=== PATIENT | female | born 1950 | race Caucasian/White ===

== ENCOUNTER 2019-06-09 12:58 | Emergency (ER) | payer MEDICAID, MEDICARE ==
[2019-06-09] MEDS ORDERED: Acetaminophen 500 MG Tab PO ONE (13:19)
--- NOTE | 2019-06-09 13:26 | EDM.PDOC ---
ED HPI GENERAL MEDICAL PROBLEM - General Chief Complaint: General Stated Complaint: FALL VIA NORTH Time Seen by Provider: 06/09/19 13:10 Source of Information: Reports: Patient, Old Records History Limitations: Reports: No Limitations - History of Present Illness INITIAL COMMENTS - FREE TEXT/NARRATIVE: 68 yo female presents via EMS after a fall in her apartment. Has COPD and uses a walker at home. Today she was just standing up with her walker and fell backwards injuring her R shoulder and hitting the R occiput. She experienced no LOC. Has some local tenderness. No LAMBERT or nausea and no neck pain. States her BP runs around 100 systolic normally. Onset: Today Onset Date: 06/09/19 Duration: Minutes:, Constant Location: Reports: Head, Upper Extremity, Right Quality: Reports: Ache Severity: Moderate (shoulder) Improves with: Reports: Rest Worsens with: Reports: Movement (of R shoulder) Context: Reports: Trauma Associated Symptoms: Reports: No Other Symptoms Treatments LAND CHECKER: Reports: Other (see below) (none) Head Pain Score (Numeric/FACES): 8 - Related Data Allergies Allergy/AdvReac Type Severity Reaction Status Date / Time levofloxacin [From Levaquin] Allergy Cannot Verified 06/09/19 13:26 Remember triamterene-hctz Allergy Cannot Uncoded 06/09/19 13:28 Remember ED ROS GENERAL - Review of Systems Review Of Systems: See Below Constitutional: Reports: No Symptoms HEENT: Reports: Other (R occiput scalp tenderness) Respiratory: Reports: No Symptoms Cardiovascular: Reports: No Symptoms GI/Abdominal: Reports: No Symptoms Musculoskeletal: Reports: Shoulder Pain (right) Skin: Reports: No Symptoms Neurological: Reports: No Symptoms, Difficulty Walking (chronic). Denies: Confusion, Dizziness, Headache, Numbness ED EXAM, GENERAL - Physical Exam Exam: See Below Exam Limited By: No Limitations General Appearance: Alert, WD/WN, No Apparent Distress Eye Exam: Bilateral Eye: Normal Inspection Ears: Normal External Exam, Normal Canal, Hearing Grossly Normal, Normal TMs Ear Exam: Bilateral Ear: Auricle Normal, Canal Normal, TM normal Nose: Normal Inspection, No Blood Throat/Mouth: Normal Inspection, Normal Lips, Normal Oropharynx, Normal Voice, No Airway Compromise Head: Atraumatic, Normocephalic Neck: Normal Inspection Respiratory/Chest: No Respiratory Distress, Lungs Clear, No Accessory Muscle Use , Decreased Breath Sounds (bilat consistent with her chronic lung dz) Cardiovascular: Regular Rate, Rhythm, No Edema GI/Abdominal: Normal Bowel Sounds, Soft, Non-Tender, No Distention Extremities: Other (Is able to fully abduct at the R shoulder). No: Limited Range of Motion Neurological: Alert, Oriented, CN II-XII Intact, Normal Cognition, No Motor/ Sensory Deficits Psychiatric: Normal Affect, Normal Mood Skin Exam: Warm, Dry, Intact, Normal Color, No Rash Course - Vital Signs Last Recorded V/S: Last Vital Signs Temp 36.6 C 06/09/19 13:03 Pulse 81 06/09/19 13:16 Resp 16 06/09/19 13:16 BP 141/65 H 06/09/19 13:16 Pulse Ox 81 L 06/09/19 13:16 Orthostatic Blood Pressure [ 89/62 Standing] Orthostatic Blood Pressure [ 75/46 Sitting] Orthostatic Blood Pressure [ 89/55 Supine] - Orders/Labs/Meds Orders: Active Orders 24 hr Category Date Time Status Clavicle Rt [CR] Stat Exams 06/09/19 13:19 Ordered Shoulder Comp Rt [CR] Stat Exams 06/09/19 13:19 Ordered Meds: Medications Discontinued Medications Generic Name Dose Route Start Last Admin Trade Name Freq PRN Reason Stop Dose Admin Acetaminophen 1,000 mg 06/09/19 13:19 06/09/19 13:31 Tylenol Extra Strength PO 06/09/19 13:20 1,000 mg ONETIME ONE Administration - Radiology Interpretation Free Text/Narrative:: R shoulder and clavicle X-rays-neg Departure - Departure Time of Disposition: 14:25 Disposition: Home, Self-Care 01 Condition: Good Clinical Impression: Contusion of right shoulder Qualifiers: Encounter type: initial encounter Qualified Code(s): S40.011A - Contusion of right shoulder, initial encounter Scalp contusion Qualifiers: Encounter type: initial encounter Qualified Code(s): S00.03XA - Contusion of scalp, initial encounter - Discharge Information *PRESCRIPTION DRUG MONITORING PROGRAM REVIEWED*: No *COPY OF PRESCRIPTION DRUG MONITORING REPORT IN PATIENT DEMIAN: No Referrals: PCP,None [Primary Care Provider] - Forms: ED Department Discharge Additional Instructions: Acetaminophen as needed for pain relief. Recheck with your provider as needed. - My Orders Last 24 Hours: My Active Orders 06/09/19 13:19 Clavicle Rt [CR] Stat Shoulder Comp Rt [CR] Stat - Assessment/Plan Last 24 Hours: My Active Orders 06/09/19 13:19 Clavicle Rt [CR] Stat Shoulder Comp Rt [CR] Stat
--- NOTE | 2019-06-09 14:48 | CRLCR ---
HISTORY: Shoulder pain after injury. FINDINGS: Three views of the right shoulder are provided. There is a superior soft tissue defect which may be secondary to a strap in this region. No definite findings for fracture or dislocation. No arthritic change is noted. IMPRESSION: Negative study for fracture. If there is concern for fracture in the region of the distal clavicle, consider removal of clothing in this region and additional AP view. Dictated by Devan Prater MD @ Jun 09 2019 2:48PM Signed by Dr. Devan Prater @ Jun 09 2019 2:48PM
--- NOTE | 2019-06-09 14:57 | CRLCR ---
HISTORY: Pain after falling injury. FINDINGS: Two views of the right clavicle are provided. Superior soft tissue defect is noted distally presumably due to a strap. This results in areas of variable density superior to the clavicle but a definite fracture line within the clavicle is not identified. No findings for dislocation. If there is high index of suspicion for fracture in the region of the distal clavicle, consider repeat imaging with removal of the patient`s clothing in this region. Dictated by Devan Prater MD @ Jun 09 2019 2:55PM Signed by Dr. Devan Prater @ Jun 09 2019 2:55PM
== END 2019-06-09 14:30 | disposition home or self-care (01) ==
LOC: JP.ED 12:58
DX: S40.011A Contusion of right shoulder, initial encounter (principal); S00.03XA Contusion of scalp, initial encounter; Z88.8 Allergy status to other drugs, medicaments and biological substances; W19.XXXA Unspecified fall, initial encounter; W22.8XXA Striking against or struck by other objects, initial encounter
CPT/HCPCS: 73000; 73030; 99282; 99283; A9270

== ENCOUNTER 2020-01-16 11:20 | Inpatient (IN) | payer MEDICARE, MEDICAID ==
--- NOTE | 2020-01-16 14:54 | EDM.PDOC ---
ED HPI GENERAL MEDICAL PROBLEM - General Chief Complaint: General Stated Complaint: MEDICAL VIA NORTH Time Seen by Provider: 01/16/20 13:53 Source of Information: Reports: Patient History Limitations: Reports: No Limitations - History of Present Illness INITIAL COMMENTS - FREE TEXT/NARRATIVE: This is a 69 yo female who presents after a fall at home this morning. She was trying to get out of bed when she was unable to get her footing on the floor. She slid to the ground. No head strike. She estimates she was on the ground for a few minutes until meals on wheels discovered her on the ground. She reports global weakness that prevented her from standing up. No other recent falls. No fevers or chills. No pain. No urinary symptoms. Left Upper Arm Pain Score (Numeric/FACES): 1 - Related Data Allergies Allergy/AdvReac Type Severity Reaction Status Date / Time hydrochlorothiazide Allergy Cannot Verified 01/16/20 16:42 Remember levofloxacin [From Levaquin] Allergy Cannot Verified 01/16/20 11:28 Remember triamterene Allergy Cannot Verified 01/16/20 16:42 Remember Home Meds: Home Meds ALPRAZolam [Alprazolam] 1 tab PO BID PRN 06/09/19 [History] ARIPiprazole [Abilify] 10 mg PO DAILY 06/09/19 [History] Acetaminophen 1 tab PO Q6H PRN 06/09/19 [History] Albuterol Sulfate [Proair Hfa] 2 puff IH Q4H 06/09/19 [History] Budesonide/Formoterol [Symbicort 80-4.5 MCG] 2 puff INH BID 06/09/19 [History] Cholecalciferol (Vitamin D3) [Decara] 50,000 unit PO ASDIRECTED 06/09/19 [History] Fluticasone/Salmeterol [Advair 100-50] 2 puff INH BID 06/09/19 [History] Ibuprofen [Motrin] 800 mg PO QID PRN 06/09/19 [History] Ipratropium/Albuterol Sulfate [Iprat-Albut 0.5-3(2.5) MG/3 ML] 3 ml IH ASDIRECTED 06/09/19 [History] Letrozole [Femara] 2.5 mg PO DAILY 06/09/19 [History] Losartan/Hydrochlorothiazide [Hyzaar 100-25 Tablet] 1 tab PO DAILY 06/09/19 [History] Nortriptyline HCl [Pamelor] 50 mg PO DAILY 06/09/19 [History] Oxybutynin 5 mg PO TID 06/09/19 [History] Pantoprazole Sodium [Protonix] 40 mg PO DAILY 06/09/19 [History] Pravastatin Sodium [Pravastatin (Pravachol)] 20 mg PO BEDTIME 06/09/19 [History] Tiotropium [place] [Spiriva Respimat] 2 puff IH DAILY 06/09/19 [History] Venlafaxine HCl [Venlafaxine ER] 150 mg PO DAILY 06/09/19 [History] amLODIPine Besylate [Norvasc] 10 mg PO DAILY 06/09/19 [History] traZODone 200 mg PO BEDTIME 06/09/19 [History] Aspirin [Halfprin] 81 mg PO DAILY 01/16/20 [History] Past Medical History HEENT History: Reports: Other (See Below) Other HEENT History: 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 Cardiovascular History: Reports: Hypertension, Syncope, Other (See Below) Other Cardiovascular History: orthostatic hypotension sinus rickie Respiratory History: Reports: Bronchitis, Recurrent, COPD, Other (See Below) Other Respiratory History: hypoxemia Gastrointestinal History: Reports: Cirrhosis, Other (See Below) Other Gastrointestinal History: pancreas cyst hepititis C resolved 2016 [employer] History: Reports: Musculoskeletal History: Reports: Arthritis, Other (See Below) Other Musculoskeletal History: l shoulder dislocation fx medial malleolus osteopenia Frequent falls Psychiatric History: Reports: Addiction, Anxiety, Depression, Suicide Attempt, Other (See Below) Other Psychiatric History: alcoholic dependence in remission Endocrine/Metabolic History: Reports: Vitamin D Deficiency, Other (See Below) Other Endocrine/Metabolic History: thrombocytenia Oncologic (Cancer) History: Reports: Breast - Infectious Disease History Infectious Disease History: Reports: Chicken Pox, Measles, Mumps - Past Surgical History HEENT Surgical History: Reports: Other (See Below) Other HEENT Surgeries/Procedures: retinal detachment surgery GI Surgical History: Reports: Colonoscopy Female Surgical History: Reports: Other (See Below) Other Female Surgeries/Procedures: breast CA lympectomy l breast Social & Family History - Tobacco Use Smoking Status *Q: Former Smoker Used Tobacco, but Quit: Yes Month/Year Tobacco Last Used: years - Caffeine Use Caffeine Use: Reports: Coffee Caffeine Use Comment: none for 2 weeks - Recreational Drug Use Recreational Drug Use: No ED ROS GENERAL - Review of Systems Review Of Systems: See Below Constitutional: Reports: Weakness HEENT: Reports: No Symptoms Respiratory: Reports: No Symptoms Cardiovascular: Reports: No Symptoms Endocrine: Reports: No Symptoms GI/Abdominal: Reports: No Symptoms : Reports: No Symptoms Musculoskeletal: Reports: No Symptoms Skin: Reports: No Symptoms Neurological: Reports: No Symptoms Psychiatric: Reports: No Symptoms Hematologic/Lymphatic: Reports: No Symptoms Immunologic: Reports: No Symptoms ED EXAM, GENERAL - Physical Exam Exam: See Below Exam Limited By: No Limitations General Appearance: Alert, No Apparent Distress Ears: Normal External Exam Nose: Normal Inspection Throat/Mouth: Normal Inspection Head: Atraumatic, Normocephalic Neck: Full Range of Motion Respiratory/Chest: Lungs Clear Cardiovascular: Regular Rate, Rhythm GI/Abdominal: Soft, Non-Tender Back Exam: Normal Inspection Extremities: Normal Inspection Neurological: Alert, Oriented, Other (moving all extremities, following commands, provides history.) Psychiatric: Normal Affect, Normal Mood Skin Exam: Warm, Dry Course - Vital Signs Last Recorded V/S: Last Vital Signs Temp 37.7 C 01/16/20 11:32 Pulse 110 H 01/16/20 17:52 Resp 20 01/16/20 17:52 BP 160/89 H 01/16/20 17:52 Pulse Ox 90 L 01/16/20 17:52 - Orders/Labs/Meds Orders: Active Orders 24 hr Category Date Time Status CXR [Chest 2V] [CR] Stat Exams 01/16/20 16:11 Taken UA W/MICROSCOPIC [URIN] Stat Lab 01/16/20 16:51 Ordered Labs: Laboratory Tests 01/16/20 01/16/20 Range/Units 13:59 13:59 WBC 10.9 (4.5-11.0) K/uL RBC 5.14 (3.30-5.50) M/uL Hgb 15.1 H (12.0-15.0) g/dL Hct 47.8 (36.0-48.0) % MCV 93 (80-98) fL MCH 29 (27-31) pg MCHC 32 (32-36) % Plt Count 145 L (150-400) K/uL Sodium 140 (140-148) mmol/L Potassium 3.9 (3.6-5.2) mmol/L Chloride 100 (100-108) mmol/L Carbon Dioxide 33 H (21-32) mmol/L Anion Gap 10.9 (5.0-14.0) mmol/L BUN 29 H (7-18) mg/dL Creatinine 1.3 H (0.6-1.0) mg/dL Est Cr Clr Drug Dosing 41.78 mL/min Estimated GFR (MDRD) 41 L (>60) Glucose 111 H (74-106) mg/dL Calcium 9.1 (8.5-10.1) mg/dL Creatine Kinase 1141 H (26-192) U/L - Re-Assessments/Exams Free Text/Narrative Re-Assessment/Exam: 69 yo presents after fall at home with generalized weakness. Fall sounds to be mechanical in nature. She was noted to be hypoxic in the 80s - she is supposed to have home O2 which she has not been wearing. Elected to perform screening labs, CK is mildly elevated with mild elevation of Cr but unknown baseline. We attempted an ambulatory trial and the patient is unable to transfer on her own - not safe to be at home. Precipitant unclear - UA pending. Electing to perform CT head. She will need to be admitted. 01/16/20 15:04 6 Departure - Departure Time of Disposition: 15:00 Disposition: Admitted As Inpatient 67 Clinical Impression: Fall Qualifiers: Encounter type: initial encounter Qualified Code(s): W19.XXXA - Unspecified fall, initial encounter Rhabdomyolysis Qualifiers: Rhabdomyolysis type: traumatic Encounter type: initial encounter Qualified Code(s): T79.6XXA - Traumatic ischemia of muscle, initial encounter - Discharge Information Sepsis Event Note (ED) - Evaluation Sepsis Screening Result: No Definite Risk - Focused Exam Vital Signs: Vital Signs Temp Pulse Resp BP Pulse Ox 01/16/20 11:32 37.7 C 98 18 125/62 86 L 01/16/20 11:27 37.7 C 98 18 125/62 86 L - My Orders Last 24 Hours: My Active Orders 01/16/20 16:11 CXR [Chest 2V] [CR] Stat - Assessment/Plan Last 24 Hours: My Active Orders 01/16/20 16:11 CXR [Chest 2V] [CR] Stat
--- NOTE | 2020-01-16 16:11 | CRLCT ---
INDICATION: gait instability CT HEAD WITHOUT CONTRAST TECHNIQUE: Multiple axial CT images were performed through the head without intravenous contrast administration. COMPARISON: No previous studies are currently available for comparison. FINDINGS: No acute intracranial hemorrhage is identified. No extra-axial collections are evident and there is no mass effect or midline shift. There is mild diffuse age-related brain atrophy. Ventricular size and configuration are within normal limits for the patient`s age. Hawk-white differentiation is within normal limits. There is patchy hypodensity in the periventricular white matter, a nonspecific finding which most likely reflects chronic small vessel ischemic change. Intracranial atherosclerotic vascular calcifications are noted. There are postoperative changes of the right globe. Osseous structures are within normal limits and no fractures are seen. Included portions of the paranasal sinuses and mastoid air cells are normally aerated. IMPRESSION: 1. No acute intracranial abnormality identified. 2. Mild age-related brain atrophy, white matter hypodensity consistent with chronic small vessel ischemic change, and intracranial atherosclerotic vascular calcifications. ROCAEL STEEL MD [facility] Dictated by: Silver Steel MD @ 01/16/2020 16:09:42 (Electronically Signed)
--- NOTE | 2020-01-16 17:06 | PCM.HP.2 ---
H&P History of Present Illness - General Date of Service: 01/16/20 Admit Problem/Dx: Admission Diagnosis/Problem Admission Diagnosis/Problem Rhabdomyolysis Source of Information: Patient, Provider History Limitations: Reports: No Limitations - History of Present Illness Initial Comments - Free Text/Narative: CC: I was feeling pretty bad HPI: Miriam presented to the emergency room by ambulance today after a [employer] son found her laying on the floor. She reports that she became so weak that she slid to the ground sometime last night, perhaps 7 or 8 hours prior to being found. She has been getting more and more weak over the past several days. She reports that she had been doing well while receiving home physical therapy but after this ended just over a week ago she quit exercising and has gone downhill fairly quickly. She is complaining of mild to moderate left lateral thigh and knee pain from laying on the ground overnight. This does not radiate. It is worse with any sort of movement or pressure. She has not taken anything to make it feel better. Pain has been steady. She does report some chills but has not had any fevers or sweats. Her appetite has been good. No complaints of abdominal pain or nausea. Bowels have been moving normally. She does feel short of breath but reports this is chronic and essentially unchanged. No cough. No change in bladder habits that she is aware of. Work-up in the emergency room was fairly unremarkable with the exception of a CK level of 1100 and hypoxia that did respond well to supplemental oxygen. She has a history of oxygen dependent COPD but has not been using her oxygen for several months. She is extremely weak. She will be admitted for management of rhabdomyolysis and physical therapy for her weakness. Left Upper Arm Pain Score (Numeric/FACES): 1 - Related Data Allergies/Adverse Reactions: Allergies Allergy/AdvReac Type Severity Reaction Status Date / Time hydrochlorothiazide Allergy Cannot Verified 01/16/20 16:42 Remember levofloxacin [From Levaquin] Allergy Cannot Verified 01/16/20 11:28 Remember triamterene Allergy Cannot Verified 01/16/20 16:42 Remember Home Medications: Home Meds ALPRAZolam [Alprazolam] 1 tab PO BID PRN 06/09/19 [History] ARIPiprazole [Abilify] 10 mg PO DAILY 06/09/19 [History] Acetaminophen 1 tab PO Q6H PRN 06/09/19 [History] Albuterol Sulfate [Proair Hfa] 2 puff IH Q4H 06/09/19 [History] Budesonide/Formoterol [Symbicort 80-4.5 MCG] 2 puff INH BID 06/09/19 [History] Cholecalciferol (Vitamin D3) [Decara] 50,000 unit PO ASDIRECTED 06/09/19 [History] Fluticasone/Salmeterol [Advair 100-50] 2 puff INH BID 06/09/19 [History] Ibuprofen [Motrin] 800 mg PO QID PRN 06/09/19 [History] Ipratropium/Albuterol Sulfate [Iprat-Albut 0.5-3(2.5) MG/3 ML] 3 ml IH ASDIRECTED 06/09/19 [History] Letrozole [Femara] 2.5 mg PO DAILY 06/09/19 [History] Losartan/Hydrochlorothiazide [Hyzaar 100-25 Tablet] 1 tab PO DAILY 06/09/19 [History] Nortriptyline HCl [Pamelor] 50 mg PO DAILY 06/09/19 [History] Oxybutynin 5 mg PO TID 06/09/19 [History] Pantoprazole Sodium [Protonix] 40 mg PO DAILY 06/09/19 [History] Pravastatin Sodium [Pravastatin (Pravachol)] 20 mg PO BEDTIME 06/09/19 [History] Tiotropium [place] [Spiriva Respimat] 2 puff IH DAILY 06/09/19 [History] Venlafaxine HCl [Venlafaxine ER] 150 mg PO DAILY 06/09/19 [History] amLODIPine Besylate [Norvasc] 10 mg PO DAILY 06/09/19 [History] traZODone 200 mg PO BEDTIME 06/09/19 [History] Aspirin [Halfprin] 81 mg PO DAILY 01/16/20 [History] Past Medical History HEENT History: Reports: Other (See Below) Other HEENT History: 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 Cardiovascular History: Reports: Hypertension, Syncope, Other (See Below) Other Cardiovascular History: orthostatic hypotension sinus rickie Respiratory History: Reports: Bronchitis, Recurrent, COPD, Other (See Below) Other Respiratory History: hypoxemia Gastrointestinal History: Reports: Cirrhosis, Other (See Below) Other Gastrointestinal History: pancreas cyst hepititis C resolved 2016 [employer] History: Reports: Musculoskeletal History: Reports: Arthritis, Other (See Below) Other Musculoskeletal History: l shoulder dislocation fx medial malleolus osteopenia Frequent falls Psychiatric History: Reports: Addiction, Anxiety, Depression, Suicide Attempt, Other (See Below) Other Psychiatric History: alcoholic dependence in remission Endocrine/Metabolic History: Reports: Vitamin D Deficiency, Other (See Below) Other Endocrine/Metabolic History: thrombocytenia Oncologic (Cancer) History: Reports: Breast - Infectious Disease History Infectious Disease History: Reports: Chicken Pox, Measles, Mumps - Past Surgical History HEENT Surgical History: Reports: Other (See Below) Other HEENT Surgeries/Procedures: retinal detachment surgery GI Surgical History: Reports: Colonoscopy Female Surgical History: Reports: Other (See Below) Other Female Surgeries/Procedures: breast CA lympectomy l breast Social & Family History - Family History Cardiac: Denies: CAD - Tobacco Use Smoking Status *Q: Former Smoker Used Tobacco, but Quit: Yes Month/Year Tobacco Last Used: years - Caffeine Use Caffeine Use: Reports: Coffee Caffeine Use Comment: none for 2 weeks - Alcohol Use Alcohol Use History: Yes Alcohol Use in Last Twelve Months: No Alcohol Use Comment: quit in 2018 per report - Recreational Drug Use Recreational Drug Use: No H&P Review of Systems - Review of Systems: Review Of Systems: See Below Free Text/Narrative: A complete 12 point review of systems was obtained. Pertinent positives and negatives are noted in the history of present illness. All other systems were reviewed and were negative except as noted. Exam - Exam Exam: See Below - Vital Signs Vital Signs: Last Vital Signs Temp 37.7 C 01/16/20 11:32 Pulse 98 01/16/20 11:32 Resp 18 01/16/20 11:32 BP 125/62 01/16/20 11:32 Pulse Ox 86 L 01/16/20 11:32 Weight: 107.048 kg - Exam Quality Assessment: Supplemental Oxygen General: Alert, Oriented, Cooperative, Lethargic. No: Mild Distress HEENT: Conjunctiva Clear. No: Mucosa Moist & [place] (dry), Scleral Icterus Neck: Supple, Trachea Midline. No: Lymphadenopathy Lungs: Clear to Auscultation, Normal Respiratory Effort Cardiovascular: Regular Rhythm, Tachycardia. No: Systolic Murmur GI/Abdominal Exam: Normal Bowel Sounds, Soft, Non-Tender, No Distention Extremities: No Pedal Edema. No: Increased Warmth Peripheral Pulses: 2+: Dorsalis Pedis (L), Dorsalis Pedis (R) Skin: Warm, Dry, Ecchymosis (right forearm ) Neuro Extensive - Mental Status: Alert, Nl Response to Commands Neuro Extensive - Motor, Sensory, Reflexes: Tremor (hands and arms ), Other (tongue fasciculations ). No: Dysarthria Psychiatric: Alert, Normal Affect. No: Agitated - Patient Data Lab Results Last 24 hrs: Laboratory Results - last 24 hr 01/16/20 01/16/20 Range/Units 13:59 13:59 WBC 10.9 (4.5-11.0) K/uL RBC 5.14 (3.30-5.50) M/uL Hgb 15.1 H (12.0-15.0) g/dL Hct 47.8 (36.0-48.0) % MCV 93 (80-98) fL MCH 29 (27-31) pg MCHC 32 (32-36) % Plt Count 145 L (150-400) K/uL Sodium 140 (140-148) mmol/L Potassium 3.9 (3.6-5.2) mmol/L Chloride 100 (100-108) mmol/L Carbon Dioxide 33 H (21-32) mmol/L Anion Gap 10.9 (5.0-14.0) mmol/L BUN 29 H (7-18) mg/dL Creatinine 1.3 H (0.6-1.0) mg/dL Est Cr Clr Drug Dosing 41.78 mL/min Estimated GFR (MDRD) 41 L (>60) Glucose 111 H (74-106) mg/dL Calcium 9.1 (8.5-10.1) mg/dL Creatine Kinase 1141 H (26-192) U/L Result Diagrams: 01/16/20 13:59 01/16/20 13:59 Imaging Impressions Last 24 hrs: CXR-images personally reviewed-lungs are clear with no mass, infiltrate or effusion. Head CT-images personally reviewed-no evidence for mass, bleed or acute pathology Sepsis Event Note - Evaluation Sepsis Screening Result: No Definite Risk - Focused Exam Vital Signs: Vital Signs Temp Pulse Resp BP Pulse Ox 01/16/20 11:32 37.7 C 98 18 125/62 86 L 01/16/20 11:27 37.7 C 98 18 125/62 86 L Date Exam was Performed: 01/16/20 Time Exam was Performed: 18:18 *Q Meaningful Use (ADM) - VTE Risk Assess *Q Each Risk Factor Represents 1 Point: Abnormal Pulmonary Function (COPD) Total Score 1 Point Risk Factors: 1 Each Risk Factor Represents 2 Points: Age 60 - 74 Years, Malignancy (present or previous) Total Score 2 Point Risk Factors: 4 Each Risk Factor Represents 3 Points: None Total Score 3 Point Risk Factors: 0 Each Risk Factor Represents 5 Points: None Total Score 5 Point Risk Factors: 0 Venous Thromboembolism Risk Factor Score *Q: 5 - Problem List (1) Traumatic rhabdomyolysis SNOMED Code(s): 821173807 ICD Code: T79.6XXA - TRAUMATIC ISCHEMIA OF MUSCLE, INITIAL ENCOUNTER Status: Acute Current Visit: Yes Qualifiers: Encounter type: initial encounter Qualified Code(s): T79.6XXA - Traumatic ischemia of muscle, initial encounter (2) Generalized weakness SNOMED Code(s): 58924109 ICD Code: R53.1 - WEAKNESS Status: Acute Current Visit: Yes (3) COPD (chronic obstructive pulmonary disease) SNOMED Code(s): 47043127 ICD Code: J44.9 - CHRONIC OBSTRUCTIVE PULMONARY DISEASE, UNSPECIFIED Status: Chronic Current Visit: Yes Qualifiers: COPD type: unspecified COPD Qualified Code(s): J44.9 - Chronic obstructive pulmonary disease, unspecified (4) Chronic respiratory failure with hypoxia Status: Chronic Current Visit: Yes Problem List Initiated/Reviewed/Updated: Yes Orders Last 24hrs: Active Orders 24 hr Category Date Time Status Patient Status Manage Transfer [TRANSFER] Routine ADT 01/16/20 16:52 Ordered CXR [Chest 2V] [CR] Stat Exams 01/16/20 16:11 Taken UA W/MICROSCOPIC [URIN] Stat Lab 01/16/20 16:51 Ordered Resuscitation Status Routine Resus Stat 01/16/20 16:55 Ordered Assessment/Plan Comment:: ASSESSMENT AND PLAN - Traumatic rhabdomyolysis-weakness led to the patient laying on the floor for multiple hours. Mild to moderate pain in the left leg and mild elevation of CK level. She is dehydrated and has borderline acute kidney injury. She is too weak to be safe for outpatient management. -Aggressive IV fluids -Pain control -Repeat CK level in the morning Generalized weakness-probably multifactorial with deconditioning and potentially an underlying infection though none has been identified as of yet. Urinalysis is still pending. -Follow-up UA -Management as above -Physical therapy -Hold nortriptyline and trazodone COPD-chronically oxygen dependent but has not had her oxygen in some time. This certainly could be contributing to her difficulties above. Shortness of breath does improve with supplemental oxygen. -Supplement oxygen as needed, anticipate discharge home with home oxygen Maintenance issues - - DVT prophylaxis -mechanical - GI prophylaxis -PPI - Nutrition -regular - Carreno catheter -not indicated CODE STATUS -full code Admission justification -this patient will be admitted for inpatient services and is medically appropriate meeting medical necessity for inpatient admission as outlined in my documentation. I reasonably expect the patient will require inpatient services that span a period time over 2 midnights. I reasonably expect this patient to be discharged or transferred within 96 hours [facility]. Disposition -I would anticipate discharge home after the hospital stay, possibly with home health Primary care physician -Dr. Dipti Torres M.D. - Mortality Measure Prognosis:: Good
[2020-01-16] MEDS ORDERED: oxyCODONE 5 MG Tab PO PRN (19:18)
[2020-01-16] MEDS ORDERED: Ondansetron 4 MG/2 ML SDV IV PRN (19:18)
[2020-01-16] MEDS ORDERED: Albuterol 0.083% 2.5 MG/3 ML Neb Soln NEB PRN (19:18)
[2020-01-16] MEDS ORDERED: Ondansetron 4 MG Tab.DIS PO PRN (19:18)
[2020-01-16] MEDS ORDERED: Magnesium Hydroxide 400 MG/5 ML Susp 30 ML Cup PO PRN (19:18)
[2020-01-16] MEDS ORDERED: Sodium Chloride 0.9% 1,000 ML IV ONE (19:18)
[2020-01-16] MEDS ORDERED: LORazepam 2 MG/ML SDV IVPUSH PRN (19:18)
[2020-01-16] MEDS: Acetaminophen 325 MG Tab PO PRN (20:05)
[2020-01-16] MEDS ORDERED: Fluticasone-Salmeterol 55-14 MCG Powder Inhalent INH SCH (21:00)
[2020-01-16] MEDS ORDERED: Venlafaxine 75 MG Cap.ER PO SCH (21:00)
[2020-01-16] MEDS ORDERED: Fluticasone-Salmeterol 113-14 MCG Powder Inhalant INH SCH (21:00)
[2020-01-16] MEDS: Sodium Chloride 0.9% 1,000 ML IV SCH (22:06)
[2020-01-16] MEDS: Pravastatin 20 MG Tab PO SCH (22:16)
[2020-01-16] MEDS: Oxybutynin 5 MG Tab PO SCH (22:16)
[2020-01-16] MEDS ORDERED: Nystatin Topical Powder 15 GM Bottle TOP PRN (22:37)
[2020-01-17] MEDS: Melatonin 3 MG Tab PO SCH ×2 (02:08→23:50)
[2020-01-17] MEDS: Albuterol/Ipratropium 3.0-0.5 MG/3 ML Neb Soln NEB SCH ×6 (02:08→20:55)
[2020-01-17] MEDS: Sodium Chloride 0.9% 1,000 ML IV SCH ×2 (05:42→14:52)
[2020-01-17] MEDS: Acetaminophen 325 MG Tab PO PRN ×3 (06:39→23:57)
[2020-01-17] MEDS: Ibuprofen 600 MG Tab PO PRN ×2 (07:25→20:04)
[2020-01-17] MEDS ORDERED: Sodium Chloride 0.9% 1,000 ML IV ONE ×2 (07:29→21:46)
[2020-01-17] MEDS: Piperacillin/Tazobactam/Dext 3.375 GM in Premix Bag 1 BAG IV SCH ×3 (07:42→19:18)
[2020-01-17] MEDS: ARIPiprazole 10 MG Tab PO SCH (08:37)
[2020-01-17] MEDS: Aspirin 81 MG Tab.EC PO SCH (08:37)
[2020-01-17] MEDS: Venlafaxine 75 MG Cap.ER PO SCH (08:55)
[2020-01-17] MEDS: Oxybutynin 5 MG Tab PO SCH ×3 (08:55→22:17)
[2020-01-17] MEDS: Pantoprazole 40 MG Tab.CR PO SCH (08:55)
[2020-01-17] MEDS ORDERED: amLODIPine 10 MG Tab PO SCH (09:00)
[2020-01-17] MEDS ORDERED: Hydrochlorothiazide 25 MG Tab PO SCH (09:00)
[2020-01-17] MEDS ORDERED: Losartan 50 MG Tab PO SCH (09:00)
--- NOTE | 2020-01-17 09:06 | CR ---
CHEST: 2 view CLINICAL HISTORY:Hypoxia COMPARISON:None FINDINGS: There is moderate motion on the lateral film. There is less than optimal inspiration which exaggerates the heart size and lung markings. There appears to be mild cardiomegaly. Pulmonary vascularity is mildly cephalized. This is exaggerated by patient body habitus. No infiltrates are seen. There are no effusions. There are atherosclerotic changes in the aorta.. Impression: Limited study due to body habitus and inspiration Mild cardiomegaly with mild vascular cephalization. This may be exaggerated.
--- NOTE | 2020-01-17 09:39 | CR ---
CHEST: Portable 01/17/2020 at 8:45 AM CLINICAL HISTORY:Hypoxia, fever COMPARISON:01/16/2020 FINDINGS: Heart is enlarged. Pulmonary vascularity is normal. There is some chronic elevation of the right hemidiaphragm. There is patchy density in the left lower lobe. There are atherosclerotic changes in the aorta. Impression: Limited study Cardiomegaly Patchy left lower lobe density is suspect for pneumonic infiltrate considering the patient's history of fever.
[2020-01-17] MEDS ORDERED: Sodium Chloride 0.9% 1,000 ML IV SCH (15:30)
--- NOTE | 2020-01-17 16:38 | PCM.PN ---
- General Info Date of Service: 01/17/20 Subjective Update: The patient did have a fever last night and then again this morning. The fever this morning was associated with Reiger's and tachycardia. She was fairly lethargic. She has received a fluid bolus and her heart rate is coming down. Temperature is coming down after acetaminophen and ibuprofen. Chest x-ray was clear. Urinalysis suggestive of infection. Patient is pretty lethargic and does not participate much with questions this morning. CK level has improved. - Review of Systems General: Reports: Fever, Weakness Neurological: Reports: Confusion - Patient Data Vitals - Most Recent: Last Vital Signs Temp 36.4 C 01/17/20 15:00 Pulse 91 01/17/20 15:00 Resp 18 01/17/20 15:00 BP 82/50 L 01/17/20 15:00 Pulse Ox 92 L 01/17/20 15:00 Weight - Most Recent: 107.048 kg I&O - Last 24 Hours: Intake & Output 01/17/20 01/17/20 01/17/20 06:59 14:59 22:59 Intake Total 1410 5232 240 Balance 1410 5232 240 Lab Results Last 24 Hours: Laboratory Results - last 24 hr 01/16/20 01/16/20 01/17/20 Range/Units 19:21 19:21 04:11 WBC 14.8 H (4.5-11.0) K/uL RBC 5.04 (3.30-5.50) M/uL Hgb 14.9 (12.0-15.0) g/dL Hct 46.9 (36.0-48.0) % MCV 93 (80-98) fL MCH 30 (27-31) pg MCHC 32 (32-36) % Plt Count 126 L (150-400) K/uL PT (9.5-12.0) sec INR (0.80-1.20) Sodium (140-148) mmol/L Potassium (3.6-5.2) mmol/L Chloride (100-108) mmol/L Carbon Dioxide (21-32) mmol/L Anion Gap (5.0-14.0) mmol/L BUN (7-18) mg/dL Creatinine (0.6-1.0) mg/dL Est Cr Clr Drug Dosing mL/min Estimated GFR (MDRD) (>60) Glucose (74-106) mg/dL Lactic Acid (0.4-2.0) mmol/L Calcium (8.5-10.1) mg/dL Magnesium (1.8-2.4) mg/dL Ammonia 13 (11-32) mmol/L Creatine Kinase (26-192) U/L C-Reactive Protein 1.87 H (0.0-0.3) mg/dL Urine Color (YELLOW) Urine Appearance (CLEAR) Urine pH (5.0-8.0) Ur Specific [place] (1.008-1.030) Urine Protein (NEGATIVE) mg/dL Urine Glucose (UA) (NEGATIVE) mg/dL Urine Ketones (NEGATIVE) mg/dL Urine Occult Blood (NEGATIVE) Urine Nitrite (NEGATIVE) Urine Bilirubin (NEGATIVE) Urine Urobilinogen (0.2-1.0) EU/dL Ur Leukocyte Esterase (NEGATIVE) Urine RBC (0-5) Urine WBC (0-5) Ur Epithelial Cells Amorphous Sediment Urine Bacteria Urine Mucus 01/17/20 01/17/20 01/17/20 Range/Units 04:11 04:11 08:20 WBC (4.5-11.0) K/uL RBC (3.30-5.50) M/uL Hgb (12.0-15.0) g/dL Hct (36.0-48.0) % MCV (80-98) fL MCH (27-31) pg MCHC (32-36) % Plt Count (150-400) K/uL PT 12.4 H (9.5-12.0) sec INR 1.16 (0.80-1.20) Sodium 141 (140-148) mmol/L Potassium 3.8 (3.6-5.2) mmol/L Chloride 105 (100-108) mmol/L Carbon Dioxide 30 (21-32) mmol/L Anion Gap 6.0 (5.0-14.0) mmol/L BUN 24 H (7-18) mg/dL Creatinine 1.2 H (0.6-1.0) mg/dL Est Cr Clr Drug Dosing 43.63 mL/min Estimated GFR (MDRD) 45 L (>60) Glucose 101 (74-106) mg/dL Lactic Acid 2.1 H (0.4-2.0) mmol/L Calcium 8.5 (8.5-10.1) mg/dL Magnesium 1.4 L (1.8-2.4) mg/dL Ammonia (11-32) mmol/L Creatine Kinase 760 H (26-192) U/L C-Reactive Protein (0.0-0.3) mg/dL Urine Color (YELLOW) Urine Appearance (CLEAR) Urine pH (5.0-8.0) Ur Specific [place] (1.008-1.030) Urine Protein (NEGATIVE) mg/dL Urine Glucose (UA) (NEGATIVE) mg/dL Urine Ketones (NEGATIVE) mg/dL Urine Occult Blood (NEGATIVE) Urine Nitrite (NEGATIVE) Urine Bilirubin (NEGATIVE) Urine Urobilinogen (0.2-1.0) EU/dL Ur Leukocyte Esterase (NEGATIVE) Urine RBC (0-5) Urine WBC (0-5) Ur Epithelial Cells Amorphous Sediment Urine Bacteria Urine Mucus 01/17/20 Range/Units 09:15 WBC (4.5-11.0) K/uL RBC (3.30-5.50) M/uL Hgb (12.0-15.0) g/dL Hct (36.0-48.0) % MCV (80-98) fL MCH (27-31) pg MCHC (32-36) % Plt Count (150-400) K/uL PT (9.5-12.0) sec INR (0.80-1.20) Sodium (140-148) mmol/L Potassium (3.6-5.2) mmol/L Chloride (100-108) mmol/L Carbon Dioxide (21-32) mmol/L Anion Gap (5.0-14.0) mmol/L BUN (7-18) mg/dL Creatinine (0.6-1.0) mg/dL Est Cr Clr Drug Dosing mL/min Estimated GFR (MDRD) (>60) Glucose (74-106) mg/dL Lactic Acid (0.4-2.0) mmol/L Calcium (8.5-10.1) mg/dL Magnesium (1.8-2.4) mg/dL Ammonia (11-32) mmol/L Creatine Kinase (26-192) U/L C-Reactive Protein (0.0-0.3) mg/dL Urine Color Yellow (YELLOW) Urine Appearance Cloudy A (CLEAR) Urine pH 5.5 (5.0-8.0) Ur Specific [place] 1.020 (1.008-1.030) Urine Protein 100 H (NEGATIVE) mg/dL Urine Glucose (UA) 100 H (NEGATIVE) mg/dL Urine Ketones Negative (NEGATIVE) mg/dL Urine Occult Blood Moderate H (NEGATIVE) Urine Nitrite Positive H (NEGATIVE) Urine Bilirubin Small H (NEGATIVE) Urine Urobilinogen 4.0 H (0.2-1.0) EU/dL Ur Leukocyte Esterase Small H (NEGATIVE) Urine RBC 30-40 H (0-5) Urine WBC >100 H (0-5) Ur Epithelial Cells Few Amorphous Sediment Not seen Urine Bacteria Many Urine Mucus Not seen Med Orders - Current: Current Medications Acetaminophen (Tylenol) 650 mg PO Q4H PRN PRN Reason: Pain (Mild 1-3)/fever Last Admin: 01/17/20 06:39 Dose: 650 mg Documented by: Albuterol (Proventil Neb Soln) 2.5 mg NEB Q4H PRN PRN Reason: Shortness Of Breath/wheezing Albuterol/Ipratropium (Duoneb 3.0-0.5 Mg/3 Ml) 3 ml NEB QIDRT [facility] Last Admin: 01/17/20 14:54 Dose: 3 ml Documented by: Alprazolam (Xanax) 0.5 mg PO BID PRN PRN Reason: Anxiety Aripiprazole (Abilify) 10 mg PO DAILY [facility] Last Admin: 01/17/20 08:37 Dose: 10 mg Documented by: Aspirin (Halfprin) 81 mg PO DAILY [facility] Last Admin: 01/17/20 08:37 Dose: 81 mg Documented by: Sodium Chloride (Normal Saline) 1,000 mls @ 125 mls/hr IV ASDIRECTED [facility] Last Admin: 01/17/20 14:52 Dose: 125 mls/hr Documented by: Piperacillin/Tazobactam/ (Dextrose 3.375 gm/ Premix) 50 mls @ 100 mls/hr IV Q6H [facility] Last Admin: 01/17/20 14:17 Dose: 100 mls/hr Documented by: Sodium Chloride (Normal Saline) 1,000 mls @ 500 mls/hr IV ASDIRECTED [facility] Stop: 01/17/20 17:31 Ibuprofen (Motrin) 600 mg PO Q6H PRN PRN Reason: Pain/Fever Last Admin: 01/17/20 07:25 Dose: 600 mg Documented by: Lorazepam (Ativan) 0.5 mg IVPUSH Q4H PRN PRN Reason: Nausea/Vomiting Magnesium Hydroxide (Milk Of Magnesia) 30 ml PO Q12H PRN PRN Reason: Constipation Melatonin (Melatonin) 9 mg PO BEDTIME [facility] Last Admin: 01/17/20 02:08 Dose: Not Given Documented by: Nystatin (Nystop) 0 gm TOP QID PRN PRN Reason: Rash Ondansetron HCl (Zofran) 4 mg IV Q6H PRN PRN Reason: Nausea/Vomiting Ondansetron HCl (Zofran Odt) 4 mg PO Q6H PRN PRN Reason: Nausea able to take PO Oxybutynin Chloride (Oxybutynin) 5 mg PO TID [facility] Last Admin: 01/17/20 14:19 Dose: 5 mg Documented by: Oxycodone HCl (Oxycodone) 5 mg PO Q4H PRN PRN Reason: Pain Pantoprazole Sodium (Protonix) 40 mg PO ACBREAKFAST [facility] Last Admin: 01/17/20 08:55 Dose: 40 mg Documented by: Pravastatin Sodium (Pravachol) 20 mg PO BEDTIME [facility] Last Admin: 01/16/20 22:16 Dose: Not Given Documented by: Fluticasone/Salmeterol (Fluticasone-Salmeterol 55-14 Mcg Powder Inh) 0 puff INH BIDRT [facility] Senna/Docusate Sodium (Senna Plus) 1 tab PO BID PRN PRN Reason: Constipation Venlafaxine HCl (Effexor Xr) 150 mg PO DAILY [facility] Last Admin: 01/17/20 08:55 Dose: 150 mg Documented by: Discontinued Medications Amlodipine Besylate (Norvasc) 10 mg PO DAILY [facility] Last Admin: 01/17/20 08:55 Dose: 10 mg Documented by: Hydrochlorothiazide (Hydrochlorothiazide) 25 mg PO DAILY [facility] Sodium Chloride (Normal Saline) 1,000 mls @ 500 mls/hr IV .BOLUS ONE Stop: 01/16/20 21:17 Last Admin: 01/16/20 20:02 Dose: 500 mls/hr Documented by: Sodium Chloride (Normal Saline) 1,000 mls @ 999 mls/hr IV .BOLUS ONE Stop: 01/17/20 08:29 Last Admin: 01/17/20 07:33 Dose: 999 mls/hr Documented by: Losartan Potassium (Cozaar) 100 mg PO DAILY [facility] Fluticasone/Salmeterol (Fluticasone-Salmeterol 55-14 Mcg Powder Inh) 2 puff INH BID [facility] Last Admin: 01/16/20 22:15 Dose: Not Given Documented by: Fluticasone/Salmeterol (Fluticasone-Salmeterol 113-14 Mcg Powder Inh) 1 puff INH BID [facility] Last Admin: 01/16/20 22:15 Dose: Not Given Documented by: Venlafaxine HCl (Effexor Xr) 150 mg PO BID HELIO - Exam Quality Assessment: Supplemental Oxygen General: Alert, Cooperative, No Acute Distress, Lethargic Lungs: Clear to Auscultation, Normal Respiratory Effort Cardiovascular: Regular Rhythm, Tachycardia GI/Abdominal Exam: Normal Bowel Sounds, Soft, No Distention Extremities: No Pedal Edema. No: Increased Warmth Skin: Warm, Dry Psy/Mental Status: Alert. No: Agitated Sepsis Event Note - Evaluation Sepsis Screening Result: Sepsis Risk - Focused Exam Vital Signs: Vital Signs Temp Temp Pulse Resp BP BP Pulse Ox 01/17/20 15:00 36.4 C 91 18 82/50 L 92 L 01/17/20 14:54 90 01/17/20 11:15 94/58 L 01/17/20 11:01 99 01/17/20 11:00 36.8 C 101 H 18 85/60 L 94 L 01/17/20 08:55 124/70 01/17/20 08:25 99.6 C H 01/17/20 08:19 37.6 C 123 H 92 L 01/17/20 07:57 38.5 C H 92 20 124/70 92 L 01/17/20 07:48 38.7 C H 90 20 89 L 01/17/20 07:34 39.7 C H 147 H 109/66 83 L 01/17/20 07:25 103.7 C H 01/17/20 07:16 120 H 01/17/20 07:09 104.1 C H 01/17/20 06:38 37.9 C Date Exam was Performed: 01/17/20 Time Exam was Performed: 16:35 - Problem List & Annotations (1) Acute cystitis without hematuria SNOMED Code(s): 58704483 Code(s): N30.00 - ACUTE CYSTITIS WITHOUT HEMATURIA Status: Acute Current Visit: Yes (2) Traumatic rhabdomyolysis SNOMED Code(s): 784199351 Code(s): T79.6XXA - TRAUMATIC ISCHEMIA OF MUSCLE, INITIAL ENCOUNTER Status: Acute Current Visit: Yes Qualifiers: Encounter type: initial encounter Qualified Code(s): T79.6XXA - Traumatic ischemia of muscle, initial encounter (3) Generalized weakness SNOMED Code(s): 85952131 Code(s): R53.1 - WEAKNESS Status: Acute Current Visit: Yes (4) COPD (chronic obstructive pulmonary disease) SNOMED Code(s): 42319271 Code(s): J44.9 - CHRONIC OBSTRUCTIVE PULMONARY DISEASE, UNSPECIFIED Status: Chronic Current Visit: Yes Qualifiers: COPD type: unspecified COPD Qualified Code(s): J44.9 - Chronic obstructive pulmonary disease, unspecified (5) Chronic respiratory failure with hypoxia Status: Chronic Current Visit: Yes - Problem List Review Problem List Initiated/Reviewed/Updated: Yes - My Orders Last 24 Hours: My Active Orders 01/16/20 16:55 Resuscitation Status Routine 01/16/20 Dinner Regular Diet [DIET] 01/16/20 19:18 ALPRAZolam [Xanax] 0.5 mg PO BID PRN Acetaminophen [Tylenol] 650 mg PO Q4H PRN Albuterol [Proventil Neb Soln] 2.5 mg NEB Q4H PRN Docusate Sodium/Sennosides [Senna Plus] 1 tab PO BID PRN Ibuprofen [Motrin] 600 mg PO Q6H PRN LORazepam [Ativan] 0.5 mg IVPUSH Q4H PRN Magnesium Hydroxide [Milk of Magnesia] 30 ml PO Q12H PRN Ondansetron [Zofran ODT] 4 mg PO Q6H PRN Ondansetron [Zofran] 4 mg IV Q6H PRN Sodium Chloride 0.9% [Normal Saline] 1,000 ml IV ASDIRECTED oxyCODONE 5 mg PO Q4H PRN 01/16/20 19:18 Patient Status [ADT] Routine Antiembolic Devices [RC] .Routine Cardiac Monitoring [RC] CONTINUOUS Intake and Output [RC] QSHIFT Notify Provider Vital Signs [RC] ASDIRECTED Oxygen Therapy [RC] PRN RT Aerosol Therapy [RC] ASDIRECTED Up With Assistance [RC] ASDIRECTED VTE/DVT Education [RC] Per Unit Routine Vital Signs [RC] Q4H PT Evaluation and Treatment [CONS] Routine Sequential Compression Device [OM.PC] Routine 01/16/20 21:00 Melatonin 9 mg PO BEDTIME Oxybutynin 5 mg PO TID Pravastatin [Pravachol] 20 mg PO BEDTIME 01/16/20 22:00 Albuterol/Ipratropium [DuoNeb 3.0-0.5 MG/3 ML] 3 ml NEB QIDRT 01/17/20 07:28 Blood Culture x2 Reflex Set [OM.PC] Urgent 01/17/20 07:40 CULTURE BLOOD [BC] Stat 01/17/20 07:45 CULTURE BLOOD [BC] Stat 01/17/20 08:00 Piperacillin/Tazobactam/Dext [Zosyn in Dextrose Iso-Osmotic 3.375 GM] 3.375 gm Premix Bag 1 bag IV Q6H 01/17/20 08:30 Insert Carreno Catheter [Insert Urinary Catheter] [OM.PC] Q24H 01/17/20 09:00 ARIPiprazole [Abilify] 10 mg PO DAILY Aspirin [Halfprin] 81 mg PO DAILY Pantoprazole [ProTONIX] 40 mg PO ACBREAKFAST Venlafaxine [Effexor XR] 150 mg PO DAILY 01/17/20 10:13 CULTURE URINE [RM] Routine 01/17/20 15:30 Sodium Chloride 0.9% [Normal Saline] 1,000 ml IV ASDIRECTED 01/17/20 21:00 Fluticasone/Salmeterol [Fluticasone-Salmeterol 55-14 MCG Powder Inh] 0 puff INH BIDRT 01/18/20 05:00 BASIC METABOLIC PANEL,BMP [CHEM] Timed CBC W/O DIFF,HEMOGRAM [HEME] Timed (1) CREATINE KINASE,CK [CHEM] Timed - Plan Plan:: ASSESSMENT AND PLAN - Acute cystitis without hematuria-this was likely the cause for her progressive weakness. We had been unable to obtain a urine sample overnight because of incontinence. After the fever this morning a mini cath was performed and the urinalysis was suggestive of infection. She has received broad-spectrum antibiotic coverage as well as some IV fluids. White count is higher today than yesterday. Blood cultures were also obtained this morning at the time of her fever. -Continue Pip/Tazo -Follow-up urine culture -Continue IV fluids -Follow-up blood cultures Traumatic rhabdomyolysis-weakness led to the patient laying on the floor for multiple hours. CK level has improved but has not normalized. -Aggressive IV fluids -Pain control -Repeat CK level in the morning Generalized weakness-probably multifactorial with deconditioning and underlying infection. -Management as above -Physical therapy -Hold nortriptyline and trazodone until she is more alert COPD-chronically oxygen dependent but has not had her oxygen in some time. This certainly could be contributing to her difficulties above. Shortness of breath does improve with supplemental oxygen. -Supplement oxygen as needed, anticipate discharge home with home oxygen Maintenance issues - - DVT prophylaxis -mechanical - GI prophylaxis -PPI - Nutrition -regular Disposition -I would anticipate discharge home after the hospital stay, possibly with home health Primary care physician -Dr. Dipti Torres M.D.
--- NOTE | 2020-01-17 20:36 | PCM.SN.2 ---
- Free Text/Narrative Note: time: 2029 call from 2 [facility]. requesting recheck S: Mrs. Martin denies any chest pain or shortness of breath, confusion - thinks she is at her apartment and the ambulance is coming. 0: vital signs 103.2-139-38 O2 sat 90% on high flow nasal canula lungs; wheezing noted, diminished breath sounds noted heart: tachy abdomen: non tender ext: SCD, no edema note skin; pale and clammy Lab: reports blood cultures x 2 are positive from earlier lab draw. A: febrile rule out sepsis P: labs: ABG, CBC, BMP, LACTIC ACID, TROPONIN ImaginG: CHEST XRAY PORTABLE consult with Internal Medicine
--- NOTE | 2020-01-17 21:08 | CRLCR ---
Indication: Shortness of breath Technique: Chest 1 view Comparison: Same date at 8:45 a.m. Findings/Impression: Stable cardiomegaly. Normal pulmonary vasculature. No new focal infiltrate, effusion, or pneumothorax. Dictated by Jennifer Fernandez MD @ Jan 17 2020 9:06PM Signed by Dr. Jennifer Fernandez @ Jan 17 2020 9:06PM
[2020-01-17] MEDS ORDERED: methylPREDNISolone Sodium Succinate 125 MG/2 ML SDV IVPUSH ONE (21:51)
[2020-01-17] MEDS: Fluticasone-Salmeterol 55-14 MCG Powder Inhalent INH SCH (22:13)
[2020-01-17] MEDS: Pravastatin 20 MG Tab PO SCH (22:16)
[2020-01-17] MEDS ORDERED: Vancomycin 2 GM in Sodium Chloride 0.9% 500 ML IV ONE (23:00)
[2020-01-17] MEDS ORDERED: Vancomycin 1 GM SDV ONE (23:25)
[2020-01-18] MEDS: Piperacillin/Tazobactam/Dext 3.375 GM in Premix Bag 1 BAG IV SCH ×4 (01:38→19:42)
[2020-01-18] MEDS: methylPREDNISolone Sodium Succinate 125 MG/2 ML SDV IVPUSH SCH ×3 (05:12→21:18)
[2020-01-18] MEDS: Ibuprofen 600 MG Tab PO PRN (05:16)
[2020-01-18] MEDS: Albuterol/Ipratropium 3.0-0.5 MG/3 ML Neb Soln NEB SCH ×4 (07:11→21:14)
[2020-01-18] MEDS: Pantoprazole 40 MG Tab.CR PO SCH (08:38)
[2020-01-18] MEDS: ARIPiprazole 10 MG Tab PO SCH (08:39)
[2020-01-18] MEDS: Oxybutynin 5 MG Tab PO SCH ×3 (08:39→21:15)
[2020-01-18] MEDS: Venlafaxine 75 MG Cap.ER PO SCH (08:39)
[2020-01-18] MEDS: Aspirin 81 MG Tab.EC PO SCH (08:39)
[2020-01-18] MEDS: Fluticasone-Salmeterol 55-14 MCG Powder Inhalent INH SCH ×2 (08:40→21:14)
[2020-01-18] MEDS: Acetaminophen 325 MG Tab PO PRN (08:49)
[2020-01-18] MEDS: Sodium Chloride 0.9% 1,000 ML IV SCH (11:50)
--- NOTE | 2020-01-18 13:17 | PCM.PN ---
- General Info Date of Service: 01/18/20 Subjective Update: Difficulties with fever, apparent hypoxia, lethargy and confusion overnight. Seems to be responding to fluid boluses. She is awake and alert and sitting up eating lunch today. She did require the assist of 2 to get from the bed to the chair just a few feet away. She does not feel short of breath and has not been coughing. No chest pain. No abdominal pain. She feels quite a bit better today. Urine and blood cultures are all growing gram-negative rods. Functional Status: Reports: Pain Controlled, Tolerating Diet - Review of Systems General: Reports: Fever, Weakness Pulmonary: Denies: Shortness of Breath Gastrointestinal: Denies: Abdominal Pain - Patient Data Vitals - Most Recent: Last Vital Signs Temp 36.1 C 01/18/20 11:00 Pulse 92 01/18/20 11:00 Resp 20 01/18/20 06:55 BP 109/47 L 01/18/20 11:00 Pulse Ox 94 L 01/18/20 11:00 Weight - Most Recent: 107.048 kg I&O - Last 24 Hours: Intake & Output 01/17/20 01/18/20 01/18/20 22:59 06:59 14:59 Intake Total 1840 3240 310 Balance 1840 3240 310 Lab Results Last 24 Hours: Laboratory Results - last 24 hr 01/17/20 01/17/20 01/17/20 Range/Units 20:29 20:29 20:29 WBC 9.4 (4.5-11.0) K/uL RBC 4.76 (3.30-5.50) M/uL Hgb 14.1 (12.0-15.0) g/dL Hct 44.7 (36.0-48.0) % POC Hct (36-48) % MCV 94 (80-98) fL MCH 30 (27-31) pg MCHC 32 (32-36) % Plt Count 112 L (150-400) K/uL Neut % (Auto) 92 H (36-66) % Lymph % (Auto) 3 L (24-44) % [place] % (Auto) 4 (2-6) % Eos % (Auto) 0 L (2-4) % Baso % (Auto) 0 (0-1) % Sample Site POC ABG pH (7.35-7.45) POC ABG pCO2 (35-45) mmHG POC ABG pO2 (80-105) mmHg POC ABG HCO3 (22.0-26.0) mmol/L POC ABG Total CO2 (23-27) mmol/L POC ABG O2 Sat (95-98) % POC ABG Base Excess (-2-3) mmol/L Kendell Test O2 Delivery Device POC O2 Flow Rate POC Sodium (140-148) mmol/L Sodium 143 (140-148) mmol/L POC Potassium (3.5-4.9) mmol/L Potassium 3.2 L (3.6-5.2) mmol/L Chloride 108 (100-108) mmol/L Carbon Dioxide 25 (21-32) mmol/L Anion Gap 13.2 (5.0-14.0) mmol/L BUN 28 H (7-18) mg/dL Creatinine 1.5 H (0.6-1.0) mg/dL Est Cr Clr Drug Dosing 36.35 mL/min Estimated GFR (MDRD) 35 L (>60) Glucose 123 H (74-106) mg/dL Lactic Acid 3.8 H (0.4-2.0) mmol/L Calcium 8.0 L (8.5-10.1) mg/dL POC WB Ioniz Calcium (1.12-1.32) mmol/L Creatine Kinase (26-192) U/L Troponin I 0.039 (0.000-0.056) ng/mL SARS Virus RNA (PCR) (NEGATIVE) 01/17/20 01/17/20 01/18/20 Range/Units 20:47 22:01 01:10 WBC (4.5-11.0) K/uL RBC (3.30-5.50) M/uL Hgb (12.0-15.0) g/dL Hct (36.0-48.0) % POC Hct 41 (36-48) % MCV (80-98) fL MCH (27-31) pg MCHC (32-36) % Plt Count (150-400) K/uL Neut % (Auto) (36-66) % Lymph % (Auto) (24-44) % [place] % (Auto) (2-6) % Eos % (Auto) (2-4) % Baso % (Auto) (0-1) % Sample Site Left radial POC ABG pH 7.34 L (7.35-7.45) POC ABG pCO2 36.3 (35-45) mmHG POC ABG pO2 60 L (80-105) mmHg POC ABG HCO3 19.7 L (22.0-26.0) mmol/L POC ABG Total CO2 21 L (23-27) mmol/L POC ABG O2 Sat 89 L (95-98) % POC ABG Base Excess -6 L (-2-3) mmol/L Kendell Test Passed O2 Delivery Device Nasal canula POC O2 Flow Rate 10 POC Sodium 142 (140-148) mmol/L Sodium (140-148) mmol/L POC Potassium 3.2 L (3.5-4.9) mmol/L Potassium (3.6-5.2) mmol/L Chloride (100-108) mmol/L Carbon Dioxide (21-32) mmol/L Anion Gap (5.0-14.0) mmol/L BUN (7-18) mg/dL Creatinine (0.6-1.0) mg/dL Est Cr Clr Drug Dosing mL/min Estimated GFR (MDRD) (>60) Glucose (74-106) mg/dL Lactic Acid 1.2 (0.4-2.0) mmol/L Calcium (8.5-10.1) mg/dL POC WB Ioniz Calcium 1.18 (1.12-1.32) mmol/L Creatine Kinase (26-192) U/L Troponin I (0.000-0.056) ng/mL SARS Virus RNA (PCR) Negative (NEGATIVE) 01/18/20 01/18/20 Range/Units 04:00 04:00 WBC 12.2 H (4.5-11.0) K/uL RBC 4.41 (3.30-5.50) M/uL Hgb 12.8 (12.0-15.0) g/dL Hct 41.8 (36.0-48.0) % POC Hct (36-48) % MCV 95 (80-98) fL MCH 29 (27-31) pg MCHC 31 L (32-36) % Plt Count 101 L (150-400) K/uL Neut % (Auto) (36-66) % Lymph % (Auto) (24-44) % [place] % (Auto) (2-6) % Eos % (Auto) (2-4) % Baso % (Auto) (0-1) % Sample Site POC ABG pH (7.35-7.45) POC ABG pCO2 (35-45) mmHG POC ABG pO2 (80-105) mmHg POC ABG HCO3 (22.0-26.0) mmol/L POC ABG Total CO2 (23-27) mmol/L POC ABG O2 Sat (95-98) % POC ABG Base Excess (-2-3) mmol/L Kendell Test O2 Delivery Device POC O2 Flow Rate POC Sodium (140-148) mmol/L Sodium 144 (140-148) mmol/L POC Potassium (3.5-4.9) mmol/L Potassium 3.5 L (3.6-5.2) mmol/L Chloride 111 H (100-108) mmol/L Carbon Dioxide 23 (21-32) mmol/L Anion Gap 13.5 (5.0-14.0) mmol/L BUN 28 H (7-18) mg/dL Creatinine 1.5 H (0.6-1.0) mg/dL Est Cr Clr Drug Dosing 36.35 mL/min Estimated GFR (MDRD) 35 L (>60) Glucose 155 H (74-106) mg/dL Lactic Acid (0.4-2.0) mmol/L Calcium 7.8 L (8.5-10.1) mg/dL POC WB Ioniz Calcium (1.12-1.32) mmol/L Creatine Kinase 378 H (26-192) U/L Troponin I (0.000-0.056) ng/mL SARS Virus RNA (PCR) (NEGATIVE) Jonnie Results Last 24 Hours: Microbiology 01/17/20 07:45 Aerobic Blood Culture - Preliminary Blood - Arm, Left Anaerobic Blood Culture - Preliminary 01/17/20 07:40 Aerobic Blood Culture - Preliminary Blood - Arm, Left Anaerobic Blood Culture - Preliminary 01/17/20 10:13 Urine Culture - Preliminary Urine, Catheterized Med Orders - Current: Current Medications Acetaminophen (Tylenol) 650 mg PO Q4H PRN PRN Reason: Pain (Mild 1-3)/fever Last Admin: 01/18/20 08:49 Dose: 650 mg Documented by: Albuterol (Proventil Neb Soln) 2.5 mg NEB Q4H PRN PRN Reason: Shortness Of Breath/wheezing Albuterol/Ipratropium (Duoneb 3.0-0.5 Mg/3 Ml) 3 ml NEB QIDRT [facility] Last Admin: 01/18/20 10:41 Dose: 3 ml Documented by: Alprazolam (Xanax) 0.5 mg PO BID PRN PRN Reason: Anxiety Aripiprazole (Abilify) 10 mg PO DAILY [facility] Last Admin: 01/18/20 08:39 Dose: 10 mg Documented by: Aspirin (Halfprin) 81 mg PO DAILY [facility] Last Admin: 01/18/20 08:39 Dose: 81 mg Documented by: Sodium Chloride (Normal Saline) 1,000 mls @ 125 mls/hr IV ASDIRECTED [facility] Last Admin: 01/18/20 11:50 Dose: 125 mls/hr Documented by: Piperacillin/Tazobactam/ (Dextrose 3.375 gm/ Premix) 50 mls @ 100 mls/hr IV Q6H [facility] Last Admin: 01/18/20 08:46 Dose: 100 mls/hr Documented by: Vancomycin HCl 1.5 gm/ Sodium (Chloride) 250 mls @ 250 mls/hr IV Q12H [facility] Stop: 01/18/20 14:00 Last Admin: 01/18/20 11:46 Dose: 250 mls/hr Documented by: Vancomycin HCl 1.5 gm/ Sodium (Chloride) 250 mls @ 167 mls/hr IV Q24H [facility] Ibuprofen (Motrin) 600 mg PO Q6H PRN PRN Reason: Pain/Fever Last Admin: 01/18/20 05:16 Dose: 600 mg Documented by: Lorazepam (Ativan) 0.5 mg IVPUSH Q4H PRN PRN Reason: Nausea/Vomiting Magnesium Hydroxide (Milk Of Magnesia) 30 ml PO Q12H PRN PRN Reason: Constipation Melatonin (Melatonin) 9 mg PO BEDTIME [facility] Last Admin: 01/17/20 23:50 Dose: Not Given Documented by: Methylprednisolone Sodium Succinate (Solu-Medrol) 62.5 mg IVPUSH Q8H [facility] Last Admin: 01/18/20 05:12 Dose: 62.5 mg Documented by: Nystatin (Nystop) 0 gm TOP QID PRN PRN Reason: Rash Ondansetron HCl (Zofran) 4 mg IV Q6H PRN PRN Reason: Nausea/Vomiting Ondansetron HCl (Zofran Odt) 4 mg PO Q6H PRN PRN Reason: Nausea able to take PO Oxybutynin Chloride (Oxybutynin) 5 mg PO TID [facility] Last Admin: 01/18/20 08:39 Dose: 5 mg Documented by: Oxycodone HCl (Oxycodone) 5 mg PO Q4H PRN PRN Reason: Pain Pantoprazole Sodium (Protonix) 40 mg PO ACBREAKFAST [facility] Last Admin: 01/18/20 08:38 Dose: 40 mg Documented by: Pravastatin Sodium (Pravachol) 20 mg PO BEDTIME [facility] Last Admin: 01/17/20 22:16 Dose: 20 mg Documented by: Fluticasone/Salmeterol (Fluticasone-Salmeterol 55-14 Mcg Powder Inh) 0 puff INH BIDRT [facility] Last Admin: 01/18/20 08:40 Dose: 60 puff Documented by: Senna/Docusate Sodium (Senna Plus) 1 tab PO BID PRN PRN Reason: Constipation Venlafaxine HCl (Effexor Xr) 150 mg PO DAILY [facility] Last Admin: 01/18/20 08:39 Dose: 150 mg Documented by: Discontinued Medications Amlodipine Besylate (Norvasc) 10 mg PO DAILY [facility] Last Admin: 01/17/20 08:55 Dose: 10 mg Documented by: Hydrochlorothiazide (Hydrochlorothiazide) 25 mg PO DAILY [facility] Sodium Chloride (Normal Saline) 1,000 mls @ 500 mls/hr IV .BOLUS ONE Stop: 01/16/20 21:17 Last Admin: 01/16/20 20:02 Dose: 500 mls/hr Documented by: Sodium Chloride (Normal Saline) 1,000 mls @ 999 mls/hr IV .BOLUS ONE Stop: 01/17/20 08:29 Last Admin: 01/17/20 07:33 Dose: 999 mls/hr Documented by: Sodium Chloride (Normal Saline) 1,000 mls @ 500 mls/hr IV ASDIRECTED [facility] Stop: 01/17/20 17:31 Last Admin: 01/17/20 15:30 Dose: 500 mls/hr Documented by: Sodium Chloride (Normal Saline) 1,000 mls @ 999 mls/hr IV .BOLUS ONE Stop: 01/17/20 22:46 Last Admin: 01/17/20 22:12 Dose: 999 mls/hr Documented by: Vancomycin HCl 2 gm/ Sodium (Chloride) 500 mls @ 250 mls/hr IV ONETIME ONE Stop: 01/18/20 00:59 Last Admin: 01/17/20 23:40 Dose: 250 mls/hr Documented by: Losartan Potassium (Cozaar) 100 mg PO DAILY [facility] Methylprednisolone Sodium Succinate (Solu-Medrol) 125 mg IVPUSH ONETIME ONE Stop: 01/17/20 21:52 Last Admin: 01/17/20 22:12 Dose: 125 mg Documented by: Fluticasone/Salmeterol (Fluticasone-Salmeterol 55-14 Mcg Powder Inh) 2 puff INH BID [facility] Last Admin: 01/16/20 22:15 Dose: Not Given Documented by: Fluticasone/Salmeterol (Fluticasone-Salmeterol 113-14 Mcg Powder Inh) 1 puff INH BID [facility] Last Admin: 01/16/20 22:15 Dose: Not Given Documented by: Vancomycin HCl (Vancomycin) Confirm Administered Dose 2 gm .ROUTE .STK-MED ONE Stop: 01/17/20 23:26 Last Admin: 01/18/20 01:24 Dose: Not Given Documented by: Venlafaxine HCl (Effexor Xr) 150 mg PO BID HELIO - Exam Quality Assessment: Supplemental Oxygen General: Alert, Oriented, Cooperative, No Acute Distress Neck: No JVD Lungs: Clear to Auscultation, Normal Respiratory Effort Cardiovascular: Regular Rate, Regular Rhythm GI/Abdominal Exam: Soft, No Distention Extremities: No Pedal Edema. No: Increased Warmth Skin: Warm, Dry Psy/Mental Status: Alert, Normal Affect Sepsis Event Note - Evaluation Sepsis Screening Result: Sepsis Risk - Focused Exam Vital Signs: Vital Signs Temp Temp Pulse Resp BP Pulse Ox 01/18/20 11:00 36.1 C 92 109/47 L 94 L 01/18/20 08:36 35.2 C L 96 110/70 60 L 01/18/20 07:11 80 01/18/20 07:00 93 L 01/18/20 06:55 35.9 C L 89 20 115/65 98 01/18/20 06:16 35.2 C L 01/18/20 03:00 35.8 C L 89 22 H 90/55 L 92 L 01/18/20 01:25 91 L Date Exam was Performed: 01/18/20 Time Exam was Performed: 16:33 - Problem List & Annotations (1) Acute cystitis without hematuria SNOMED Code(s): 58514650 Code(s): N30.00 - ACUTE CYSTITIS WITHOUT HEMATURIA Status: Acute Current Visit: Yes (2) Traumatic rhabdomyolysis SNOMED Code(s): 557867310 Code(s): T79.6XXA - TRAUMATIC ISCHEMIA OF MUSCLE, INITIAL ENCOUNTER Status: Acute Current Visit: Yes Qualifiers: Encounter type: initial encounter Qualified Code(s): T79.6XXA - Traumatic ischemia of muscle, initial encounter (3) Generalized weakness SNOMED Code(s): 88439185 Code(s): R53.1 - WEAKNESS Status: Acute Current Visit: Yes (4) COPD (chronic obstructive pulmonary disease) SNOMED Code(s): 64170615 Code(s): J44.9 - CHRONIC OBSTRUCTIVE PULMONARY DISEASE, UNSPECIFIED Status: Chronic Current Visit: Yes Qualifiers: COPD type: unspecified COPD Qualified Code(s): J44.9 - Chronic obstructive pulmonary disease, unspecified (5) Chronic respiratory failure with hypoxia Status: Chronic Current Visit: Yes - Problem List Review Problem List Initiated/Reviewed/Updated: Yes - My Orders Last 24 Hours: My Active Orders 01/17/20 21:00 Fluticasone/Salmeterol [Fluticasone-Salmeterol 55-14 MCG Powder Inh] 0 puff INH BIDRT 01/18/20 13:15 Discontinue Telemetry Monitoring [Cardiac Monitoring Discontinue] [RC] Click to Edit 01/18/20 13:30 Sodium Chloride 0.9% [Normal Saline] 1,000 ml IV ASDIRECTED 01/19/20 05:00 BASIC METABOLIC PANEL,BMP [CHEM] Timed CBC W/O DIFF,HEMOGRAM [HEME] Timed (1) - Plan Plan:: ASSESSMENT AND PLAN - Acute cystitis without hematuria-complicated by gram-negative sepsis. Finally seems to be turning the corner and looks much better today. Urine culture and all 4 blood cultures are growing a gram-negative giana with identification still pending. Sepsis has resolved. -Continue Pip/Tazo -Follow-up urine culture -IV fluids at to keep open -Follow-up blood cultures Traumatic rhabdomyolysis-weakness led to the patient laying on the floor for multiple hours. CK level has improved and has nearly normalized. -Encourage oral intake -Pain control Generalized weakness-probably multifactorial with deconditioning and underlying infection. -Management as above -Physical therapy -Hold nortriptyline and trazodone until she is more alert COPD-chronically oxygen dependent but has not had her oxygen in some time. This certainly could be contributing to her difficulties above. No significant shortness of breath. We have been having some difficulty picking up oxygen saturations but she does not appear short of breath and does not feel short of breath. -Supplement oxygen as needed, anticipate discharge home with home oxygen Maintenance issues - - DVT prophylaxis -mechanical - GI prophylaxis -PPI - Nutrition -regular Disposition -I would anticipate discharge home after the hospital stay, possibly with home health versus potentially subacute rehab Primary care physician -Dr. Dipti Torres M.D.
[2020-01-18] MEDS ORDERED: Sodium Chloride 0.9% 1,000 ML IV SCH (13:30)
[2020-01-18] MEDS: Melatonin 3 MG Tab PO SCH (21:15)
[2020-01-18] MEDS: Pravastatin 20 MG Tab PO SCH (21:18)
[2020-01-19] MEDS: ALPRAZolam 0.5 MG Tab PO PRN ×2 (00:10→23:57)
[2020-01-19] MEDS: Piperacillin/Tazobactam/Dext 3.375 GM in Premix Bag 1 BAG IV SCH ×2 (02:01→07:38)
[2020-01-19] MEDS: methylPREDNISolone Sodium Succinate 125 MG/2 ML SDV IVPUSH SCH (05:31)
[2020-01-19] MEDS ORDERED: Potassium Chloride 20 MEQ in Premix Bag 2 BAG IV ONE (05:48)
[2020-01-19] MEDS ORDERED: Potassium Chloride 20 MEQ in Premix Bag 1 BAG IV ONE ×2 (05:52→08:00)
[2020-01-19] MEDS: Pantoprazole 40 MG Tab.CR PO SCH (07:38)
[2020-01-19] MEDS: Fluticasone-Salmeterol 55-14 MCG Powder Inhalent INH SCH ×2 (07:38→20:29)
[2020-01-19] MEDS: Albuterol/Ipratropium 3.0-0.5 MG/3 ML Neb Soln NEB SCH ×4 (07:51→20:29)
[2020-01-19] MEDS ORDERED: Potassium Chloride 20 MEQ, Lidocaine 1% 2 ML in Sodium Chloride 0.9% 100 ML IV ONE (08:15)
[2020-01-19] MEDS: ARIPiprazole 10 MG Tab PO SCH (10:19)
[2020-01-19] MEDS: Oxybutynin 5 MG Tab PO SCH ×3 (10:19→20:30)
[2020-01-19] MEDS: Venlafaxine 75 MG Cap.ER PO SCH (10:20)
[2020-01-19] MEDS: Aspirin 81 MG Tab.EC PO SCH (10:20)
--- NOTE | 2020-01-19 11:37 | PCM.PN ---
- General Info Date of Service: 01/19/20 Subjective Update: No acute events overnight. She is off supplemental oxygen this morning. She does not have any shortness of breath or abdominal pain. She was able to walk to the bathroom and back today. Urine and blood cultures all returned with E. coli which was pansensitive. She is feeling better with increased appetite and energy. Hoping to go home in a day or 2. She does remain quite weak and still requires a fair amount of assistance but is improving fairly quickly. Functional Status: Reports: Pain Controlled, Tolerating Diet - Review of Systems General: Reports: Weakness. Denies: Fever Pulmonary: Denies: Shortness of Breath Gastrointestinal: Denies: Abdominal Pain - Patient Data Vitals - Most Recent: Last Vital Signs Temp 35.8 C L 01/19/20 08:30 Pulse 98 01/19/20 07:52 Resp 16 01/19/20 08:30 BP 143/72 H 01/19/20 08:30 Pulse Ox 89 L 01/19/20 07:52 Weight - Most Recent: 107.048 kg I&O - Last 24 Hours: Intake & Output 01/18/20 01/19/20 01/19/20 22:59 06:59 14:59 Intake Total 530 1818 710 Output Total 1000 Balance 530 818 710 Lab Results Last 24 Hours: Laboratory Results - last 24 hr 01/19/20 01/19/20 Range/Units 04:05 04:05 WBC 7.4 (4.5-11.0) K/uL RBC 4.64 (3.30-5.50) M/uL Hgb 13.6 (12.0-15.0) g/dL Hct 43.0 (36.0-48.0) % MCV 93 (80-98) fL MCH 29 (27-31) pg MCHC 32 (32-36) % Plt Count 115 L (150-400) K/uL Sodium 140 (140-148) mmol/L Potassium 2.8 L* (3.6-5.2) mmol/L Chloride 109 H (100-108) mmol/L Carbon Dioxide 25 (21-32) mmol/L Anion Gap 8.8 (5.0-14.0) mmol/L BUN 28 H (7-18) mg/dL Creatinine 1.0 (0.6-1.0) mg/dL Est Cr Clr Drug Dosing 54.53 mL/min Estimated GFR (MDRD) 55 L (>60) Glucose 157 H (74-106) mg/dL Calcium 8.5 (8.5-10.1) mg/dL Jonnie Results Last 24 Hours: Microbiology 01/17/20 07:45 Aerobic Blood Culture - Final Blood - Arm, Left Escherichia Coli Anaerobic Blood Culture - Final Escherichia Coli 01/17/20 07:40 Aerobic Blood Culture - Final Blood - Arm, Left Escherichia Coli Anaerobic Blood Culture - Final Escherichia Coli 01/17/20 10:13 Urine Culture - Final Urine, Catheterized Escherichia Coli Med Orders - Current: Current Medications Acetaminophen (Tylenol) 650 mg PO Q4H PRN PRN Reason: Pain (Mild 1-3)/fever Last Admin: 01/18/20 08:49 Dose: 650 mg Documented by: Albuterol (Proventil Neb Soln) 2.5 mg NEB Q4H PRN PRN Reason: Shortness Of Breath/wheezing Albuterol/Ipratropium (Duoneb 3.0-0.5 Mg/3 Ml) 3 ml NEB QIDRT [facility] Last Admin: 01/19/20 11:35 Dose: 3 ml Documented by: Alprazolam (Xanax) 0.5 mg PO BID PRN PRN Reason: Anxiety Last Admin: 01/19/20 00:10 Dose: 0.5 mg Documented by: Aripiprazole (Abilify) 10 mg PO DAILY [facility] Last Admin: 01/19/20 10:19 Dose: 10 mg Documented by: Aspirin (Halfprin) 81 mg PO DAILY [facility] Last Admin: 01/19/20 10:20 Dose: 81 mg Documented by: Ceftriaxone Sodium 1 gm/ (Sodium Chloride) 50 mls @ 100 mls/hr IV Q24H [facility] Stop: 01/19/20 18:00 Ceftriaxone Sodium 1 gm/ (Sodium Chloride) 50 mls @ 100 mls/hr IV Q24H [facility] Ibuprofen (Motrin) 600 mg PO Q6H PRN PRN Reason: Pain/Fever Last Admin: 01/18/20 05:16 Dose: 600 mg Documented by: Lorazepam (Ativan) 0.5 mg IVPUSH Q4H PRN PRN Reason: Nausea/Vomiting Magnesium Hydroxide (Milk Of Magnesia) 30 ml PO Q12H PRN PRN Reason: Constipation Melatonin (Melatonin) 9 mg PO BEDTIME [facility] Last Admin: 01/18/20 21:15 Dose: 9 mg Documented by: Nystatin (Nystop) 0 gm TOP QID PRN PRN Reason: Rash Ondansetron HCl (Zofran) 4 mg IV Q6H PRN PRN Reason: Nausea/Vomiting Ondansetron HCl (Zofran Odt) 4 mg PO Q6H PRN PRN Reason: Nausea able to take PO Oxybutynin Chloride (Oxybutynin) 5 mg PO TID [facility] Last Admin: 01/19/20 10:19 Dose: 5 mg Documented by: Oxycodone HCl (Oxycodone) 5 mg PO Q4H PRN PRN Reason: Pain Pantoprazole Sodium (Protonix) 40 mg PO ACBREAKFAST [facility] Last Admin: 01/19/20 07:38 Dose: 40 mg Documented by: Potassium Chloride (Klor-Con M20) 40 meq PO BID [facility] Pravastatin Sodium (Pravachol) 20 mg PO BEDTIME [facility] Last Admin: 01/18/20 21:18 Dose: 20 mg Documented by: Fluticasone/Salmeterol (Fluticasone-Salmeterol 55-14 Mcg Powder Inh) 0 puff INH BIDRT [facility] Last Admin: 01/19/20 07:38 Dose: 60 puff Documented by: Senna/Docusate Sodium (Senna Plus) 1 tab PO BID PRN PRN Reason: Constipation Venlafaxine HCl (Effexor Xr) 150 mg PO DAILY [facility] Last Admin: 01/19/20 10:20 Dose: 150 mg Documented by: Discontinued Medications Amlodipine Besylate (Norvasc) 10 mg PO DAILY [facility] Last Admin: 01/17/20 08:55 Dose: 10 mg Documented by: Hydrochlorothiazide (Hydrochlorothiazide) 25 mg PO DAILY [facility] Sodium Chloride (Normal Saline) 1,000 mls @ 125 mls/hr IV ASDIRECTED [facility] Last Admin: 01/18/20 11:50 Dose: 125 mls/hr Documented by: Sodium Chloride (Normal Saline) 1,000 mls @ 500 mls/hr IV .BOLUS ONE Stop: 01/16/20 21:17 Last Admin: 01/16/20 20:02 Dose: 500 mls/hr Documented by: Piperacillin/Tazobactam/ (Dextrose 3.375 gm/ Premix) 50 mls @ 100 mls/hr IV Q6H [facility] Last Admin: 01/19/20 07:38 Dose: 100 mls/hr Documented by: Sodium Chloride (Normal Saline) 1,000 mls @ 999 mls/hr IV .BOLUS ONE Stop: 01/17/20 08:29 Last Admin: 01/17/20 07:33 Dose: 999 mls/hr Documented by: Sodium Chloride (Normal Saline) 1,000 mls @ 500 mls/hr IV ASDIRECTED [facility] Stop: 01/17/20 17:31 Last Admin: 01/17/20 15:30 Dose: 500 mls/hr Documented by: Vancomycin HCl 1.5 gm/ Sodium (Chloride) 250 mls @ 250 mls/hr IV Q12H [facility] Stop: 01/18/20 14:00 Last Admin: 01/18/20 11:46 Dose: 250 mls/hr Documented by: Sodium Chloride (Normal Saline) 1,000 mls @ 999 mls/hr IV .BOLUS ONE Stop: 01/17/20 22:46 Last Admin: 01/17/20 22:12 Dose: 999 mls/hr Documented by: Vancomycin HCl 2 gm/ Sodium (Chloride) 500 mls @ 250 mls/hr IV ONETIME ONE Stop: 01/18/20 00:59 Last Admin: 01/17/20 23:40 Dose: 250 mls/hr Documented by: Vancomycin HCl 1.5 gm/ Sodium (Chloride) 250 mls @ 167 mls/hr IV Q24H [facility] Sodium Chloride (Normal Saline) 1,000 mls @ 25 mls/hr IV ASDIRECTED [facility] Potassium Chloride 20 meq/ (Premix) 0 mls @ 50 mls/hr IV ONETIME ONE Stop: 01/19/20 05:49 Last Admin: 01/19/20 07:22 Dose: Not Given Documented by: Potassium Chloride 20 meq/ (Premix) 100 mls @ 50 mls/hr IV ONETIME ONE Stop: 01/19/20 07:47 Last Admin: 01/19/20 06:07 Dose: 50 mls/hr Documented by: Potassium Chloride 20 meq/ (Premix) 100 mls @ 50 mls/hr IV ONETIME ONE Stop: 01/19/20 09:59 Potassium Chloride 20 meq/Lidocaine HCl 2 ml/ Sodium Chloride 112 mls @ 56 mls/hr IV ONETIME ONE Stop: 01/19/20 10:14 Last Admin: 01/19/20 10:16 Dose: 56 mls/hr Documented by: Lidocaine HCl (Xylocaine-Mpf 1%) 2 ml INJECT ONETIME ONE Stop: 01/19/20 05:50 Last Admin: 01/19/20 06:07 Dose: 2 ml Documented by: Losartan Potassium (Cozaar) 100 mg PO DAILY [facility] Methylprednisolone Sodium Succinate (Solu-Medrol) 62.5 mg IVPUSH Q8H [facility] Last Admin: 01/19/20 05:31 Dose: 62.5 mg Documented by: Methylprednisolone Sodium Succinate (Solu-Medrol) 125 mg IVPUSH ONETIME ONE Stop: 01/17/20 21:52 Last Admin: 01/17/20 22:12 Dose: 125 mg Documented by: Fluticasone/Salmeterol (Fluticasone-Salmeterol 55-14 Mcg Powder Inh) 2 puff INH BID [facility] Last Admin: 01/16/20 22:15 Dose: Not Given Documented by: Fluticasone/Salmeterol (Fluticasone-Salmeterol 113-14 Mcg Powder Inh) 1 puff INH BID [facility] Last Admin: 01/16/20 22:15 Dose: Not Given Documented by: Vancomycin HCl (Vancomycin) Confirm Administered Dose 2 gm .ROUTE .STK-MED ONE Stop: 01/17/20 23:26 Last Admin: 01/18/20 01:24 Dose: Not Given Documented by: Venlafaxine HCl (Effexor Xr) 150 mg PO BID [facility] - Exam Quality Assessment: No: Supplemental Oxygen General: Alert, Oriented, Cooperative, No Acute Distress Lungs: Normal Respiratory Effort Cardiovascular: Regular Rate, Regular Rhythm GI/Abdominal Exam: Soft, No Distention Extremities: No Pedal Edema Psy/Mental Status: Alert, Normal Affect Sepsis Event Note - Evaluation Sepsis Screening Result: No Definite Risk - Focused Exam Vital Signs: Vital Signs Temp Temp Pulse Resp BP Pulse Ox Pulse Ox 01/19/20 08:30 35.8 C L 16 143/72 H 01/19/20 07:52 98 89 L 01/19/20 06:11 92 L 01/19/20 02:33 35.8 C L 75 17 147/74 H 98 Date Exam was Performed: 01/19/20 Time Exam was Performed: 13:08 - Problem List & Annotations (1) Acute cystitis without hematuria SNOMED Code(s): 21954908 Code(s): N30.00 - ACUTE CYSTITIS WITHOUT HEMATURIA Status: Acute Current Visit: Yes (2) Traumatic rhabdomyolysis SNOMED Code(s): 980737876 Code(s): T79.6XXA - TRAUMATIC ISCHEMIA OF MUSCLE, INITIAL ENCOUNTER Status: Acute Current Visit: Yes Qualifiers: Encounter type: initial encounter Qualified Code(s): T79.6XXA - Traumatic ischemia of muscle, initial encounter (3) Generalized weakness SNOMED Code(s): 78342966 Code(s): R53.1 - WEAKNESS Status: Acute Current Visit: Yes (4) COPD (chronic obstructive pulmonary disease) SNOMED Code(s): 92497333 Code(s): J44.9 - CHRONIC OBSTRUCTIVE PULMONARY DISEASE, UNSPECIFIED Status: Chronic Current Visit: Yes Qualifiers: COPD type: unspecified COPD Qualified Code(s): J44.9 - Chronic obstructive pulmonary disease, unspecified (5) Chronic respiratory failure with hypoxia Status: Chronic Current Visit: Yes (6) Sepsis due to Escherichia coli SNOMED Code(s): 923606722 Code(s): A41.51 - SEPSIS DUE TO ESCHERICHIA COLI [E. COLI] Status: Acute Current Visit: Yes Qualifiers: Sepsis acute organ dysfunction status: with acute organ dysfunction Severe sepsis acute organ dysfunction type: acute respiratory failure Acute respiratory failure type: with hypoxia Severe sepsis shock status: without septic shock Qualified Code(s): A41.51 - Sepsis due to Escherichia coli [E. coli]; R65.20 - Severe sepsis without septic shock; J96.01 - Acute respiratory failure with hypoxia - Problem List Review Problem List Initiated/Reviewed/Updated: Yes - My Orders Last 24 Hours: My Active Orders 01/18/20 13:15 Discontinue Telemetry Monitoring [Cardiac Monitoring Discontinue] [RC] Click to Edit 01/19/20 11:36 Ambulate [RC] QID Convert IV to Saline Lock [OM.PC] Routine 01/19/20 11:45 Potassium Chloride [Klor-Con M20] 40 meq PO BID 01/19/20 14:00 cefTRIAXone [Rocephin] 1 gm Sodium Chloride 0.9% [Normal Saline] 50 ml IV Q24H 01/20/20 05:00 BASIC METABOLIC PANEL,BMP [CHEM] Timed 01/20/20 14:00 cefTRIAXone [Rocephin] 1 gm Sodium Chloride 0.9% [Normal Saline] 50 ml IV Q24H - Plan Plan:: ASSESSMENT AND PLAN - Acute cystitis without hematuria-complicated by gram-negative sepsis from E. coli. Urine culture and all 4 blood cultures did grow out pansensitive E. coli. She has made a dramatic improvement in the past 24 hours. Strength improving. Appetite improving. I am going to continue IV antibiotics a little longer because of the significant bacteremia. -Change antibiotics to ceftriaxone -Saline lock IV Traumatic rhabdomyolysis-resolved. -Encourage oral intake -Pain control Generalized weakness-probably multifactorial with deconditioning and underlying infection. Steadily improving throughout the hospital stay. -Management as above -Physical therapy -Hold nortriptyline and trazodone until she is more alert COPD-chronically oxygen dependent but has not had her oxygen in some time. She is currently off supplemental oxygen. -Supplement oxygen as needed, anticipate discharge home with home oxygen Maintenance issues - - DVT prophylaxis -mechanical - GI prophylaxis -PPI - Nutrition -regular Disposition -I would anticipate discharge home with home care after the hospital stay Primary care physician -Dr. Dipti Torres M.D.
[2020-01-19] MEDS: Potassium Chloride 20 MEQ Tab.ER PO SCH ×2 (12:45→20:29)
[2020-01-19] MEDS ORDERED: cefTRIAXone 1 GM in Sodium Chloride 0.9% 50 ML IV SCH (14:00)
[2020-01-19] MEDS: Ibuprofen 600 MG Tab PO PRN (14:23)
[2020-01-19] MEDS: Pravastatin 20 MG Tab PO SCH (20:30)
[2020-01-19] MEDS: Melatonin 3 MG Tab PO SCH (20:30)
[2020-01-20] MEDS: Fluticasone-Salmeterol 55-14 MCG Powder Inhalent INH SCH ×2 (07:38→20:15)
[2020-01-20] MEDS: Albuterol/Ipratropium 3.0-0.5 MG/3 ML Neb Soln NEB SCH ×4 (07:41→20:15)
[2020-01-20] MEDS: Potassium Chloride 20 MEQ Tab.ER PO SCH ×2 (08:24→20:15)
[2020-01-20] MEDS: Aspirin 81 MG Tab.EC PO SCH (08:24)
[2020-01-20] MEDS: ARIPiprazole 10 MG Tab PO SCH (08:24)
[2020-01-20] MEDS: Pantoprazole 40 MG Tab.CR PO SCH (08:24)
[2020-01-20] MEDS: Venlafaxine 75 MG Cap.ER PO SCH (08:24)
[2020-01-20] MEDS: Oxybutynin 5 MG Tab PO SCH ×3 (08:24→20:16)
--- NOTE | 2020-01-20 10:35 | PCM.PN ---
- General Info Date of Service: 01/20/20 Subjective Update: No acute events overnight. Patient is feeling well today. No abdominal pain or shortness of breath. She has not needed supplemental oxygen. No fevers. No new positive culture results. She has been walking around her room without difficulty. She is helping for some longer walks as the day goes on. Functional Status: Reports: Pain Controlled, Tolerating Diet - Review of Systems General: Reports: Weakness. Denies: Fever - Patient Data Vitals - Most Recent: Last Vital Signs Temp 36.6 C 01/20/20 07:56 Pulse 88 01/20/20 07:56 Resp 10 L 01/20/20 07:56 BP 147/81 H 01/20/20 07:56 Pulse Ox 91 L 01/20/20 07:56 Weight - Most Recent: 107.048 kg I&O - Last 24 Hours: Intake & Output 01/19/20 01/20/20 01/20/20 22:59 06:59 14:59 Intake Total 207 Output Total 550 Balance -343 Lab Results Last 24 Hours: Laboratory Results - last 24 hr 01/20/20 Range/Units 04:10 Sodium 144 (140-148) mmol/L Potassium 4.1 (3.6-5.2) mmol/L Chloride 112 H (100-108) mmol/L Carbon Dioxide 26 (21-32) mmol/L Anion Gap 10.1 (5.0-14.0) mmol/L BUN 25 H (7-18) mg/dL Creatinine 1.0 (0.6-1.0) mg/dL Est Cr Clr Drug Dosing 54.53 mL/min Estimated GFR (MDRD) 55 L (>60) Glucose 119 H (74-106) mg/dL Calcium 8.8 (8.5-10.1) mg/dL Jonnie Results Last 24 Hours: Microbiology 01/17/20 07:45 Aerobic Blood Culture - Final Blood - Arm, Left Escherichia Coli Anaerobic Blood Culture - Final Escherichia Coli 01/17/20 07:40 Aerobic Blood Culture - Final Blood - Arm, Left Escherichia Coli Anaerobic Blood Culture - Final Escherichia Coli 01/17/20 10:13 Urine Culture - Final Urine, Catheterized Escherichia Coli Med Orders - Current: Current Medications Acetaminophen (Tylenol) 650 mg PO Q4H PRN PRN Reason: Pain (Mild 1-3)/fever Last Admin: 01/18/20 08:49 Dose: 650 mg Documented by: Albuterol (Proventil Neb Soln) 2.5 mg NEB Q4H PRN PRN Reason: Shortness Of Breath/wheezing Albuterol/Ipratropium (Duoneb 3.0-0.5 Mg/3 Ml) 3 ml NEB QIDRT [facility] Last Admin: 01/20/20 07:41 Dose: Not Given Documented by: Alprazolam (Xanax) 0.5 mg PO BID PRN PRN Reason: Anxiety Last Admin: 01/19/20 23:57 Dose: 0.5 mg Documented by: Amlodipine Besylate (Norvasc) 10 mg PO DAILY [facility] Aripiprazole (Abilify) 10 mg PO DAILY [facility] Last Admin: 01/20/20 08:24 Dose: 10 mg Documented by: Aspirin (Halfprin) 81 mg PO DAILY [facility] Last Admin: 01/20/20 08:24 Dose: 81 mg Documented by: Ceftriaxone Sodium 1 gm/ (Sodium Chloride) 50 mls @ 100 mls/hr IV Q24H [facility] Stop: 01/20/20 17:00 Ibuprofen (Motrin) 600 mg PO Q6H PRN PRN Reason: Pain/Fever Last Admin: 01/19/20 14:23 Dose: 600 mg Documented by: Lorazepam (Ativan) 0.5 mg IVPUSH Q4H PRN PRN Reason: Nausea/Vomiting Magnesium Hydroxide (Milk Of Magnesia) 30 ml PO Q12H PRN PRN Reason: Constipation Melatonin (Melatonin) 9 mg PO BEDTIME [facility] Last Admin: 01/19/20 20:30 Dose: 9 mg Documented by: Nystatin (Nystop) 0 gm TOP QID PRN PRN Reason: Rash Ondansetron HCl (Zofran) 4 mg IV Q6H PRN PRN Reason: Nausea/Vomiting Ondansetron HCl (Zofran Odt) 4 mg PO Q6H PRN PRN Reason: Nausea able to take PO Oxybutynin Chloride (Oxybutynin) 5 mg PO TID [facility] Last Admin: 01/20/20 08:24 Dose: 5 mg Documented by: Oxycodone HCl (Oxycodone) 5 mg PO Q4H PRN PRN Reason: Pain Pantoprazole Sodium (Protonix) 40 mg PO ACBREAKFAST [facility] Last Admin: 01/20/20 08:24 Dose: 40 mg Documented by: Potassium Chloride (Klor-Con M20) 40 meq PO BID [facility] Last Admin: 01/20/20 08:24 Dose: 40 meq Documented by: Pravastatin Sodium (Pravachol) 20 mg PO BEDTIME [facility] Last Admin: 01/19/20 20:30 Dose: 20 mg Documented by: Fluticasone/Salmeterol (Fluticasone-Salmeterol 55-14 Mcg Powder Inh) 0 puff INH BIDRT [facility] Last Admin: 01/20/20 07:38 Dose: 2 puff Documented by: Senna/Docusate Sodium (Senna Plus) 1 tab PO BID PRN PRN Reason: Constipation Venlafaxine HCl (Effexor Xr) 150 mg PO DAILY [facility] Last Admin: 01/20/20 08:24 Dose: 150 mg Documented by: Discontinued Medications Amlodipine Besylate (Norvasc) 10 mg PO DAILY [facility] Last Admin: 01/17/20 08:55 Dose: 10 mg Documented by: Hydrochlorothiazide (Hydrochlorothiazide) 25 mg PO DAILY [facility] Sodium Chloride (Normal Saline) 1,000 mls @ 125 mls/hr IV ASDIRECTED [facility] Last Admin: 01/18/20 11:50 Dose: 125 mls/hr Documented by: Sodium Chloride (Normal Saline) 1,000 mls @ 500 mls/hr IV .BOLUS ONE Stop: 01/16/20 21:17 Last Admin: 01/16/20 20:02 Dose: 500 mls/hr Documented by: Piperacillin/Tazobactam/ (Dextrose 3.375 gm/ Premix) 50 mls @ 100 mls/hr IV Q6H [facility] Last Admin: 01/19/20 07:38 Dose: 100 mls/hr Documented by: Sodium Chloride (Normal Saline) 1,000 mls @ 999 mls/hr IV .BOLUS ONE Stop: 01/17/20 08:29 Last Admin: 01/17/20 07:33 Dose: 999 mls/hr Documented by: Sodium Chloride (Normal Saline) 1,000 mls @ 500 mls/hr IV ASDIRECTED [facility] Stop: 01/17/20 17:31 Last Admin: 01/17/20 15:30 Dose: 500 mls/hr Documented by: Vancomycin HCl 1.5 gm/ Sodium (Chloride) 250 mls @ 250 mls/hr IV Q12H [facility] Stop: 01/18/20 14:00 Last Admin: 01/18/20 11:46 Dose: 250 mls/hr Documented by: Sodium Chloride (Normal Saline) 1,000 mls @ 999 mls/hr IV .BOLUS ONE Stop: 01/17/20 22:46 Last Admin: 01/17/20 22:12 Dose: 999 mls/hr Documented by: Vancomycin HCl 2 gm/ Sodium (Chloride) 500 mls @ 250 mls/hr IV ONETIME ONE Stop: 01/18/20 00:59 Last Admin: 01/17/20 23:40 Dose: 250 mls/hr Documented by: Vancomycin HCl 1.5 gm/ Sodium (Chloride) 250 mls @ 167 mls/hr IV Q24H [facility] Sodium Chloride (Normal Saline) 1,000 mls @ 25 mls/hr IV ASDIRECTED [facility] Potassium Chloride 20 meq/ (Premix) 0 mls @ 50 mls/hr IV ONETIME ONE Stop: 01/19/20 05:49 Last Admin: 01/19/20 07:22 Dose: Not Given Documented by: Potassium Chloride 20 meq/ (Premix) 100 mls @ 50 mls/hr IV ONETIME ONE Stop: 01/19/20 07:47 Last Admin: 01/19/20 06:07 Dose: 50 mls/hr Documented by: Potassium Chloride 20 meq/ (Premix) 100 mls @ 50 mls/hr IV ONETIME ONE Stop: 01/19/20 09:59 Potassium Chloride 20 meq/Lidocaine HCl 2 ml/ Sodium Chloride 112 mls @ 56 mls/hr IV ONETIME ONE Stop: 01/19/20 10:14 Last Admin: 01/19/20 10:16 Dose: 56 mls/hr Documented by: Ceftriaxone Sodium 1 gm/ (Sodium Chloride) 50 mls @ 100 mls/hr IV Q24H [facility] Stop: 01/19/20 18:00 Last Admin: 01/19/20 13:53 Dose: 100 mls/hr Documented by: Lidocaine HCl (Xylocaine-Mpf 1%) 2 ml INJECT ONETIME ONE Stop: 01/19/20 05:50 Last Admin: 01/19/20 06:07 Dose: 2 ml Documented by: Losartan Potassium (Cozaar) 100 mg PO DAILY [facility] Methylprednisolone Sodium Succinate (Solu-Medrol) 62.5 mg IVPUSH Q8H [facility] Last Admin: 01/19/20 05:31 Dose: 62.5 mg Documented by: Methylprednisolone Sodium Succinate (Solu-Medrol) 125 mg IVPUSH ONETIME ONE Stop: 01/17/20 21:52 Last Admin: 01/17/20 22:12 Dose: 125 mg Documented by: Fluticasone/Salmeterol (Fluticasone-Salmeterol 55-14 Mcg Powder Inh) 2 puff INH BID [facility] Last Admin: 01/16/20 22:15 Dose: Not Given Documented by: Fluticasone/Salmeterol (Fluticasone-Salmeterol 113-14 Mcg Powder Inh) 1 puff INH BID [facility] Last Admin: 01/16/20 22:15 Dose: Not Given Documented by: Vancomycin HCl (Vancomycin) Confirm Administered Dose 2 gm .ROUTE .STK-MED ONE Stop: 01/17/20 23:26 Last Admin: 01/18/20 01:24 Dose: Not Given Documented by: Venlafaxine HCl (Effexor Xr) 150 mg PO BID [facility] - Exam Quality Assessment: No: Supplemental Oxygen General: Alert, Oriented, Cooperative, No Acute Distress Lungs: Normal Respiratory Effort GI/Abdominal Exam: Soft, No Distention Extremities: No Pedal Edema Skin: Warm, Dry Psy/Mental Status: Alert, Normal Affect Sepsis Event Note - Evaluation Sepsis Screening Result: No Definite Risk - Focused Exam Vital Signs: Vital Signs Temp Pulse Pulse Resp BP Pulse Ox 01/20/20 07:56 36.6 C 88 10 L 147/81 H 91 L 01/20/20 04:00 80 18 91 L Date Exam was Performed: 01/20/20 Time Exam was Performed: 14:13 - Problem List & Annotations (1) Acute cystitis without hematuria SNOMED Code(s): 93376432 Code(s): N30.00 - ACUTE CYSTITIS WITHOUT HEMATURIA Status: Acute Current Visit: Yes (2) Traumatic rhabdomyolysis SNOMED Code(s): 008087480 Code(s): T79.6XXA - TRAUMATIC ISCHEMIA OF MUSCLE, INITIAL ENCOUNTER Status: Acute Current Visit: Yes Qualifiers: Encounter type: initial encounter Qualified Code(s): T79.6XXA - Traumatic ischemia of muscle, initial encounter (3) Generalized weakness SNOMED Code(s): 13858859 Code(s): R53.1 - WEAKNESS Status: Acute Current Visit: Yes (4) COPD (chronic obstructive pulmonary disease) SNOMED Code(s): 93670247 Code(s): J44.9 - CHRONIC OBSTRUCTIVE PULMONARY DISEASE, UNSPECIFIED Status: Chronic Current Visit: Yes Qualifiers: COPD type: unspecified COPD Qualified Code(s): J44.9 - Chronic obstructive pulmonary disease, unspecified (5) Chronic respiratory failure with hypoxia Status: Chronic Current Visit: Yes (6) Sepsis due to Escherichia coli SNOMED Code(s): 053462914 Code(s): A41.51 - SEPSIS DUE TO ESCHERICHIA COLI [E. COLI] Status: Acute Current Visit: Yes Qualifiers: Sepsis acute organ dysfunction status: with acute organ dysfunction Severe sepsis acute organ dysfunction type: acute respiratory failure Acute respiratory failure type: with hypoxia Severe sepsis shock status: without septic shock Qualified Code(s): A41.51 - Sepsis due to Escherichia coli [E. coli]; R65.20 - Severe sepsis without septic shock; J96.01 - Acute respiratory failure with hypoxia - Problem List Review Problem List Initiated/Reviewed/Updated: Yes - My Orders Last 24 Hours: My Active Orders 01/19/20 11:36 Ambulate [RC] QID Convert IV to Saline Lock [OM.PC] Routine 01/19/20 12:00 Potassium Chloride [Klor-Con M20] 40 meq PO BID 01/20/20 09:00 amLODIPine [Norvasc] 10 mg PO DAILY 01/20/20 14:00 cefTRIAXone [Rocephin] 1 gm Sodium Chloride 0.9% [Normal Saline] 50 ml IV Q24H 01/21/20 09:00 cephALEXin [Keflex] 500 mg PO BID - Plan Plan:: ASSESSMENT AND PLAN - Acute cystitis without hematuria-complicated by gram-negative sepsis from E. coli. Urine culture and all 4 blood cultures did grow out pansensitive E. coli. Ongoing improvement. No fevers. Very stable from an infection standpoint. Weakness is improving. -Continue ceftriaxone for 1 more dose today then start cephalexin in the morning -Saline lock IV Traumatic rhabdomyolysis-resolved. -Encourage oral intake -Pain control Generalized weakness-probably multifactorial with deconditioning and underlying infection. Steadily improving throughout the hospital stay. -Management as above -Physical therapy -Hold nortriptyline and trazodone until she is more alert COPD-chronically oxygen dependent but has not had her oxygen in some time. She is currently off supplemental oxygen. -Supplement oxygen as needed, anticipate discharge home with home oxygen Maintenance issues - - DVT prophylaxis -mechanical - GI prophylaxis -PPI - Nutrition -regular Disposition -I would anticipate discharge home with home care after the hospital stay, possibly tomorrow if stable overnight Primary care physician -Dr. Dipti Torres M.D.
[2020-01-20] MEDS: amLODIPine 10 MG Tab PO SCH (10:45)
[2020-01-20] MEDS ORDERED: cefTRIAXone 1 GM in Sodium Chloride 0.9% 50 ML IV SCH (14:00)
[2020-01-20] MEDS: ALPRAZolam 0.5 MG Tab PO PRN (20:15)
[2020-01-20] MEDS: Pravastatin 20 MG Tab PO SCH (20:16)
[2020-01-20] MEDS: Melatonin 3 MG Tab PO SCH (20:16)
[2020-01-21] MEDS: Albuterol/Ipratropium 3.0-0.5 MG/3 ML Neb Soln NEB SCH ×3 (02:08→10:51)
[2020-01-21] MEDS: Fluticasone-Salmeterol 55-14 MCG Powder Inhalent INH SCH (07:23)
[2020-01-21] MEDS ORDERED: Cephalexin 250 MG Cap PO SCH (09:00)
[2020-01-21] MEDS: Venlafaxine 75 MG Cap.ER PO SCH (09:19)
[2020-01-21] MEDS: Pantoprazole 40 MG Tab.CR PO SCH (09:19)
[2020-01-21] MEDS: Oxybutynin 5 MG Tab PO SCH (09:19)
[2020-01-21] MEDS: amLODIPine 10 MG Tab PO SCH (09:19)
[2020-01-21] MEDS: ARIPiprazole 10 MG Tab PO SCH (09:20)
[2020-01-21] MEDS: Potassium Chloride 20 MEQ Tab.ER PO SCH (09:20)
[2020-01-21] MEDS: Aspirin 81 MG Tab.EC PO SCH (09:20)
--- NOTE | 2020-01-21 11:39 | PCM.DCSUM1 ---
Discharge Summary - Hospital Course Brief History: 69-year-old female with history of COPD and previous oxygen dependence who presented with weakness after she was found on the floor. She was admitted for management of weakness and hypoxia with rhabdomyolysis. Diagnosis: Stroke: No - Discharge Data Discharge Date: 01/21/20 Discharge Disposition: Home, W Home Health Agency 06 Condition: Good - Referral to Home Health Date of Face to Face Encounter: 01/21/20 Reason for Homebound Status: Travel taxing due to acute on chronic weakness and dyspnea with exertion Primary Care Physician: PCP None Skilled Need: Nursing, physical therapy and home health aide - Discharge Diagnosis/Problem(s) (1) Acute cystitis without hematuria SNOMED Code(s): 07687424 ICD Code: N30.00 - ACUTE CYSTITIS WITHOUT HEMATURIA Status: Acute Current Visit: Yes (2) Sepsis due to Escherichia coli SNOMED Code(s): 117745835 ICD Code: A41.51 - SEPSIS DUE TO ESCHERICHIA COLI [E. COLI] Status: Acute Current Visit: Yes Qualifiers: Sepsis acute organ dysfunction status: with acute organ dysfunction Severe sepsis acute organ dysfunction type: acute respiratory failure Acute respirato ry failure type: with hypoxia Severe sepsis shock status: without septic shock Qualified Code(s): A41.51 - Sepsis due to Escherichia coli [E. coli]; R65.20 - Severe sepsis without septic shock; J96.01 - Acute respiratory failure with hypoxia (3) Traumatic rhabdomyolysis SNOMED Code(s): 305180831 ICD Code: T79.6XXA - TRAUMATIC ISCHEMIA OF MUSCLE, INITIAL ENCOUNTER Status: Acute Current Visit: Yes Qualifiers: Encounter type: initial encounter Qualified Code(s): T79.6XXA - Traumatic ischemia of muscle, initial encounter (4) Generalized weakness SNOMED Code(s): 89002971 ICD Code: R53.1 - WEAKNESS Status: Acute Current Visit: Yes (5) COPD (chronic obstructive pulmonary disease) SNOMED Code(s): 36042862 ICD Code: J44.9 - CHRONIC OBSTRUCTIVE PULMONARY DISEASE, UNSPECIFIED Status: Chronic Current Visit: Yes Qualifiers: COPD type: unspecified COPD Qualified Code(s): J44.9 - Chronic obstructive pulmonary disease, unspecified (6) Chronic respiratory failure with hypoxia Status: Resolved Current Visit: Yes (7) Hypokalemia SNOMED Code(s): 93131465 ICD Code: E87.6 - HYPOKALEMIA Status: Acute Current Visit: Yes - Patient Summary/Data Consults: Consultations 01/16/20 19:18 PT Evaluation and Treatment [CONS] Routine Please Evaluate and Treat. PT Reason for Consult: Strengthening This query below is only for informational purposes and is not editable. Hospital Course: Miriam presented to the emergency room with weakness and lethargy after being found on the floor of her apartment by [employer]. Work-up in the emergency room was not very impressive. She had a normal white count and normal kidney function. Her oxygen was a little bit low. Her CK level was mildly elevated. She was admitted to the hospital for management of traumatic rhabdomyolysis. She received IV fluids. After admission she developed fever and increasing lethargy as well as tachycardia. She received aggressive IV fluids and additional cultures were obtained. A repeat chest x-ray did not show any acute findings. We did have to perform a mini cath to get a urine sample but this was strongly suggestive of infection. She was started on broad- spectrum antibiotics targeted at the urinary tract. Initially we did see some improvement with decrease in her heart rate and some improvement in her lethargy. Later in the evening the second day of admission she had increasing respiratory rate as well as tachycardia and lethargy along with a recurrent fever. Vancomycin was added to her antibiotics at that time. She again received fairly aggressive IV fluids. A repeat chest x-ray remained stable with no obvious pneumonia. White blood cell count was slightly higher at this time. By the next morning her condition had started to stabilize. She was still having fevers but they were smaller. Her blood cultures returned positive with gram-positive cocci. Her urine culture was growing a gram-negative giana. We continued the Zosyn and vancomycin. By the next morning she was looking and feeling quite a bit better. Additional lab work-up had been done on the positive blood cultures and these were in fact gram-negative rods rather than gram-positive rods. All 4 of her urine blood cultures as well as her urine culture grew out pansensitive E. coli. We did transition her to ceftriaxone at this point. I did elect to continue the IV antibiotics because of her bactere francesco. By this time her rhabdomyolysis had resolved. She was making fairly impressive improvements. She was weaned off of her supplemental oxygen. Her heart rate had not normalized. Her mental status has improved dramatically. Her strength was slowly improving. Over the next couple of days we saw further improvement in her strength and mental status. She has been up and walking around the halls without significant limitations. She is still weak but dramatically better. She has not had fever in a couple of days. She is tolerating the current antibiotics and even the transition to oral antibiotics. She had a mild rise in her creatinine during the acute phase of her illness but did not meet criteria for acute kidney injury and kidney function is now back to baseline. She has not had any hypoxia in 48 hours. She did have hypokalemia along the way but this responded to supplementation. On the day of discharge she is doing quite well. She feels safe going home at this time and I believe she is safe. She was interested in some additional home care services to help ease her transition to home. She will need 3 more doses of antibiotic as outlined in the medication section. She will have close follow-up. - Patient Instructions Diet: Regular Diet as Tolerated Activity: As Tolerated Showering/Bathing: May Shower Notify Provider of: Fever, Increased Pain Other/Special Instructions: 1. You were in the hospital for management of sepsis caused by a urinary tract infection with the culprit bacteria being E. coli. Your condition has improved with antibiotic and other therapies provided in the emergency room and hospital. I do recommend ongoing antibiotic therapy. Please take cephalexin (Keflex) 500 mg twice daily with food for 3 more doses. Your first dose outside of the hospital will be due tonight. It is important to drink plenty of water each day to keep your urinary system flushed. Your goal should be to drink 64 ounces of water each day. 2. Continue your usual home medications as previously prescribed. 3. I have placed a referral to home health care. They will provide nursing, physical therapy and home health aide services to help ease your transition to home. 4. Seek medical attention if you have fever greater than 101, significant shortness of breath or if you develop profound weakness. - Discharge Plan *PRESCRIPTION DRUG MONITORING PROGRAM REVIEWED*: Not Applicable *COPY OF PRESCRIPTION DRUG MONITORING REPORT IN PATIENT DEMIAN: Not Applicable Prescriptions/Med Rec: cephALEXin [Cephalexin] 500 mg PO BID #3 capsule Home Medications: Home Meds ALPRAZolam [Alprazolam] 1 tab PO BID PRN 06/09/19 [History] ARIPiprazole [Abilify] 10 mg PO DAILY 06/09/19 [History] Acetaminophen 1 tab PO Q6H PRN 06/09/19 [History] Albuterol Sulfate [Proair Hfa] 2 puff IH Q4H 06/09/19 [History] Budesonide/Formoterol [Symbicort 80-4.5 MCG] 2 puff INH BID 06/09/19 [History] Cholecalciferol (Vitamin D3) [Decara] 50,000 unit PO ASDIRECTED 06/09/19 [History] Fluticasone/Salmeterol [Advair 100-50] 2 puff INH BID 06/09/19 [History] Ibuprofen [Motrin] 800 mg PO QID PRN 06/09/19 [History] Ipratropium/Albuterol Sulfate [Iprat-Albut 0.5-3(2.5) MG/3 ML] 3 ml IH ASDIRECTED 06/09/19 [History] Letrozole [Femara] 2.5 mg PO DAILY 06/09/19 [History] Losartan/Hydrochlorothiazide [Hyzaar 100-25 Tablet] 1 tab PO DAILY 06/09/19 [History] Nortriptyline HCl [Pamelor] 50 mg PO DAILY 06/09/19 [History] Oxybutynin 5 mg PO TID 06/09/19 [History] Pantoprazole Sodium [Protonix] 40 mg PO DAILY 06/09/19 [History] Pravastatin Sodium [Pravastatin (Pravachol)] 20 mg PO BEDTIME 06/09/19 [History] Tiotropium [place] [Spiriva Respimat] 2 puff IH DAILY 06/09/19 [History] Venlafaxine HCl [Venlafaxine ER] 150 mg PO DAILY 06/09/19 [History] amLODIPine Besylate [Norvasc] 10 mg PO DAILY 06/09/19 [History] traZODone 200 mg PO BEDTIME 06/09/19 [History] Aspirin [Halfprin] 81 mg PO DAILY 01/16/20 [History] cephALEXin [Cephalexin] 500 mg PO BID #3 capsule 01/21/20 [Rx] Oxygen Therapy Mode: Room Air Patient Handouts: Urinary Tract Infection, Adult, Cephalexin tablets or capsu les Referrals: Dipti Diaz DO [Physician] - 01/25/20 11:40 am (1 week -follow-up hospital stay for urinary tract infection with sepsis) - Discharge Summary/Plan Comment DC Time >30 min.: Yes (35-coordinating home care) - Patient Data Vitals - Most Recent: Last Vital Signs Temp 37.2 C 01/21/20 11:14 Pulse 88 01/21/20 11:14 Resp 16 01/21/20 11:14 BP 130/73 01/21/20 11:14 Pulse Ox 92 L 01/21/20 11:14 Weight - Most Recent: 107.048 kg I&O - Last 24 hours: Intake & Output 01/20/20 01/21/20 01/21/20 22:59 06:59 14:59 Intake Total 100 50 Balance 100 50 Med Orders - Current: Current Medications Acetaminophen (Tylenol) 650 mg PO Q4H PRN PRN Reason: Pain (Mild 1-3)/fever Last Admin: 01/18/20 08:49 Dose: 650 mg Documented by: Albuterol (Proventil Neb Soln) 2.5 mg NEB Q4H PRN PRN Reason: Shortness Of Breath/wheezing Albuterol/Ipratropium (Duoneb 3.0-0.5 Mg/3 Ml) 3 ml NEB QIDRT [facility] Last Admin: 01/21/20 10:51 Dose: Not Given Documented by: Alprazolam (Xanax) 0.5 mg PO BID PRN PRN Reason: Anxiety Last Admin: 01/20/20 20:15 Dose: 0.5 mg Documented by: Amlodipine Besylate (Norvasc) 10 mg PO DAILY [facility] Last Admin: 01/21/20 09:19 Dose: 10 mg Documented by: Aripiprazole (Abilify) 10 mg PO DAILY [facility] Last Admin: 01/21/20 09:20 Dose: 10 mg Documented by: Aspirin (Halfprin) 81 mg PO DAILY [facility] Last Admin: 01/21/20 09:20 Dose: 81 mg Documented by: Cephalexin (Keflex) 500 mg PO BID [facility] Last Admin: 01/21/20 09:20 Dose: 500 mg Documented by: Ibuprofen (Motrin) 600 mg PO Q6H PRN PRN Reason: Pain/Fever Last Admin: 01/19/20 14:23 Dose: 600 mg Documented by: Lorazepam (Ativan) 0.5 mg IVPUSH Q4H PRN PRN Reason: Nausea/Vomiting Magnesium Hydroxide (Milk Of Magnesia) 30 ml PO Q12H PRN PRN Reason: Constipation Melatonin (Melatonin) 9 mg PO BEDTIME [facility] Last Admin: 01/20/20 20:16 Dose: 9 mg Documented by: Nystatin (Nystop) 0 gm TOP QID PRN PRN Reason: Rash Ondansetron HCl (Zofran) 4 mg IV Q6H PRN PRN Reason: Nausea/Vomiting Ondansetron HCl (Zofran Odt) 4 mg PO Q6H PRN PRN Reason: Nausea able to take PO Oxybutynin Chloride (Oxybutynin) 5 mg PO TID [facility] Last Admin: 01/21/20 09:19 Dose: 5 mg Documented by: Oxycodone HCl (Oxycodone) 5 mg PO Q4H PRN PRN Reason: Pain Pantoprazole Sodium (Protonix) 40 mg PO ACBREAKFAST [facility] Last Admin: 01/21/20 09:19 Dose: 40 mg Documented by: Potassium Chloride (Klor-Con M20) 40 meq PO BID [facility] Last Admin: 01/21/20 09:20 Dose: 40 meq Documented by: Pravastatin Sodium (Pravachol) 20 mg PO BEDTIME [facility] Last Admin: 01/20/20 20:16 Dose: 20 mg Documented by: Fluticasone/Salmeterol (Fluticasone-Salmeterol 55-14 Mcg Powder Inh) 0 puff INH BIDRT [facility] Last Admin: 01/21/20 07:23 Dose: 2 puff Documented by: Senna/Docusate Sodium (Senna Plus) 1 tab PO BID PRN PRN Reason: Constipation Venlafaxine HCl (Effexor Xr) 150 mg PO DAILY [facility] Last Admin: 01/21/20 09:19 Dose: 150 mg Documented by: Discontinued Medications Amlodipine Besylate (Norvasc) 10 mg PO DAILY [facility] Last Admin: 01/17/20 08:55 Dose: 10 mg Documented by: Hydrochlorothiazide (Hydrochlorothiazide) 25 mg PO DAILY [facility] Sodium Chloride (Normal Saline) 1,000 mls @ 125 mls/hr IV ASDIRECTED [facility] Last Admin: 01/18/20 11:50 Dose: 125 mls/hr Documented by: Sodium Chloride (Normal Saline) 1,000 mls @ 500 mls/hr IV .BOLUS ONE Stop: 01/16/20 21:17 Last Admin: 01/16/20 20:02 Dose: 500 mls/hr Documented by: Piperacillin/Tazobactam/ (Dextrose 3.375 gm/ Premix) 50 mls @ 100 mls/hr IV Q6H [facility] Last Admin: 01/19/20 07:38 Dose: 100 mls/hr Documented by: Sodium Chloride (Normal Saline) 1,000 mls @ 999 mls/hr IV .BOLUS ONE Stop: 01/17/20 08:29 Last Admin: 01/17/20 07:33 Dose: 999 mls/hr Documented by: Sodium Chloride (Normal Saline) 1,000 mls @ 500 mls/hr IV ASDIRECTED [facility] Stop: 01/17/20 17:31 Last Admin: 01/17/20 15:30 Dose: 500 mls/hr Documented by: Vancomycin HCl 1.5 gm/ Sodium (Chloride) 250 mls @ 250 mls/hr IV Q12H [facility] Stop: 01/18/20 14:00 Last Admin: 01/18/20 11:46 Dose: 250 mls/hr Documented by: Sodium Chloride (Normal Saline) 1,000 mls @ 999 mls/hr IV .BOLUS ONE Stop: 01/17/20 22:46 Last Admin: 01/17/20 22:12 Dose: 999 mls/hr Documented by: Vancomycin HCl 2 gm/ Sodium (Chloride) 500 mls @ 250 mls/hr IV ONETIME ONE Stop: 01/18/20 00:59 Last Admin: 01/17/20 23:40 Dose: 250 mls/hr Documented by: Vancomycin HCl 1.5 gm/ Sodium (Chloride) 250 mls @ 167 mls/hr IV Q24H [facility] Sodium Chloride (Normal Saline) 1,000 mls @ 25 mls/hr IV ASDIRECTED [facility] Potassium Chloride 20 meq/ (Premix) 0 mls @ 50 mls/hr IV ONETIME ONE Stop: 01/19/20 05:49 Last Admin: 01/19/20 07:22 Dose: Not Given Documented by: Potassium Chloride 20 meq/ (Premix) 100 mls @ 50 mls/hr IV ONETIME ONE Stop: 01/19/20 07:47 Last Admin: 01/19/20 06:07 Dose: 50 mls/hr Documented by: Potassium Chloride 20 meq/ (Premix) 100 mls @ 50 mls/hr IV ONETIME ONE Stop: 01/19/20 09:59 Potassium Chloride 20 meq/Lidocaine HCl 2 ml/ Sodium Chloride 112 mls @ 56 mls/hr IV ONETIME ONE Stop: 01/19/20 10:14 Last Admin: 01/19/20 10:16 Dose: 56 mls/hr Documented by: Ceftriaxone Sodium 1 gm/ (Sodium Chloride) 50 mls @ 100 mls/hr IV Q24H [facility] Stop: 01/19/20 18:00 Last Admin: 01/19/20 13:53 Dose: 100 mls/hr Documented by: Ceftriaxone Sodium 1 gm/ (Sodium Chloride) 50 mls @ 100 mls/hr IV Q24H [facility] Stop: 01/20/20 17:00 Last Admin: 01/20/20 13:34 Dose: 100 mls/hr Documented by: Lidocaine HCl (Xylocaine-Mpf 1%) 2 ml INJECT ONETIME ONE Stop: 01/19/20 05:50 Last Admin: 01/19/20 06:07 Dose: 2 ml Documented by: Losartan Potassium (Cozaar) 100 mg PO DAILY [facility] Methylprednisolone Sodium Succinate (Solu-Medrol) 62.5 mg IVPUSH Q8H [facility] Last Admin: 01/19/20 05:31 Dose: 62.5 mg Documented by: Methylprednisolone Sodium Succinate (Solu-Medrol) 125 mg IVPUSH ONETIME ONE Stop: 01/17/20 21:52 Last Admin: 01/17/20 22:12 Dose: 125 mg Documented by: Fluticasone/Salmeterol (Fluticasone-Salmeterol 55-14 Mcg Powder Inh) 2 puff INH BID [facility] Last Admin: 01/16/20 22:15 Dose: Not Given Documented by: Fluticasone/Salmeterol (Fluticasone-Salmeterol 113-14 Mcg Powder Inh) 1 puff INH BID [facility] Last Admin: 01/16/20 22:15 Dose: Not Given Documented by: Vancomycin HCl (Vancomycin) Confirm Administered Dose 2 gm .ROUTE .STK-MED ONE Stop: 01/17/20 23:26 Last Admin: 01/18/20 01:24 Dose: Not Given Documented by: Venlafaxine HCl (Effexor Xr) 150 mg PO BID [facility] - Exam Quality Assessment: Denies: Supplemental Oxygen General: Reports: Alert, Oriented, Cooperative, No Acute Distress Lungs: Reports: Normal Respiratory Effort Cardiovascular: Reports: Regular Rate, Regular Rhythm
== END 2020-01-21 13:58 | disposition home health service (06) | DRG 871 ==
LOC: JP.ED 11:20 → JP.MS 16:52
PROVIDERS: ADMIT Internal Medicine; ATTEND Internal Medicine
DX: A41.51 Sepsis due to Escherichia coli [E. coli] (principal); J96.21 Acute and chronic respiratory failure with hypoxia; N30.00 Acute cystitis without hematuria; T79.6XXA Traumatic ischemia of muscle, initial encounter; R65.20 Severe sepsis without septic shock; Z86.19 Personal history of other infectious and parasitic diseases; J44.9 Chronic obstructive pulmonary disease, unspecified; R29.6 Repeated falls; E87.6 Hypokalemia; I10 Essential (primary) hypertension; F10.21 Alcohol dependence, in remission; I95.1 Orthostatic hypotension; H52.4 Presbyopia; H52.13 Myopia, bilateral; K74.60 Unspecified cirrhosis of liver; M19.90 Unspecified osteoarthritis, unspecified site; F41.9 Anxiety disorder, unspecified; Z20.828 Contact with and (suspected) exposure to other viral communicable diseases; F32.9 Major depressive disorder, single episode, unspecified; W06.XXXA Fall from bed, initial encounter; E55.9 Vitamin D deficiency, unspecified; D69.6 Thrombocytopenia, unspecified; Z85.3 Personal history of malignant neoplasm of breast; Z79.82 Long term (current) use of aspirin; Z79.51 Long term (current) use of inhaled steroids; Z79.899 Other long term (current) drug therapy; Z88.1 Allergy status to other antibiotic agents; Z88.8 Allergy status to other drugs, medicaments and biological substances; Z87.891 Personal history of nicotine dependence
CPT/HCPCS: 36415; 70450; 71045; 71045-26; 71046; 71046-26; 80048; 81001; 82140; 82550; 82803; 83605; 83735; 84484; 85025; 85027; 85610; 86140; 87040; 87077; 87086; 87088; 87186; 94640; 97110-GP; 97162-GP; 97530-GP; 99285-25; A9270-GY; J0696; J2001; J2543; J2930; J3370; J3480; J7030; J7040; J7050; J7620-GY; U0002

== ENCOUNTER 2020-01-25 09:56 | Emergency (ER) | payer MEDICARE, MEDICAID ==
--- NOTE | 2020-01-25 10:38 | EDM.PDOC ---
ED HPI GENERAL MEDICAL PROBLEM - General Chief Complaint: General Stated Complaint: MEDICAL VIA NORTH Time Seen by Provider: 01/25/20 10:07 Source of Information: Reports: Patient, RN Notes Reviewed History Limitations: Reports: No Limitations - History of Present Illness INITIAL COMMENTS - FREE TEXT/NARRATIVE: 69-year-old female presents the emergency department today complaint of weakness, she arrives by EMS services, she was just discharged from the hospital on January 20 for combination weakness urinary tract infection early sepsis. She was found to be hypoxic upon admission had home care oxygen set up had plans for help at home unfortunately none of this has worked out she does not have oxygen at home did not receive the home care health that she had planned on did receive nursing help to help with her medications but no one to help her at home. She has been unable to move around much at home and continually feeling more weak and was found to be hypoxic upon admission to the emergency department - Related Data Allergies Allergy/AdvReac Type Severity Reaction Status Date / Time hydrochlorothiazide Allergy Cannot Verified 01/25/20 10:08 Remember levofloxacin [From Levaquin] Allergy Cannot Verified 01/25/20 10:08 Remember triamterene Allergy Cannot Verified 01/25/20 10:08 Remember Home Meds: Home Meds ALPRAZolam [Alprazolam] 1 tab PO BID PRN 06/09/19 [History] ARIPiprazole [Abilify] 10 mg PO DAILY 06/09/19 [History] Acetaminophen 1 tab PO Q6H PRN 06/09/19 [History] Albuterol Sulfate [Proair Hfa] 2 puff IH Q4H 06/09/19 [History] Budesonide/Formoterol [Symbicort 80-4.5 MCG] 2 puff INH BID 06/09/19 [History] Cholecalciferol (Vitamin D3) [Decara] 50,000 unit PO ASDIRECTED 06/09/19 [History] Fluticasone/Salmeterol [Advair 100-50] 2 puff INH BID 06/09/19 [History] Ibuprofen [Motrin] 800 mg PO QID PRN 06/09/19 [History] Ipratropium/Albuterol Sulfate [Iprat-Albut 0.5-3(2.5) MG/3 ML] 3 ml IH ASDIRECTED 06/09/19 [History] Letrozole [Femara] 2.5 mg PO DAILY 06/09/19 [History] Losartan/Hydrochlorothiazide [Hyzaar 100-25 Tablet] 1 tab PO DAILY 06/09/19 [Hi story] Nortriptyline HCl [Pamelor] 50 mg PO DAILY 06/09/19 [History] Oxybutynin 5 mg PO TID 06/09/19 [History] Pantoprazole Sodium [Protonix] 40 mg PO DAILY 06/09/19 [History] Pravastatin Sodium [Pravastatin (Pravachol)] 20 mg PO BEDTIME 06/09/19 [History] Tiotropium [place] [Spiriva Respimat] 2 puff IH DAILY 06/09/19 [History] Venlafaxine HCl [Venlafaxine ER] 150 mg PO DAILY 06/09/19 [History] amLODIPine Besylate [Norvasc] 10 mg PO DAILY 06/09/19 [History] traZODone 200 mg PO BEDTIME 06/09/19 [History] Aspirin [Halfprin] 81 mg PO DAILY 01/16/20 [History] Past Medical History HEENT History: Reports: Impaired Vision, Other (See Below) Other HEENT History: 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 Cardiovascular History: Reports: Hypertension, Syncope, Other (See Below) Other Cardiovascular History: orthostatic hypotension sinus rickie Respiratory History: Reports: Bronchitis, Recurrent, COPD, Other (See Below) Other Respiratory History: hypoxemia Gastrointestinal History: Reports: Cirrhosis, Other (See Below) Other Gastrointestinal History: pancreas cyst hepititis C resolved 2016 REMELTER History: Reports: Musculoskeletal History: Reports: Arthritis, Other (See Below) Other Musculoskeletal History: l shoulder dislocation fx medial malleolus osteopenia Frequent falls Psychiatric History: Reports: Addiction, Anxiety, Depression, Suicide Attempt, Other (See Below) Other Psychiatric History: alcoholic dependence in remission Endocrine/Metabolic History: Reports: Vitamin D Deficiency, Other (See Below) Other Endocrine/Metabolic History: thrombocytenia Oncologic (Cancer) History: Reports: Breast - Infectious Disease History Infectious Disease History: Reports: Chicken Pox, Hepatitis C, Measles, Mumps - Past Surgical History Head Surgeries/Procedures: Reports: None HEENT Surgical History: Reports: Other (See Below) Other HEENT Surgeries/Procedures: retinal detachment surgery Cardiovascular Surgical History: Reports: None Respiratory Surgical History: Reports: None GI Surgical History: Reports: Colonoscopy Female Surgical History: Reports: Other (See Below) Other Female Surgeries/Procedures: breast CA lympectomy l breast Endocrine Surgical History: Reports: None Musculoskeletal Surgical History: Reports: None Oncologic Surgical History: Reports: Lumpectomy Dermatological Surgical History: Reports: None Social & Family History - Family History Family Medical History: Noncontributory - Tobacco Use Smoking Status *Q: Former Smoker Used Tobacco, but Quit: Yes Month/Year Tobacco Last Used: 2004 Second Hand Smoke Exposure: No - Caffeine Use Caffeine Use: Reports: Coffee Caffeine Use Comment: none for 2 weeks - Recreational Drug Use Recreational Drug Use: No ED ROS GENERAL - Review of Systems Review Of Systems: See Below Constitutional: Reports: Weakness, Fatigue HEENT: Reports: No Symptoms Respiratory: Reports: Shortness of Breath ED EXAM, GENERAL - Physical Exam Exam: See Below Exam Limited By: No Limitations General Appearance: Alert, WD/WN, No Apparent Distress Respiratory/Chest: No Respiratory Distress, Lungs Clear, Normal Breath Sounds, No Accessory Muscle Use, Chest Non-Tender Cardiovascular: Regular Rate, Rhythm, No Murmur GI/Abdominal: Soft, Non-Tender Extremities: Pedal Edema (Trace) Course - Vital Signs Last Recorded V/S: Last Vital Signs Temp 96.9 F 01/25/20 09:59 Pulse 78 01/25/20 09:59 Resp 18 01/25/20 09:59 BP 114/70 01/25/20 09:59 Pulse Ox 88 L 01/25/20 09:59 - Orders/Labs/Meds Orders: Active Orders 24 hr Category Date Time Status Chest 1V Frontal [CR] Urgent Exams 01/25/20 10:28 Taken Labs: Laboratory Tests 01/25/20 01/25/20 01/25/20 Range/Units 10:38 10:38 10:38 WBC 5.2 (4.5-11.0) K/uL RBC 4.55 (3.30-5.50) M/uL Hgb 13.5 (12.0-15.0) g/dL Hct 42.4 (36.0-48.0) % MCV 93 (80-98) fL MCH 30 (27-31) pg MCHC 32 (32-36) % Plt Count 174 (150-400) K/uL Neut % (Auto) 62 (36-66) % Lymph % (Auto) 16 L (24-44) % [place] % (Auto) 18 H (2-6) % Eos % (Auto) 3 (2-4) % Baso % (Auto) 1 (0-1) % Sodium 143 (140-148) mmol/L Potassium 3.0 L (3.6-5.2) mmol/L Chloride 104 (100-108) mmol/L Carbon Dioxide 34 H (21-32) mmol/L Anion Gap 8.0 (5.0-14.0) mmol/L BUN 10 D (7-18) mg/dL Creatinine 1.2 H (0.6-1.0) mg/dL Est Cr Clr Drug Dosing 45.26 mL/min Estimated GFR (MDRD) 45 L (>60) Glucose 95 (74-106) mg/dL Calcium 9.0 (8.5-10.1) mg/dL Total Bilirubin 0.4 (0.2-1.0) mg/dL AST 22 (15-37) U/L ALT 35 (12-78) U/L Alkaline Phosphatase 50 (46-116) U/L Creatine Kinase 41 (26-192) U/L Troponin I < 0.017 (0.000-0.056) ng/mL Total Protein 6.3 L (6.4-8.2) g/dL Albumin 2.4 L (3.4-5.0) g/dL Globulin 3.9 H (2.3-3.5) g/dL Albumin/Globulin Ratio 0.6 L (1.2-2.2) Urine Color (YELLOW) Urine Appearance (CLEAR) Urine pH (5.0-8.0) Ur Specific [place] (1.008-1.030) Urine Protein (NEGATIVE) mg/dL Urine Glucose (UA) (NEGATIVE) mg/dL Urine Ketones (NEGATIVE) mg/dL Urine Occult Blood (NEGATIVE) Urine Nitrite (NEGATIVE) Urine Bilirubin (NEGATIVE) Urine Urobilinogen (0.2-1.0) EU/dL Ur Leukocyte Esterase (NEGATIVE) Urine RBC (0-5) Urine WBC (0-5) Ur Epithelial Cells Amorphous Sediment Urine Bacteria Urine Mucus Urine Other 01/25/20 Range/Units 11:19 WBC (4.5-11.0) K/uL RBC (3.30-5.50) M/uL Hgb (12.0-15.0) g/dL Hct (36.0-48.0) % MCV (80-98) fL MCH (27-31) pg MCHC (32-36) % Plt Count (150-400) K/uL Neut % (Auto) (36-66) % Lymph % (Auto) (24-44) % [place] % (Auto) (2-6) % Eos % (Auto) (2-4) % Baso % (Auto) (0-1) % Sodium (140-148) mmol/L Potassium (3.6-5.2) mmol/L Chloride (100-108) mmol/L Carbon Dioxide (21-32) mmol/L Anion Gap (5.0-14.0) mmol/L BUN (7-18) mg/dL Creatinine (0.6-1.0) mg/dL Est Cr Clr Drug Dosing mL/min Estimated GFR (MDRD) (>60) Glucose (74-106) mg/dL Calcium (8.5-10.1) mg/dL Total Bilirubin (0.2-1.0) mg/dL AST (15-37) U/L ALT (12-78) U/L Alkaline Phosphatase (46-116) U/L Creatine Kinase (26-192) U/L Troponin I (0.000-0.056) ng/mL Total Protein (6.4-8.2) g/dL Albumin (3.4-5.0) g/dL Globulin (2.3-3.5) g/dL Albumin/Globulin Ratio (1.2-2.2) Urine Color Yellow (YELLOW) Urine Appearance Clear (CLEAR) Urine pH 7.0 (5.0-8.0) Ur Specific [place] 1.020 (1.008-1.030) Urine Protein Negative (NEGATIVE) mg/dL Urine Glucose (UA) Negative (NEGATIVE) mg/dL Urine Ketones Negative (NEGATIVE) mg/dL Urine Occult Blood Trace-intact H (NEGATIVE) Urine Nitrite Negative (NEGATIVE) Urine Bilirubin Negative (NEGATIVE) Urine Urobilinogen 0.2 (0.2-1.0) EU/dL Ur Leukocyte Esterase Small H (NEGATIVE) Urine RBC 0-5 (0-5) Urine WBC 5-10 H (0-5) Ur Epithelial Cells Few Amorphous Sediment Moderate Urine Bacteria Few Urine Mucus Rare Urine Other See note Departure - Departure Time of Disposition: 13:56 Disposition: Home, Self-Care 01 Condition: Fair Clinical Impression: Generalized weakness - Discharge Information Referrals: PCP,None [Primary Care Provider] - Forms: ED Department Discharge Sepsis Event Note (ED) - Evaluation Sepsis Screening Result: No Definite Risk - Focused Exam Vital Signs: Vital Signs Temp Pulse Resp BP Pulse Ox 01/25/20 09:59 96.9 F 78 18 114/70 88 L 01/25/20 09:57 96.9 F 78 18 114/70 88 L - My Orders Last 24 Hours: My Active Orders 01/25/20 10:28 Chest 1V Frontal [CR] Urgent - Assessment/Plan Last 24 Hours: My Active Orders 01/25/20 10:28 Chest 1V Frontal [CR] Urgent Plan: Assessment Acuity = acute Site and laterality = weakness with physical deconditioning Etiology = secondary to recent hospitalization with sepsis from E. coli Manifestations = none Location of injury = Home Lab values = CBC unremarkable potassium low at 3.0 consistent hypokalemia, creatinine elevated 1.2 consistent with chronic renal failure stage G3 a, urinalysis unremarkable, chest x-ray I did review films myself I cannot appreciate any acute process, the official read from radiology is pending. Plan: Discussed the case with discharge planning we are able to secure her increase in services at her current assisted living facility they are sure for [facility] will be [facility] same medications and plan as pertained to her discharge summary from her hospital stay This note was dictated using [employer] voice recognition software please call with any questions on syntax or grammar.
--- NOTE | 2020-01-28 09:15 | CR ---
CHEST: Portable 01/25/2020 at 10:50 AM CLINICAL HISTORY:SOB COMPARISON:01/17/2020 FINDINGS: Heart is mildly enlarged. There is less than optimal inspiration exaggerating basilar lung markings. There is mild atrophy density in both lung bases. This is similar to prior study. Impression:. No acute cardiac pulmonary process or significant change from prior study Mild cardiomegaly
== END 2020-01-25 14:18 | disposition home or self-care (01) ==
LOC: JP.ED 09:56
DX: R53.1 Weakness (principal); I10 Essential (primary) hypertension; J44.9 Chronic obstructive pulmonary disease, unspecified; F41.9 Anxiety disorder, unspecified; F32.9 Major depressive disorder, single episode, unspecified; Z88.8 Allergy status to other drugs, medicaments and biological substances; Z88.1 Allergy status to other antibiotic agents; Z79.899 Other long term (current) drug therapy; Z87.891 Personal history of nicotine dependence
CPT/HCPCS: 36415; 71045; 71045-26; 80053; 81001; 82550; 84484; 85025; 99285-25

== ENCOUNTER 2020-02-21 11:54 | Observation (INO) | payer MEDICARE, MEDICAID ==
--- NOTE | 2020-02-21 12:51 | EDM.PDOC ---
ED HPI GENERAL MEDICAL PROBLEM - General Chief Complaint: General Stated Complaint: MEDICAL VIA NORTH Time Seen by Provider: 02/21/20 12:15 Source of Information: Reports: EMS, Old Records, RN History Limitations: Reports: Altered Mental Status (drowsy ) - History of Present Illness INITIAL COMMENTS - FREE TEXT/NARRATIVE: Miriam is a 69yo female that presents to ED via EMS for c/o leg weakness and inability to get out of the chair. She was hospitalized in our facility from 01/15 to 01/20 for UTI and weakness and was seen in the ED on 01/24 for weakness and her home oxygen not yet available. She is on 2L at all times. She was discharged from [facility] either on the or 19 of February. She is drowsy and is not able to give a concise history. Oxygen saturations upon ED arrival were 88-90% and staff reported dusky fingertips. Oxygen was placed on and her oxygen saturations improved to >95%. She states that she slept in her bed last evening and awoke this morning about 7am. She was able to ambulate with a walker to her chair at 7am but has not been able to get out of it since. A friend called EMS. Onset: Today Onset Date: 02/21/20 Onset Time: 07:00 Duration: Hour(s): (5) Location: Reports: Lower Extremity, Left (weakness), Lower Extremity, Right (weakness), Generalized - Related Data Allergies Allergy/AdvReac Type Severity Reaction Status Date / Time hydrochlorothiazide Allergy Cannot Verified 02/21/20 11:58 Remember levofloxacin [From Levaquin] Allergy Cannot Verified 02/21/20 11:58 Remember triamterene Allergy Cannot Verified 02/21/20 11:58 Remember Home Meds: Home Meds ALPRAZolam [Alprazolam] 1 tab PO BID PRN 06/09/19 [History] ARIPiprazole [Abilify] 10 mg PO DAILY 06/09/19 [History] Acetaminophen 1 tab PO Q6H PRN 06/09/19 [History] Albuterol Sulfate [Proair Hfa] 2 puff IH Q4H 06/09/19 [History] Budesonide/Formoterol [Symbicort 80-4.5 MCG] 2 puff INH BID 06/09/19 [History] Cholecalciferol (Vitamin D3) [Decara] 50,000 unit PO ASDIRECTED 06/09/19 [History] Fluticasone/Salmeterol [Advair 100-50] 2 puff INH BID 06/09/19 [History] Ibuprofen [Motrin] 800 mg PO QID PRN 06/09/19 [History] Ipratropium/Albuterol Sulfate [Iprat-Albut 0.5-3(2.5) MG/3 ML] 3 ml IH ASDIRECTED 06/09/19 [History] Letrozole [Femara] 2.5 mg PO DAILY 06/09/19 [History] Losartan/Hydrochlorothiazide [Hyzaar 100-25 Tablet] 1 tab PO DAILY 06/09/19 [History] Nortriptyline HCl [Pamelor] 50 mg PO DAILY 06/09/19 [History] Oxybutynin 5 mg PO TID 06/09/19 [History] Pantoprazole Sodium [Protonix] 40 mg PO DAILY 06/09/19 [History] Pravastatin Sodium [Pravastatin (Pravachol)] 20 mg PO BEDTIME 06/09/19 [History] Tiotropium [place] [Spiriva Respimat] 2 puff IH DAILY 06/09/19 [History] Venlafaxine HCl [Venlafaxine ER] 150 mg PO DAILY 06/09/19 [History] amLODIPine Besylate [Norvasc] 10 mg PO DAILY 06/09/19 [History] traZODone 200 mg PO BEDTIME 06/09/19 [History] Aspirin [Halfprin] 81 mg PO DAILY 01/16/20 [History] ALPRAZolam [Alprazolam] 0.5 mg PO BID PRN #20 tablet 01/25/20 [Rx] Past Medical History HEENT History: Reports: Impaired Vision, Other (See Below) Other HEENT History: 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 Cardiovascular History: Reports: Hypertension, Syncope, Other (See Below) Other Cardiovascular History: orthostatic hypotension sinus rickie Respiratory History: Reports: Bronchitis, Recurrent, COPD, Other (See Below) Other Respiratory History: hypoxemia Gastrointestinal History: Reports: Cirrhosis, Other (See Below) Other Gastrointestinal History: pancreas cyst hepititis C resolved 2015 Genitourinary History: Reports: None [employer] History: Reports: Musculoskeletal History: Reports: Arthritis, Other (See Below) Other Musculoskeletal History: l shoulder dislocation fx medial malleolus osteopenia Frequent falls Psychiatric History: Reports: Addiction, Anxiety, Depression, Suicide Attempt, Other (See Below) Other Psychiatric History: alcoholic dependence in remission Endocrine/Metabolic History: Reports: Obesity/BMI 30+, Vitamin D Deficiency, Other (See Below) Other Endocrine/Metabolic History: thrombocytenia Oncologic (Cancer) History: Reports: Breast - Infectious Disease History Infectious Disease History: Reports: Chicken Pox, Hepatitis C, Measles, Mumps - Past Surgical History Head Surgeries/Procedures: Reports: None HEENT Surgical History: Reports: Other (See Below) Other HEENT Surgeries/Procedures: retinal detachment surgery Cardiovascular Surgical History: Reports: None Respiratory Surgical History: Reports: None GI Surgical History: Reports: Colonoscopy Female Surgical History: Reports: Other (See Below) Other Female Surgeries/Procedures: breast CA lympectomy l breast Endocrine Surgical History: Reports: None Musculoskeletal Surgical History: Reports: None Oncologic Surgical History: Reports: Lumpectomy Dermatological Surgical History: Reports: None Social & Family History - Family History Family Medical History: Noncontributory - Tobacco Use Smoking Status *Q: Former Smoker Used Tobacco, but Quit: Yes Month/Year Tobacco Last Used: 2017 Second Hand Smoke Exposure: No - Caffeine Use Caffeine Use: Reports: Coffee Caffeine Use Comment: none for 2 weeks - Recreational Drug Use Recreational Drug Use: No ED ROS GENERAL - Review of Systems Review Of Systems: See Below Constitutional: Reports: Weakness, Decreased Appetite HEENT: Reports: No Symptoms Respiratory: Reports: No Symptoms Cardiovascular: Reports: No Symptoms. Denies: Chest Pain Endocrine: Reports: No Symptoms GI/Abdominal: Reports: Abdominal Pain (generalized abd), Decreased Appetite : Reports: No Symptoms Musculoskeletal: Reports: No Symptoms Skin: Reports: No Symptoms Neurological: Reports: Confusion (mild), Weakness Psychiatric: Reports: No Symptoms Hematologic/Lymphatic: Reports: No Symptoms Immunologic: Reports: No Symptoms ED EXAM, GENERAL - Physical Exam Exam: See Below Exam Limited By: Altered Mental Status (drowsy-) General Appearance: No Apparent Distress, Lethargic, Obese Eye Exam: Bilateral Eye: EOMI, PERRL Ears: Normal External Exam, Normal Canal, Normal TMs Ear Exam: Bilateral Ear: Auricle Normal, Canal Normal, TM normal Nose: Normal Inspection, Normal Mucosa, No Blood Throat/Mouth: Normal Inspection, Normal Lips, Normal Oropharynx, Normal Voice Head: Atraumatic, Normocephalic Neck: Normal Inspection, Non-Tender. No: Lymphadenopathy (R), Lymphadenopathy (L) Respiratory/Chest: No Respiratory Distress, Lungs Clear, Normal Breath Sounds. No: Crackles, Rhonchi, Wheezing Cardiovascular: Normal Peripheral Pulses, Regular Rate, Rhythm Peripheral Pulses: 2+: Brachial (L), Brachial (R) GI/Abdominal: Normal Bowel Sounds, Soft, Tender (all quadrants). No: Guarding, Rigid Back Exam: No: CVA Tenderness (R), CVA Tenderness (L) Extremities: Normal Inspection, Normal Capillary Refill, Pedal Edema (2+ bilat) Neurological: Alert, Slow to Respond Psychiatric: Normal Mood Skin Exam: Warm, Dry, Intact Lymphatic: No Adenopathy Course - Vital Signs Last Recorded V/S: Last Vital Signs Temp 99.5 F 02/21/20 12:01 Pulse 94 02/21/20 13:21 Resp 14 02/21/20 13:21 BP 138/81 02/21/20 13:21 Pulse Ox 90 L 02/21/20 13:21 - Orders/Labs/Meds Orders: Active Orders 24 hr Category Date Time Status Patient Status Manage Transfer [TRANSFER] Routine ADT 02/21/20 14:37 Active CULTURE URINE [RM] Stat Lab 02/21/20 13:08 Received Sodium Chloride 0.9% [Normal Saline] 1,000 ml Med 02/21/20 13:04 Active IV .BOLUS Resuscitation Status Routine Resus Stat 02/21/20 14:40 Ordered Medication Orders Sodium Chloride (Normal Saline) 1,000 mls @ 500 mls/hr IV .BOLUS ONE Stop: 02/21/20 15:03 Last Admin: 02/21/20 13:56 Dose: 500 mls/hr Documented by: MERY Labs: Laboratory Tests 02/21/20 02/21/20 02/21/20 Range/Units 12:36 12:36 12:38 WBC 9.2 (4.5-11.0) K/uL RBC 4.57 (3.30-5.50) M/uL Hgb 13.3 (12.0-15.0) g/dL Hct 42.5 (36.0-48.0) % MCV 93 (80-98) fL MCH 29 (27-31) pg MCHC 31 L (32-36) % Plt Count 128 L (150-400) K/uL Neut % (Auto) 82 H (36-66) % Lymph % (Auto) 9 L (24-44) % [place] % (Auto) 9 H (2-6) % Eos % (Auto) 0 L (2-4) % Baso % (Auto) 0 (0-1) % Sodium 138 L (140-148) mmol/L Potassium 4.6 (3.6-5.2) mmol/L Chloride 103 (100-108) mmol/L Carbon Dioxide 29 (21-32) mmol/L Anion Gap 10.6 (5.0-14.0) mmol/L BUN 22 H D (7-18) mg/dL Creatinine 1.2 H (0.6-1.0) mg/dL Est Cr Clr Drug Dosing 46.89 mL/min Estimated GFR (MDRD) 45 L (>60) Glucose 154 H (74-106) mg/dL Lactic Acid (0.4-2.0) mmol/L Calcium 9.4 (8.5-10.1) mg/dL Total Bilirubin 0.5 (0.2-1.0) mg/dL AST 19 (15-37) U/L ALT 18 (12-78) U/L Alkaline Phosphatase 55 (46-116) U/L Total Protein 6.8 (6.4-8.2) g/dL Albumin 3.0 L (3.4-5.0) g/dL Globulin 3.8 H (2.3-3.5) g/dL Albumin/Globulin Ratio 0.8 L (1.2-2.2) Urine Color Yellow (YELLOW) Urine Appearance Slightly cloudy A (CLEAR) Urine pH 6.5 (5.0-8.0) Ur Specific [place] 1.020 (1.008-1.030) Urine Protein Negative (NEGATIVE) mg/dL Urine Glucose (UA) Negative (NEGATIVE) mg/dL Urine Ketones Negative (NEGATIVE) mg/dL Urine Occult Blood Negative (NEGATIVE) Urine Nitrite Positive H (NEGATIVE) Urine Bilirubin Negative (NEGATIVE) Urine Urobilinogen 0.2 (0.2-1.0) EU/dL Ur Leukocyte Esterase Small H (NEGATIVE) Urine RBC 0-5 (0-5) Urine WBC 10-20 H (0-5) Ur Epithelial Cells Not seen Amorphous Sediment Not seen Urine Bacteria Many Urine Mucus Not seen 02/21/20 Range/Units 13:03 WBC (4.5-11.0) K/uL RBC (3.30-5.50) M/uL Hgb (12.0-15.0) g/dL Hct (36.0-48.0) % MCV (80-98) fL MCH (27-31) pg MCHC (32-36) % Plt Count (150-400) K/uL Neut % (Auto) (36-66) % Lymph % (Auto) (24-44) % [place] % (Auto) (2-6) % Eos % (Auto) (2-4) % Baso % (Auto) (0-1) % Sodium (140-148) mmol/L Potassium (3.6-5.2) mmol/L Chloride (100-108) mmol/L Carbon Dioxide (21-32) mmol/L Anion Gap (5.0-14.0) mmol/L BUN (7-18) mg/dL Creatinine (0.6-1.0) mg/dL Est Cr Clr Drug Dosing mL/min Estimated GFR (MDRD) (>60) Glucose (74-106) mg/dL Lactic Acid 1.3 (0.4-2.0) mmol/L Calcium (8.5-10.1) mg/dL Total Bilirubin (0.2-1.0) mg/dL AST (15-37) U/L ALT (12-78) U/L Alkaline Phosphatase (46-116) U/L Total Protein (6.4-8.2) g/dL Albumin (3.4-5.0) g/dL Globulin (2.3-3.5) g/dL Albumin/Globulin Ratio (1.2-2.2) Urine Color (YELLOW) Urine Appearance (CLEAR) Urine pH (5.0-8.0) Ur Specific [place] (1.008-1.030) Urine Protein (NEGATIVE) mg/dL Urine Glucose (UA) (NEGATIVE) mg/dL Urine Ketones (NEGATIVE) mg/dL Urine Occult Blood (NEGATIVE) Urine Nitrite (NEGATIVE) Urine Bilirubin (NEGATIVE) Urine Urobilinogen (0.2-1.0) EU/dL Ur Leukocyte Esterase (NEGATIVE) Urine RBC (0-5) Urine WBC (0-5) Ur Epithelial Cells Amorphous Sediment Urine Bacteria Urine Mucus Meds: Medications Generic Name Dose Route Start Last Admin Trade Name Flynn PRN Reason Stop Dose Admin Sodium Chloride 1,000 mls @ 500 mls/hr 02/21/20 13:04 02/21/20 13:56 Normal Saline IV 02/21/20 15:03 500 mls/hr .BOLUS ONE Administration Discontinued Medications Generic Name Dose Route Start Last Admin Trade Name Flynn PRN Reason Stop Dose Admin Ceftriaxone Sodium 1 gm/ 50 mls @ 100 mls/hr 02/21/20 13:45 02/21/20 13:57 Sodium Chloride IV 02/21/20 14:14 100 mls/hr ONETIME ONE Administration - Re-Assessments/Exams Free Text/Narrative Re-Assessment/Exam: 02/21/20 14:27 patient continues to be very weak. need assist of 2 staff to sit up on edge of bed and ambulate to the bathroom. Departure - Departure Time of Disposition: 14:34 Disposition: Refer to Observation Clinical Impression: UTI, Urinary tract infectious disease, Weakness generalized - Discharge Information *PRESCRIPTION DRUG MONITORING PROGRAM REVIEWED*: Not Applicable *COPY OF PRESCRIPTION DRUG MONITORING REPORT IN PATIENT DEMIAN: Not Applicable Referrals: PCP,None [Primary Care Provider] - Forms: ED Department Discharge Sepsis Event Note (ED) - Evaluation Sepsis Screening Result: No Definite Risk - Focused Exam Vital Signs: Vital Signs Temp Pulse Resp BP Pulse Ox 02/21/20 13:21 94 14 138/81 90 L 02/21/20 12:50 93 12 129/80 90 L 02/21/20 12:21 100 18 128/74 89 L 02/21/20 12:01 99.5 F 104 H 20 127/79 90 L 02/21/20 11:59 99.5 F 104 H 20 127/79 90 L - My Orders Last 24 Hours: My Active Orders 02/21/20 13:04 Sodium Chloride 0.9% [Normal Saline] 1,000 ml IV .BOLUS 02/21/20 13:08 CULTURE URINE [RM] Stat - Assessment/Plan Last 24 Hours: My Active Orders 02/21/20 13:04 Sodium Chloride 0.9% [Normal Saline] 1,000 ml IV .BOLUS 02/21/20 13:08 CULTURE URINE [RM] Stat Plan: call to Dr Roberts for admission for UTI and weakness
[2020-02-21] MEDS ORDERED: Sodium Chloride 0.9% 1,000 ML IV ONE (13:04)
[2020-02-21] MEDS ORDERED: cefTRIAXone 1 GM in Sodium Chloride 0.9% 50 ML IV ONE ×2 (13:04→13:45)
--- NOTE | 2020-02-21 14:44 | PCM.HP.2 ---
H&P History of Present Illness - General Date of Service: 02/21/20 Admit Problem/Dx: Admission Diagnosis/Problem Admission Diagnosis/Problem UTI, Urinary tract infectious disease Source of Information: Patient, Old Records, Provider, RN Notes Reviewed History Limitations: Reports: No Limitations - History of Present Illness Initial Comments - Free Text/Narative: Ms. Martin is a 69-year-old woman who was admitted through the emergency department observation status for further management of severe weakness secondary to urinary tract infection. She was hospitalized at this facility just over a month ago with profound weakness, hypoxia, and urinary tract infection with sepsis. Blood cultures and urine culture grew out pansensitive E. coli. She improved during hospitalization and was discharged home but was seen back in the emergency department a few days later because of marked weakness. Evaluation in the emergency department was unremarkable and she was discharged to the half-way for restorative physical therapy and Occupational Therapy. While at the half-way she did regain strength and was doing well enough to be discharged 2 days ago. She felt well through the day yesterday but today noted symptoms of profound weakness. She was unable to get out of the chair and was brought into the emergency department for further evaluation. White blood cell count is within normal range, urinalysis shows evidence of recurrent infection. Urine culture has been obtained and she has been given IV ceftriaxone in the emergency department. Oxygen saturation noted to be borderline, she does use oxygen at home. - Related Data Allergies/Adverse Reactions: Allergies Allergy/AdvReac Type Severity Reaction Status Date / Time hydrochlorothiazide Allergy Cannot Verified 02/21/20 11:58 Remember levofloxacin [From Levaquin] Allergy Cannot Verified 02/21/20 11:58 Remember triamterene Allergy Cannot Verified 02/21/20 11:58 Remember Home Medications: Home Meds ALPRAZolam [Alprazolam] 1 tab PO BID PRN 06/09/19 [History] ARIPiprazole [Abilify] 10 mg PO DAILY 06/09/19 [History] Acetaminophen 1 tab PO Q6H PRN 06/09/19 [History] Albuterol Sulfate [Proair Hfa] 2 puff IH Q4H 06/09/19 [History] Budesonide/Formoterol [Symbicort 80-4.5 MCG] 2 puff INH BID 06/09/19 [History] Cholecalciferol (Vitamin D3) [Decara] 50,000 unit PO ASDIRECTED 06/09/19 [History] Fluticasone/Salmeterol [Advair 100-50] 2 puff INH BID 06/09/19 [History] Ibuprofen [Motrin] 800 mg PO QID PRN 06/09/19 [History] Ipratropium/Albuterol Sulfate [Iprat-Albut 0.5-3(2.5) MG/3 ML] 3 ml IH ASD IRECTED 06/09/19 [History] Letrozole [Femara] 2.5 mg PO DAILY 06/09/19 [History] Losartan/Hydrochlorothiazide [Hyzaar 100-25 Tablet] 1 tab PO DAILY 06/09/19 [History] Nortriptyline HCl [Pamelor] 50 mg PO DAILY 06/09/19 [History] Oxybutynin 5 mg PO TID 06/09/19 [History] Pantoprazole Sodium [Protonix] 40 mg PO DAILY 06/09/19 [History] Pravastatin Sodium [Pravastatin (Pravachol)] 20 mg PO BEDTIME 06/09/19 [History] Tiotropium [place] [Spiriva Respimat] 2 puff IH DAILY 06/09/19 [History] Venlafaxine HCl [Venlafaxine ER] 150 mg PO DAILY 06/09/19 [History] amLODIPine Besylate [Norvasc] 10 mg PO DAILY 06/09/19 [History] traZODone 200 mg PO BEDTIME 06/09/19 [History] Aspirin [Halfprin] 81 mg PO DAILY 01/16/20 [History] ALPRAZolam [Alprazolam] 0.5 mg PO BID PRN #20 tablet 01/25/20 [Rx] Past Medical History HEENT History: Reports: Impaired Vision, Other (See Below) Other HEENT History: 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 Cardiovascular History: Reports: Hypertension, Syncope, Other (See Below) Other Cardiovascular History: orthostatic hypotension sinus rickie Respiratory History: Reports: Bronchitis, Recurrent, COPD, Other (See Below) Other Respiratory History: hypoxemia Gastrointestinal History: Reports: Cirrhosis, Other (See Below) Other Gastrointestinal History: pancreas cyst hepititis C resolved 2016 Genitourinary History: Reports: None 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: Musculoskeletal History: Reports: Arthritis, Other (See Below) Other Musculoskeletal History: l shoulder dislocation fx medial malleolus osteopenia Frequent falls Psychiatric History: Reports: Addiction, Anxiety, Depression, Suicide Attempt, Other (See Below) Other Psychiatric History: alcoholic dependence in remission Endocrine/Metabolic History: Reports: Obesity/BMI 30+, Vitamin D Deficiency, Other (See Below) Other Endocrine/Metabolic History: thrombocytenia Oncologic (Cancer) History: Reports: Breast - Infectious Disease History Infectious Disease History: Reports: Chicken Pox, Hepatitis C, Measles, Mumps - Past Surgical History Head Surgeries/Procedures: Reports: None HEENT Surgical History: Reports: Other (See Below) Other HEENT Surgeries/Procedures: retinal detachment surgery Cardiovascular Surgical History: Reports: None Respiratory Surgical History: Reports: None GI Surgical History: Reports: Colonoscopy Female Surgical History: Reports: Other (See Below) Other Female Surgeries/Procedures: breast CA lympectomy l breast Endocrine Surgical History: Reports: None Musculoskeletal Surgical History: Reports: None Oncologic Surgical History: Reports: Lumpectomy Dermatological Surgical History: Reports: None Social & Family History - Family History Family Medical History: Noncontributory - Tobacco Use Smoking Status *Q: Former Smoker Used Tobacco, but Quit: Yes Month/Year Tobacco Last Used: 2017 Second Hand Smoke Exposure: No - Caffeine Use Caffeine Use: Reports: Coffee Caffeine Use Comment: none for 2 weeks - Recreational Drug Use Recreational Drug Use: No H&P Review of Systems - Review of Systems: Review Of Systems: See Below General: Reports: Malaise, Weakness, Fatigue. Denies: Fever, Chills HEENT: Reports: No Symptoms Pulmonary: Reports: Shortness of Breath. Denies: Wheezing, Pleuritic Chest Pain, Cough, Sputum, Hemoptysis Cardiovascular: Reports: Dyspnea on Exertion. Denies: Chest Pain, Palpitations, Orthopnea, PND, Edema, Lightheadedness Gastrointestinal: Reports: No Symptoms Genitourinary: Reports: No Symptoms Musculoskeletal: Reports: No Symptoms Skin: Reports: No Symptoms Psychiatric: Reports: No Symptoms Neurological: Reports: No Symptoms Hematologic/Lymphatic: Reports: No Symptoms Immunologic: Reports: No Symptoms Exam - Exam Exam: See Below - Vital Signs Vital Signs: Last Vital Signs Temp 99.5 F 02/21/20 12:01 Pulse 94 02/21/20 13:21 Resp 14 02/21/20 13:21 BP 138/81 02/21/20 13:21 Pulse Ox 90 L 02/21/20 13:21 Weight: 232 lb - Exam Quality Assessment: Supplemental Oxygen, DVT Prophylaxis General: Alert, Oriented, Cooperative, Mild Distress HEENT: Conjunctiva Clear, Hearing Intact, Normal Nasal Septum, Posterior Pharynx Clear, Pupils Equal. No: Mucosa Moist & [place] Neck: Supple, Trachea Midline, +2 Carotid Pulse wo Bruit Lungs: Decreased Breath Sounds. No: Rales, Rhonchi, Rub, Wheezing Cardiovascular: Regular Rate, Regular Rhythm, Normal S1, Normal S2. No: S ystolic Murmur, Diastolic Murmur GI/Abdominal Exam: Soft, Non-Tender, No Organomegaly, No Distention Extremities: Non-Tender, No Pedal Edema Skin: Warm, Dry, Intact Neurological: Cranial Nerves Intact, Strength Equal Bilateral, Normal Speech, Normal Tone, Sensation Intact. No: Focal Deficit Neuro Extensive - Mental Status: Alert, Oriented x3, Normal Mood/Affect, Normal Cognition, Memory Intact - Patient Data Lab Results Last 24 hrs: Laboratory Results - last 24 hr 02/21/20 02/21/20 02/21/20 Range/Units 12:36 12:36 12:38 WBC 9.2 (4.5-11.0) K/uL RBC 4.57 (3.30-5.50) M/uL Hgb 13.3 (12.0-15.0) g/dL Hct 42.5 (36.0-48.0) % MCV 93 (80-98) fL MCH 29 (27-31) pg MCHC 31 L (32-36) % Plt Count 128 L (150-400) K/uL Neut % (Auto) 82 H (36-66) % Lymph % (Auto) 9 L (24-44) % [place] % (Auto) 9 H (2-6) % Eos % (Auto) 0 L (2-4) % Baso % (Auto) 0 (0-1) % Sodium 138 L (140-148) mmol/L Potassium 4.6 (3.6-5.2) mmol/L Chloride 103 (100-108) mmol/L Carbon Dioxide 29 (21-32) mmol/L Anion Gap 10.6 (5.0-14.0) mmol/L BUN 22 H D (7-18) mg/dL Creatinine 1.2 H (0.6-1.0) mg/dL Est Cr Clr Drug Dosing 46.89 mL/min Estimated GFR (MDRD) 45 L (>60) Glucose 154 H (74-106) mg/dL Lactic Acid (0.4-2.0) mmol/L Calcium 9.4 (8.5-10.1) mg/dL Total Bilirubin 0.5 (0.2-1.0) mg/dL AST 19 (15-37) U/L ALT 18 (12-78) U/L Alkaline Phosphatase 55 (46-116) U/L Total Protein 6.8 (6.4-8.2) g/dL Albumin 3.0 L (3.4-5.0) g/dL Globulin 3.8 H (2.3-3.5) g/dL Albumin/Globulin Ratio 0.8 L (1.2-2.2) Urine Color Yellow (YELLOW) Urine Appearance Slightly cloudy A (CLEAR) Urine pH 6.5 (5.0-8.0) Ur Specific [place] 1.020 (1.008-1.030) Urine Protein Negative (NEGATIVE) mg/dL Urine Glucose (UA) Negative (NEGATIVE) mg/dL Urine Ketones Negative (NEGATIVE) mg/dL Urine Occult Blood Negative (NEGATIVE) Urine Nitrite Positive H (NEGATIVE) Urine Bilirubin Negative (NEGATIVE) Urine Urobilinogen 0.2 (0.2-1.0) EU/dL Ur Leukocyte Esterase Small H (NEGATIVE) Urine RBC 0-5 (0-5) Urine WBC 10-20 H (0-5) Ur Epithelial Cells Not seen Amorphous Sediment Not seen Urine Bacteria Many Urine Mucus Not seen 02/21/20 Range/Units 13:03 WBC (4.5-11.0) K/uL RBC (3.30-5.50) M/uL Hgb (12.0-15.0) g/dL Hct (36.0-48.0) % MCV (80-98) fL MCH (27-31) pg MCHC (32-36) % Plt Count (150-400) K/uL Neut % (Auto) (36-66) % Lymph % (Auto) (24-44) % [place] % (Auto) (2-6) % Eos % (Auto) (2-4) % Baso % (Auto) (0-1) % Sodium (140-148) mmol/L Potassium (3.6-5.2) mmol/L Chloride (100-108) mmol/L Carbon Dioxide (21-32) mmol/L Anion Gap (5.0-14.0) mmol/L BUN (7-18) mg/dL Creatinine (0.6-1.0) mg/dL Est Cr Clr Drug Dosing mL/min Estimated GFR (MDRD) (>60) Glucose (74-106) mg/dL Lactic Acid 1.3 (0.4-2.0) mmol/L Calcium (8.5-10.1) mg/dL Total Bilirubin (0.2-1.0) mg/dL AST (15-37) U/L ALT (12-78) U/L Alkaline Phosphatase (46-116) U/L Total Protein (6.4-8.2) g/dL Albumin (3.4-5.0) g/dL Globulin (2.3-3.5) g/dL Albumin/Globulin Ratio (1.2-2.2) Urine Color (YELLOW) Urine Appearance (CLEAR) Urine pH (5.0-8.0) Ur Specific [place] (1.008-1.030) Urine Protein (NEGATIVE) mg/dL Urine Glucose (UA) (NEGATIVE) mg/dL Urine Ketones (NEGATIVE) mg/dL Urine Occult Blood (NEGATIVE) Urine Nitrite (NEGATIVE) Urine Bilirubin (NEGATIVE) Urine Urobilinogen (0.2-1.0) EU/dL Ur Leukocyte Esterase (NEGATIVE) Urine RBC (0-5) Urine WBC (0-5) Ur Epithelial Cells Amorphous Sediment Urine Bacteria Urine Mucus Result Diagrams: 02/21/20 12:36 02/21/20 12:36 Sepsis Event Note - Evaluation Sepsis Screening Result: No Definite Risk - Focused Exam Vital Signs: Vital Signs Temp Pulse Resp BP Pulse Ox 02/21/20 13:21 94 14 138/81 90 L 02/21/20 12:50 93 12 129/80 90 L 02/21/20 12:21 100 18 128/74 89 L 02/21/20 12:01 99.5 F 104 H 20 127/79 90 L 02/21/20 11:59 99.5 F 104 H 20 127/79 90 L Date Exam was Performed: 02/21/20 Time Exam was Performed: 15:12 *Q Meaningful Use (ADM) - VTE Risk Assess *Q Each Risk Factor Represents 1 Point: Obesity ( BMI > 25 kg/m2), Abnormal Pulmonary Function (COPD) Total Score 1 Point Risk Factors: 2 Each Risk Factor Represents 2 Points: Age 60 - 74 Years Total Score 2 Point Risk Factors: 2 Each Risk Factor Represents 3 Points: None Total Score 3 Point Risk Factors: 0 Each Risk Factor Represents 5 Points: None Total Score 5 Point Risk Factors: 0 Venous Thromboembolism Risk Factor Score *Q: 4 Problem List Initiated/Reviewed/Updated: Yes Orders Last 24hrs: Active Orders 24 hr Category Date Time Status Patient Status Manage Transfer [TRANSFER] Routine ADT 02/21/20 14:37 Ordered CULTURE URINE [RM] Stat Lab 02/21/20 13:08 Received Sodium Chloride 0.9% [Normal Saline] 1,000 ml Med 02/21/20 13:04 Active IV .BOLUS Resuscitation Status Routine Resus Stat 02/21/20 14:40 Ordered Medication Orders Sodium Chloride (Normal Saline) 1,000 mls @ 500 mls/hr IV .BOLUS ONE Stop: 02/21/20 15:03 Last Admin: 02/21/20 13:56 Dose: 500 mls/hr Documented by: MERY Assessment/Plan Comment:: ASSESSMENT AND PLAN URINARY TRACT INFECTION-no evidence of underlying sepsis. -Urine culture pending -Ceftriaxone 1 g IV every 24 hours pending culture results SEVERE WEAKNESS-of relatively sudden onset, likely secondary to UTI -Physical therapy consult OXYGEN DEPENDENT COPD-no evidence of acute COPD exacerbation or underlying pulmonary infection -Supplemental oxygen as needed -Continue outpatient medications MAINTENANCE ISSUES -DVT prophylaxis; Lovenox 40 mg subcu daily -GI prophylaxis; continue outpatient PPI -Carreno catheter; not indicated -Nutrition; 2 g sodium diet -Nicotine dependence; not required CODE STATUS-FULL CODE ADMISSION STATUS-this patient will be admitted to observation status, expect no more than a one night hospital stay for evaluation and management of problems as outlined above. DISPOSITION-anticipate discharge to home versus half-way after the hospital stay. PRIMARY CARE PROVIDER- - Mortality Measure Prognosis:: Good
[2020-02-21] MEDS ORDERED: Ondansetron 4 MG/2 ML SDV IV PRN (15:16)
[2020-02-21] MEDS ORDERED: Sodium Chloride 0.9% 10 ML Syringe FLUSH PRN (15:16)
[2020-02-21] MEDS ORDERED: Albuterol/Ipratropium 3.0-0.5 MG/3 ML Neb Soln INH PRN (15:16)
[2020-02-21] MEDS ORDERED: Albuterol 8 GM Inhaler INH PRN (15:16)
[2020-02-21] MEDS ORDERED: Polyethylene Glycol 3350 Powder 17 GM Packet PO PRN (15:16)
[2020-02-21] MEDS ORDERED: Acetaminophen 325 MG Tab PO PRN (15:16)
[2020-02-21] MEDS ORDERED: ALPRAZolam 0.5 MG Tab PO PRN (15:16)
[2020-02-21] MEDS ORDERED: Enoxaparin 40 MG/0.4 ML Syringe SUBCUT SCH (16:30)
[2020-02-21] MEDS: Sodium Chloride 0.9% 1,000 ML IV SCH (17:19)
[2020-02-21] MEDS ORDERED: Non-Formulary Medication 1 Each (Trazodone [Trazodone] 200 MG) PO SCH (21:00)
[2020-02-21] MEDS ORDERED: PRAVASTATIN SODIUM 20 MG PO SCH (21:00)
[2020-02-21] MEDS ORDERED: Pravastatin 20 MG Tab PO SCH (21:00)
[2020-02-21] MEDS ORDERED: traZODone 50 MG Tab PO SCH (21:00)
[2020-02-21] MEDS ORDERED: Nortriptyline 25 MG Cap PO SCH (21:00)
[2020-02-21] MEDS ORDERED: Non-Formulary Medication 1 Each (Budesonide/Formoterol [Symbicort 80-4.5 Mcg] 2 PUFF) INH SCH (21:00)
[2020-02-21] MEDS: Fluticasone-Salmeterol 113-14 MCG Powder Inhalant INH SCH (21:05)
[2020-02-21] MEDS: Oxybutynin 5 MG Tab PO SCH (21:07)
[2020-02-22] MEDS: Sodium Chloride 0.9% 1,000 ML IV SCH ×2 (01:21→09:12)
[2020-02-22] MEDS ORDERED: Glycopyrrolate 15.6 MCG Cap.W.Dev Kit of 6 IH SCH (07:00)
[2020-02-22] MEDS: Fluticasone-Salmeterol 113-14 MCG Powder Inhalant INH SCH (07:25)
[2020-02-22] MEDS ORDERED: Pantoprazole 40 MG Tab.CR PO SCH (07:30)
[2020-02-22] MEDS: Oxybutynin 5 MG Tab PO SCH (08:14)
[2020-02-22] MEDS ORDERED: ARIPiprazole 10 MG Tab PO SCH (09:00)
[2020-02-22] MEDS ORDERED: amLODIPine 10 MG Tab PO SCH (09:00)
[2020-02-22] MEDS ORDERED: Non-Formulary Medication 1 Each (Tiotropium Bromide [Spiriva Respimat] 2 PUFF) IH SCH (09:00)
[2020-02-22] MEDS ORDERED: Hydrochlorothiazide 25 MG Tab PO SCH (09:00)
[2020-02-22] MEDS ORDERED: Losartan 50 MG Tab PO SCH (09:00)
[2020-02-22] MEDS ORDERED: HYDROCHLOROTHIAZIDE PO SCH (09:00)
[2020-02-22] MEDS ORDERED: LOSARTAN PO SCH (09:00)
[2020-02-22] MEDS ORDERED: NORTRIPTYLINE HCL 50 MG PO SCH (09:00)
[2020-02-22] MEDS ORDERED: Aspirin 81 MG Tab.EC PO SCH (09:00)
[2020-02-22] MEDS ORDERED: Venlafaxine 75 MG Cap.ER PO SCH (09:00)
[2020-02-22] MEDS ORDERED: [UNRECOGNIZED DRUG - OTHER] PO SCH (09:00)
--- NOTE | 2020-02-22 10:07 | PCM.PN ---
- General Info Date of Service: 02/22/20 Subjective Update: Ms. Martin has been stable since admission yesterday. No significant temperature elevations or hemodynamic instability. She feels stronger today and is more alert and interactive. She is required supplemental oxygen, currently at 3 L/min via nasal cannula to maintain adequate saturations. Functional Status: Reports: Tolerating Diet, Urinating - Review of Systems General: Reports: Weakness, Fatigue. Denies: Fever, Chills Pulmonary: Reports: Shortness of Breath. Denies: Pleuritic Chest Pain, Cough, Sputum, Hemoptysis, Wheezing Cardiovascular: Reports: Dyspnea on Exertion. Denies: Chest Pain, Palpitations, Orthopnea, PND, Edema, Lightheadedness Gastrointestinal: Reports: No Symptoms - Patient Data Vitals - Most Recent: Last Vital Signs Temp 98.4 F 02/22/20 07:00 Pulse 87 02/22/20 07:00 Resp 18 02/22/20 07:00 BP 128/66 02/22/20 08:14 Pulse Ox 91 L 02/22/20 07:34 Weight - Most Recent: 240 lb I&O - Last 24 Hours: Intake & Output 02/21/20 02/22/20 02/22/20 22:59 06:59 14:59 Intake Total 1447 200 480 Balance 1447 200 480 Lab Results Last 24 Hours: Laboratory Results - last 24 hr 02/21/20 02/21/20 02/21/20 Range/Units 12:36 12:36 12:38 WBC 9.2 (4.5-11.0) K/uL RBC 4.57 (3.30-5.50) M/uL Hgb 13.3 (12.0-15.0) g/dL Hct 42.5 (36.0-48.0) % MCV 93 (80-98) fL MCH 29 (27-31) pg MCHC 31 L (32-36) % Plt Count 128 L (150-400) K/uL Neut % (Auto) 82 H (36-66) % Lymph % (Auto) 9 L (24-44) % [place] % (Auto) 9 H (2-6) % Eos % (Auto) 0 L (2-4) % Baso % (Auto) 0 (0-1) % Sodium 138 L (140-148) mmol/L Potassium 4.6 (3.6-5.2) mmol/L Chloride 103 (100-108) mmol/L Carbon Dioxide 29 (21-32) mmol/L Anion Gap 10.6 (5.0-14.0) mmol/L BUN 22 H D (7-18) mg/dL Creatinine 1.2 H (0.6-1.0) mg/dL Est Cr Clr Drug Dosing 46.89 mL/min Estimated GFR (MDRD) 45 L (>60) Glucose 154 H (74-106) mg/dL Lactic Acid (0.4-2.0) mmol/L Calcium 9.4 (8.5-10.1) mg/dL Total Bilirubin 0.5 (0.2-1.0) mg/dL AST 19 (15-37) U/L ALT 18 (12-78) U/L Alkaline Phosphatase 55 (46-116) U/L Total Protein 6.8 (6.4-8.2) g/dL Albumin 3.0 L (3.4-5.0) g/dL Globulin 3.8 H (2.3-3.5) g/dL Albumin/Globulin Ratio 0.8 L (1.2-2.2) Urine Color Yellow (YELLOW) Urine Appearance Slightly cloudy A (CLEAR) Urine pH 6.5 (5.0-8.0) Ur Specific [place] 1.020 (1.008-1.030) Urine Protein Negative (NEGATIVE) mg/dL Urine Glucose (UA) Negative (NEGATIVE) mg/dL Urine Ketones Negative (NEGATIVE) mg/dL Urine Occult Blood Negative (NEGATIVE) Urine Nitrite Positive H (NEGATIVE) Urine Bilirubin Negative (NEGATIVE) Urine Urobilinogen 0.2 (0.2-1.0) EU/dL Ur Leukocyte Esterase Small H (NEGATIVE) Urine RBC 0-5 (0-5) Urine WBC 10-20 H (0-5) Ur Epithelial Cells Not seen Amorphous Sediment Not seen Urine Bacteria Many Urine Mucus Not seen 02/21/20 02/22/20 02/22/20 Range/Units 13:03 04:10 04:10 WBC 5.0 (4.5-11.0) K/uL RBC 4.29 (3.30-5.50) M/uL Hgb 12.3 (12.0-15.0) g/dL Hct 40.3 (36.0-48.0) % MCV 94 (80-98) fL MCH 29 (27-31) pg MCHC 31 L (32-36) % Plt Count 110 L (150-400) K/uL Neut % (Auto) 59 (36-66) % Lymph % (Auto) 26 (24-44) % [place] % (Auto) 11 H (2-6) % Eos % (Auto) 3 (2-4) % Baso % (Auto) 0 (0-1) % Sodium 142 (140-148) mmol/L Potassium 4.0 (3.6-5.2) mmol/L Chloride 109 H (100-108) mmol/L Carbon Dioxide 28 (21-32) mmol/L Anion Gap 9.0 (5.0-14.0) mmol/L BUN 14 (7-18) mg/dL Creatinine 0.8 (0.6-1.0) mg/dL Est Cr Clr Drug Dosing 70.34 mL/min Estimated GFR (MDRD) > 60 (>60) Glucose 87 (74-106) mg/dL Lactic Acid 1.3 (0.4-2.0) mmol/L Calcium 8.7 (8.5-10.1) mg/dL Total Bilirubin (0.2-1.0) mg/dL AST (15-37) U/L ALT (12-78) U/L Alkaline Phosphatase (46-116) U/L Total Protein (6.4-8.2) g/dL Albumin (3.4-5.0) g/dL Globulin (2.3-3.5) g/dL Albumin/Globulin Ratio (1.2-2.2) Urine Color (YELLOW) Urine Appearance (CLEAR) Urine pH (5.0-8.0) Ur Specific [place] (1.008-1.030) Urine Protein (NEGATIVE) mg/dL Urine Glucose (UA) (NEGATIVE) mg/dL Urine Ketones (NEGATIVE) mg/dL Urine Occult Blood (NEGATIVE) Urine Nitrite (NEGATIVE) Urine Bilirubin (NEGATIVE) Urine Urobilinogen (0.2-1.0) EU/dL Ur Leukocyte Esterase (NEGATIVE) Urine RBC (0-5) Urine WBC (0-5) Ur Epithelial Cells Amorphous Sediment Urine Bacteria Urine Mucus Jonnie Results Last 24 Hours: Microbiology 02/21/20 13:08 Urine Culture - Preliminary Urine, Catheterized Med Orders - Current: Current Medications Acetaminophen (Tylenol) 650 mg PO Q4H PRN PRN Reason: Pain (Mild 1-3)/fever Albuterol (Ventolin Hfa) 0 gm INH Q4H PRN PRN Reason: Shortness of Breath Albuterol/Ipratropium (Duoneb 3.0-0.5 Mg/3 Ml) 3 ml INH QIDRT PRN PRN Reason: Shortness of Breath Alprazolam (Xanax) 0.5 mg PO BID PRN PRN Reason: Anxiety Amlodipine Besylate (Norvasc) 10 mg PO DAILY ON LICENSE OF [facility] Last Admin: 02/22/20 08:13 Dose: 10 mg Documented by: Aripiprazole (Abilify) 10 mg PO DAILY ON LICENSE OF [facility] Last Admin: 02/22/20 08:14 Dose: 10 mg Documented by: Aspirin (Halfprin) 81 mg PO DAILY ON LICENSE OF [facility] Last Admin: 02/22/20 08:14 Dose: 81 mg Documented by: Enoxaparin Sodium (Lovenox) 40 mg SUBCUT Q24H ON LICENSE OF [facility] Last Admin: 02/21/20 16:49 Dose: 40 mg Documented by: Glycopyrrolate (Seebri Neohaler) 15.6 mcg IH BIDRT ON LICENSE OF [facility] Last Admin: 02/22/20 07:25 Dose: 1 puff Documented by: Hydrochlorothiazide (Hydrochlorothiazide) 25 mg PO DAILY ON LICENSE OF [facility] Last Admin: 02/22/20 08:13 Dose: 25 mg Documented by: Ceftriaxone Sodium 1 gm/ (Sodium Chloride) 50 mls @ 100 mls/hr IV Q24H ON LICENSE OF [facility] Letrozole (Femara) 2.5 mg PO DAILY ON LICENSE OF [facility] Last Admin: 02/22/20 08:16 Dose: Not Given Documented by: Losartan Potassium (Cozaar) 100 mg PO DAILY ON LICENSE OF [facility] Last Admin: 02/22/20 08:14 Dose: 100 mg Documented by: Nortriptyline HCl (Nortriptyline) 50 mg PO BEDTIME ON LICENSE OF [facility] Last Admin: 02/21/20 21:08 Dose: 50 mg Documented by: Ondansetron HCl (Zofran) 4 mg IV Q4H PRN PRN Reason: Nausea/Vomiting Oxybutynin Chloride (Oxybutynin) 5 mg PO TID ON LICENSE OF [facility] Last Admin: 02/22/20 08:14 Dose: 5 mg Documented by: Pantoprazole Sodium (Protonix) 40 mg PO ACBREAKFAST ON LICENSE OF [facility] Last Admin: 02/22/20 07:40 Dose: 40 mg Documented by: Polyethylene Glycol (Miralax) 17 gm PO DAILY PRN PRN Reason: Constipation Pravastatin Sodium (Pravachol) 20 mg PO BEDTIME ON LICENSE OF [facility] Last Admin: 02/21/20 21:07 Dose: 20 mg Documented by: Fluticasone/Salmeterol (Fluticasone-Salmeterol 113-14 Mcg Powder Inh) 1 puff INH BIDRT ON LICENSE OF [facility] Last Admin: 02/22/20 07:25 Dose: 1 puff Documented by: Sodium Chloride (Saline Flush) 10 ml FLUSH ASDIRECTED PRN PRN Reason: Keep Vein Open Trazodone HCl (Trazodone) 200 mg PO BEDTIME ON LICENSE OF [facility] Last Admin: 02/21/20 21:08 Dose: 200 mg Documented by: Venlafaxine HCl (Effexor Xr) 150 mg PO DAILY ON LICENSE OF [facility] Last Admin: 02/22/20 08:13 Dose: 150 mg Documented by: Discontinued Medications Sodium Chloride (Normal Saline) 1,000 mls @ 500 mls/hr IV .BOLUS ONE Stop: 02/21/20 15:03 Last Admin: 02/21/20 13:56 Dose: 500 mls/hr Documented by: Ceftriaxone Sodium 1 gm/ (Sodium Chloride) 50 mls @ 100 mls/hr IV ONETIME ONE Stop: 02/21/20 14:14 Last Admin: 02/21/20 13:57 Dose: 100 mls/hr Documented by: Sodium Chloride (Normal Saline) 1,000 mls @ 125 mls/hr IV ASDIRECTED ON LICENSE OF [facility] Last Admin: 02/22/20 09:12 Dose: 125 mls/hr Documented by: - Exam Quality Assessment: Supplemental Oxygen, DVT Prophylaxis General: Alert, Oriented, Cooperative, Mild Distress Lungs: Clear to Auscultation, Normal Respiratory Effort, Decreased Breath Sounds Cardiovascular: Regular Rate, Regular Rhythm, No Murmurs GI/Abdominal Exam: Soft, Non-Tender, No Organomegaly, No Distention Extremities: Non-Tender, No Pedal Edema Sepsis Event Note - Evaluation Sepsis Screening Result: No Definite Risk - Focused Exam Vital Signs: Vital Signs Temp Pulse Resp BP BP Pulse Ox 02/22/20 08:14 128/66 02/22/20 08:13 128/66 02/22/20 07:34 91 L 02/22/20 07:00 98.4 F 87 18 128/66 89 L 02/22/20 03:00 97.7 F 83 16 135/68 93 L 02/22/20 01:11 94 L 02/21/20 23:00 97.3 F 69 16 114/59 L 94 L Date Exam was Performed: 02/22/20 Time Exam was Performed: 10:05 - Problem List Review Problem List Initiated/Reviewed/Updated: Yes - My Orders Last 24 Hours: My Active Orders 02/21/20 Lunch 2 Gram Sodium Diet [DIET] 02/21/20 14:40 Resuscitation Status Routine 02/21/20 15:16 ALPRAZolam [Xanax] 0.5 mg PO BID PRN Acetaminophen [Tylenol] 650 mg PO Q4H PRN Albuterol [Ventolin HFA] 0 gm INH Q4H PRN Albuterol/Ipratropium [DuoNeb 3.0-0.5 MG/3 ML] 3 ml INH QIDRT PRN Ondansetron [Zofran] 4 mg IV Q4H PRN Sodium Chloride 0.9% [Saline Flush] 10 ml FLUSH ASDIRECTED PRN polyethylene glycoL 3350 [MiraLAX] 17 gm PO DAILY PRN 02/21/20 15:16 Patient Status [ADT] Routine Ambulate [RC] QID Height and Weight [RC] DAILY Intake and Output [RC] QSHIFT Notify Provider Vital Signs [RC] ASDIRECTED Oxygen Therapy [RC] PRN Peripheral IV Care [RC] Q12H Pulse Oximetry [RC] CONTINUOUS RT Aerosol Therapy [RC] ASDIRECTED RT Post Treatment Assessment [RC] Click to Edit Up With Assistance [RC] ASDIRECTED Up to Chair [RC] QID VTE/DVT Education [RC] Per Unit Routine Vital Signs [RC] Q4H PT Evaluation and Treatment [CONS] Routine Peripheral IV Insertion Adult [OM.PC] Routine 02/21/20 16:30 Enoxaparin [Lovenox] 40 mg SUBCUT Q24H 02/21/20 21:00 Fluticasone/Salmeterol [Fluticasone-Salmeterol 113-14 MCG Powder Inh] 1 puff INH BIDRT Nortriptyline 50 mg PO BEDTIME Oxybutynin 5 mg PO TID Pravastatin [Pravachol] 20 mg PO BEDTIME traZODone 200 mg PO BEDTIME 02/22/20 07:00 Glycopyrrolate [Seebri Neohaler] 15.6 mcg IH BIDRT 02/22/20 07:30 Pantoprazole [ProTONIX] 40 mg PO ACBREAKFAST 02/22/20 09:00 ARIPiprazole [Abilify] 10 mg PO DAILY Aspirin [Halfprin] 81 mg PO DAILY Letrozole [Femara] 2.5 mg PO DAILY Losartan [Cozaar] 100 mg PO DAILY Venlafaxine [Effexor XR] 150 mg PO DAILY amLODIPine [Norvasc] 10 mg PO DAILY hydroCHLOROthiazide 25 mg PO DAILY 02/22/20 10:04 Convert IV to Saline Lock [OM.PC] Routine 02/22/20 14:00 cefTRIAXone [Rocephin] 1 gm Sodium Chloride 0.9% [Normal Saline] 50 ml IV Q24H - Plan Plan:: ASSESSMENT AND PLAN URINARY TRACT INFECTION-no evidence of underlying sepsis. -Urine culture pending -Ceftriaxone 1 g IV every 24 hours pending culture results SEVERE WEAKNESS-of relatively sudden onset, likely secondary to UTI -Physical therapy consult OXYGEN DEPENDENT COPD-no evidence of acute COPD exacerbation or underlying pulmonary infection -Supplemental oxygen as needed -Continue outpatient medications MAINTENANCE ISSUES -DVT prophylaxis; Lovenox 40 mg subcu daily -GI prophylaxis; continue outpatient PPI -Carreno catheter; not indicated -Nutrition; 2 g sodium diet -Nicotine dependence; not required CODE STATUS-FULL CODE ADMISSION STATUS-this patient will be admitted to observation status, expect no more than a one night hospital stay for evaluation and management of problems as outlined above. DISPOSITION-anticipate discharge to home versus senior care after the hospital stay. PRIMARY CARE PROVIDER-
[2020-02-22] MEDS ORDERED: cefTRIAXone 1 GM in Sodium Chloride 0.9% 50 ML IV SCH ×2 (12:00→14:00)
--- NOTE | 2020-02-22 12:05 | PCM.DCSUM1 ---
Discharge Summary - Hospital Course Brief History: Ms. Martin is a 69-year-old woman who was admitted through the emergency department to observation status for management of marked weakness secondary to urinary tract infection. - Discharge Data Discharge Date: 02/22/20 Discharge Disposition: DC/Tfer to SNF 03 Condition: Fair - Referral to Home Health Primary Care Physician: PCP None - Discharge Diagnosis/Problem(s) (1) UTI, Urinary tract infectious disease SNOMED Code(s): 64374527 ICD Code: N39.0 - URINARY TRACT INFECTION, SITE NOT SPECIFIED Status: Acute Current Visit: Yes (2) Generalized weakness SNOMED Code(s): 27535669 ICD Code: R53.1 - WEAKNESS Status: Acute Current Visit: Yes (3) COPD (chronic obstructive pulmonary disease) SNOMED Code(s): 30659218 ICD Code: J44.9 - CHRONIC OBSTRUCTIVE PULMONARY DISEASE, UNSPECIFIED Status: Chronic Current Visit: No Qualifiers: COPD type: unspecified COPD Qualified Code(s): J44.9 - Chronic obstructive pulmonary disease, unspecified (4) Chronic respiratory failure with hypoxia Status: Chronic Current Visit: No - Patient Summary/Data Consults: Consultations 02/21/20 15:16 PT Evaluation and Treatment [CONS] Routine Please Evaluate and Treat. PT Reason for Consult: Weakness This query below is only for informational purposes and is not editable. Hospital Course: Ms. Martin is a 69-year-old woman who was admitted through the emergency departm ent observation status for further management of severe weakness secondary to urinary tract infection. She was hospitalized at this facility just over a month ago with profound weakness, hypoxia, and urinary tract infection with sepsis. Blood cultures and urine culture grew out pansensitive E. coli. She improved during hospitalization and was discharged home but was seen back in the emergency department a few days later because of marked weakness. Evaluation in the emergency department was unremarkable and she was discharged to the detention for restorative physical therapy and Occupational Therapy. While at the detention she did regain strength and was doing well enough to be discharged 2 days ago. She felt well through the day yesterday but today noted symptoms of profound weakness. She was unable to get out of the chair and was brought into the emergency department for further evaluation. White blood cell count is within normal range, urinalysis shows evidence of recurrent infection. Urine culture has been obtained and she has been given IV ceftriaxone in the emergency department. Oxygen saturation noted to be borderline, she does use oxygen at home. She was given IV fluids through the night and continued on ceftriaxone. On the morning of discharge she was seen and evaluated by physical therapy and was able to walk short distance with assistance of one. She will be transitioned to oral antibiotic therapy with cephalexin for an additional 4 days. Urine culture is pending at the time of discharge. At the detention she will receive daily physical therapy and occupational therapy to regain strength. She will be on a 2 g sodium diet and activity will be as tolerated. Follow-up with primary care will be at the detention as needed. She will be discharged to the detention on supplemental oxygen 3 L/min via nasal cannula. - Patient Instructions Diet: Low Sodium Activity: As Tolerated Other/Special Instructions: Daily physical therapy and occupational therapy while at the detention - Discharge Plan *PRESCRIPTION DRUG MONITORING PROGRAM REVIEWED*: Not Applicable *COPY OF PRESCRIPTION DRUG MONITORING REPORT IN PATIENT DEMIAN: Not Applicable Prescriptions/Med Rec: cephALEXin [Cephalexin] 500 mg PO Q8H #12 capsule Home Medications: Home Meds ARIPiprazole [Abilify] 10 mg PO DAILY 06/09/19 [History] Acetaminophen 1 tab PO Q6H PRN 06/09/19 [History] Albuterol Sulfate [Proair Hfa] 2 puff IH Q4H 06/09/19 [History] Budesonide/Formoterol [Symbicort 80-4.5 MCG] 2 puff INH BID 06/09/19 [History] Cholecalciferol (Vitamin D3) [Decara] 50,000 unit PO ASDIRECTED 06/09/19 [History] Fluticasone/Salmeterol [Advair 100-50] 2 puff INH BID 06/09/19 [History] Ibuprofen [Motrin] 800 mg PO QID PRN 06/09/19 [History] Letrozole [Femara] 2.5 mg PO DAILY 06/09/19 [History] Losartan/Hydrochlorothiazide [Hyzaar 100-25 Tablet] 1 tab PO DAILY 06/09/19 [History] Nortriptyline HCl [Pamelor] 50 mg PO DAILY 06/09/19 [History] Oxybutynin 5 mg PO TID 06/09/19 [History] Pantoprazole Sodium [Protonix] 40 mg PO DAILY 06/09/19 [History] Pravastatin Sodium [Pravastatin (Pravachol)] 20 mg PO BEDTIME 06/09/19 [History] Tiotropium [place] [Spiriva Respimat] 2 puff IH DAILY 06/09/19 [History] Venlafaxine HCl [Venlafaxine ER] 150 mg PO DAILY 06/09/19 [History] amLODIPine Besylate [Norvasc] 10 mg PO DAILY 06/09/19 [History] traZODone 200 mg PO BEDTIME 06/09/19 [History] Aspirin [Halfprin] 81 mg PO DAILY 01/16/20 [History] ALPRAZolam [Alprazolam] 0.5 mg PO BID PRN #20 tablet 01/25/20 [Rx] Ipratropium/Albuterol Sulfate [Iprat-Albut 0.5-3(2.5) MG/3 ML] 3 ml IH QID PRN #0 02/22/20 [Rx] cephALEXin [Cephalexin] 500 mg PO Q8H #12 capsule 02/22/20 [Rx] Oxygen Therapy Mode: Nasal Cannula Oxygen Flow Rate (L/min): 3 Maintain SpO2% greater than: 88 - Discharge Summary/Plan Comment DC Time >30 min.: No - Patient Data Vitals - Most Recent: Last Vital Signs Temp 96.6 F L 02/22/20 10:46 Pulse 66 02/22/20 10:46 Resp 16 02/22/20 10:23 BP 124/63 02/22/20 10:46 Pulse Ox 94 L 02/22/20 10:46 Weight - Most Recent: 240 lb I&O - Last 24 hours: Intake & Output 02/21/20 02/22/20 02/22/20 22:59 06:59 14:59 Intake Total 1447 200 530 Balance 1447 200 530 Lab Results - Last 24 hrs: Laboratory Results - last 24 hr 02/21/20 02/21/20 02/21/20 Range/Units 12:36 12:36 12:38 WBC 9.2 (4.5-11.0) K/uL RBC 4.57 (3.30-5.50) M/uL Hgb 13.3 (12.0-15.0) g/dL Hct 42.5 (36.0-48.0) % MCV 93 (80-98) fL MCH 29 (27-31) pg MCHC 31 L (32-36) % Plt Count 128 L (150-400) K/uL Neut % (Auto) 82 H (36-66) % Lymph % (Auto) 9 L (24-44) % [place] % (Auto) 9 H (2-6) % Eos % (Auto) 0 L (2-4) % Baso % (Auto) 0 (0-1) % Sodium 138 L (140-148) mmol/L Potassium 4.6 (3.6-5.2) mmol/L Chloride 103 (100-108) mmol/L Carbon Dioxide 29 (21-32) mmol/L Anion Gap 10.6 (5.0-14.0) mmol/L BUN 22 H D (7-18) mg/dL Creatinine 1.2 H (0.6-1.0) mg/dL Est Cr Clr Drug Dosing 46.89 mL/min Estimated GFR (MDRD) 45 L (>60) Glucose 154 H (74-106) mg/dL Lactic Acid (0.4-2.0) mmol/L Calcium 9.4 (8.5-10.1) mg/dL Total Bilirubin 0.5 (0.2-1.0) mg/dL AST 19 (15-37) U/L ALT 18 (12-78) U/L Alkaline Phosphatase 55 (46-116) U/L Total Protein 6.8 (6.4-8.2) g/dL Albumin 3.0 L (3.4-5.0) g/dL Globulin 3.8 H (2.3-3.5) g/dL Albumin/Globulin Ratio 0.8 L (1.2-2.2) Urine Color Yellow (YELLOW) Urine Appearance Slightly cloudy A (CLEAR) Urine pH 6.5 (5.0-8.0) Ur Specific [place] 1.020 (1.008-1.030) Urine Protein Negative (NEGATIVE) mg/dL Urine Glucose (UA) Negative (NEGATIVE) mg/dL Urine Ketones Negative (NEGATIVE) mg/dL Urine Occult Blood Negative (NEGATIVE) Urine Nitrite Positive H (NEGATIVE) Urine Bilirubin Negative (NEGATIVE) Urine Urobilinogen 0.2 (0.2-1.0) EU/dL Ur Leukocyte Esterase Small H (NEGATIVE) Urine RBC 0-5 (0-5) Urine WBC 10-20 H (0-5) Ur Epithelial Cells Not seen Amorphous Sediment Not seen Urine Bacteria Many Urine Mucus Not seen 02/21/20 02/22/20 02/22/20 Range/Units 13:03 04:10 04:10 WBC 5.0 (4.5-11.0) K/uL RBC 4.29 (3.30-5.50) M/uL Hgb 12.3 (12.0-15.0) g/dL Hct 40.3 (36.0-48.0) % MCV 94 (80-98) fL MCH 29 (27-31) pg MCHC 31 L (32-36) % Plt Count 110 L (150-400) K/uL Neut % (Auto) 59 (36-66) % Lymph % (Auto) 26 (24-44) % [place] % (Auto) 11 H (2-6) % Eos % (Auto) 3 (2-4) % Baso % (Auto) 0 (0-1) % Sodium 142 (140-148) mmol/L Potassium 4.0 (3.6-5.2) mmol/L Chloride 109 H (100-108) mmol/L Carbon Dioxide 28 (21-32) mmol/L Anion Gap 9.0 (5.0-14.0) mmol/L BUN 14 (7-18) mg/dL Creatinine 0.8 (0.6-1.0) mg/dL Est Cr Clr Drug Dosing 70.34 mL/min Estimated GFR (MDRD) > 60 (>60) Glucose 87 (74-106) mg/dL Lactic Acid 1.3 (0.4-2.0) mmol/L Calcium 8.7 (8.5-10.1) mg/dL Total Bilirubin (0.2-1.0) mg/dL AST (15-37) U/L ALT (12-78) U/L Alkaline Phosphatase (46-116) U/L Total Protein (6.4-8.2) g/dL Albumin (3.4-5.0) g/dL Globulin (2.3-3.5) g/dL Albumin/Globulin Ratio (1.2-2.2) Urine Color (YELLOW) Urine Appearance (CLEAR) Urine pH (5.0-8.0) Ur Specific [place] (1.008-1.030) Urine Protein (NEGATIVE) mg/dL Urine Glucose (UA) (NEGATIVE) mg/dL Urine Ketones (NEGATIVE) mg/dL Urine Occult Blood (NEGATIVE) Urine Nitrite (NEGATIVE) Urine Bilirubin (NEGATIVE) Urine Urobilinogen (0.2-1.0) EU/dL Ur Leukocyte Esterase (NEGATIVE) Urine RBC (0-5) Urine WBC (0-5) Ur Epithelial Cells Amorphous Sediment Urine Bacteria Urine Mucus SONNY Results - Last 24 hrs: Microbiology 02/21/20 13:08 Urine Culture - Preliminary Urine, Catheterized Med Orders - Current: Current Medications Acetaminophen (Tylenol) 650 mg PO Q4H PRN PRN Reason: Pain (Mild 1-3)/fever Albuterol (Ventolin Hfa) 0 gm INH Q4H PRN PRN Reason: Shortness of Breath Albuterol/Ipratropium (Duoneb 3.0-0.5 Mg/3 Ml) 3 ml INH QIDRT PRN PRN Reason: Shortness of Breath Alprazolam (Xanax) 0.5 mg PO BID PRN PRN Reason: Anxiety Amlodipine Besylate (Norvasc) 10 mg PO DAILY [facility] Last Admin: 02/22/20 08:13 Dose: 10 mg Documented by: Aripiprazole (Abilify) 10 mg PO DAILY [facility] Last Admin: 02/22/20 08:14 Dose: 10 mg Documented by: Aspirin (Halfprin) 81 mg PO DAILY [facility] Last Admin: 02/22/20 08:14 Dose: 81 mg Documented by: Enoxaparin Sodium (Lovenox) 40 mg SUBCUT Q24H [facility] Last Admin: 02/21/20 16:49 Dose: 40 mg Documented by: Glycopyrrolate (Seebri Neohaler) 15.6 mcg IH BIDRT [facility] Last Admin: 02/22/20 07:25 Dose: 1 puff Documented by: Hydrochlorothiazide (Hydrochlorothiazide) 25 mg PO DAILY [facility] Last Admin: 02/22/20 08:13 Dose: 25 mg Documented by: Ceftriaxone Sodium 1 gm/ (Sodium Chloride) 50 mls @ 100 mls/hr IV Q24H [facility] Last Admin: 02/22/20 11:38 Dose: 100 mls/hr Documented by: Letrozole (Femara) 2.5 mg PO DAILY [facility] Last Admin: 02/22/20 08:16 Dose: Not Given Documented by: Losartan Potassium (Cozaar) 100 mg PO DAILY [facility] Last Admin: 02/22/20 08:14 Dose: 100 mg Documented by: Nortriptyline HCl (Nortriptyline) 50 mg PO BEDTIME [facility] Last Admin: 02/21/20 21:08 Dose: 50 mg Documented by: Ondansetron HCl (Zofran) 4 mg IV Q4H PRN PRN Reason: Nausea/Vomiting Oxybutynin Chloride (Oxybutynin) 5 mg PO TID [facility] Last Admin: 02/22/20 08:14 Dose: 5 mg Documented by: Pantoprazole Sodium (Protonix) 40 mg PO ACBREAKFAST [facility] Last Admin: 02/22/20 07:40 Dose: 40 mg Documented by: Polyethylene Glycol (Miralax) 17 gm PO DAILY PRN PRN Reason: Constipation Pravastatin Sodium (Pravachol) 20 mg PO BEDTIME [facility] Last Admin: 02/21/20 21:07 Dose: 20 mg Documented by: Fluticasone/Salmeterol (Fluticasone-Salmeterol 113-14 Mcg Powder Inh) 1 puff INH BIDRT [facility] Last Admin: 02/22/20 07:25 Dose: 1 puff Documented by: Sodium Chloride (Saline Flush) 10 ml FLUSH ASDIRECTED PRN PRN Reason: Keep Vein Open Trazodone HCl (Trazodone) 200 mg PO BEDTIME [facility] Last Admin: 02/21/20 21:08 Dose: 200 mg Documented by: Venlafaxine HCl (Effexor Xr) 150 mg PO DAILY [facility] Last Admin: 02/22/20 08:13 Dose: 150 mg Documented by: Discontinued Medications Sodium Chloride (Normal Saline) 1,000 mls @ 500 mls/hr IV .BOLUS ONE Stop: 02/21/20 15:03 Last Admin: 02/21/20 13:56 Dose: 500 mls/hr Documented by: Ceftriaxone Sodium 1 gm/ (Sodium Chloride) 50 mls @ 100 mls/hr IV ONETIME ONE Stop: 02/21/20 14:14 Last Admin: 02/21/20 13:57 Dose: 100 mls/hr Documented by: Ceftriaxone Sodium 1 gm/ (Sodium Chloride) 50 mls @ 100 mls/hr IV Q24H [facility] Sodium Chloride (Normal Saline) 1,000 mls @ 125 mls/hr IV ASDIRECTED [facility] Last Admin: 02/22/20 09:12 Dose: 125 mls/hr Documented by: - Exam General: Reports: Alert, Oriented, Cooperative, Mild Distress Lungs: Reports: Clear to Auscultation, Normal Respiratory Effort, Decreased Breath Sounds Cardiovascular: Reports: Regular Rate, Regular Rhythm, No Murmurs GI/Abdominal Exam: Soft, Non-Tender, No Organomegaly, No Distention Extremities: Non-Tender, No Pedal Edema
== END 2020-02-22 14:01 ==
LOC: JP.ED 11:54 → JP.ICU 14:37 → JP.MS 02-22 06:35
PROVIDERS: ADMIT Hospitalist; ATTEND Hospitalist
DX: N39.0 Urinary tract infection, site not specified (principal); R53.1 Weakness; I10 Essential (primary) hypertension; J44.9 Chronic obstructive pulmonary disease, unspecified; J96.11 Chronic respiratory failure with hypoxia; F41.9 Anxiety disorder, unspecified; F32.9 Major depressive disorder, single episode, unspecified; E66.9 Obesity, unspecified; Z87.891 Personal history of nicotine dependence; Z87.09 Personal history of other diseases of the respiratory system; Z88.1 Allergy status to other antibiotic agents; Z88.8 Allergy status to other drugs, medicaments and biological substances; Z79.899 Other long term (current) drug therapy; Z99.81 Dependence on supplemental oxygen; Z79.82 Long term (current) use of aspirin; Z68.34 Body mass index [BMI] 34.0-34.9, adult
CPT/HCPCS: 36415; 80048; 80053; 81001; 83605; 85025; 87086; 87088; 87186; 94640; 94762; 96361; 96365; 96372; 96376; 97116; 97162; 99217; 99218; 99284; 99285; A9270; G0378; J0696; J1650; J7030; J7050

== ENCOUNTER 2020-12-18 21:11 | Emergency (ER) | payer MEDICARE, MEDICAID ==
[2020-12-18] MEDS ORDERED: Lactated Ringers 500 ML IV ONE (21:17)
[2020-12-18] MEDS ORDERED: Albuterol/Ipratropium 3.0-0.5 MG/3 ML Neb Soln NEB ONE (21:19)
[2020-12-18] MEDS ORDERED: Ketorolac 30 MG/ML SDV IM ONE (21:19)
--- NOTE | 2020-12-18 21:23 | EDM.PDOC ---
ED HPI GENERAL MEDICAL PROBLEM - General Chief Complaint: Respiratory Problem Stated Complaint: MEDICAL [facility] Time Seen by Provider: 12/18/20 21:17 Source of Information: Reports: Patient, RN Notes Reviewed History Limitations: Reports: No Limitations - History of Present Illness INITIAL COMMENTS - FREE TEXT/NARRATIVE: 69-year-old female presents emergency department today following a fall at home around 17:00 on 12/17/2020, unfortunately she fell last night and then was not found till later this evening. EMS services were called she was found to be quite hypoxic on the floor O2 sat around 79%. She is confused at this time does complain of bilateral ankle pain and left knee pain does use oxygen at home however had no oxygen on last bilateral legs Pain Score (Numeric/FACES): 8 - Related Data Allergies Allergy/AdvReac Type Severity Reaction Status Date / Time hydrochlorothiazide Allergy Cannot Verified 12/18/20 22:25 Remember levofloxacin [From Levaquin] Allergy Cannot Verified 12/18/20 22:25 Remember triamterene Allergy Cannot Verified 12/18/20 22:25 Remember Home Meds: Home Meds ARIPiprazole [Abilify] 10 mg PO DAILY 06/09/19 [History] Acetaminophen 1 tab PO Q6H PRN 06/09/19 [History] Cholecalciferol (Vitamin D3) [Decara] 50,000 unit PO ASDIRECTED 06/09/19 [History] Ibuprofen [Motrin] 800 mg PO QID PRN 06/09/19 [History] Letrozole [Femara] 2.5 mg PO DAILY 06/09/19 [History] Losartan/Hydrochlorothiazide [Hyzaar 100-25 Tablet] 1 tab PO DAILY 06/09/19 [History] Nortriptyline HCl [Pamelor] 50 mg PO DAILY 06/09/19 [History] Oxybutynin 5 mg PO TID 06/09/19 [History] Pantoprazole Sodium [Protonix] 40 mg PO DAILY 06/09/19 [History] Pravastatin Sodium [Pravastatin (Pravachol)] 20 mg PO BEDTIME 06/09/19 [History] Tiotropium [place] [Spiriva Respimat] 2 puff IH DAILY 06/09/19 [History] Venlafaxine HCl [Venlafaxine ER] 75 mg PO DAILY 06/09/19 [History] amLODIPine Besylate [Norvasc] 10 mg PO DAILY 06/09/19 [History] traZODone 150 mg PO BEDTIME 06/09/19 [History] Aspirin [Halfprin] 81 mg PO DAILY 01/16/20 [History] ALPRAZolam [Alprazolam] 0.5 mg PO BID PRN #20 tablet 01/25/20 [Rx] Ipratropium/Albuterol Sulfate [Iprat-Albut 0.5-3(2.5) MG/3 ML] 3 ml IH QID PRN #0 02/22/20 [Rx] Budesonide/Formoterol [Symbicort 80-4.5 MCG] 2 puff INH BID 12/18/20 [History] Fluticasone/Salmeterol [Advair 100-50] 2 puff INH BID 12/18/20 [History] Sennosides/Docusate Sodium [Senna-S 8.6-50 mg Tablet] 1 tab PO ASDIRECTED PRN 12/18/20 [History] Tiotropium [place] [Spiriva Respimat] 2 puff INH DAILY 12/18/20 [History] Past Medical History HEENT History: Reports: Impaired Vision, Other (See Below) Other HEENT History: 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 Cardiovascular History: Reports: Hypertension, Syncope, Other (See Below) Other Cardiovascular History: orthostatic hypotension sinus rickie Respiratory History: Reports: Bronchitis, Recurrent, COPD, Other (See Below) Other Respiratory History: hypoxemia Gastrointestinal History: Reports: Cirrhosis, Other (See Below) Other Gastrointestinal History: pancreas cyst hepititis C resolved 2016 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: Musculoskeletal History: Reports: Arthritis, Other (See Below) Other Musculoskeletal History: l shoulder dislocation fx medial malleolus osteopenia Frequent falls Neurological History: Reports: CVA Psychiatric History: Reports: Addiction, Anxiety, Depression, Suicide Attempt, Other (See Below) Other Psychiatric History: alcoholic dependence in remission Endocrine/Metabolic History: Reports: Obesity/BMI 30+, Vitamin D Deficiency, Other (See Below) Other Endocrine/Metabolic History: thrombocytenia Oncologic (Cancer) History: Reports: Breast - Infectious Disease History Infectious Disease History: Reports: Chicken Pox, Hepatitis C, Measles, Mumps - Past Surgical History Head Surgeries/Procedures: Reports: None HEENT Surgical History: Reports: Other (See Below) Other HEENT Surgeries/Procedures: retinal detachment surgery Cardiovascular Surgical History: Reports: None Respiratory Surgical History: Reports: None GI Surgical History: Reports: Colonoscopy Female Surgical History: Reports: Other (See Below) Other Female Surgeries/Procedures: breast CA lympectomy l breast Endocrine Surgical History: Reports: None Musculoskeletal Surgical History: Reports: None Oncologic Surgical History: Reports: Lumpectomy Dermatological Surgical History: Reports: None Social & Family History - Family History Family Medical History: No Pertinent Family History - Caffeine Use Caffeine Use: Reports: Coffee Caffeine Use Comment: none for 2 weeks ED ROS GENERAL - Review of Systems Review Of Systems: See Below Constitutional: Reports: Weakness, Fatigue. Denies: Fever, Chills HEENT: Reports: No Symptoms Respiratory: Reports: Shortness of Breath, Cough Cardiovascular: Reports: Dyspnea on Exertion GI/Abdominal: Reports: No Symptoms Musculoskeletal: Reports: Leg Pain, Joint Pain Skin: Reports: No Symptoms ED EXAM, GENERAL - Physical Exam Exam: See Below Free Text/Narrative:: Both ankles tender to palpation, pedal pulses +2 left knee is tender to palpation Exam Limited By: No Limitations General Appearance: Alert, Mild Distress Respiratory/Chest: No Respiratory Distress, Lungs Clear, Normal Breath Sounds, No Accessory Muscle Use, Chest Non-Tender Cardiovascular: Regular Rate, Rhythm, No Murmur GI/Abdominal: Soft, Non-Tender #1 Interpretation EKG Date: 12/18/20 Time: 22:56 Rhythm: NSR Ham[place]: Normal P-Wave: Present QRS: Normal ST-T: Normal QT: Normal Comparison: No Change Course - Vital Signs Last Recorded V/S: Last Vital Signs Temp 98.3 F 12/18/20 21:30 Pulse 95 12/18/20 22:51 Resp 15 12/18/20 22:51 BP 129/68 12/18/20 22:51 Pulse Ox 91 L 12/18/20 22:51 - Orders/Labs/Meds Orders: Active Orders 24 hr Category Date Time Status EKG Documentation Completion [RC] ASDIRECTED Care 12/18/20 22:14 Active RT Aerosol Therapy [RC] ASDIRECTED Care 12/18/20 21:19 Active Ankle Min 3V Bi [CR] Stat Exams 12/18/20 21:20 Taken Chest 1V Frontal [CR] Urgent Exams 12/18/20 22:53 Taken Knee 3V Lt [CR] Stat Exams 12/18/20 21:20 Taken UA W/MICROSCOPIC [URIN] Urgent Lab 12/18/20 21:17 Ordered Heparin Sodium/D5W [Heparin 25,000 Units in D5W 500 ML] Med 12/18/20 23:45 Active 25,000 units in 500 ml IV TITRATE EKG 12 Lead [EK] Stat Ther 12/18/20 22:14 Ordered Medication Orders Heparin Sodium/Dextrose (Heparin 25,000 Units In D5w 500 Ml) 25,000 units in 500 mls @ 27.216 mls/hr IV TITRATE HELIO; Protocol Labs: Laboratory Tests 12/18/20 12/18/20 12/18/20 Range/Units 21:22 21:28 21:28 WBC 7.9 (4.5-11.0) K/uL RBC 4.99 (3.30-5.50) M/uL Hgb 12.1 (12.0-15.0) g/dL Hct 40.6 (36.0-48.0) % MCV 81 (80-98) fL MCH 24 L (27-31) pg MCHC 30 L (32-36) % Plt Count 152 (150-400) K/uL Neut % (Auto) 67.1 H (36-66) % Lymph % (Auto) 13.8 L (24-44) % Catron % (Auto) 18.0 H (2-6) % Eos % (Auto) 0.5 L (2-4) % Baso % (Auto) 0.6 (0-1) % Puncture Site Lt brachial ABG pH 7.400 (7.350-7.450) ABG pCO2 46.7 H (35.0-42.0) mmHg ABG pO2 73.9 L (75.0-100.0) mmHg ABG HCO3 28.3 H (22.0-26.0) mmol/L ABG Total CO2 25.5 H (21.0-25.0) mmol/L ABG O2 Saturation 94.1 L (95.0-98.0) % ABG O2 Content 15.4 (15.0-23.0) %vol ABG Base Excess 3.4 mm/L ABG Hemoglobin 12.4 (12.0-16.0) g/dL ABG Oxyhemoglobin 88.5 % ABG Carboxyhemoglobin 5.1 H (0.0-1.6) % ABG Methemoglobin 0.8 % Kendell Test Not performed O2 Delivery Device Nasal cannula Oxygen Flow Rate 3.0 L Sodium (140-148) mmol/L Potassium (3.6-5.2) mmol/L Chloride (100-108) mmol/L Carbon Dioxide (21-32) mmol/L Anion Gap (5.0-14.0) mmol/L BUN (7-18) mg/dL Creatinine (0.6-1.0) mg/dL Est Cr Clr Drug Dosing mL/min Estimated GFR (MDRD) (>60) Glucose (74-106) mg/dL Lactic Acid (0.4-2.0) mmol/L Calcium (8.5-10.1) mg/dL Total Bilirubin (0.2-1.0) mg/dL AST (15-37) U/L ALT (12-78) U/L Alkaline Phosphatase (46-116) U/L Creatine Kinase 341 H (26-192) U/L Troponin I (0.000-0.056) ng/mL C-Reactive Protein (0.0-0.3) mg/dL Total Protein (6.4-8.2) g/dL Albumin (3.4-5.0) g/dL Globulin (2.3-3.5) g/dL Albumin/Globulin Ratio (1.2-2.2) Procalcitonin ng/mL Ethyl Alcohol mg/dL SARS CoV-2 RNA Rapid JANUARY 12/18/20 12/18/20 12/18/20 Range/Units 21:28 21:28 21:28 WBC (4.5-11.0) K/uL RBC (3.30-5.50) M/uL Hgb (12.0-15.0) g/dL Hct (36.0-48.0) % MCV (80-98) fL MCH (27-31) pg MCHC (32-36) % Plt Count (150-400) K/uL Neut % (Auto) (36-66) % Lymph % (Auto) (24-44) % Catron % (Auto) (2-6) % Eos % (Auto) (2-4) % Baso % (Auto) (0-1) % Puncture Site ABG pH (7.350-7.450) ABG pCO2 (35.0-42.0) mmHg ABG pO2 (75.0-100.0) mmHg ABG HCO3 (22.0-26.0) mmol/L ABG Total CO2 (21.0-25.0) mmol/L ABG O2 Saturation (95.0-98.0) % ABG O2 Content (15.0-23.0) %vol ABG Base Excess mm/L ABG Hemoglobin (12.0-16.0) g/dL ABG Oxyhemoglobin % ABG Carboxyhemoglobin (0.0-1.6) % ABG Methemoglobin % Kendell Test O2 Delivery Device Oxygen Flow Rate L Sodium 141 (140-148) mmol/L Potassium 4.4 (3.6-5.2) mmol/L Chloride 102 (100-108) mmol/L Carbon Dioxide 32 (21-32) mmol/L Anion Gap 7.0 (5.0-14.0) mmol/L BUN 29 H D (7-18) mg/dL Creatinine 1.1 H (0.6-1.0) mg/dL Est Cr Clr Drug Dosing 49.38 mL/min Estimated GFR (MDRD) 49 L (>60) Glucose 84 (74-106) mg/dL Lactic Acid 1.1 (0.4-2.0) mmol/L Calcium 8.9 (8.5-10.1) mg/dL Total Bilirubin 0.8 D (0.2-1.0) mg/dL AST 37 D (15-37) U/L ALT 26 (12-78) U/L Alkaline Phosphatase 78 (46-116) U/L Creatine Kinase (26-192) U/L Troponin I 2.058 H* (0.000-0.056) ng/mL C-Reactive Protein 0.62 H (0.0-0.3) mg/dL Total Protein 6.7 (6.4-8.2) g/dL Albumin 3.0 L (3.4-5.0) g/dL Globulin 3.7 H (2.3-3.5) g/dL Albumin/Globulin Ratio 0.8 L (1.2-2.2) Procalcitonin ng/mL Ethyl Alcohol < 3 mg/dL SARS CoV-2 RNA Rapid JANUARY 12/18/20 12/18/20 Range/Units 21:28 23:20 WBC (4.5-11.0) K/uL RBC (3.30-5.50) M/uL Hgb (12.0-15.0) g/dL Hct (36.0-48.0) % MCV (80-98) fL MCH (27-31) pg MCHC (32-36) % Plt Count (150-400) K/uL Neut % (Auto) (36-66) % Lymph % (Auto) (24-44) % Catron % (Auto) (2-6) % Eos % (Auto) (2-4) % Baso % (Auto) (0-1) % Puncture Site ABG pH (7.350-7.450) ABG pCO2 (35.0-42.0) mmHg ABG pO2 (75.0-100.0) mmHg ABG HCO3 (22.0-26.0) mmol/L ABG Total CO2 (21.0-25.0) mmol/L ABG O2 Saturation (95.0-98.0) % ABG O2 Content (15.0-23.0) %vol ABG Base Excess mm/L ABG Hemoglobin (12.0-16.0) g/dL ABG Oxyhemoglobin % ABG Carboxyhemoglobin (0.0-1.6) % ABG Methemoglobin % Kendell Test O2 Delivery Device Oxygen Flow Rate L Sodium (140-148) mmol/L Potassium (3.6-5.2) mmol/L Chloride (100-108) mmol/L Carbon Dioxide (21-32) mmol/L Anion Gap (5.0-14.0) mmol/L BUN (7-18) mg/dL Creatinine (0.6-1.0) mg/dL Est Cr Clr Drug Dosing mL/min Estimated GFR (MDRD) (>60) Glucose (74-106) mg/dL Lactic Acid (0.4-2.0) mmol/L Calcium (8.5-10.1) mg/dL Total Bilirubin (0.2-1.0) mg/dL AST (15-37) U/L ALT (12-78) U/L Alkaline Phosphatase (46-116) U/L Creatine Kinase (26-192) U/L Troponin I (0.000-0.056) ng/mL C-Reactive Protein (0.0-0.3) mg/dL Total Protein (6.4-8.2) g/dL Albumin (3.4-5.0) g/dL Globulin (2.3-3.5) g/dL Albumin/Globulin Ratio (1.2-2.2) Procalcitonin < 0.05 ng/mL Ethyl Alcohol mg/dL SARS CoV-2 RNA Rapid JANUARY Negative Meds: Medications Generic Name Dose Route Start Last Admin Trade Name Freq PRN Reason Stop Dose Admin Heparin Sodium/Dextrose 25,000 units in 500 mls @ 27.216 mls/hr 12/18/20 23:45 Heparin 25,000 Units In D5w 500 Ml IV TITRATE HELIO Protocol 12 UNITS/KG/HR Discontinued Medications Generic Name Dose Route Start Last Admin Trade Name Freq PRN Reason Stop Dose Admin Albuterol/Ipratropium 3 ml 12/18/20 21:19 12/18/20 21:35 Albuterol/Ipratropium 3.0-0.5 Mg/3 Ml Neb Soln NEB 12/18/20 21:20 3 ml ONETIME ONE Administration Aspirin 324 mg 12/18/20 23:54 Aspirin 81 Mg Tab.Chew PO 12/18/20 23:55 ONETIME ONE Fentanyl 50 mcg 12/18/20 22:57 12/18/20 23:33 Fentanyl 100 Mcg/2 Ml Sdv IVPUSH 12/18/20 22:58 50 mcg ONETIME ONE Administration Heparin Sodium (Porcine) 4,000 units 12/18/20 23:54 Heparin Sodium 5,000 Units/Ml Vial IVPUSH 12/18/20 23:55 .BOLUS ONE Lactated Ringer's 500 mls @ 999 mls/hr 12/18/20 21:17 12/18/20 21:38 Ringers, Lactated IV 12/18/20 21:47 999 mls/hr .BOLUS ONE Administration Ketorolac Tromethamine 15 mg 12/18/20 21:19 12/18/20 21:44 Ketorolac 30 Mg/Ml Sdv IM 12/18/20 21:20 Not Given ONETIME ONE Ketorolac Tromethamine 15 mg 12/18/20 21:39 12/18/20 21:44 Ketorolac 30 Mg/Ml Sdv IVPUSH 12/18/20 21:40 15 mg ONETIME ONE Administration Lorazepam 1 mg 12/18/20 22:57 12/18/20 23:37 Lorazepam 2 Mg/Ml Sdv IVPUSH 12/18/20 22:58 1 mg ONETIME ONE Administration Departure - Departure Time of Disposition: 00:02 Disposition: DC/Tfer to Acute Hospital 02 Condition: Poor Clinical Impression: Non-ST elevation myocardial infarction (NSTEMI) - Discharge Information Referrals: PCP,None [Primary Care Provider] - Forms: ED Department Discharge Sepsis Event Note (ED) - Focused Exam Vital Signs: Vital Signs Temp Pulse Resp BP Pulse Ox 12/18/20 22:51 95 15 129/68 91 L 12/18/20 21:47 94 20 138/64 93 L 12/18/20 21:30 98.3 F 98 17 129/58 L 95 12/18/20 21:19 98.3 F 98 17 129/58 L 95 - My Orders Last 24 Hours: My Active Orders 12/18/20 21:17 UA W/MICROSCOPIC [URIN] Urgent 12/18/20 21:19 RT Aerosol Therapy [RC] ASDIRECTED 12/18/20 21:20 Ankle Min 3V Bi [CR] Stat Knee 3V Lt [CR] Stat 12/18/20 22:14 EKG Documentation Completion [RC] ASDIRECTED EKG 12 Lead [EK] Stat 12/18/20 22:53 Chest 1V Frontal [CR] Urgent 12/18/20 23:45 Heparin Sodium/D5W [Heparin 25,000 Units in D5W 500 ML] 25,000 units in 500 ml IV TITRATE - Assessment/Plan Last 24 Hours: My Active Orders 12/18/20 21:17 UA W/MICROSCOPIC [URIN] Urgent 12/18/20 21:19 RT Aerosol Therapy [RC] ASDIRECTED 12/18/20 21:20 Ankle Min 3V Bi [CR] Stat Knee 3V Lt [CR] Stat 12/18/20 22:14 EKG Documentation Completion [RC] ASDIRECTED EKG 12 Lead [EK] Stat 12/18/20 22:53 Chest 1V Frontal [CR] Urgent 12/18/20 23:45 Heparin Sodium/D5W [Heparin 25,000 Units in D5W 500 ML] 25,000 units in 500 ml IV TITRATE Plan: Assessment Acuity = acute Site and laterality = non-ST elevation myocardial infarction Etiology = possibly from prolonged hypoxic event Manifestations = none Location of injury = Home Lab values = CBC unremarkable ABG reveals a pH 7.4 PCO2 46.7 bicarb 28.3 creatinine elevated 1.1 consistent with acute renal failure stage G3 a lactic acid normal 1.1 CK slightly elevated 341 troponin markedly elevated 2.058 procalcitonin was negative alcohol was negative Covid was negative CT scan of the head shows no acute process multiple old chronic infarcts x-rays ankles knee and chest x-ray I did review films myself I cannot appreciate any acute process, the official read from radiology is pending Plan Call discussed case with Dr. Clinton emergency room physician [facility] at 2350 can accept the patient in transport elected to proceed with the diagnosis of non-ST elevation myocardial infarction without chest pain or significant shortness of breath beyond baseline therefore given aspirin 324 mg and heparin bolus 4000 started on heparin drip in she will be transported via EMS ground This note was dictated using [employer] voice recognition software please call with any questions on syntax or grammar.
[2020-12-18] MEDS ORDERED: Ketorolac 30 MG/ML SDV IVPUSH ONE (21:39)
[2020-12-18] MEDS ORDERED: LORazepam 2 MG/ML SDV IVPUSH ONE (22:57)
[2020-12-18] MEDS ORDERED: fentaNYL 100 MCG/2 ML SDV IVPUSH ONE (22:57)
--- NOTE | 2020-12-18 23:39 | CRLCT ---
INDICATION: Head injury TECHNIQUE: CT head without contrast. COMPARISON: 01/16/2020 FINDINGS: There is age-related cortical atrophy. The ventricles are within normal limits for the patient`s age. There is no mass effect or midline shift. White matter hypodensities are suggestive of chronic small vessel ischemic change. There is a small chronic right frontal centrum semiovale infarct, chronic ganglionic, caudate and thalamic lacunar infarcts, and small chronic cerebellar infarcts. There is no loss of butler-white differentiation. A small cortical density in the left frontal lobe on image 20 of series 2 could be artifactual. Otherwise, there is no evidence of gross acute intracranial hemorrhage. No acute calvarial fracture is seen. Mild paranasal sinus mucosal thickening is seen. The mastoid air cells are clear. Postsurgical changes are seen in the right globe. IMPRESSION: No evidence of a gross acute intracranial hemorrhage, mass effect or loss of butler-white differentiation. A tiny left frontal lobe cortical density could be artifactual. Age-related atrophy and chronic ischemic changes with small old infarcts. Mild paranasal sinus disease. Dictated by Miguel Kevin MD @ 12/18/2020 11:37:49 PM Please note that all CT scans at this facility use dose modulation, iterative reconstruction, and/or weight-based dosing when appropriate to reduce radiation dose to as low as reasonably achievable. Dictated by: Miguel Kevin MD @ 12/18/2020 23:38:05 (Electronically Signed)
[2020-12-18] MEDS ORDERED: Heparin Sodium/D5W 25,000 UNITS/500 ML BAG IV SCH (23:45)
[2020-12-18] MEDS ORDERED: Aspirin 81 MG Tab.Chew PO ONE (23:54)
[2020-12-18] MEDS ORDERED: Heparin Sodium 5,000 Units/ML Vial IVPUSH ONE (23:54)
--- NOTE | 2020-12-19 09:37 | CR ---
Ankle Min 3V Bi, CLINICAL HISTORY: Pain, fall FINDINGS: Right: There is comminuted minimally displaced fracture of the distal tibia involving the posterior tibial plafond and medial malleolus. Definite fracture line through the distal fibula is not identified but fracture suspected. There is a moderate size calcaneal spur Left: There has been previous distal fibular fracture with open fixation. There is some mild asymmetry in the ankle mortise with medial widening. This may be chronic. There is some osteoarthritic change IMPRESSION: Minimally displaced comminuted of the distal right tibia. 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 There is some meniscal calcification. There is mild patellar spurring and narrowing of the lateral patellofemoral joint space. No fracture seen Impression: Osteoarthritic change
--- NOTE | 2020-12-19 09:41 | CR ---
CHEST: Portable 12/18/2020 at 7:20 PM CLINICAL HISTORY:Syncope COMPARISON:CT October 2020 FINDINGS: The heart size, pulmonary vascularity and hilar structures are normal. No infiltrate effusion or pneumothorax is seen. IMPRESSION: No acute cardiopulmonary process.
== END 2020-12-19 01:15 ==
LOC: JP.ED 21:11
DX: I21.4 Non-ST elevation (NSTEMI) myocardial infarction (principal); M25.571 Pain in right ankle and joints of right foot; M25.572 Pain in left ankle and joints of left foot; M25.562 Pain in left knee; I10 Essential (primary) hypertension; J44.9 Chronic obstructive pulmonary disease, unspecified; M19.90 Unspecified osteoarthritis, unspecified site; E66.9 Obesity, unspecified; Z68.38 Body mass index [BMI] 38.0-38.9, adult; Z88.8 Allergy status to other drugs, medicaments and biological substances; Z79.82 Long term (current) use of aspirin; Z79.899 Other long term (current) drug therapy; Z20.822 Contact with and (suspected) exposure to COVID-19
CPT/HCPCS: 36415; 36600; 70450; 71045; 73562; 73610; 80053; 80307; 81001; 82550; 82803; 83605; 84145; 84484; 85025; 86140; 93005; 94640; 96374; 96375; 96376; 99285; A9270; J1644; J1885; J2060; J3010; J7120; U0002; J7620-GY

== ENCOUNTER 2021-05-27 18:02 | Inpatient (IN) | payer MEDICARE, MEDICAID ==
[2021-05-27] MEDS ORDERED: methylPREDNISolone Sodium Succinate 125 MG/2 ML SDV IVPUSH ONE (18:21)
--- NOTE | 2021-05-27 18:22 | EDM.PDOC ---
ED HPI GENERAL MEDICAL PROBLEM - General Chief Complaint: Respiratory Problem Stated Complaint: [facility] Time Seen by Provider: 05/27/21 18:22 Source of Information: Reports: Patient History Limitations: Reports: No Limitations - History of Present Illness INITIAL COMMENTS - FREE TEXT/NARRATIVE: pt arrived with increasing sob. She feels this started yesterday. She has known copd. She has not noted increased swelling in her ankles. She has not had a fever. She has had some body aches. Onset: Gradual Duration: Hour(s): Location: Reports: Chest, Other ( increased sob. ) Associated Symptoms: Reports: Cough, Shortness of Breath, Weakness Middle Back Pain Score (Numeric/FACES): 4 - Related Data Allergies Allergy/AdvReac Type Severity Reaction Status Date / Time hydrochlorothiazide Allergy Cannot Verified 05/27/21 18:06 Remember levofloxacin [From Levaquin] Allergy Cannot Verified 05/27/21 18:06 Remember triamterene Allergy Cannot Verified 05/27/21 18:06 Remember Home Meds: Home Meds ARIPiprazole [Abilify] 10 mg PO DAILY 06/09/19 [History] Acetaminophen 1 tab PO Q6H PRN 06/09/19 [History] Cholecalciferol (Vitamin D3) [Decara] 50,000 unit PO ASDIRECTED 06/09/19 [History] Ibuprofen [Motrin] 800 mg PO QID PRN 06/09/19 [History] Letrozole [Femara] 2.5 mg PO DAILY 06/09/19 [History] Losartan/Hydrochlorothiazide [Hyzaar 100-25 Tablet] 1 tab PO DAILY 06/09/19 [History] Nortriptyline HCl [Pamelor] 50 mg PO DAILY 06/09/19 [History] Oxybutynin 5 mg PO TID 06/09/19 [History] Pantoprazole Sodium [Protonix] 40 mg PO DAILY 06/09/19 [History] Pravastatin Sodium [Pravastatin (Pravachol)] 20 mg PO BEDTIME 06/09/19 [History] Tiotropium [place] [Spiriva Respimat] 2 puff IH DAILY 06/09/19 [History] Venlafaxine HCl [Venlafaxine ER] 75 mg PO DAILY 06/09/19 [History] amLODIPine Besylate [Norvasc] 10 mg PO DAILY 06/09/19 [History] traZODone 150 mg PO BEDTIME 06/09/19 [History] Aspirin [Halfprin] 81 mg PO DAILY 01/16/20 [History] ALPRAZolam [Alprazolam] 0.5 mg PO BID PRN #20 tablet 01/25/20 [Rx] Budesonide/Formoterol [Symbicort 80-4.5 MCG] 2 puff INH BID 12/18/20 [History] Fluticasone/Salmeterol [Advair 100-50] 2 puff INH BID 12/18/20 [History] Sennosides/Docusate Sodium [Senna-S 8.6-50 mg Tablet] 1 tab PO ASDIRECTED PRN 12/18/20 [History] Past Medical History HEENT History: Reports: Impaired Vision, Other (See Below) Other HEENT History: 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 Cardiovascular History: Reports: Hypertension, Syncope, Other (See Below) Other Cardiovascular History: orthostatic hypotension sinus rickie Respiratory History: Reports: Bronchitis, Recurrent, COPD, Other (See Below) Other Respiratory History: hypoxemia Gastrointestinal History: Reports: Cirrhosis, Other (See Below) Other Gastrointestinal History: pancreas cyst hepititis C resolved 2015 [employer] History: Reports: Musculoskeletal History: Reports: Arthritis, Other (See Below) Other Musculoskeletal History: l shoulder dislocation fx medial malleolus osteopenia Frequent falls Neurological History: Reports: CVA Psychiatric History: Reports: Addiction, Anxiety, Depression, Suicide Attempt, Other (See Below) Other Psychiatric History: alcoholic dependence in remission Endocrine/Metabolic History: Reports: Obesity/BMI 30+, Vitamin D Deficiency, Other (See Below) Other Endocrine/Metabolic History: thrombocytenia Immunologic History: Reports: Other (See Below) Other Immunologic History: Hep C in remission Oncologic (Cancer) History: Reports: Breast - Infectious Disease History Infectious Disease History: Reports: Chicken Pox, Hepatitis C, Measles, Mumps - Past Surgical History Head Surgeries/Procedures: Reports: None HEENT Surgical History: Reports: Other (See Below) Other HEENT Surgeries/Procedures: retinal detachment surgery Cardiovascular Surgical History: Reports: None Respiratory Surgical History: Reports: None GI Surgical History: Reports: Colonoscopy Female Surgical History: Reports: Other (See Below) Other Female Surgeries/Procedures: breast CA lympectomy l breast Endocrine Surgical History: Reports: None Musculoskeletal Surgical History: Reports: None Oncologic Surgical History: Reports: Lumpectomy Dermatological Surgical History: Reports: None Social & Family History - Family History Family Medical History: No Pertinent Family History - Tobacco Use Tobacco Use Status *Q: Light Tobacco User Years of Tobacco use: 50 Packs/Tins Daily: 0.2 - Caffeine Use Caffeine Use: Reports: Coffee Caffeine Use Comment: none for 2 weeks - Recreational Drug Use Recreational Drug Use: No ED ROS GENERAL - Review of Systems Review Of Systems: See Below Constitutional: Reports: Malaise, Weakness HEENT: Reports: No Symptoms Respiratory: Reports: Shortness of Breath, Wheezing, Cough Cardiovascular: Reports: No Symptoms, Other ( she did have one episode of chest pain for less then 1 minute. ) Endocrine: Reports: No Symptoms GI/Abdominal: Reports: No Symptoms : Reports: No Symptoms Musculoskeletal: Reports: No Symptoms Skin: Reports: No Symptoms Neurological: Reports: No Symptoms Psychiatric: Reports: Anxiety ED EXAM, GENERAL - Physical Exam Exam: See Below Free Text/Narrative:: pt has been more sob and quite wheezy. She was not able to rest all nite. last nite. Exam Limited By: No Limitations General Appearance: Alert, Anxious, Moderate Distress Ears: Normal TMs Nose: Normal Inspection Throat/Mouth: Normal Inspection Head: Atraumatic Neck: Normal Inspection Respiratory/Chest: Decreased Breath Sounds, Rhonchi, Wheezing Cardiovascular: Regular Rate, Rhythm, Other ( ekg does show some possible ischmic changes. ) GI/Abdominal: Soft, Non-Tender (Female) Exam: Deferred Rectal (Female) Exam: Deferred Back Exam: Normal Inspection Extremities: Other (pt does have a marked increase in edema) Neurological: Alert, Oriented, Normal Cognition Psychiatric: Anxious #1 Interpretation Rhythm: NSR EKG Interpretation Comments: st depression anteriorly , no ectopy. Course - Vital Signs Last Recorded V/S: Last Vital Signs Temp 36.7 C 05/27/21 18:16 Pulse 93 05/27/21 20:33 Resp 30 H 05/27/21 20:02 BP 109/57 L 05/27/21 20:33 Pulse Ox 92 L 05/27/21 20:33 - Orders/Labs/Meds Orders: Active Orders 24 hr Category Date Time Status RT Aerosol Therapy [RC] ASDIRECTED Care 05/27/21 19:04 Active UA W/MICROSCOPIC [URIN] Urgent Lab 05/27/21 18:19 Ordered Sodium Chloride 0.9% [Saline Flush] Med 05/27/21 18:21 Active 10 ml FLUSH ASDIRECTED PRN Isolation [COMM] Stat Oth 05/27/21 18:47 Ordered Saline Lock Insert [OM.PC] Routine Oth 05/27/21 18:21 Ordered EKG 12 Lead [EK] Routine Ther 05/27/21 19:08 Ordered Medication Orders Acetaminophen (Acetaminophen 325 Mg Tab) 650 mg PO Q4H PRN PRN Reason: Pain (Mild 1-3)/fever Albuterol (Albuterol 0.083% 2.5 Mg/3 Ml Neb Soln) 2.5 mg NEB Q4H PRN PRN Reason: Shortness Of Breath/wheezing Albuterol/Ipratropium (Albuterol/Ipratropium 3.0-0.5 Mg/3 Ml Neb Soln) 3 ml NEB QID [facility] Alprazolam (Alprazolam 0.5 Mg Tab) 0.5 mg PO BID PRN PRN Reason: Anxiety Aripiprazole (Aripiprazole 10 Mg Tab) 10 mg PO DAILY [facility] Aspirin (Aspirin 81 Mg Tab.Ec) 81 mg PO DAILY [facility] Benzonatate (Benzonatate 100 Mg Cap) 200 mg PO TID PRN PRN Reason: Cough Bisacodyl (Bisacodyl 5 Mg Tab) 5 mg PO DAILY PRN PRN Reason: Constipation Docusate Sodium (Docusate Sodium 100 Mg Cap) 100 mg PO BID PRN PRN Reason: Constipation Enoxaparin Sodium (Enoxaparin 40 Mg/0.4 Ml Syringe) 40 mg SUBCUT DAILY [facility] Guaifenesin/Codeine Phosphate (Codeine/Guaifenesin 10-100 Mg/5 Ml Syrup 5 Ml Cup) 10 ml PO Q6H PRN PRN Reason: Cough Ceftriaxone Sodium 1 gm/ (Sodium Chloride) 50 mls @ 200 mls/hr IV Q24H [facility] Stop: 06/03/21 21:41 Azithromycin 500 mg/ Sodium (Chloride) 250 mls @ 250 mls/hr IV Q24H [facility] Stop: 05/30/21 21:41 Ibuprofen (Ibuprofen 800 Mg Tab) 800 mg PO QID PRN PRN Reason: Pain (moderate 4-6) Lactulose (Lactulose Soln 10 Gm/15 Ml 15 Ml Ud Cup) 20 gm PO TID [facility] Letrozole (Letrozole 2.5 Mg Tab) 2.5 mg PO DAILY [facility] Lorazepam (Lorazepam 2 Mg/Ml Sdv) 1 mg IV Q6H PRN PRN Reason: Anxiety Magnesium Oxide (Magnesium Oxide 400 Mg Tab) 400 mg PO DAILY [facility] Melatonin (Melatonin 3 Mg Tab) 6 mg PO BEDTIME PRN PRN Reason: Insomnia Methylprednisolone Sodium Succinate (Methylprednisolone Sodium Succinate 40 Mg/1 Ml Sdv) 62.5 mg IV Q6H [facility] Morphine Sulfate (Morphine 2 Mg/Ml Syringe) 2 mg IVPUSH Q2H PRN PRN Reason: Pain (severe 7-10) Non-Formulary Medication (Amlodipine Besylate [Norvasc]) 10 mg PO DAILY [facility] Non-Formulary Medication (Budesonide/Formoterol [Symbicort 80-4.5 Mcg]) 2 puff INH BID [facility] Non-Formulary Medication (Fluticasone/Salmeterol [Advair 100-50]) 2 puff INH BID [facility] Non-Formulary Medication (Losartan/Hydrochlorothiazide [Hyzaar 100-25 Tablet]) 1 tab PO DAILY [facility] Non-Formulary Medication (Nortriptyline Hcl [Pamelor]) 50 mg PO DAILY [facility] Non-Formulary Medication (Pravastatin Sodium [Pravastatin (Pravachol)]) 20 mg PO BEDTIME [facility] Non-Formulary Medication (Trazodone [Trazodone]) 150 mg PO BEDTIME [facility] Non-Formulary Medication (Venlafaxine Hcl [Venlafaxine Er]) 75 mg PO DAILY [facility] Ondansetron HCl (Ondansetron 4 Mg Tab.Dis) 4 mg PO Q6H PRN PRN Reason: Nausea able to take PO Ondansetron HCl (Ondansetron 4 Mg/2 Ml Sdv) 4 mg IV Q4H PRN PRN Reason: Nausea/Vomiting Oxycodone HCl (Oxycodone 5 Mg Tab) 5 mg PO Q4H PRN PRN Reason: Pain (moderate 4-6) Pantoprazole Sodium (Pantoprazole 40 Mg Tab.Cr) 40 mg PO BEDTIME [facility] Potassium Chloride (Potassium Chloride 20 Meq Tab.Er) 20 meq PO BID [facility] Sodium Chloride (Sodium Chloride 0.9% 10 Ml Syringe) 10 ml FLUSH ASDIRECTED PRN PRN Reason: Keep Vein Open Last Admin: 05/27/21 18:34 Dose: 10 ml Documented by: LEONILA Tiotropium [place] (Tiotropium [place] 4 Gm Inhalation [place] (2.5mcg/1 Dose; 10 Doses)) gm INH DAILY [facility] Labs: Laboratory Tests 05/27/21 05/27/21 05/27/21 Range/Units 18:34 18:34 18:34 WBC 5.2 (4.5-11.0) K/uL RBC 5.14 (3.30-5.50) M/uL Hgb 12.4 (12.0-15.0) g/dL Hct 42.0 (36.0-48.0) % MCV 82 (80-98) fL MCH 24 L (27-31) pg MCHC 30 L (32-36) % Plt Count 188 (150-400) K/uL Neut % (Auto) 49.0 (36-66) % Lymph % (Auto) 22.8 L (24-44) % [place] % (Auto) 26.8 H (2-6) % Eos % (Auto) 0.8 L (2-4) % Baso % (Auto) 0.6 (0-1) % Sodium 139 L (140-148) mmol/L Potassium 4.5 (3.6-5.2) mmol/L Chloride 102 (100-108) mmol/L Carbon Dioxide 28 (21-32) mmol/L Anion Gap 13.5 (5.0-14.0) mmol/L BUN 31 H D (7-18) mg/dL Creatinine 1.2 H (0.6-1.0) mg/dL Est Cr Clr Drug Dosing 44.63 mL/min Estimated GFR (MDRD) 45 L (>60) Glucose 94 (74-106) mg/dL Calcium 8.7 (8.5-10.1) mg/dL Total Bilirubin 0.7 (0.2-1.0) mg/dL AST 19 (15-37) U/L ALT 16 (12-78) U/L Alkaline Phosphatase 81 (46-116) U/L Troponin I (0.000-0.056) ng/mL NT-Pro-B Natriuret Pep 5736 H (5-125) pg/mL Total Protein 6.9 (6.4-8.2) g/dL Albumin 3.0 L (3.4-5.0) g/dL Globulin 3.9 H (2.3-3.5) g/dL Albumin/Globulin Ratio 0.8 L (1.2-2.2) Influenza Type A RNA (NEGATIVE) RSV RNA (INAAT) (NEGATIVE) Influenza Type B RNA (NEGATIVE) SARS-CoV-2 RNA (JANUARY) (NEGATIVE) 05/27/21 05/27/21 Range/Units 18:55 19:29 WBC (4.5-11.0) K/uL RBC (3.30-5.50) M/uL Hgb (12.0-15.0) g/dL Hct (36.0-48.0) % MCV (80-98) fL MCH (27-31) pg MCHC (32-36) % Plt Count (150-400) K/uL Neut % (Auto) (36-66) % Lymph % (Auto) (24-44) % [place] % (Auto) (2-6) % Eos % (Auto) (2-4) % Baso % (Auto) (0-1) % Sodium (140-148) mmol/L Potassium (3.6-5.2) mmol/L Chloride (100-108) mmol/L Carbon Dioxide (21-32) mmol/L Anion Gap (5.0-14.0) mmol/L BUN (7-18) mg/dL Creatinine (0.6-1.0) mg/dL Est Cr Clr Drug Dosing mL/min Estimated GFR (MDRD) (>60) Glucose (74-106) mg/dL Calcium (8.5-10.1) mg/dL Total Bilirubin (0.2-1.0) mg/dL AST (15-37) U/L ALT (12-78) U/L Alkaline Phosphatase (46-116) U/L Troponin I 0.084 H* (0.000-0.056) ng/mL NT-Pro-B Natriuret Pep (5-125) pg/mL Total Protein (6.4-8.2) g/dL Albumin (3.4-5.0) g/dL Globulin (2.3-3.5) g/dL Albumin/Globulin Ratio (1.2-2.2) Influenza Type A RNA Negative (NEGATIVE) RSV RNA (INAAT) Positive H (NEGATIVE) Influenza Type B RNA Negative (NEGATIVE) SARS-CoV-2 RNA (JANUARY) Negative (NEGATIVE) Meds: Medications Generic Name Dose Route Start Last Admin Trade Name Freq PRN Reason Stop Dose Admin Acetaminophen 650 mg 05/27/21 21:40 Acetaminophen 325 Mg Tab PO Q4H PRN Pain (Mild 1-3)/fever Albuterol 2.5 mg 05/27/21 21:40 Albuterol 0.083% 2.5 Mg/3 Ml Neb Soln NEB Q4H PRN Shortness Of Breath/wheezing Albuterol/Ipratropium 3 ml 05/27/21 22:00 Albuterol/Ipratropium 3.0-0.5 Mg/3 Ml Neb Soln NEB QID [facility] Alprazolam 0.5 mg 05/27/21 21:40 Alprazolam 0.5 Mg Tab PO BID PRN Anxiety Aripiprazole 10 mg 05/28/21 09:00 Aripiprazole 10 Mg Tab PO DAILY [facility] Aspirin 81 mg 05/28/21 09:00 Aspirin 81 Mg Tab.Ec PO DAILY [facility] Benzonatate 200 mg 05/27/21 21:40 Benzonatate 100 Mg Cap PO TID PRN Cough Bisacodyl 5 mg 05/27/21 21:40 Bisacodyl 5 Mg Tab PO DAILY PRN Constipation Docusate Sodium 100 mg 05/27/21 21:40 Docusate Sodium 100 Mg Cap PO BID PRN Constipation Enoxaparin Sodium 40 mg 05/27/21 21:40 Enoxaparin 40 Mg/0.4 Ml Syringe SUBCUT DAILY [facility] Guaifenesin/Codeine Phosphate 10 ml 05/27/21 21:40 Codeine/Guaifenesin 10-100 Mg/5 Ml Syrup 5 Ml Cup PO Q6H PRN Cough Ceftriaxone Sodium 1 gm/ 50 mls @ 200 mls/hr 05/27/21 21:40 Sodium Chloride IV 06/03/21 21:41 Q24H [facility] Azithromycin 500 mg/ Sodium 250 mls @ 250 mls/hr 05/27/21 21:40 Chloride IV 05/30/21 21:41 Q24H [facility] Ibuprofen 800 mg 05/27/21 21:40 Ibuprofen 800 Mg Tab PO QID PRN Pain (moderate 4-6) Lactulose 20 gm 05/27/21 21:40 Lactulose Soln 10 Gm/15 Ml 15 Ml Ud Cup PO TID [facility] Letrozole 2.5 mg 05/28/21 09:00 Letrozole 2.5 Mg Tab PO DAILY [facility] Lorazepam 1 mg 05/27/21 21:40 Lorazepam 2 Mg/Ml Sdv IV Q6H PRN Anxiety Magnesium Oxide 400 mg 05/28/21 09:00 Magnesium Oxide 400 Mg Tab PO DAILY [facility] Melatonin 6 mg 05/27/21 21:40 Melatonin 3 Mg Tab PO BEDTIME PRN Insomnia Methylprednisolone Sodium Succinate 62.5 mg 05/28/21 00:01 Methylprednisolone Sodium Succinate 40 Mg/1 Ml Sdv IV Q6H [facility] Morphine Sulfate 2 mg 05/27/21 21:40 Morphine 2 Mg/Ml Syringe IVPUSH Q2H PRN Pain (severe 7-10) Non-Formulary Medication 10 mg 05/28/21 09:00 Amlodipine Besylate [Norvasc] PO DAILY [facility] Non-Formulary Medication 2 puff 05/27/21 21:40 Budesonide/Formoterol [Symbicort 80-4.5 Mcg] INH BID [facility] Non-Formulary Medication 2 puff 05/27/21 21:40 Fluticasone/Salmeterol [Advair 100-50] INH BID [facility] Non-Formulary Medication 1 tab 05/28/21 09:00 Losartan/Hydrochlorothiazide [Hyzaar 100-25 Tablet] PO DAILY [facility] Non-Formulary Medication 50 mg 05/28/21 09:00 Nortriptyline Hcl [Pamelor] PO DAILY [facility] Non-Formulary Medication 20 mg 05/28/21 21:00 Pravastatin Sodium [Pravastatin (Pravachol)] PO BEDTIME [facility] Non-Formulary Medication 150 mg 05/27/21 21:40 Trazodone [Trazodone] PO BEDTIME [facility] Non-Formulary Medication 75 mg 05/28/21 09:00 Venlafaxine Hcl [Venlafaxine Er] PO DAILY [facility] Ondansetron HCl 4 mg 05/27/21 21:40 Ondansetron 4 Mg Tab.Dis PO Q6H PRN Nausea able to take PO Ondansetron HCl 4 mg 05/27/21 21:40 Ondansetron 4 Mg/2 Ml Sdv IV Q4H PRN Nausea/Vomiting Oxycodone HCl 5 mg 05/27/21 21:40 Oxycodone 5 Mg Tab PO Q4H PRN Pain (moderate 4-6) Pantoprazole Sodium 40 mg 05/28/21 21:00 Pantoprazole 40 Mg Tab.Cr PO BEDTIME [facility] Potassium Chloride 20 meq 05/27/21 21:45 Potassium Chloride 20 Meq Tab.Er PO BID [facility] Sodium Chloride 10 ml 05/27/21 18:21 05/27/21 18:34 Sodium Chloride 0.9% 10 Ml Syringe FLUSH 10 ml ASDIRECTED PRN Administration Keep Vein Open Tiotropium [place] gm 05/28/21 09:00 Tiotropium [place] 4 Gm Inhalation [place] (2.5mcg/1 Dose; 10 Doses) INH DAILY [facility] Discontinued Medications Generic Name Dose Route Start Last Admin Trade Name Freq PRN Reason Stop Dose Admin Albuterol 2.5 mg 05/27/21 19:03 05/27/21 19:09 Albuterol 0.083% 2.5 Mg/3 Ml Neb Soln NEB 05/27/21 19:04 2.5 mg ONETIME ONE Administration Furosemide 60 mg 05/27/21 19:49 05/27/21 19:59 Furosemide 40 Mg/4 Ml Vial IVPUSH 05/27/21 19:50 60 mg ONETIME ONE Administration Methylprednisolone Sodium Succinate 125 mg 05/27/21 18:21 05/27/21 18:33 Methylprednisolone Sodium Succinate 125 Mg/2 Ml Sdv IVPUSH 05/27/21 18:22 125 mg ONETIME ONE Administration - Re-Assessments/Exams Free Text/Narrative Re-Assessment/Exam: 05/27/21 20:30 Pt was given lasix 60 mg iv. She was given solumedrol 125, chest xray did not show infiltrates. Labs look good. Departure - Departure Time of Disposition: 20:32 Disposition: Admitted As Inpatient 67 Condition: Fair Clinical Impression: CHF (congestive heart failure), Elevated troponin COPD (chronic obstructive pulmonary disease) Qualifiers: COPD type: unspecified COPD Qualified Code(s): J44.9 - Chronic obstructive pulmonary disease, unspecified - Discharge Information Sepsis Event Note (ED) - Evaluation Sepsis Screening Result: No Definite Risk - Focused Exam Vital Signs: Vital Signs Temp Pulse Resp BP Pulse Ox 11/10/21 20:33 93 109/57 L 92 L 05/27/21 20:02 89 30 H 92/62 91 L 05/27/21 19:33 91 32 H 96/53 L 84 L 05/27/21 19:04 83 28 H 96/51 L 86 L 05/27/21 18:34 84 28 H 101/53 L 87 L 05/27/21 18:16 36.7 C 86 20 109/54 L 90 L - My Orders Last 24 Hours: My Active Orders 05/27/21 18:19 UA W/MICROSCOPIC [URIN] Urgent 05/27/21 18:21 Sodium Chloride 0.9% [Saline Flush] 10 ml FLUSH ASDIRECTED PRN Saline Lock Insert [OM.PC] Routine 05/27/21 18:47 Isolation [COMM] Stat 05/27/21 19:04 RT Aerosol Therapy [RC] ASDIRECTED 05/27/21 19:08 EKG 12 Lead [EK] Routine - Assessment/Plan Last 24 Hours: My Active Orders 05/27/21 18:19 UA W/MICROSCOPIC [URIN] Urgent 05/27/21 18:21 Sodium Chloride 0.9% [Saline Flush] 10 ml FLUSH ASDIRECTED PRN Saline Lock Insert [OM.PC] Routine 05/27/21 18:47 Isolation [COMM] Stat 05/27/21 19:04 RT Aerosol Therapy [RC] ASDIRECTED 05/27/21 19:08 EKG 12 Lead [EK] Routine
[2021-05-27] MEDS: Sodium Chloride 0.9% 10 ML Syringe FLUSH PRN (18:34)
[2021-05-27] MEDS ORDERED: Albuterol 0.083% 2.5 MG/3 ML Neb Soln NEB ONE (19:03)
--- NOTE | 2021-05-27 19:22 | CRLCR ---
For Patients: As a result of the Cures Act, medical imaging exams and procedure reports are released immediately into your electronic medical record. You may view this report before your referring provider. If you have questions, please contact your health care provider. INDICATION: Shortness of breath TECHNIQUE: Chest radiograph 1 view COMPARISON: 12/18/2020 FINDINGS: Cardiovascular and mediastinum: Heart and mediastinal contours are stable. Cardiac silhouette remains mildly enlarged. Lungs and pleural spaces: Both lungs are unremarkable in appearance. No sign of pleural effusion seen. No pneumothorax is identified. Bones and soft tissues: No significant findings. IMPRESSION: 1. No acute cardiopulmonary disease is seen. Dictated by Andrez Austin MD @ 05/27/2021 7:20:18 PM Dictated by: Andrez Austin MD @ 05/27/2021 19:20:27 (Electronically Signed)
[2021-05-27 19:37] LABS: CORONAVIRUS COVID-19 NAA NEGATIVE (NEGATIVE)
[2021-05-27] MEDS ORDERED: Furosemide 40 MG/4 ML VIAL IVPUSH ONE (19:49)
[2021-05-27] MEDS ORDERED: Ondansetron 4 MG Tab.DIS PO PRN (21:40)
[2021-05-27] MEDS ORDERED: Melatonin 3 MG Tab PO PRN (21:40)
[2021-05-27] MEDS ORDERED: Enoxaparin 40 MG/0.4 ML Syringe SUBCUT SCH (21:40)
[2021-05-27] MEDS ORDERED: oxyCODONE 5 MG Tab PO PRN (21:40)
[2021-05-27] MEDS ORDERED: LORazepam 2 MG/ML SDV IV PRN (21:40)
[2021-05-27] MEDS ORDERED: [UNRECOGNIZED DRUG - OTHER] INH SCH (21:40)
[2021-05-27] MEDS ORDERED: ALPRAZolam 0.5 MG Tab PO PRN (21:40)
[2021-05-27] MEDS ORDERED: Acetaminophen 325 MG Tab PO PRN (21:40)
[2021-05-27] MEDS ORDERED: Docusate Sodium 100 MG Cap PO PRN (21:40)
[2021-05-27] MEDS ORDERED: INHAL INH SCH (21:40)
[2021-05-27] MEDS ORDERED: FORMOTEROL INH SCH (21:40)
[2021-05-27] MEDS ORDERED: Albuterol 0.083% 2.5 MG/3 ML Neb Soln NEB PRN (21:40)
[2021-05-27] MEDS ORDERED: BUDESONIDE INH SCH (21:40)
[2021-05-27] MEDS ORDERED: Bisacodyl 5 MG Tab PO PRN (21:40)
[2021-05-27] MEDS ORDERED: Non-Formulary Medication 1 Each (Fluticasone/Salmeterol [Advair 100-50] 14 PUFF/DISKUS Dis INH SCH (21:40)
[2021-05-27] MEDS ORDERED: Ondansetron 4 MG/2 ML SDV IV PRN (21:40)
--- NOTE | 2021-05-27 21:50 | PCM.HP.2 ---
H&P History of Present Illness - General Date of Service: 05/27/21 Admit Problem/Dx: Admission Diagnosis/Problem Admission Diagnosis/Problem COPD, Severe chronic obstructive pulmonary disease Source of Information: Patient, EMS Notes Reviewed, Provider, RN History Limitations: Reports: No Limitations - History of Present Illness Initial Comments - Free Text/Narative: chief complaint: shortness of breath. This is a 70 year old female presents to the ER via EMS. She reports has been feeling poorly for the last three days with increased cough, not able to sleep due to difficulty breathing, not eating due to breathing. She is on home oxygen at 2 liter per nasal cannula. Reports fever and chills three days ago. Persistent cough with coughing till exhausted. She is fully vaccinated for Covid-19 and influenza, other immunizations are up to date. ER workup includes chest x-ray, negative Labs-+RSV, - INFLUENZA, - Covid screening, CBC.CMP, URINE WITH MICRO. Elevated Troponin - felt to be result of stress of current illness. EKG unchanged from previous EKG. BNP 5700 Examination by ER Provider- Patient is short of breath, mild hypoxia with oxygen saturation 85%. Lungs with diffuse wheezing and rhonchi. Meds- oxygen increased to 3.5 liter- oxygen sate 89-90%, IV Lasix 60 mg, IV Solumedrol 125 mg, Duoneb and Albuterol neb. Plan - admit to hospital for further care. Middle Back Pain Score (Numeric/FACES): 4 - Related Data Allergies/Adverse Reactions: Allergies Allergy/AdvReac Type Severity Reaction Status Date / Time hydrochlorothiazide Allergy Cannot Verified 05/27/21 18:06 Remember levofloxacin [From Levaquin] Allergy Cannot Verified 05/27/21 18:06 Remember triamterene Allergy Cannot Verified 05/27/21 18:06 Remember Home Medications: Home Meds ARIPiprazole [Abilify] 10 mg PO DAILY 06/09/19 [History] Acetaminophen 1 tab PO Q6H PRN 06/09/19 [History] Cholecalciferol (Vitamin D3) [Decara] 50,000 unit PO ASDIRECTED 06/09/19 [History] Ibuprofen [Motrin] 800 mg PO QID PRN 06/09/19 [History] Letrozole [Femara] 2.5 mg PO DAILY 06/09/19 [History] Losartan/Hydrochlorothiazide [Hyzaar 100-25 Tablet] 1 tab PO DAILY 06/09/19 [History] Nortriptyline HCl [Pamelor] 50 mg PO DAILY 06/09/19 [History] Oxybutynin 5 mg PO TID 06/09/19 [History] Pantoprazole Sodium [Protonix] 40 mg PO DAILY 06/09/19 [History] Pravastatin Sodium [Pravastatin (Pravachol)] 20 mg PO BEDTIME 06/09/19 [History] Tiotropium [place] [Spiriva Respimat] 2 puff IH DAILY 06/09/19 [History] Venlafaxine HCl [Venlafaxine ER] 75 mg PO DAILY 06/09/19 [History] amLODIPine Besylate [Norvasc] 10 mg PO DAILY 06/09/19 [History] traZODone 150 mg PO BEDTIME 06/09/19 [History] Aspirin [Halfprin] 81 mg PO DAILY 01/16/20 [History] ALPRAZolam [Alprazolam] 0.5 mg PO BID PRN #20 tablet 01/25/20 [Rx] Budesonide/Formoterol [Symbicort 80-4.5 MCG] 2 puff INH BID 12/18/20 [History] Fluticasone/Salmeterol [Advair 100-50] 2 puff INH BID 12/18/20 [History] Sennosides/Docusate Sodium [Senna-S 8.6-50 mg Tablet] 1 tab PO ASDIRECTED PRN 12/18/20 [History] Past Medical History HEENT History: Reports: Impaired Vision, Other (See Below) Other HEENT History: 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 Cardiovascular History: Reports: Hypertension, Syncope, Other (See Below) Other Cardiovascular History: orthostatic hypotension sinus rickie Respiratory History: Reports: Bronchitis, Recurrent, COPD, Other (See Below) Other Respiratory History: hypoxemia Gastrointestinal History: Reports: Cirrhosis, Other (See Below) Other Gastrointestinal History: pancreas cyst hepititis C resolved 2016 [employer] History: Reports: Musculoskeletal History: Reports: Arthritis, Other (See Below) Other Musculoskeletal History: l shoulder dislocation fx medial malleolus osteopenia Frequent falls Neurological History: Reports: CVA Psychiatric History: Reports: Addiction, Anxiety, Depression, Suicide Attempt, O ther (See Below) Other Psychiatric History: alcoholic dependence in remission Endocrine/Metabolic History: Reports: Obesity/BMI 30+, Vitamin D Deficiency, Other (See Below) Other Endocrine/Metabolic History: thrombocytenia Immunologic History: Reports: Other (See Below) Other Immunologic History: Hep C in remission Oncologic (Cancer) History: Reports: Breast - Infectious Disease History Infectious Disease History: Reports: Chicken Pox, Hepatitis C, Measles, Mumps - Past Surgical History Head Surgeries/Procedures: Reports: None HEENT Surgical History: Reports: Other (See Below) Other HEENT Surgeries/Procedures: retinal detachment surgery Cardiovascular Surgical History: Reports: None Respiratory Surgical History: Reports: None GI Surgical History: Reports: Colonoscopy Female Surgical History: Reports: Other (See Below) Other Female Surgeries/Procedures: breast CA lympectomy l breast Endocrine Surgical History: Reports: None Musculoskeletal Surgical History: Reports: None Oncologic Surgical History: Reports: Lumpectomy Dermatological Surgical History: Reports: None Social & Family History - Family History Family Medical History: No Pertinent Family History - Tobacco Use Tobacco Use Status *Q: Light Tobacco User Years of Tobacco use: 50 Packs/Tins Daily: 0.2 - Caffeine Use Caffeine Use: Reports: Coffee Caffeine Use Comment: none for 2 weeks - Recreational Drug Use Recreational Drug Use: No - Living Situation & Occupation Living situation: Reports: Single, Alone Occupation: Retired (lives in [place], [place]., has 3 adult children, Daughter and Grandchildren live in same block. 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) H&P Review of Systems - Review of Systems: Review Of Systems: See Below General: Reports: Fever, Chills, Malaise, Weakness, Fatigue, Decreased Appetite HEENT: Reports: Glasses Pulmonary: Reports: Shortness of Breath, Wheezing, Pleuritic Chest Pain, Cough, Sputum Cardiovascular: Reports: Dyspnea on Exertion Gastrointestinal: Reports: Nausea Genitourinary: Reports: No Symptoms Musculoskeletal: Reports: Foot Pain (reports broken feet and right ankle 6 months ago-difficulty walking.) Skin: Reports: Dryness, Other (dry raised skin bump on right forehead- there for months.) Psychiatric: Reports: Anxiety (has anxiety and depression-treated with medication) Neurological: Reports: No Symptoms Hematologic/Lymphatic: Reports: No Symptoms Immunologic: Reports: No Symptoms Exam - Exam Exam: See Below - Vital Signs Vital Signs: Last Vital Signs Temp 98.1 F 05/27/21 18:16 Pulse 93 05/27/21 20:33 Resp 30 H 05/27/21 20:02 BP 109/57 L 05/27/21 20:33 Pulse Ox 92 L 05/27/21 20:33 Weight: 250 lb - Exam Quality Assessment: Supplemental Oxygen, DVT Prophylaxis General: Alert, Oriented, Cooperative, Mild Distress, Other (neat and well groom ed. she is polite and cooperative. appearance of shortness of breath, sitting straight up. appears older than stated age ) HEENT: PERRLA, Conjunctiva Clear, EOMI, Hearing Intact, Mucosa Moist & [place], Nares Patent, Glasses Neck: Supple, Trachea Midline Lungs: Decreased Breath Sounds, Rhonchi (bilateral), Wheezing (inspiratory and expiratory -bilateral), Other (frequent cough is noted) Cardiovascular: Regular Rate, Regular Rhythm, Normal S1, Normal S2 GI/Abdominal Exam: Normal Bowel Sounds, Soft, Non-Tender, No Organomegaly, No Distention, No Abnormal Bruit, No Mass, Pelvis Stable (Female) Exam: Deferred Rectal (Female) Exam: Deferred Back Exam: Normal Inspection, Full Range of Motion Extremities: Normal Inspection, Normal Range of Motion, Non-Tender, No Pedal Luigi ma, Normal Capillary Refill Peripheral Pulses: 2+: Radial (L), Radial (R) Skin: Warm, Dry, Intact Neurological: Reflexes Equal Bilateral, Strength Equal Bilateral, Normal Gait, Normal Speech, Normal Tone Neuro Extensive - Mental Status: Alert, Oriented x3, Normal Mood/Affect, Normal Cognition Neuro Extensive - Motor, Sensory, Reflexes: CN II-XII Intact, Normal Gait, Normal Reflexes Psychiatric: Alert, Normal Affect, Normal Mood - Patient Data Lab Results Last 24 hrs: Laboratory Results - last 24 hr 05/27/21 05/27/21 05/27/21 Range/Units 18:34 18:34 18:34 WBC 5.2 (4.5-11.0) K/uL RBC 5.14 (3.30-5.50) M/uL Hgb 12.4 (12.0-15.0) g/dL Hct 42.0 (36.0-48.0) % MCV 82 (80-98) fL MCH 24 L (27-31) pg MCHC 30 L (32-36) % Plt Count 188 (150-400) K/uL Neut % (Auto) 49.0 (36-66) % Lymph % (Auto) 22.8 L (24-44) % [place] % (Auto) 26.8 H (2-6) % Eos % (Auto) 0.8 L (2-4) % Baso % (Auto) 0.6 (0-1) % Sodium 139 L (140-148) mmol/L Potassium 4.5 (3.6-5.2) mmol/L Chloride 102 (100-108) mmol/L Carbon Dioxide 28 (21-32) mmol/L Anion Gap 13.5 (5.0-14.0) mmol/L BUN 31 H D (7-18) mg/dL Creatinine 1.2 H (0.6-1.0) mg/dL Est Cr Clr Drug Dosing 44.63 mL/min Estimated GFR (MDRD) 45 L (>60) Glucose 94 (74-106) mg/dL Calcium 8.7 (8.5-10.1) mg/dL Total Bilirubin 0.7 (0.2-1.0) mg/dL AST 19 (15-37) U/L ALT 16 (12-78) U/L Alkaline Phosphatase 81 (46-116) U/L Troponin I (0.000-0.056) ng/mL NT-Pro-B Natriuret Pep 5736 H (5-125) pg/mL Total Protein 6.9 (6.4-8.2) g/dL Albumin 3.0 L (3.4-5.0) g/dL Globulin 3.9 H (2.3-3.5) g/dL Albumin/Globulin Ratio 0.8 L (1.2-2.2) Influenza Type A RNA (NEGATIVE) RSV RNA (INAAT) (NEGATIVE) Influenza Type B RNA (NEGATIVE) SARS-CoV-2 RNA (JANUARY) (NEGATIVE) 05/27/21 05/27/21 Range/Units 18:55 19:29 WBC (4.5-11.0) K/uL RBC (3.30-5.50) M/uL Hgb (12.0-15.0) g/dL Hct (36.0-48.0) % MCV (80-98) fL MCH (27-31) pg MCHC (32-36) % Plt Count (150-400) K/uL Neut % (Auto) (36-66) % Lymph % (Auto) (24-44) % [place] % (Auto) (2-6) % Eos % (Auto) (2-4) % Baso % (Auto) (0-1) % Sodium (140-148) mmol/L Potassium (3.6-5.2) mmol/L Chloride (100-108) mmol/L Carbon Dioxide (21-32) mmol/L Anion Gap (5.0-14.0) mmol/L BUN (7-18) mg/dL Creatinine (0.6-1.0) mg/dL Est Cr Clr Drug Dosing mL/min Estimated GFR (MDRD) (>60) Glucose (74-106) mg/dL Calcium (8.5-10.1) mg/dL Total Bilirubin (0.2-1.0) mg/dL AST (15-37) U/L ALT (12-78) U/L Alkaline Phosphatase (46-116) U/L Troponin I 0.084 H* (0.000-0.056) ng/mL NT-Pro-B Natriuret Pep (5-125) pg/mL Total Protein (6.4-8.2) g/dL Albumin (3.4-5.0) g/dL Globulin (2.3-3.5) g/dL Albumin/Globulin Ratio (1.2-2.2) Influenza Type A RNA Negative (NEGATIVE) RSV RNA (INAAT) Positive H (NEGATIVE) Influenza Type B RNA Negative (NEGATIVE) SARS-CoV-2 RNA (JANUARY) Negative (NEGATIVE) Result Diagrams: 05/27/21 18:34 05/27/21 18:34 Sepsis Event Note - Evaluation Sepsis Screening Result: No Definite Risk - Focused Exam Vital Signs: Vital Signs Temp Pulse Resp BP Pulse Ox 05/27/21 20:33 93 109/57 L 92 L 05/27/21 20:02 89 30 H 92/62 91 L 05/27/21 19:33 91 32 H 96/53 L 84 L 05/27/21 19:04 83 28 H 96/51 L 86 L 05/27/21 18:34 84 28 H 101/53 L 87 L 05/27/21 18:16 98.1 F 86 20 109/54 L 90 L - Problem List (1) COPD (chronic obstructive pulmonary disease) SNOMED Code(s): 25535490 ICD Code: J44.9 - CHRONIC OBSTRUCTIVE PULMONARY DISEASE, UNSPECIFIED Status: Chronic Priority: High Current Visit: Yes Qualifiers: COPD type: COPD with acute exacerbation Qualified Code(s): J44.1 - Chronic obstructive pulmonary disease with (acute) exacerbation (2) RSV infection SNOMED Code(s): 26598230 ICD Code: B97.4 - RESPIRATORY SYNCYTIAL VIRUS CAUSING DISEASES CLASSD ELSWHR Status: Acute Priority: High Current Visit: Yes (3) Anxiety and depression SNOMED Code(s): 912044992 ICD Code: F41.9 - ANXIETY DISORDER, UNSPECIFIED; F32.A - DEPRESSION, UNSPECIFIED Status: Acute Priority: High Current Visit: Yes (4) Elevated troponin SNOMED Code(s): 276207402, 583035659, 182179932 ICD Code: R77.8 - OTHER SPECIFIED ABNORMALITIES OF PLASMA PROTEINS Status: Acute Priority: High Current Visit: Yes (5) Generalized weakness SNOMED Code(s): 28375512 ICD Code: R53.1 - WEAKNESS Status: Acute Priority: High Current Visit: Yes (6) Tobacco dependence SNOMED Code(s): 04928764 ICD Code: F17.200 - NICOTINE DEPENDENCE, UNSPECIFIED, UNCOMPLICATED Status: Acute Priority: Low Current Visit: Yes Problem List Initiated/Reviewed/Updated: Yes Orders Last 24hrs: Active Orders 24 hr Category Date Time Status Patient Status Manage Transfer [TRANSFER] Routine ADT 05/27/21 21:05 Active RT Aerosol Therapy [RC] ASDIRECTED Care 05/27/21 19:04 Active UA W/MICROSCOPIC [URIN] Urgent Lab 05/27/21 18:19 Ordered Sodium Chloride 0.9% [Saline Flush] Med 05/27/21 18:21 Active 10 ml FLUSH ASDIRECTED PRN Isolation [COMM] Stat Oth 05/27/21 18:47 Ordered Saline Lock Insert [OM.PC] Routine Oth 05/27/21 18:21 Ordered Resuscitation Status Routine Resus Stat 05/27/21 21:07 Ordered EKG 12 Lead [EK] Routine Ther 05/27/21 19:08 Ordered Medication Orders Sodium Chloride (Sodium Chloride 0.9% 10 Ml Syringe) 10 ml FLUSH ASDIRECTED PRN PRN Reason: Keep Vein Open Last Admin: 05/27/21 18:34 Dose: 10 ml Documented by: LEONILA Assessment/Plan Comment:: ASSESSMENT AND PLAN OF CARE- COPD WITH ACUTE LOWER RESPIRATORY INFECTION, RSV INFECTION, WEAKNESS, TOBACCO, ANXIETY/DEPRESSION chief complaint: shortness of breath. This is a 70 year old female presents to the ER via EMS. She reports has been feeling poorly for the last three days with increased cough, not able to sleep due to difficulty breathing, not eating due to breathing. She is on home oxygen at 2 liter per nasal cannula. Reports fever and chills three days ago. Persistent cough with coughing till exhausted. She is fully vaccinated for Cov id-19 and influenza, other immunizations are up to date. ER workup includes chest x-ray, negative Labs-+RSV, - INFLUENZA, - Covid screening, CBC.CMP, URINE WITH MICRO. Elevated Troponin - felt to be result of stress of current illness. EKG unchanged from previous EKG. BNP 5700 Examination by ER Provider- Patient is short of breath, mild hypoxia with oxygen saturation 85%. Lungs with diffuse wheezing and rhonchi. Meds- oxygen increased to 3.5 liter- oxygen sate 89-90%, IV Lasix 60 mg, IV Solumedrol 125 mg, Duoneb and Albuterol neb. Plan - admit to hospital for further care. COPD with acute lower respiratory infection, Positive RSV screening. -Admit to [address] [place] [address] for further monitoring -Saline Lock IV access -IV Antibiotic; Rocephin 1 gram IV every 24 hours -IV Zithromax 500mg every 24 hours -oxygen to keep sats greater than 95% -IV Solumedrol 62.5 mg every 6 hours -schedule Duo nebs every 6 hours, Albuterol nebs every 4 hours prn -Robitussin AC 10 ml every 6 hours as needed for painful cough -Tesslon pearles 200 mg tid for cough -Advise to notify nurses of any chest pain or other symptoms -blood cultures x2 pending -vaccinated for Covid 19, one hour Covid 19 virus test in ER is negative -droplet precautions for RSV -And a.m. labs: CBC, BMP Weakness - due to acute and chronic disease. lives alone, has 3 adult children. Daughter and Grandchildren live close by. -ambulates with walker at home -consult to PT -consult to OT Tobacco dependence - smokes 2 cigarettes per day of tobacco for the past 50 years- no interest in quitting. -declines gum or patch -encouraged to quit smoking Elevated Troponin -recheck Troponin at 0200 on 05/28/2021 -Telemetry -EKG in am Anxiety/Depression -continue outpatient medications Maintenance issues -Orders home meds: chronic medication -Nutrition: regular diet -[place] catheter -strict I&O with IV Lasix -DVT - Lovenox 40 mg subcut daily CODE STATUS: FULL Admission status: Admit to [address] [place] [address] justification. This patient will be admitted for inpatient services and is medically appropriate meeting medical necessity for inpatient admission as outlined in my documentation. I reasonably expect the patient will require inpatient services that span. Time over 2 midnights. I reasonably expect this patient to be discharged or transferred within 96 hours after admission to the critical access hospital. Disposition: home family and home care. Primary care provider: Dr. Dipti Diaz, [facility], [place], [place]. Hospitalist: Dr. Roberts - Mortality Measure Prognosis:: Good - Mortality Measure Prognosis:: Good
[2021-05-27] MEDS: Albuterol/Ipratropium 3.0-0.5 MG/3 ML Neb Soln NEB SCH (22:05)
[2021-05-27] MEDS: cefTRIAXone 1 GM in Sodium Chloride 0.9% 50 ML IV SCH (22:06)
[2021-05-27] MEDS: Codeine/guaiFENesin 10-100 MG/5 ML Syrup 5 ML Cup PO PRN (22:15)
[2021-05-27] MEDS ORDERED: Formoterol/Mometasone 100-5 MCG 8.8 GM Inhaler IH SCH (22:15)
[2021-05-27] MEDS: Potassium Chloride 20 MEQ Tab.ER PO SCH (22:18)
[2021-05-27] MEDS: Benzonatate 100 MG Cap PO PRN (22:18)
[2021-05-27] MEDS ORDERED: Magnesium Oxide 400 MG Tab PO ONE (22:21)
[2021-05-27] MEDS: Lactulose Soln 10 GM/15 ML 15 ML UD Cup PO SCH (22:40)
[2021-05-27] MEDS: Azithromycin 500 MG in Sodium Chloride 0.9% 250 ML IV SCH (22:41)
[2021-05-27] MEDS: traZODone 50 MG Tab PO SCH (22:46)
[2021-05-27] MEDS ORDERED: Dimethicone 20%/Zinc Oxide 25% 56 GM Spray Bottle TOP PRN ×2 (22:54→22:59)
[2021-05-27] MEDS ORDERED: Nystatin Topical Powder 15 GM Bottle TOP SCH (23:00)
[2021-05-27] MEDS: Morphine 2 MG/ML SYRINGE IVPUSH PRN (23:03)
[2021-05-28] MEDS: methylPREDNISolone Sodium Succinate 125 MG/2 ML SDV IV SCH ×5 (00:46→23:42)
--- NOTE | 2021-05-28 00:54 | PCM.SN.2 ---
- Free Text/Narrative Note: time 12 am call to assess Ms. Martin oxygen saturation desat to 70% with sleep, when awake 87 to 88% S: denies any chest pain or shortness of breath. Patient reports no concerns, " I'm trying to sleep and they keep waking me up" O: vital signs P 98 RR 24 Oxygen sat 88% to 90% chest lungs decreased breath sounds, expiratory wheezing A: COPD, RSV, Hypoxia, UTI P: oxygen via nasal cannula at 5 liters ABGS ordered and pending. has received multi albuterol nebulizers, IV Zithromax and IV Rocephin comp leted. chest x-ray in ER , Radiology report no acute disease, no pneumothorax. cath urine is cloudy, nitrate positive, small leukocytes, semi-packed urine culture pending.
[2021-05-28] MEDS ORDERED: LORazepam 2 MG/ML SDV IVPUSH ONE (03:30)
[2021-05-28] MEDS: Albuterol 0.083% 2.5 MG/3 ML Neb Soln NEB PRN (03:59)
[2021-05-28] MEDS ORDERED: Levalbuterol HCl 1.25 MG/3 ML Neb ONE (04:40)
[2021-05-28] MEDS ORDERED: Levalbuterol HCl 1.25 MG/3 ML Neb NEB ONE (04:42)
[2021-05-28] MEDS ORDERED: Budesonide 0.25 MG/2 ML Neb Susp NEB ONE (04:55)
[2021-05-28] MEDS ORDERED: Sodium Chloride 0.9% Inhalation Soln 3 ML Neb INH ONE (04:55)
[2021-05-28] MEDS ORDERED: Budesonide 0.5 MG/2 ML Neb Susp ONE (05:01)
[2021-05-28] MEDS ORDERED: Budesonide 0.5 MG/2 ML Neb Susp NEB ONE (05:04)
--- NOTE | 2021-05-28 05:35 | CRLCR ---
For Patients: As a result of the Century Cures Act, medical imaging exams and procedure reports are released immediately into your electronic medical record. You may view this report before your referring provider. If you have questions, please contact your health care provider. HISTORY: Hypoxia on BiPAP. COMPARISON: Portable chest from yesterday. FINDINGS: A portable erect AP view of the chest was obtained at 0517 hours. There continues to be mild consolidation of the left lung base with loss of the left hemidiaphragm. The rest of the chest is clear despite shallow inspiration. The heart remains mildly enlarged. The mediastinum is otherwise normal in appearance. The osseous structures are normal in appearance for the patient`s age. IMPRESSION: Stable mild consolidation of the left lung base. No change in mild cardiomegaly. Dictated by Rah Holland MD @ 05/28/2021 5:33:07 AM (Electronically Signed)
[2021-05-28] MEDS: Morphine 2 MG/ML SYRINGE IVPUSH PRN ×2 (05:55→06:10)
[2021-05-28] MEDS: Albuterol/Ipratropium 3.0-0.5 MG/3 ML Neb Soln NEB SCH ×4 (07:08→20:37)
[2021-05-28] MEDS ORDERED: Sodium Chloride 0.9% 1,000 ML IV SCH (08:00)
[2021-05-28] MEDS ORDERED: Tiotropium Bromide 4 GM Inhalation Spray (2.5mcg/1 dose; 10 doses) INH SCH (09:00)
[2021-05-28] MEDS ORDERED: HYDROCHLOROTHIAZIDE PO SCH (09:00)
[2021-05-28] MEDS ORDERED: Magnesium Oxide 400 MG Tab PO SCH (09:00)
[2021-05-28] MEDS ORDERED: LOSARTAN PO SCH (09:00)
[2021-05-28] MEDS ORDERED: [UNRECOGNIZED DRUG - OTHER] PO SCH (09:00)
[2021-05-28] MEDS: Formoterol/Mometasone 100-5 MCG 8.8 GM Inhaler IH SCH ×2 (09:03→20:37)
[2021-05-28] MEDS: Tiotropium Bromide 4 GM Inhalation Spray (2.5mcg/1 dose; 10 doses) INH SCH (09:03)
[2021-05-28] MEDS: Venlafaxine 75 MG Cap.ER PO SCH (09:34)
[2021-05-28] MEDS: Lactulose Soln 10 GM/15 ML 15 ML UD Cup PO SCH ×4 (09:34→20:37)
[2021-05-28] MEDS: Potassium Chloride 20 MEQ Tab.ER PO SCH ×2 (09:34→20:37)
[2021-05-28] MEDS: Aspirin 81 MG Tab.EC PO SCH (09:35)
[2021-05-28] MEDS: Nortriptyline 25 MG Cap PO SCH (09:35)
[2021-05-28] MEDS: amLODIPine 5 MG Tab PO SCH (09:36)
[2021-05-28] MEDS: ARIPiprazole 10 MG Tab PO SCH (09:36)
[2021-05-28] MEDS: Losartan 50 MG Tab PO SCH (09:45)
[2021-05-28] MEDS: Hydrochlorothiazide 25 MG Tab PO SCH (09:45)
[2021-05-28] MEDS: Nystatin Topical Powder 15 GM Bottle TOP SCH ×2 (09:52→20:37)
[2021-05-28] MEDS: Sodium Chloride 0.9% 1,000 ML IV SCH ×2 (10:48→18:37)
[2021-05-28] MEDS: Codeine/guaiFENesin 10-100 MG/5 ML Syrup 5 ML Cup PO PRN (11:58)
--- NOTE | 2021-05-28 13:40 | PCM.PN ---
- General Info Date of Service: 05/28/21 Subjective Update: Ms. Martin 70-year-old woman who was admitted through the emergency department last night with shortness of breath and hypoxia secondary to COPD exacerbation and underlying pneumonia. She was also found to be positive for RSV while evaluated in the emergency department. Chest x-ray did show evidence of infiltrate and area of consolidation. White blood cell count was within normal range. She was admitted to the hospital with nebulizer therapy, supplemental oxygen, IV steroids, and antibiotic therapy appropriate for community-acquired pneumonia. After admission she developed further respiratory compromise requiring increased levels of supplemental oxygen. Blood gases did show evidence of CO2 retention. She was placed on noninvasive positive pressure ventilation and transferred to the intensive care unit. This morning she did experience transient hypotension that did respond to fluid bolus. She has been relatively stable over the past few hours with current level of supplemental oxygen and other interventions. She is very weak and lethargic this morning, unable to provide meaningful information concerning symptoms or review of systems. - Patient Data Vitals - Most Recent: Last Vital Signs Temp 98 F 05/28/21 11:00 Pulse 93 05/28/21 13:00 Resp 19 05/28/21 13:00 BP 124/73 05/28/21 13:00 Pulse Ox 92 L 05/28/21 13:27 Weight - Most Recent: 237 lb I&O - Last 24 Hours: Intake & Output 05/27/21 05/28/21 05/28/21 22:59 06:59 14:59 Intake Total 300 Output Total 1300 325 Balance 300 -1300 -325 Lab Results Last 24 Hours: Laboratory Results - last 24 hr 05/27/21 05/27/21 05/27/21 Range/Units 18:32 18:34 18:34 WBC 5.2 (4.5-11.0) K/uL RBC 5.14 (3.30-5.50) M/uL Hgb 12.4 (12.0-15.0) g/dL Hct 42.0 (36.0-48.0) % MCV 82 (80-98) fL MCH 24 L (27-31) pg MCHC 30 L (32-36) % Plt Count 188 (150-400) K/uL Neut % (Auto) 49.0 (36-66) % Lymph % (Auto) 22.8 L (24-44) % [place] % (Auto) 26.8 H (2-6) % Eos % (Auto) 0.8 L (2-4) % Baso % (Auto) 0.6 (0-1) % Puncture Site ABG pH (7.350-7.450) ABG pCO2 (35.0-42.0) mmHg ABG pO2 (75.0-100.0) mmHg ABG HCO3 (22.0-26.0) mmol/L ABG Total CO2 (21.0-25.0) mmol/L ABG O2 Saturation (95.0-98.0) % ABG O2 Content (15.0-23.0) %vol ABG Base Excess mm/L ABG Hemoglobin (12.0-16.0) g/dL ABG Oxyhemoglobin % ABG Carboxyhemoglobin (0.0-1.6) % ABG Methemoglobin % [facility] Test O2 Delivery Device Oxygen Flow Rate L Sodium 139 L (140-148) mmol/L Potassium 4.5 (3.6-5.2) mmol/L Chloride 102 (100-108) mmol/L Carbon Dioxide 28 (21-32) mmol/L Anion Gap 13.5 (5.0-14.0) mmol/L BUN 31 H D (7-18) mg/dL Creatinine 1.2 H (0.6-1.0) mg/dL Est Cr Clr Drug Dosing 44.63 mL/min Estimated GFR (MDRD) 45 L (>60) Glucose 94 (74-106) mg/dL Calcium 8.7 (8.5-10.1) mg/dL Magnesium 1.7 L (1.8-2.4) mg/dL Total Bilirubin 0.7 (0.2-1.0) mg/dL AST 19 (15-37) U/L ALT 16 (12-78) U/L Alkaline Phosphatase 81 (46-116) U/L Troponin I (0.000-0.056) ng/mL NT-Pro-B Natriuret Pep (5-125) pg/mL Total Protein 6.9 (6.4-8.2) g/dL Albumin 3.0 L (3.4-5.0) g/dL Globulin 3.9 H (2.3-3.5) g/dL Albumin/Globulin Ratio 0.8 L (1.2-2.2) Urine Color (YELLOW) Urine Appearance (CLEAR) Urine pH (5.0-8.0) Ur Specific [place] (1.008-1.030) Urine Protein (NEGATIVE) mg/dL Urine Glucose (UA) (NEGATIVE) mg/dL Urine Ketones (NEGATIVE) mg/dL Urine Occult Blood (NEGATIVE) Urine Nitrite (NEGATIVE) Urine Bilirubin (NEGATIVE) Urine Urobilinogen (0.2-1.0) EU/dL Ur Leukocyte Esterase (NEGATIVE) Urine RBC (0-5) Urine WBC (0-5) Ur Epithelial Cells Amorphous Sediment Urine Bacteria Urine Mucus Influenza Type A RNA (NEGATIVE) RSV RNA (INAAT) (NEGATIVE) Influenza Type B RNA (NEGATIVE) SARS-CoV-2 RNA (JANUARY) (NEGATIVE) 05/27/21 05/27/21 05/27/21 Range/Units 18:34 18:55 19:29 WBC (4.5-11.0) K/uL RBC (3.30-5.50) M/uL Hgb (12.0-15.0) g/dL Hct (36.0-48.0) % MCV (80-98) fL MCH (27-31) pg MCHC (32-36) % Plt Count (150-400) K/uL Neut % (Auto) (36-66) % Lymph % (Auto) (24-44) % [place] % (Auto) (2-6) % Eos % (Auto) (2-4) % Baso % (Auto) (0-1) % Puncture Site ABG pH (7.350-7.450) ABG pCO2 (35.0-42.0) mmHg ABG pO2 (75.0-100.0) mmHg ABG HCO3 (22.0-26.0) mmol/L ABG Total CO2 (21.0-25.0) mmol/L ABG O2 Saturation (95.0-98.0) % ABG O2 Content (15.0-23.0) %vol ABG Base Excess mm/L ABG Hemoglobin (12.0-16.0) g/dL ABG Oxyhemoglobin % ABG Carboxyhemoglobin (0.0-1.6) % ABG Methemoglobin % [place] Test O2 Delivery Device Oxygen Flow Rate L Sodium (140-148) mmol/L Potassium (3.6-5.2) mmol/L Chloride (100-108) mmol/L Carbon Dioxide (21-32) mmol/L Anion Gap (5.0-14.0) mmol/L BUN (7-18) mg/dL Creatinine (0.6-1.0) mg/dL Est Cr Clr Drug Dosing mL/min Estimated GFR (MDRD) (>60) Glucose (74-106) mg/dL Calcium (8.5-10.1) mg/dL Magnesium (1.8-2.4) mg/dL Total Bilirubin (0.2-1.0) mg/dL AST (15-37) U/L ALT (12-78) U/L Alkaline Phosphatase (46-116) U/L Troponin I 0.084 H* (0.000-0.056) ng/mL NT-Pro-B Natriuret Pep 5736 H (5-125) pg/mL Total Protein (6.4-8.2) g/dL Albumin (3.4-5.0) g/dL Globulin (2.3-3.5) g/dL Albumin/Globulin Ratio (1.2-2.2) Urine Color (YELLOW) Urine Appearance (CLEAR) Urine pH (5.0-8.0) Ur Specific [place] (1.008-1.030) Urine Protein (NEGATIVE) mg/dL Urine Glucose (UA) (NEGATIVE) mg/dL Urine Ketones (NEGATIVE) mg/dL Urine Occult Blood (NEGATIVE) Urine Nitrite (NEGATIVE) Urine Bilirubin (NEGATIVE) Urine Urobilinogen (0.2-1.0) EU/dL Ur Leukocyte Esterase (NEGATIVE) Urine RBC (0-5) Urine WBC (0-5) Ur Epithelial Cells Amorphous Sediment Urine Bacteria Urine Mucus Influenza Type A RNA Negative (NEGATIVE) RSV RNA (INAAT) Positive H (NEGATIVE) Influenza Type B RNA Negative (NEGATIVE) SARS-CoV-2 RNA (JANUARY) Negative (NEGATIVE) 05/27/21 05/28/21 05/28/21 Range/Units 22:50 00:29 02:55 WBC (4.5-11.0) K/uL RBC (3.30-5.50) M/uL Hgb (12.0-15.0) g/dL Hct (36.0-48.0) % MCV (80-98) fL MCH (27-31) pg MCHC (32-36) % Plt Count (150-400) K/uL Neut % (Auto) (36-66) % Lymph % (Auto) (24-44) % [place] % (Auto) (2-6) % Eos % (Auto) (2-4) % Baso % (Auto) (0-1) % Puncture Site Rt radial ABG pH 7.282 L (7.350-7.450) ABG pCO2 56.6 H (35.0-42.0) mmHg ABG pO2 55.3 L (75.0-100.0) mmHg ABG HCO3 25.9 (22.0-26.0) mmol/L ABG Total CO2 23.9 (21.0-25.0) mmol/L ABG O2 Saturation 83.0 L (95.0-98.0) % ABG O2 Content 14.3 L (15.0-23.0) %vol ABG Base Excess -1.3 mm/L ABG Hemoglobin 12.9 (12.0-16.0) g/dL ABG Oxyhemoglobin 78.7 % ABG Carboxyhemoglobin 3.9 H (0.0-1.6) % ABG Methemoglobin 1.3 % [facility] Test Passed O2 Delivery Device Nasal cannula Oxygen Flow Rate 5.0 L Sodium (140-148) mmol/L Potassium (3.6-5.2) mmol/L Chloride (100-108) mmol/L Carbon Dioxide (21-32) mmol/L Anion Gap (5.0-14.0) mmol/L BUN (7-18) mg/dL Creatinine (0.6-1.0) mg/dL Est Cr Clr Drug Dosing mL/min Estimated GFR (MDRD) (>60) Glucose (74-106) mg/dL Calcium (8.5-10.1) mg/dL Magnesium (1.8-2.4) mg/dL Total Bilirubin (0.2-1.0) mg/dL AST (15-37) U/L ALT (12-78) U/L Alkaline Phosphatase (46-116) U/L Troponin I 0.061 H* (0.000-0.056) ng/mL NT-Pro-B Natriuret Pep (5-125) pg/mL Total Protein (6.4-8.2) g/dL Albumin (3.4-5.0) g/dL Globulin (2.3-3.5) g/dL Albumin/Globulin Ratio (1.2-2.2) Urine Color Yellow (YELLOW) Urine Appearance Slightly cloudy A (CLEAR) Urine pH 6.0 (5.0-8.0) Ur Specific [place] 1.020 (1.008-1.030) Urine Protein Negative (NEGATIVE) mg/dL Urine Glucose (UA) Negative (NEGATIVE) mg/dL Urine Ketones Negative (NEGATIVE) mg/dL Urine Occult Blood Negative (NEGATIVE) Urine Nitrite Positive H (NEGATIVE) Urine Bilirubin Negative (NEGATIVE) Urine Urobilinogen 0.2 (0.2-1.0) EU/dL Ur Leukocyte Esterase Small H (NEGATIVE) Urine RBC 0-5 (0-5) Urine WBC Semi-packed H (0-5) Ur Epithelial Cells Occasional Amorphous Sediment Not seen Urine Bacteria Many Urine Mucus Occasional Influenza Type A RNA (NEGATIVE) RSV RNA (INAAT) (NEGATIVE) Influenza Type B RNA (NEGATIVE) SARS-CoV-2 RNA (JANUARY) (NEGATIVE) 05/28/21 05/28/21 05/28/21 Range/Units 02:55 04:57 04:57 WBC 4.4 L (4.5-11.0) K/uL RBC 5.35 (3.30-5.50) M/uL Hgb 13.1 (12.0-15.0) g/dL Hct 43.9 (36.0-48.0) % MCV 82 (80-98) fL MCH 25 L (27-31) pg MCHC 30 L (32-36) % Plt Count 202 (150-400) K/uL Neut % (Auto) 83.2 H (36-66) % Lymph % (Auto) 13.6 L (24-44) % [place] % (Auto) 3.0 (2-6) % Eos % (Auto) 0.0 L (2-4) % Baso % (Auto) 0.2 (0-1) % Puncture Site Lt radial ABG pH 7.270 L (7.350-7.450) ABG pCO2 64.4 H (35.0-42.0) mmHg ABG pO2 84.2 (75.0-100.0) mmHg ABG HCO3 28.6 H (22.0-26.0) mmol/L ABG Total CO2 26.5 H (21.0-25.0) mmol/L ABG O2 Saturation 94.3 L (95.0-98.0) % ABG O2 Content 15.9 (15.0-23.0) %vol ABG Base Excess 0.7 mm/L ABG Hemoglobin 12.4 (12.0-16.0) g/dL ABG Oxyhemoglobin 90.5 % ABG Carboxyhemoglobin 3.3 H (0.0-1.6) % ABG Methemoglobin 0.7 % [facility] Test Passed O2 Delivery Device Bipap Oxygen Flow Rate L Sodium 143 (140-148) mmol/L Potassium 4.4 (3.6-5.2) mmol/L Chloride 103 (100-108) mmol/L Carbon Dioxide 31 (21-32) mmol/L Anion Gap 9.3 (5.0-14.0) mmol/L BUN 30 H (7-18) mg/dL Creatinine 1.3 H (0.6-1.0) mg/dL Est Cr Clr Drug Dosing 41.20 mL/min Estimated GFR (MDRD) 41 L (>60) Glucose 173 H (74-106) mg/dL Calcium 8.9 (8.5-10.1) mg/dL Magnesium 1.7 L (1.8-2.4) mg/dL Total Bilirubin (0.2-1.0) mg/dL AST (15-37) U/L ALT (12-78) U/L Alkaline Phosphatase (46-116) U/L Troponin I (0.000-0.056) ng/mL NT-Pro-B Natriuret Pep (5-125) pg/mL Total Protein (6.4-8.2) g/dL Albumin (3.4-5.0) g/dL Globulin (2.3-3.5) g/dL Albumin/Globulin Ratio (1.2-2.2) Urine Color (YELLOW) Urine Appearance (CLEAR) Urine pH (5.0-8.0) Ur Specific [place] (1.008-1.030) Urine Protein (NEGATIVE) mg/dL Urine Glucose (UA) (NEGATIVE) mg/dL Urine Ketones (NEGATIVE) mg/dL Urine Occult Blood (NEGATIVE) Urine Nitrite (NEGATIVE) Urine Bilirubin (NEGATIVE) Urine Urobilinogen (0.2-1.0) EU/dL Ur Leukocyte Esterase (NEGATIVE) Urine RBC (0-5) Urine WBC (0-5) Ur Epithelial Cells Amorphous Sediment Urine Bacteria Urine Mucus Influenza Type A RNA (NEGATIVE) RSV RNA (INAAT) (NEGATIVE) Influenza Type B RNA (NEGATIVE) SARS-CoV-2 RNA (JANUARY) (NEGATIVE) 05/28/21 05/28/21 Range/Units 04:57 05:04 WBC (4.5-11.0) K/uL RBC (3.30-5.50) M/uL Hgb (12.0-15.0) g/dL Hct (36.0-48.0) % MCV (80-98) fL MCH (27-31) pg MCHC (32-36) % Plt Count (150-400) K/uL Neut % (Auto) (36-66) % Lymph % (Auto) (24-44) % [place] % (Auto) (2-6) % Eos % (Auto) (2-4) % Baso % (Auto) (0-1) % Puncture Site Lt radial ABG pH 7.309 L (7.350-7.450) ABG pCO2 54.8 H (35.0-42.0) mmHg ABG pO2 90.8 (75.0-100.0) mmHg ABG HCO3 26.7 H (22.0-26.0) mmol/L ABG Total CO2 24.4 (21.0-25.0) mmol/L ABG O2 Saturation 96.2 (95.0-98.0) % ABG O2 Content 16.6 (15.0-23.0) %vol ABG Base Excess 0 mm/L ABG Hemoglobin 12.6 (12.0-16.0) g/dL ABG Oxyhemoglobin 92.9 % ABG Carboxyhemoglobin 2.8 H (0.0-1.6) % ABG Methemoglobin 0.6 % [facility] Test Passed O2 Delivery Device Bipap Oxygen Flow Rate L Sodium (140-148) mmol/L Potassium (3.6-5.2) mmol/L Chloride (100-108) mmol/L Carbon Dioxide (21-32) mmol/L Anion Gap (5.0-14.0) mmol/L BUN (7-18) mg/dL Creatinine (0.6-1.0) mg/dL Est Cr Clr Drug Dosing mL/min Estimated GFR (MDRD) (>60) Glucose (74-106) mg/dL Calcium (8.5-10.1) mg/dL Magnesium (1.8-2.4) mg/dL Total Bilirubin (0.2-1.0) mg/dL AST (15-37) U/L ALT (12-78) U/L Alkaline Phosphatase (46-116) U/L Troponin I (0.000-0.056) ng/mL NT-Pro-B Natriuret Pep 2992 H (5-125) pg/mL Total Protein (6.4-8.2) g/dL Albumin (3.4-5.0) g/dL Globulin (2.3-3.5) g/dL Albumin/Globulin Ratio (1.2-2.2) Urine Color (YELLOW) Urine Appearance (CLEAR) Urine pH (5.0-8.0) Ur Specific [place] (1.008-1.030) Urine Protein (NEGATIVE) mg/dL Urine Glucose (UA) (NEGATIVE) mg/dL Urine Ketones (NEGATIVE) mg/dL Urine Occult Blood (NEGATIVE) Urine Nitrite (NEGATIVE) Urine Bilirubin (NEGATIVE) Urine Urobilinogen (0.2-1.0) EU/dL Ur Leukocyte Esterase (NEGATIVE) Urine RBC (0-5) Urine WBC (0-5) Ur Epithelial Cells Amorphous Sediment Urine Bacteria Urine Mucus Influenza Type A RNA (NEGATIVE) RSV RNA (INAAT) (NEGATIVE) Influenza Type B RNA (NEGATIVE) SARS-CoV-2 RNA (JANUARY) (NEGATIVE) Jonnie Results Last 24 Hours: Microbiology 05/28/21 00:43 Urine Culture - Preliminary Urine, Catheterized Med Orders - Current: Current Medications Acetaminophen (Acetaminophen 325 Mg Tab) 650 mg PO Q4H PRN PRN Reason: Pain (Mild 1-3)/fever Albuterol (Albuterol 0.083% 2.5 Mg/3 Ml Neb Soln) 2.5 mg NEB Q1H PRN PRN Reason: Shortness of Breath Last Admin: 05/28/21 03:59 Dose: 2.5 mg Documented by: Albuterol/Ipratropium (Albuterol/Ipratropium 3.0-0.5 Mg/3 Ml Neb Soln) [address] [facility] Last Admin: 05/28/21 10:50 Dose: 3 ml Documented by: Alprazolam (Alprazolam 0.5 Mg Tab) 0.5 mg PO BID PRN PRN Reason: Anxiety Amlodipine Besylate (Amlodipine 5 Mg Tab) [address] [facility] Last Admin: 05/28/21 09:36 Dose: 10 mg Documented by: Aripiprazole (Aripiprazole 10 Mg Tab) [address] [facility] Last Admin: 05/28/21 09:36 Dose: 10 mg Documented by: Aspirin (Aspirin 81 Mg Tab.Ec) [address] [facility] Last Admin: 05/28/21 09:35 Dose: 81 mg Documented by: Benzonatate (Benzonatate 100 Mg Cap) 200 mg PO TID PRN PRN Reason: Cough Last Admin: 05/27/21 22:18 Dose: 200 mg Documented by: Bisacodyl (Bisacodyl 5 Mg Tab) 5 mg PO DAILY PRN PRN Reason: Constipation Dimethicone/Zinc Oxide (Dimethicone 20%/Zinc Oxide 25% 56 Gm [place] Bottle) 0 gm TOP ASDIRECTED PRN PRN Reason: Rash Docusate Sodium (Docusate Sodium 100 Mg Cap) 100 mg PO BID PRN PRN Reason: Constipation Enoxaparin Sodium (Enoxaparin 40 Mg/0.4 Ml Syringe) [address] [facility] Guaifenesin/Codeine Phosphate (Codeine/Guaifenesin 10-100 Mg/5 Ml Syrup 5 Ml Cup) 10 ml PO Q6H PRN PRN Reason: Cough Last Admin: 05/28/21 11:58 Dose: 10 ml Documented by: Hydrochlorothiazide (Hydrochlorothiazide 25 Mg Tab) [address] [facility] Last Admin: 05/28/21 09:45 Dose: 25 mg Documented by: Ceftriaxone Sodium 1 gm/ (Sodium Chloride) 50 mls @ 200 mls/hr IV Q24H [facility] Stop: 06/03/21 21:31 Last Admin: 05/27/21 22:06 Dose: 200 mls/hr Documented by: Azithromycin 500 mg/ Sodium (Chloride) 250 mls @ 250 mls/hr IV Q24H [facility] Stop: 05/30/21 22:01 Last Admin: 05/27/21 22:41 Dose: 250 mls/hr Documented by: Sodium Chloride (Normal Saline) 1,000 mls @ 500 mls/hr IV ASDIRECTED [facility] Last Admin: 05/28/21 07:54 Dose: 500 mls/hr Documented by: Sodium Chloride (Normal Saline) 1,000 mls @ 125 mls/hr IV ASDIRECTED [facility] Last Admin: 05/28/21 10:48 Dose: 125 mls/hr Documented by: Ibuprofen (Ibuprofen 800 Mg Tab) 800 mg PO QID PRN PRN Reason: Pain (moderate 4-6) Lactulose (Lactulose Soln 10 Gm/15 Ml 15 Ml Ud Cup) [address] [facility] Last Admin: 05/28/21 10:17 Dose: Not Given Documented by: Letrozole (Letrozole 2.5 Mg Tab) 2.[address] [facility] Last Admin: 05/28/21 09:35 Dose: 2.5 mg Documented by: Lorazepam (Lorazepam 2 Mg/Ml Sdv) 1 mg IV Q6H PRN PRN Reason: Anxiety Last Admin: 05/28/21 01:58 Dose: 1 mg Documented by: Losartan Potassium (Losartan 50 Mg Tab) [address] [facility] Last Admin: 05/28/21 09:45 Dose: 100 mg Documented by: Magnesium Oxide (Magnesium Oxide 400 Mg Tab) [address] [facility] Melatonin (Melatonin 3 Mg Tab) 6 mg PO BEDTIME PRN PRN Reason: Insomnia Last Admin: 05/27/21 22:19 Dose: 6 mg Documented by: Methylprednisolone Sodium Succinate (Methylprednisolone Sodium Succinate 125 Mg/2 Ml Sdv) 62.[address] [facility] Last Admin: 05/28/21 11:40 Dose: 62.5 mg Documented by: Mometasone Furoate/Formoterol Fumar (Formoterol/Mometasone 100-5 Mcg 8.8 Gm Inhaler) [address] [facility] Last Admin: 05/28/21 09:03 Dose: 2 puff Documented by: Morphine Sulfate (Morphine 2 Mg/Ml Syringe) 2 mg IVPUSH Q2H PRN PRN Reason: Pain (severe 7-10) Last Admin: 05/28/21 06:10 Dose: 1 mg Documented by: Nortriptyline HCl (Nortriptyline 25 Mg Cap) [address] [facility] Last Admin: 05/28/21 09:35 Dose: 50 mg Documented by: Nystatin (Nystatin Topical Powder 15 Gm Bottle) [address] [facility] Last Admin: 05/28/21 09:52 Dose: Not Given Documented by: Ondansetron HCl (Ondansetron 4 Mg Tab.Dis) 4 mg PO Q6H PRN PRN Reason: Nausea able to take PO Ondansetron HCl (Ondansetron 4 Mg/2 Ml Sdv) 4 mg IV Q4H PRN PRN Reason: Nausea/Vomiting Oxycodone HCl (Oxycodone 5 Mg Tab) 5 mg PO Q4H PRN PRN Reason: Pain (moderate 4-6) Pantoprazole Sodium (Pantoprazole 40 Mg Tab.Cr) [address] [facility] Potassium Chloride (Potassium Chloride 20 Meq Tab.Er) [address] [facility] Last Admin: 05/28/21 09:34 Dose: 20 meq Documented by: Pravastatin Sodium (Pravastatin 20 Mg Tab) [address] [facility] Sodium Chloride (Sodium Chloride 0.9% 10 Ml Syringe) 10 ml FLUSH ASDIRECTED PRN PRN Reason: Keep Vein Open Last Admin: 05/27/21 18:34 Dose: 10 ml Documented by: Tiotropium [place] (Tiotropium [place] 4 Gm Inhalation Amagon (2.5mcg/1 Dose; 10 Doses)) [address] [facility] Last Admin: 05/28/21 09:03 Dose: 2 puff Documented by: Trazodone HCl (Trazodone 50 Mg Tab) [address] [facility] Last Admin: 05/27/21 22:46 Dose: 150 mg Documented by: Venlafaxine HCl (Venlafaxine 75 Mg Cap.Er) [address] [facility] Last Admin: 05/28/21 09:34 Dose: 75 mg Documented by: Discontinued Medications Albuterol (Albuterol 0.083% 2.5 Mg/3 Ml Neb Soln) 2.5 mg NEB ONETIME ONE Stop: 05/27/21 19:04 Last Admin: 05/27/21 19:09 Dose: 2.5 mg Documented by: Albuterol (Albuterol 0.083% 2.5 Mg/3 Ml Neb Soln) 2.5 mg NEB Q4H PRN PRN Reason: Shortness Of Breath/wheezing Last Admin: 05/27/21 23:04 Dose: 2.5 mg Documented by: Budesonide (Budesonide 0.25 Mg/2 Ml Neb Susp) 0.25 mg NEB ONETIME ONE Stop: 05/28/21 04:56 Last Admin: 05/28/21 05:07 Dose: Not Given Documented by: Budesonide (Budesonide 0.5 Mg/2 Ml Neb Susp) Confirm Administered Dose 0.5 mg .ROUTE .STK-MED ONE Stop: 05/28/21 05:02 Last Admin: 05/28/21 05:09 Dose: Not Given Documented by: Budesonide (Budesonide 0.5 Mg/2 Ml Neb Susp) 0.5 mg NEB ONETIME ONE Stop: 05/28/21 05:05 Last Admin: 05/28/21 05:04 Dose: 0.5 mg Documented by: Dimethicone/Zinc Oxide (Dimethicone 20%/Zinc Oxide 25% 56 Gm [place] Bottle) 1 gm TOP ASDIRECTED PRN PRN Reason: Rash Enoxaparin Sodium (Enoxaparin 40 Mg/0.4 Ml Syringe) 40 mg SUBCUT DAILY [facility] Last Admin: 05/27/21 22:14 Dose: 40 mg Documented by: Furosemide (Furosemide 40 Mg/4 Ml Vial) 60 mg IVPUSH ONETIME ONE Stop: 05/27/21 19:50 Last Admin: 05/27/21 19:59 Dose: 60 mg Documented by: Levalbuterol HCl (Levalbuterol Hcl 1.25 Mg/3 Ml Neb) Confirm Administered Dose 1.25 mg .ROUTE .STK-MED ONE Stop: 05/28/21 04:41 Last Admin: 05/28/21 04:44 Dose: Not Given Documented by: Levalbuterol HCl (Levalbuterol Hcl 1.25 Mg/3 Ml Neb) 1.25 mg NEB ONETIME ONE Stop: 05/28/21 04:43 Last Admin: 05/28/21 04:42 Dose: 1.25 mg Documented by: Lorazepam (Lorazepam 2 Mg/Ml Sdv) 1 mg IVPUSH ONETIME ONE Stop: 05/28/21 03:31 Last Admin: 05/28/21 03:54 Dose: 1 mg Documented by: Magnesium Oxide (Magnesium Oxide 400 Mg Tab) [address] [facility] Last Admin: 05/28/21 09:36 Dose: 400 mg Documented by: Magnesium Oxide (Magnesium Oxide 400 Mg Tab) 400 mg PO ONETIME ONE Stop: 05/27/21 22:22 Last Admin: 05/27/21 22:44 Dose: 400 mg Documented by: Methylprednisolone Sodium Succinate (Methylprednisolone Sodium Succinate 125 Mg/2 Ml Sdv) 125 mg IVPUSH ONETIME ONE Stop: 05/27/21 18:22 Last Admin: 05/27/21 18:33 Dose: 125 mg Documented by: Mometasone Furoate/Formoterol Fumar (Formoterol/Mometasone 100-5 Mcg 8.8 Gm Inhaler) [address] [facility] Last Admin: 05/27/21 22:33 Dose: 1 inhaler Documented by: Non-Formulary Medication (Fluticasone/Salmeterol [Advair 100-50]) [address] [facility] Last Admin: 05/27/21 23:53 Dose: Not Given Documented by: Non-Formulary Medication (Losartan/Hydrochlorothiazide [Hyzaar 100-25 Tablet]) [address] [facility] Nystatin (Nystatin Topical Powder 15 Gm Bottle) [address] [facility] Last Admin: 05/27/21 23:53 Dose: 1 applic Documented by: Sodium Chloride (Sodium Chloride 0.9% Inhalation Soln 3 Ml Neb) 3 ml INH ONETIME ONE Stop: 05/28/21 04:56 Last Admin: 05/28/21 05:25 Dose: 3 ml Documented by: - Exam Quality Assessment: Supplemental Oxygen (BiPAP), Urine Catheter, DVT Prophylaxis General: Lethargic Lungs: Decreased Breath Sounds. No: Crackles, Rales, Rhonchi, Wheezing Cardiovascular: Regular Rate, Regular Rhythm, No Murmurs GI/Abdominal Exam: Soft, Non-Tender, No Organomegaly, No Distention Extremities: Non-Tender, No Pedal Edema - Patient Data Lab Results Last 24 hrs: Laboratory Results - last 24 hr 05/27/21 05/27/21 05/27/21 Range/Units 18:32 18:34 18:34 WBC 5.2 (4.5-11.0) K/uL RBC 5.14 (3.30-5.50) M/uL Hgb 12.4 (12.0-15.0) g/dL Hct 42.0 (36.0-48.0) % MCV 82 (80-98) fL MCH 24 L (27-31) pg MCHC 30 L (32-36) % Plt Count 188 (150-400) K/uL Neut % (Auto) 49.0 (36-66) % Lymph % (Auto) 22.8 L (24-44) % [place] % (Auto) 26.8 H (2-6) % Eos % (Auto) 0.8 L (2-4) % Baso % (Auto) 0.6 (0-1) % Puncture Site ABG pH (7.350-7.450) ABG pCO2 (35.0-42.0) mmHg ABG pO2 (75.0-100.0) mmHg ABG HCO3 (22.0-26.0) mmol/L ABG Total CO2 (21.0-25.0) mmol/L ABG O2 Saturation (95.0-98.0) % ABG O2 Content (15.0-23.0) %vol ABG Base Excess mm/L ABG Hemoglobin (12.0-16.0) g/dL ABG Oxyhemoglobin % ABG Carboxyhemoglobin (0.0-1.6) % ABG Methemoglobin % [facility] Test O2 Delivery Device Oxygen Flow Rate L Sodium 139 L (140-148) mmol/L Potassium 4.5 (3.6-5.2) mmol/L Chloride 102 (100-108) mmol/L Carbon Dioxide 28 (21-32) mmol/L Anion Gap 13.5 (5.0-14.0) mmol/L BUN 31 H D (7-18) mg/dL Creatinine 1.2 H (0.6-1.0) mg/dL Est Cr Clr Drug Dosing 44.63 mL/min Estimated GFR (MDRD) 45 L (>60) Glucose 94 (74-106) mg/dL Calcium 8.7 (8.5-10.1) mg/dL Magnesium 1.7 L (1.8-2.4) mg/dL Total Bilirubin 0.7 (0.2-1.0) mg/dL AST 19 (15-37) U/L ALT 16 (12-78) U/L Alkaline Phosphatase 81 (46-116) U/L Troponin I (0.000-0.056) ng/mL NT-Pro-B Natriuret Pep (5-125) pg/mL Total Protein 6.9 (6.4-8.2) g/dL Albumin 3.0 L (3.4-5.0) g/dL Globulin 3.9 H (2.3-3.5) g/dL Albumin/Globulin Ratio 0.8 L (1.2-2.2) Urine Color (YELLOW) Urine Appearance (CLEAR) Urine pH (5.0-8.0) Ur Specific [place] (1.008-1.030) Urine Protein (NEGATIVE) mg/dL Urine Glucose (UA) (NEGATIVE) mg/dL Urine Ketones (NEGATIVE) mg/dL Urine Occult Blood (NEGATIVE) Urine Nitrite (NEGATIVE) Urine Bilirubin (NEGATIVE) Urine Urobilinogen (0.2-1.0) EU/dL Ur Leukocyte Esterase (NEGATIVE) Urine RBC (0-5) Urine WBC (0-5) Ur Epithelial Cells Amorphous Sediment Urine Bacteria Urine Mucus Influenza Type A RNA (NEGATIVE) RSV RNA (INAAT) (NEGATIVE) Influenza Type B RNA (NEGATIVE) SARS-CoV-2 RNA (JANUARY) (NEGATIVE) 05/27/21 05/27/21 05/27/21 Range/Units 18:34 18:55 19:29 WBC (4.5-11.0) K/uL RBC (3.30-5.50) M/uL Hgb (12.0-15.0) g/dL Hct (36.0-48.0) % MCV (80-98) fL MCH (27-31) pg MCHC (32-36) % Plt Count (150-400) K/uL Neut % (Auto) (36-66) % Lymph % (Auto) (24-44) % [place] % (Auto) (2-6) % Eos % (Auto) (2-4) % Baso % (Auto) (0-1) % Puncture Site ABG pH (7.350-7.450) ABG pCO2 (35.0-42.0) mmHg ABG pO2 (75.0-100.0) mmHg ABG HCO3 (22.0-26.0) mmol/L ABG Total CO2 (21.0-25.0) mmol/L ABG O2 Saturation (95.0-98.0) % ABG O2 Content (15.0-23.0) %vol ABG Base Excess mm/L ABG Hemoglobin (12.0-16.0) g/dL ABG Oxyhemoglobin % ABG Carboxyhemoglobin (0.0-1.6) % ABG Methemoglobin % [place] Test O2 Delivery Device Oxygen Flow Rate L Sodium (140-148) mmol/L Potassium (3.6-5.2) mmol/L Chloride (100-108) mmol/L Carbon Dioxide (21-32) mmol/L Anion Gap (5.0-14.0) mmol/L BUN (7-18) mg/dL Creatinine (0.6-1.0) mg/dL Est Cr Clr Drug Dosing mL/min Estimated GFR (MDRD) (>60) Glucose (74-106) mg/dL Calcium (8.5-10.1) mg/dL Magnesium (1.8-2.4) mg/dL Total Bilirubin (0.2-1.0) mg/dL AST (15-37) U/L ALT (12-78) U/L Alkaline Phosphatase (46-116) U/L Troponin I 0.084 H* (0.000-0.056) ng/mL NT-Pro-B Natriuret Pep 5736 H (5-125) pg/mL Total Protein (6.4-8.2) g/dL Albumin (3.4-5.0) g/dL Globulin (2.3-3.5) g/dL Albumin/Globulin Ratio (1.2-2.2) Urine Color (YELLOW) Urine Appearance (CLEAR) Urine pH (5.0-8.0) Ur Specific [place] (1.008-1.030) Urine Protein (NEGATIVE) mg/dL Urine Glucose (UA) (NEGATIVE) mg/dL Urine Ketones (NEGATIVE) mg/dL Urine Occult Blood (NEGATIVE) Urine Nitrite (NEGATIVE) Urine Bilirubin (NEGATIVE) Urine Urobilinogen (0.2-1.0) EU/dL Ur Leukocyte Esterase (NEGATIVE) Urine RBC (0-5) Urine WBC (0-5) Ur Epithelial Cells Amorphous Sediment Urine Bacteria Urine Mucus Influenza Type A RNA Negative (NEGATIVE) RSV RNA (INAAT) Positive H (NEGATIVE) Influenza Type B RNA Negative (NEGATIVE) SARS-CoV-2 RNA (JANUARY) Negative (NEGATIVE) 05/27/21 05/28/21 05/28/21 Range/Units 22:50 00:29 02:55 WBC (4.5-11.0) K/uL RBC (3.30-5.50) M/uL Hgb (12.0-15.0) g/dL Hct (36.0-48.0) % MCV (80-98) fL MCH (27-31) pg MCHC (32-36) % Plt Count (150-400) K/uL Neut % (Auto) (36-66) % Lymph % (Auto) (24-44) % [place] % (Auto) (2-6) % Eos % (Auto) (2-4) % Baso % (Auto) (0-1) % Puncture Site Rt radial ABG pH 7.282 L (7.350-7.450) ABG pCO2 56.6 H (35.0-42.0) mmHg ABG pO2 55.3 L (75.0-100.0) mmHg ABG HCO3 25.9 (22.0-26.0) mmol/L ABG Total CO2 23.9 (21.0-25.0) mmol/L ABG O2 Saturation 83.0 L (95.0-98.0) % ABG O2 Content 14.3 L (15.0-23.0) %vol ABG Base Excess -1.3 mm/L ABG Hemoglobin 12.9 (12.0-16.0) g/dL ABG Oxyhemoglobin 78.7 % ABG Carboxyhemoglobin 3.9 H (0.0-1.6) % ABG Methemoglobin 1.3 % Kendell Test Passed O2 Delivery Device Nasal cannula Oxygen Flow Rate 5.0 L Sodium (140-148) mmol/L Potassium (3.6-5.2) mmol/L Chloride (100-108) mmol/L Carbon Dioxide (21-32) mmol/L Anion Gap (5.0-14.0) mmol/L BUN (7-18) mg/dL Creatinine (0.6-1.0) mg/dL Est Cr Clr Drug Dosing mL/min Estimated GFR (MDRD) (>60) Glucose (74-106) mg/dL Calcium (8.5-10.1) mg/dL Magnesium (1.8-2.4) mg/dL Total Bilirubin (0.2-1.0) mg/dL AST (15-37) U/L ALT (12-78) U/L Alkaline Phosphatase (46-116) U/L Troponin I 0.061 H* (0.000-0.056) ng/mL NT-Pro-B Natriuret Pep (5-125) pg/mL Total Protein (6.4-8.2) g/dL Albumin (3.4-5.0) g/dL Globulin (2.3-3.5) g/dL Albumin/Globulin Ratio (1.2-2.2) Urine Color Yellow (YELLOW) Urine Appearance Slightly cloudy A (CLEAR) Urine pH 6.0 (5.0-8.0) Ur Specific [place] 1.020 (1.008-1.030) Urine Protein Negative (NEGATIVE) mg/dL Urine Glucose (UA) Negative (NEGATIVE) mg/dL Urine Ketones Negative (NEGATIVE) mg/dL Urine Occult Blood Negative (NEGATIVE) Urine Nitrite Positive H (NEGATIVE) Urine Bilirubin Negative (NEGATIVE) Urine Urobilinogen 0.2 (0.2-1.0) EU/dL Ur Leukocyte Esterase Small H (NEGATIVE) Urine RBC 0-5 (0-5) Urine WBC Semi-packed H (0-5) Ur Epithelial Cells Occasional Amorphous Sediment Not seen Urine Bacteria Many Urine Mucus Occasional Influenza Type A RNA (NEGATIVE) RSV RNA (INAAT) (NEGATIVE) Influenza Type B RNA (NEGATIVE) SARS-CoV-2 RNA (JANUARY) (NEGATIVE) 05/28/21 05/28/21 05/28/21 Range/Units 02:55 04:57 04:57 WBC 4.4 L (4.5-11.0) K/uL RBC 5.35 (3.30-5.50) M/uL Hgb 13.1 (12.0-15.0) g/dL Hct 43.9 (36.0-48.0) % MCV 82 (80-98) fL MCH 25 L (27-31) pg MCHC 30 L (32-36) % Plt Count 202 (150-400) K/uL Neut % (Auto) 83.2 H (36-66) % Lymph % (Auto) 13.6 L (24-44) % [place] % (Auto) 3.0 (2-6) % Eos % (Auto) 0.0 L (2-4) % Baso % (Auto) 0.2 (0-1) % Puncture Site Lt radial ABG pH 7.270 L (7.350-7.450) ABG pCO2 64.4 H (35.0-42.0) mmHg ABG pO2 84.2 (75.0-100.0) mmHg ABG HCO3 28.6 H (22.0-26.0) mmol/L ABG Total CO2 26.5 H (21.0-25.0) mmol/L ABG O2 Saturation 94.3 L (95.0-98.0) % ABG O2 Content 15.9 (15.0-23.0) %vol ABG Base Excess 0.7 mm/L ABG Hemoglobin 12.4 (12.0-16.0) g/dL ABG Oxyhemoglobin 90.5 % ABG Carboxyhemoglobin 3.3 H (0.0-1.6) % ABG Methemoglobin 0.7 % Kendell Test Passed O2 Delivery Device Bipap Oxygen Flow Rate L Sodium 143 (140-148) mmol/L Potassium 4.4 (3.6-5.2) mmol/L Chloride 103 (100-108) mmol/L Carbon Dioxide 31 (21-32) mmol/L Anion Gap 9.3 (5.0-14.0) mmol/L BUN 30 H (7-18) mg/dL Creatinine 1.3 H (0.6-1.0) mg/dL Est Cr Clr Drug Dosing 41.20 mL/min Estimated GFR (MDRD) 41 L (>60) Glucose 173 H (74-106) mg/dL Calcium 8.9 (8.5-10.1) mg/dL Magnesium 1.7 L (1.8-2.4) mg/dL Total Bilirubin (0.2-1.0) mg/dL AST (15-37) U/L ALT (12-78) U/L Alkaline Phosphatase (46-116) U/L Troponin I (0.000-0.056) ng/mL NT-Pro-B Natriuret Pep (5-125) pg/mL Total Protein (6.4-8.2) g/dL Albumin (3.4-5.0) g/dL Globulin (2.3-3.5) g/dL Albumin/Globulin Ratio (1.2-2.2) Urine Color (YELLOW) Urine Appearance (CLEAR) Urine pH (5.0-8.0) Ur Specific [place] (1.008-1.030) Urine Protein (NEGATIVE) mg/dL Urine Glucose (UA) (NEGATIVE) mg/dL Urine Ketones (NEGATIVE) mg/dL Urine Occult Blood (NEGATIVE) Urine Nitrite (NEGATIVE) Urine Bilirubin (NEGATIVE) Urine Urobilinogen (0.2-1.0) EU/dL Ur Leukocyte Esterase (NEGATIVE) Urine RBC (0-5) Urine WBC (0-5) Ur Epithelial Cells Amorphous Sediment Urine Bacteria Urine Mucus Influenza Type A RNA (NEGATIVE) RSV RNA (INAAT) (NEGATIVE) Influenza Type B RNA (NEGATIVE) SARS-CoV-2 RNA (JANUARY) (NEGATIVE) 05/28/21 05/28/21 Range/Units 04:57 05:04 WBC (4.5-11.0) K/uL RBC (3.30-5.50) M/uL Hgb (12.0-15.0) g/dL Hct (36.0-48.0) % MCV (80-98) fL MCH (27-31) pg MCHC (32-36) % Plt Count (150-400) K/uL Neut % (Auto) (36-66) % Lymph % (Auto) (24-44) % [place] % (Auto) (2-6) % Eos % (Auto) (2-4) % Baso % (Auto) (0-1) % Puncture Site Lt radial ABG pH 7.309 L (7.350-7.450) ABG pCO2 54.8 H (35.0-42.0) mmHg ABG pO2 90.8 (75.0-100.0) mmHg ABG HCO3 26.7 H (22.0-26.0) mmol/L ABG Total CO2 24.4 (21.0-25.0) mmol/L ABG O2 Saturation 96.2 (95.0-98.0) % ABG O2 Content 16.6 (15.0-23.0) %vol ABG Base Excess 0 mm/L ABG Hemoglobin 12.6 (12.0-16.0) g/dL ABG Oxyhemoglobin 92.9 % ABG Carboxyhemoglobin 2.8 H (0.0-1.6) % ABG Methemoglobin 0.6 % [place]ell Test Passed O2 Delivery Device Bipap Oxygen Flow Rate L Sodium (140-148) mmol/L Potassium (3.6-5.2) mmol/L Chloride (100-108) mmol/L Carbon Dioxide (21-32) mmol/L Anion Gap (5.0-14.0) mmol/L BUN (7-18) mg/dL Creatinine (0.6-1.0) mg/dL Est Cr Clr Drug Dosing mL/min Estimated GFR (MDRD) (>60) Glucose (74-106) mg/dL Calcium (8.5-10.1) mg/dL Magnesium (1.8-2.4) mg/dL Total Bilirubin (0.2-1.0) mg/dL AST (15-37) U/L ALT (12-78) U/L Alkaline Phosphatase (46-116) U/L Troponin I (0.000-0.056) ng/mL NT-Pro-B Natriuret Pep 2992 H (5-125) pg/mL Total Protein (6.4-8.2) g/dL Albumin (3.4-5.0) g/dL Globulin (2.3-3.5) g/dL Albumin/Globulin Ratio (1.2-2.2) Urine Color (YELLOW) Urine Appearance (CLEAR) Urine pH (5.0-8.0) Ur Specific [place] (1.008-1.030) Urine Protein (NEGATIVE) mg/dL Urine Glucose (UA) (NEGATIVE) mg/dL Urine Ketones (NEGATIVE) mg/dL Urine Occult Blood (NEGATIVE) Urine Nitrite (NEGATIVE) Urine Bilirubin (NEGATIVE) Urine Urobilinogen (0.2-1.0) EU/dL Ur Leukocyte Esterase (NEGATIVE) Urine RBC (0-5) Urine WBC (0-5) Ur Epithelial Cells Amorphous Sediment Urine Bacteria Urine Mucus Influenza Type A RNA (NEGATIVE) RSV RNA (INAAT) (NEGATIVE) Influenza Type B RNA (NEGATIVE) SARS-CoV-2 RNA (JANUARY) (NEGATIVE) Result Diagrams: 05/28/21 04:57 05/28/21 04:57 Jonnie Results Last 24 hrs: Microbiology 05/28/21 00:43 Urine Culture - Preliminary Urine, Catheterized Sepsis Event Note - Evaluation Sepsis Screening Result: Possible Sepsis Risk - Focused Exam Vital Signs: Vital Signs Temp Pulse Resp BP BP Pulse Ox 05/28/21 13:27 92 L 05/28/21 13:00 93 19 124/73 92 L 05/28/21 12:00 94 33 H 133/83 94 L 05/28/21 11:00 98 F 87 20 118/69 91 L 05/28/21 10:51 90 05/28/21 10:00 91 20 114/69 96 05/28/21 09:45 130/67 05/28/21 09:36 130/79 05/28/21 09:00 90 30 H 130/79 95 05/28/21 08:00 97 F 91 21 H 87/58 L 91 L 05/28/21 07:17 92 L 05/28/21 06:20 92 20 102/68 92 L 05/28/21 06:00 99 24 H 105/54 L 92 L 05/28/21 05:45 99 21 H 90/58 L 92 L 05/28/21 05:15 101 H 93/66 05/28/21 04:50 97.6 F 102 H 27 H 97/71 91 L 05/28/21 04:43 103 H 15 115/87 95 05/28/21 04:27 95 24 H 109/58 L 85 L 05/28/21 03:33 92 91 L - Problem List Review Problem List Initiated/Reviewed/Updated: Yes - My Orders Last 24 Hours: My Active Orders 05/28/21 08:00 Sodium Chloride 0.9% [Normal Saline] 1,000 ml IV ASDIRECTED 05/28/21 10:45 Sodium Chloride 0.9% [Normal Saline] 1,000 ml IV ASDIRECTED 05/28/21 13:22 Patient Status [ADT] Routine 05/28/21 13:30 Magnesium Oxide 400 mg PO BID 05/29/21 05:00 BASIC METABOLIC PANEL,BMP [CHEM] Timed CBC WITH AUTO DIFF [HEME] Timed MAGNESIUM [CHEM] Timed TROPONIN I [CHEM] Timed - Plan Plan:: ASSESSMENT AND PLAN OF CARE COPD EXACERBATION WITH PNEUMONIA/SEPSIS AND RSV INFECTION -IV Antibiotic; Rocephin 1 gram IV every 24 hours -IV Zithromax 500mg every 24 hours -oxygen to keep sats greater than 95% -IV Solumedrol 62.5 mg every 6 hours -schedule Duo nebs every 6 hours, Albuterol nebs every 4 hours prn -Robitussin AC 10 ml every 6 hours as needed for painful cough -Tesslon pearles 200 mg tid for cough -blood cultures x2 pending -vaccinated for Covid 19, one hour Covid 19 virus test in ER is negative -droplet precautions for RSV -Continue use of BiPAP Weakness - due to acute and chronic disease. lives alone, has 3 adult children. Daughter and Grandchildren live close by. -ambulates with walker at home -consult to PT -consult to OT Tobacco dependence - smokes 2 cigarettes per day of tobacco for the past 50 years- no interest in quitting. -declines gum or patch -encouraged to quit smoking Elevated Troponin-likely secondary to demand ischemia in the setting of respiratory compromise and hypoxia -recheck Troponin at 0200 on 05/28/2021 -Telemetry Anxiety/Depression -continue outpatient medications Maintenance issues -Orders home meds: chronic medication -Nutrition: regular diet -Carreno catheter -strict I&O with IV Lasix -DVT - Lovenox 40 mg subcut daily CODE STATUS: FULL Admission status: Admit to [address] [place] [address] justification. This patient will be admitted for inpatient services and is medically appropriate meeting medical necessity for inpatient admission as outlined in my documentation. I reasonably expect the patient will require inpatient services that span. Time over 2 midnights. I reasonably expect this patient to be discharged or transferred within 96 hours after admission to the critical access hospital. Disposition: home family and home care. Primary care provider: Dr. Dipti Diaz, [place], [place]. Hospitalist: Dr. Roberts
[2021-05-28] MEDS: Magnesium Oxide 400 MG Tab PO SCH ×2 (14:05→20:37)
[2021-05-28] MEDS: Enoxaparin 40 MG/0.4 ML Syringe SUBCUT SCH (20:36)
[2021-05-28] MEDS: traZODone 50 MG Tab PO SCH (20:38)
[2021-05-28] MEDS: Pravastatin 20 MG Tab PO SCH (20:38)
[2021-05-28] MEDS: Pantoprazole 40 MG Tab.CR PO SCH (20:39)
[2021-05-28] MEDS: cefTRIAXone 1 GM in Sodium Chloride 0.9% 50 ML IV SCH (20:46)
[2021-05-28] MEDS: Azithromycin 500 MG in Sodium Chloride 0.9% 250 ML IV SCH (22:09)
[2021-05-29] MEDS: Codeine/guaiFENesin 10-100 MG/5 ML Syrup 5 ML Cup PO PRN ×3 (02:36→20:48)
[2021-05-29] MEDS: Sodium Chloride 0.9% 1,000 ML IV SCH ×2 (03:43→10:57)
[2021-05-29] MEDS: methylPREDNISolone Sodium Succinate 125 MG/2 ML SDV IV SCH ×3 (05:56→18:05)
[2021-05-29] MEDS: Tiotropium Bromide 4 GM Inhalation Spray (2.5mcg/1 dose; 10 doses) INH SCH (07:11)
[2021-05-29] MEDS: Albuterol/Ipratropium 3.0-0.5 MG/3 ML Neb Soln NEB SCH ×4 (07:11→20:37)
[2021-05-29] MEDS: Formoterol/Mometasone 100-5 MCG 8.8 GM Inhaler IH SCH ×2 (07:12→20:37)
[2021-05-29] MEDS: Lactulose Soln 10 GM/15 ML 15 ML UD Cup PO SCH ×3 (09:06→20:36)
[2021-05-29] MEDS: ARIPiprazole 10 MG Tab PO SCH (09:06)
[2021-05-29] MEDS: Losartan 50 MG Tab PO SCH (09:07)
[2021-05-29] MEDS: Aspirin 81 MG Tab.EC PO SCH (09:07)
[2021-05-29] MEDS: Venlafaxine 75 MG Cap.ER PO SCH (09:07)
[2021-05-29] MEDS: Magnesium Oxide 400 MG Tab PO SCH ×2 (09:08→20:37)
[2021-05-29] MEDS: amLODIPine 5 MG Tab PO SCH (09:08)
[2021-05-29] MEDS: Hydrochlorothiazide 25 MG Tab PO SCH (09:08)
[2021-05-29] MEDS: Potassium Chloride 20 MEQ Tab.ER PO SCH ×2 (09:08→20:37)
[2021-05-29] MEDS: Nortriptyline 25 MG Cap PO SCH (09:08)
[2021-05-29] MEDS: Nystatin Topical Powder 15 GM Bottle TOP SCH ×2 (09:09→20:37)
--- NOTE | 2021-05-29 16:04 | PCM.PN ---
- General Info Date of Service: 05/29/21 Subjective Update: Ms. Martin has remained fairly stable over the last 24 hours. She is not experienced any further hypotension and sepsis appears to have resolved. Respiratory status is stable, she continues to require support with noninvasive positive pressure ventilation. Functional Status: Reports: Tolerating Diet, Urinating - Review of Systems General: Reports: Weakness, Fatigue. Denies: Fever, Chills Pulmonary: Reports: Shortness of Breath, Cough. Denies: Pleuritic Chest Pain, Sputum, Hemoptysis, Wheezing Cardiovascular: Reports: Dyspnea on Exertion. Denies: Chest Pain, Palpitations, Orthopnea, PND, Edema, Lightheadedness Gastrointestinal: Reports: No Symptoms Genitourinary: Reports: No Symptoms - Patient Data Vitals - Most Recent: Last Vital Signs Temp 97.6 F 05/29/21 15:00 Pulse 77 05/29/21 15:00 Resp 15 05/29/21 15:00 BP 120/58 L 05/29/21 15:00 Pulse Ox 91 L 05/29/21 15:00 Weight - Most Recent: 237 lb I&O - Last 24 Hours: Intake & Output 05/29/21 05/29/21 05/29/21 06:59 14:59 22:59 Intake Total 1691 525 Output Total 600 Balance 1091 525 Lab Results Last 24 Hours: Laboratory Results - last 24 hr 05/29/21 05/29/21 Range/Units 04:56 04:56 WBC 7.8 (4.5-11.0) K/uL RBC 4.87 (3.30-5.50) M/uL Hgb 11.5 L (12.0-15.0) g/dL Hct 40.7 (36.0-48.0) % MCV 84 (80-98) fL MCH 24 L (27-31) pg MCHC 28 L (32-36) % Plt Count 168 (150-400) K/uL Neut % (Auto) 86.2 H (36-66) % Lymph % (Auto) 7.6 L (24-44) % Dupage % (Auto) 6.1 H (2-6) % Eos % (Auto) 0.0 L (2-4) % Baso % (Auto) 0.1 (0-1) % Sodium 146 (140-148) mmol/L Potassium 4.4 (3.6-5.2) mmol/L Chloride 110 H (100-108) mmol/L Carbon Dioxide 29 (21-32) mmol/L Anion Gap 11.4 (5.0-14.0) mmol/L BUN 26 H (7-18) mg/dL Creatinine 0.9 (0.6-1.0) mg/dL Est Cr Clr Drug Dosing 59.51 mL/min Estimated GFR (MDRD) > 60 (>60) Glucose 141 H (74-106) mg/dL Calcium 8.2 L (8.5-10.1) mg/dL Magnesium 2.0 (1.8-2.4) mg/dL Troponin I 0.044 (0.000-0.056) ng/mL Jonnie Results Last 24 Hours: Microbiology 05/28/21 00:43 Urine Culture - Final Urine, Catheterized Escherichia Coli 05/27/21 21:55 Aerobic Blood Culture - Preliminary Blood - Arm, Right NO GROWTH AFTER 1 DAY Anaerobic Blood Culture - Preliminary NO GROWTH AFTER 1 DAY 05/27/21 21:50 Aerobic Blood Culture - Preliminary Blood - Arm, Left NO GROWTH AFTER 1 DAY Anaerobic Blood Culture - Preliminary NO GROWTH AFTER 1 DAY Med Orders - Current: Current Medications Acetaminophen (Acetaminophen 325 Mg Tab) 650 mg PO Q4H PRN PRN Reason: Pain (Mild 1-3)/fever Albuterol (Albuterol 0.083% 2.5 Mg/3 Ml Neb Soln) 2.5 mg NEB Q1H PRN PRN Reason: Shortness of Breath Last Admin: 05/28/21 03:59 Dose: 2.5 mg Documented by: Albuterol/Ipratropium (Albuterol/Ipratropium 3.0-0.5 Mg/3 Ml Neb Soln) 3 ml NEB QIDRT [facility] Last Admin: 05/29/21 14:24 Dose: 3 ml Documented by: Alprazolam (Alprazolam 0.5 Mg Tab) 0.5 mg PO BID PRN PRN Reason: Anxiety Amlodipine Besylate (Amlodipine 5 Mg Tab) 10 mg PO DAILY [facility] Last Admin: 05/29/21 09:08 Dose: 10 mg Documented by: Aripiprazole (Aripiprazole 10 Mg Tab) 10 mg PO DAILY [facility] Last Admin: 05/29/21 09:06 Dose: 10 mg Documented by: Aspirin (Aspirin 81 Mg Tab.Ec) 81 mg PO DAILY [facility] Last Admin: 05/29/21 09:07 Dose: 81 mg Documented by: Benzonatate (Benzonatate 100 Mg Cap) 200 mg PO TID PRN PRN Reason: Cough Last Admin: 05/27/21 22:18 Dose: 200 mg Documented by: Bisacodyl (Bisacodyl 5 Mg Tab) 5 mg PO DAILY PRN PRN Reason: Constipation Dimethicone/Zinc Oxide (Dimethicone 20%/Zinc Oxide 25% 56 Gm [place] Bottle) 0 gm TOP ASDIRECTED PRN PRN Reason: Rash Docusate Sodium (Docusate Sodium 100 Mg Cap) 100 mg PO BID PRN PRN Reason: Constipation Enoxaparin Sodium (Enoxaparin 40 Mg/0.4 Ml Syringe) 40 mg SUBCUT Q24H [facility] Last Admin: 05/28/21 20:36 Dose: 40 mg Documented by: Guaifenesin/Codeine Phosphate (Codeine/Guaifenesin 10-100 Mg/5 Ml Syrup 5 Ml Cup) 10 ml PO Q6H PRN PRN Reason: Cough Last Admin: 05/29/21 09:09 Dose: 10 ml Documented by: Hydrochlorothiazide (Hydrochlorothiazide 25 Mg Tab) 25 mg PO DAILY [facility] Last Admin: 05/29/21 09:08 Dose: 25 mg Documented by: Ceftriaxone Sodium 1 gm/ (Sodium Chloride) 50 mls @ 200 mls/hr IV Q24H [facility] Stop: 06/03/21 21:31 Last Admin: 05/28/21 20:46 Dose: 200 mls/hr Documented by: Azithromycin 500 mg/ Sodium (Chloride) 250 mls @ 250 mls/hr IV Q24H [facility] Stop: 05/30/21 22:01 Last Admin: 05/28/21 22:09 Dose: 250 mls/hr Documented by: Ibuprofen (Ibuprofen 800 Mg Tab) 800 mg PO QID PRN PRN Reason: Pain (moderate 4-6) Lactulose (Lactulose Soln 10 Gm/15 Ml 15 Ml Ud Cup) 20 gm PO TID [facility] Last Admin: 05/29/21 13:15 Dose: 20 gm Documented by: Letrozole (Letrozole 2.5 Mg Tab) 2.5 mg PO DAILY [facility] Last Admin: 05/29/21 09:07 Dose: 2.5 mg Documented by: Lorazepam (Lorazepam 2 Mg/Ml Sdv) 1 mg IV Q6H PRN PRN Reason: Anxiety Last Admin: 05/28/21 01:58 Dose: 1 mg Documented by: Losartan Potassium (Losartan 50 Mg Tab) 100 mg PO DAILY [facility] Last Admin: 05/29/21 09:07 Dose: 100 mg Documented by: Magnesium Oxide (Magnesium Oxide 400 Mg Tab) 400 mg PO BID [facility] Last Admin: 05/29/21 09:08 Dose: 400 mg Documented by: Melatonin (Melatonin 3 Mg Tab) 6 mg PO BEDTIME PRN PRN Reason: Insomnia Last Admin: 05/27/21 22:19 Dose: 6 mg Documented by: Methylprednisolone Sodium Succinate (Methylprednisolone Sodium Succinate 125 Mg/2 Ml Sdv) 62.5 mg IV Q6H [facility] Last Admin: 05/29/21 12:51 Dose: 62.5 mg Documented by: Mometasone Furoate/Formoterol Fumar (Formoterol/Mometasone 100-5 Mcg 8.8 Gm Inhaler) 2 puff IH BIDRT [facility] Last Admin: 05/29/21 07:12 Dose: 2 puff Documented by: Morphine Sulfate (Morphine 2 Mg/Ml Syringe) 2 mg IVPUSH Q2H PRN PRN Reason: Pain (severe 7-10) Last Admin: 05/28/21 06:10 Dose: 1 mg Documented by: Nortriptyline HCl (Nortriptyline 25 Mg Cap) 50 mg PO DAILY [facility] Last Admin: 05/29/21 09:08 Dose: 50 mg Documented by: Nystatin (Nystatin Topical Powder 15 Gm Bottle) 0 gm TOP BID [facility] Last Admin: 05/29/21 09:09 Dose: 1 dose Documented by: Ondansetron HCl (Ondansetron 4 Mg Tab.Dis) 4 mg PO Q6H PRN PRN Reason: Nausea able to take PO Ondansetron HCl (Ondansetron 4 Mg/2 Ml Sdv) 4 mg IV Q4H PRN PRN Reason: Nausea/Vomiting Oxycodone HCl (Oxycodone 5 Mg Tab) 5 mg PO Q4H PRN PRN Reason: Pain (moderate 4-6) Last Admin: 05/28/21 14:09 Dose: 5 mg Documented by: Pantoprazole Sodium (Pantoprazole 40 Mg Tab.Cr) 40 mg PO BEDTIME [facility] Last Admin: 05/28/21 20:39 Dose: 40 mg Documented by: Potassium Chloride (Potassium Chloride 20 Meq Tab.Er) 20 meq PO BID [facility] Last Admin: 05/29/21 09:08 Dose: 20 meq Documented by: Pravastatin Sodium (Pravastatin 20 Mg Tab) 20 mg PO BEDTIME [facility] Last Admin: 05/28/21 20:38 Dose: 20 mg Documented by: Sodium Chloride (Sodium Chloride 0.9% 10 Ml Syringe) 10 ml FLUSH ASDIRECTED PRN PRN Reason: Keep Vein Open Last Admin: 05/27/21 18:34 Dose: 10 ml Documented by: Tiotropium [place] (Tiotropium [place] 4 Gm Inhalation [place] (2.5mcg/1 Dose; 10 Doses)) 0 gm INH DAILYRT [facility] Last Admin: 05/29/21 07:11 Dose: 2 puff Documented by: Trazodone HCl (Trazodone 50 Mg Tab) 150 mg PO BEDTIME [facility] Last Admin: 05/28/21 20:38 Dose: 150 mg Documented by: Venlafaxine HCl (Venlafaxine 75 Mg Cap.Er) 75 mg PO DAILY [facility] Last Admin: 05/29/21 09:07 Dose: 75 mg Documented by: Discontinued Medications Albuterol (Albuterol 0.083% 2.5 Mg/3 Ml Neb Soln) 2.5 mg NEB ONETIME ONE Stop: 05/27/21 19:04 Last Admin: 05/27/21 19:09 Dose: 2.5 mg Documented by: Albuterol (Albuterol 0.083% 2.5 Mg/3 Ml Neb Soln) 2.5 mg NEB Q4H PRN PRN Reason: Shortness Of Breath/wheezing Last Admin: 05/27/21 23:04 Dose: 2.5 mg Documented by: Budesonide (Budesonide 0.25 Mg/2 Ml Neb Susp) 0.25 mg NEB ONETIME ONE Stop: 05/28/21 04:56 Last Admin: 05/28/21 05:07 Dose: Not Given Documented by: Budesonide (Budesonide 0.5 Mg/2 Ml Neb Susp) Confirm Administered Dose 0.5 mg .ROUTE .STK-MED ONE Stop: 05/28/21 05:02 Last Admin: 05/28/21 05:09 Dose: Not Given Documented by: Budesonide (Budesonide 0.5 Mg/2 Ml Neb Susp) 0.5 mg NEB ONETIME ONE Stop: 05/28/21 05:05 Last Admin: 05/28/21 05:04 Dose: 0.5 mg Documented by: Dimethicone/Zinc Oxide (Dimethicone 20%/Zinc Oxide 25% 56 Gm [place] Bottle) 1 gm TOP ASDIRECTED PRN PRN Reason: Rash Enoxaparin Sodium (Enoxaparin 40 Mg/0.4 Ml Syringe) 40 mg SUBCUT DAILY [facility] Last Admin: 05/27/21 22:14 Dose: 40 mg Documented by: Furosemide (Furosemide 40 Mg/4 Ml Vial) 60 mg IVPUSH ONETIME ONE Stop: 05/27/21 19:50 Last Admin: 05/27/21 19:59 Dose: 60 mg Documented by: Sodium Chloride (Normal Saline) 1,000 mls @ 500 mls/hr IV ASDIRECTED [facility] Last Admin: 05/28/21 07:54 Dose: 500 mls/hr Documented by: Sodium Chloride (Normal Saline) 1,000 mls @ 125 mls/hr IV ASDIRECTED [facility] Last Admin: 05/29/21 10:57 Dose: 125 mls/hr Documented by: Levalbuterol HCl (Levalbuterol Hcl 1.25 Mg/3 Ml Neb) Confirm Administered Dose 1.25 mg .ROUTE .STK-MED ONE Stop: 05/28/21 04:41 Last Admin: 05/28/21 04:44 Dose: Not Given Documented by: Levalbuterol HCl (Levalbuterol Hcl 1.25 Mg/3 Ml Neb) 1.25 mg NEB ONETIME ONE Stop: 05/28/21 04:43 Last Admin: 05/28/21 04:42 Dose: 1.25 mg Documented by: Lorazepam (Lorazepam 2 Mg/Ml Sdv) 1 mg IVPUSH ONETIME ONE Stop: 05/28/21 03:31 Last Admin: 05/28/21 03:54 Dose: 1 mg Documented by: Magnesium Oxide (Magnesium Oxide 400 Mg Tab) 400 mg PO DAILY [facility] Last Admin: 05/28/21 09:36 Dose: 400 mg Documented by: Magnesium Oxide (Magnesium Oxide 400 Mg Tab) 400 mg PO ONETIME ONE Stop: 05/27/21 22:22 Last Admin: 05/27/21 22:44 Dose: 400 mg Documented by: Methylprednisolone Sodium Succinate (Methylprednisolone Sodium Succinate 125 Mg/2 Ml Sdv) 125 mg IVPUSH ONETIME ONE Stop: 05/27/21 18:22 Last Admin: 05/27/21 18:33 Dose: 125 mg Documented by: Mometasone Furoate/Formoterol Fumar (Formoterol/Mometasone 100-5 Mcg 8.8 Gm Inhaler) 2 puff IH BID [facility] Last Admin: 05/27/21 22:33 Dose: 1 inhaler Documented by: Non-Formulary Medication (Fluticasone/Salmeterol [Advair 100-50]) 2 puff INH BID [facility] Last Admin: 05/27/21 23:53 Dose: Not Given Documented by: Non-Formulary Medication (Losartan/Hydrochlorothiazide [Hyzaar 100-25 Tablet]) 1 tab PO DAILY [facility] Nystatin (Nystatin Topical Powder 15 Gm Bottle) 0 gm TOP BID [facility] Last Admin: 05/27/21 23:53 Dose: 1 applic Documented by: Sodium Chloride (Sodium Chloride 0.9% Inhalation Soln 3 Ml Neb) 3 ml INH ONETIME ONE Stop: 05/28/21 04:56 Last Admin: 05/28/21 05:25 Dose: 3 ml Documented by: - Exam Quality Assessment: Supplemental Oxygen, DVT Prophylaxis General: Alert, Oriented, Cooperative, Mild Distress Lungs: Clear to Auscultation, Normal Respiratory Effort, Decreased Breath Sounds. No: Crackles, Rales, Rhonchi, Wheezing Cardiovascular: Regular Rate, Regular Rhythm, No Murmurs GI/Abdominal Exam: Soft, Non-Tender, No Organomegaly, No Distention Extremities: Non-Tender, No Pedal Edema - Patient Data Lab Results Last 24 hrs: Laboratory Results - last 24 hr 05/29/21 05/29/21 Range/Units 04:56 04:56 WBC 7.8 (4.5-11.0) K/uL RBC 4.87 (3.30-5.50) M/uL Hgb 11.5 L (12.0-15.0) g/dL Hct 40.7 (36.0-48.0) % MCV 84 (80-98) fL MCH 24 L (27-31) pg MCHC 28 L (32-36) % Plt Count 168 (150-400) K/uL Neut % (Auto) 86.2 H (36-66) % Lymph % (Auto) 7.6 L (24-44) % Dup[place] % (Auto) 6.1 H (2-6) % Eos % (Auto) 0.0 L (2-4) % Baso % (Auto) 0.1 (0-1) % Sodium 146 (140-148) mmol/L Potassium 4.4 (3.6-5.2) mmol/L Chloride 110 H (100-108) mmol/L Carbon Dioxide 29 (21-32) mmol/L Anion Gap 11.4 (5.0-14.0) mmol/L BUN 26 H (7-18) mg/dL Creatinine 0.9 (0.6-1.0) mg/dL Est Cr Clr Drug Dosing 59.51 mL/min Estimated GFR (MDRD) > 60 (>60) Glucose 141 H (74-106) mg/dL Calcium 8.2 L (8.5-10.1) mg/dL Magnesium 2.0 (1.8-2.4) mg/dL Troponin I 0.044 (0.000-0.056) ng/mL Result Diagrams: 05/29/21 04:56 05/29/21 04:56 Jonnie Results Last 24 hrs: Microbiology 05/28/21 00:43 Urine Culture - Final Urine, Catheterized Escherichia Coli 05/27/21 21:55 Aerobic Blood Culture - Preliminary Blood - Arm, Right NO GROWTH AFTER 1 DAY Anaerobic Blood Culture - Preliminary NO GROWTH AFTER 1 DAY 05/27/21 21:50 Aerobic Blood Culture - Preliminary Blood - Arm, Left NO GROWTH AFTER 1 DAY Anaerobic Blood Culture - Preliminary NO GROWTH AFTER 1 DAY Sepsis Event Note - Evaluation Sepsis Screening Result: No Definite Risk - Focused Exam Vital Signs: Vital Signs Temp Pulse Resp BP BP Pulse Ox Pulse Ox 05/29/21 15:00 97.6 F 77 15 120/58 L 91 L 05/29/21 14:24 90 05/29/21 14:00 85 18 113/58 L 90 L 05/29/21 13:00 80 25 H 114/60 94 L 05/29/21 12:00 88 12 108/56 L 93 L 05/29/21 11:00 97.5 F 88 13 102/53 L 91 L 05/29/21 10:47 92 05/29/21 10:00 98 22 H 114/52 L 90 L 05/29/21 09:08 115/60 05/29/21 09:07 115/60 05/29/21 08:59 91 13 115/60 91 L 05/29/21 08:53 91 L 05/29/21 08:00 89 23 H 105/58 L 90 L 05/29/21 07:12 86 05/29/21 07:00 97.8 F 75 15 113/61 92 L 05/29/21 06:00 75 14 103/53 L 91 L 05/29/21 05:00 87 14 107/60 95 05/29/21 04:00 84 16 107/53 L 91 L - Problem List Review Problem List Initiated/Reviewed/Updated: Yes - My Orders Last 24 Hours: My Active Orders 05/29/21 15:59 Convert IV to Saline Lock [OM.PC] Routine - Plan Plan:: ASSESSMENT AND PLAN OF CARE COPD EXACERBATION WITH PNEUMONIA/SEPSIS AND RSV INFECTION -IV Antibiotic; Rocephin 1 gram IV every 24 hours -IV Zithromax 500mg every 24 hours -oxygen to keep sats greater than 95% -IV Solumedrol 62.5 mg every 6 hours -schedule Duo nebs every 6 hours, Albuterol nebs every 4 hours prn -Robitussin AC 10 ml every 6 hours as needed for painful cough -Tesslon pearles 200 mg tid for cough -blood cultures x2 pending -vaccinated for Covid 19, one hour Covid 19 virus test in ER is negative -droplet precautions for RSV -Continue use of BiPAP Weakness - due to acute and chronic disease. lives alone, has 3 adult children. Daughter and Grandchildren live close by. -ambulates with walker at home -consult to PT -consult to OT Tobacco dependence - smokes 2 cigarettes per day of tobacco for the past 50 years- no interest in quitting. -declines gum or patch -encouraged to quit smoking Elevated Troponin-resolved Anxiety/Depression -continue outpatient medications Maintenance issues -Orders home meds: chronic medication -Nutrition: regular diet -Carreno catheter -remove -DVT - Lovenox 40 mg subcut daily CODE STATUS: FULL Admission status: Admit to [address] [place] [address] justification. This patient will be admitted for inpatient services and is medically appropriate meeting medical necessity for inpatient admission as outlined in my documentation. I reasonably expect the patient will require inpatient services that span. Time over 2 midnights. I reasonably expect this patient to be discharged or transferred within 96 hours after admission to the critical access hospital. Disposition: home family and home care. Primary care provider: Dr. Dipti Diaz, [facility], [place], [place]. Hospitalist: Dr. Roberts
[2021-05-29] MEDS: Enoxaparin 40 MG/0.4 ML Syringe SUBCUT SCH (20:36)
[2021-05-29] MEDS: traZODone 50 MG Tab PO SCH (20:37)
[2021-05-29] MEDS: Pravastatin 20 MG Tab PO SCH (20:37)
[2021-05-29] MEDS: Pantoprazole 40 MG Tab.CR PO SCH (20:37)
[2021-05-29] MEDS: cefTRIAXone 1 GM in Sodium Chloride 0.9% 50 ML IV SCH (20:38)
[2021-05-29] MEDS: Azithromycin 500 MG in Sodium Chloride 0.9% 250 ML IV SCH (21:41)
[2021-05-29] MEDS: Benzonatate 100 MG Cap PO PRN (22:43)
[2021-05-30] MEDS: methylPREDNISolone Sodium Succinate 125 MG/2 ML SDV IV SCH ×2 (00:03→05:01)
[2021-05-30] MEDS: Albuterol 0.083% 2.5 MG/3 ML Neb Soln NEB PRN ×3 (02:11→18:20)
[2021-05-30] MEDS: Codeine/guaiFENesin 10-100 MG/5 ML Syrup 5 ML Cup PO PRN ×3 (02:29→18:20)
[2021-05-30] MEDS: Benzonatate 100 MG Cap PO PRN ×3 (05:01→20:43)
[2021-05-30] MEDS: Formoterol/Mometasone 100-5 MCG 8.8 GM Inhaler IH SCH ×2 (07:44→20:35)
[2021-05-30] MEDS: Tiotropium Bromide 4 GM Inhalation Spray (2.5mcg/1 dose; 10 doses) INH SCH (07:44)
[2021-05-30] MEDS: Albuterol/Ipratropium 3.0-0.5 MG/3 ML Neb Soln NEB SCH ×4 (07:44→20:35)
[2021-05-30] MEDS: Lactulose Soln 10 GM/15 ML 15 ML UD Cup PO SCH ×3 (09:40→20:35)
[2021-05-30] MEDS: Losartan 50 MG Tab PO SCH (09:41)
[2021-05-30] MEDS: ARIPiprazole 10 MG Tab PO SCH (09:42)
[2021-05-30] MEDS: amLODIPine 5 MG Tab PO SCH (09:43)
[2021-05-30] MEDS: Aspirin 81 MG Tab.EC PO SCH (09:43)
[2021-05-30] MEDS: Hydrochlorothiazide 25 MG Tab PO SCH (09:43)
[2021-05-30] MEDS: Magnesium Oxide 400 MG Tab PO SCH ×2 (09:43→20:36)
[2021-05-30] MEDS: Venlafaxine 75 MG Cap.ER PO SCH (09:44)
[2021-05-30] MEDS: Nortriptyline 25 MG Cap PO SCH (09:44)
[2021-05-30] MEDS: Potassium Chloride 20 MEQ Tab.ER PO SCH ×2 (09:44→20:36)
[2021-05-30] MEDS: Nystatin Topical Powder 15 GM Bottle TOP SCH ×2 (09:45→20:34)
--- NOTE | 2021-05-30 11:52 | PCM.PN ---
- General Info Date of Service: 05/30/21 Subjective Update: Ms. Martin has remained stable over the last 24 hours. This morning has good oxygenation on nasal cannula 2 L/min via nasal cannula. She did use BiPAP throughout the night. She reports feeling better with less shortness of breath and cough. Functional Status: Reports: Tolerating Diet, Urinating - Review of Systems General: Reports: Weakness, Fatigue. Denies: Fever, Chills Pulmonary: Reports: Shortness of Breath, Cough. Denies: Pleuritic Chest Pain, Sputum, Hemoptysis, Wheezing Cardiovascular: Reports: Dyspnea on Exertion. Denies: Chest Pain, Palpitations, Orthopnea, PND, Edema, Lightheadedness Gastrointestinal: Reports: No Symptoms Genitourinary: Reports: No Symptoms - Patient Data Vitals - Most Recent: Last Vital Signs Temp 97.3 F 05/30/21 08:00 Pulse 92 05/30/21 11:08 Resp 18 05/30/21 10:00 BP 118/63 05/30/21 10:00 Pulse Ox 90 L 05/30/21 10:00 Weight - Most Recent: 237 lb I&O - Last 24 Hours: Intake & Output 05/29/21 05/30/21 05/30/21 22:59 06:59 14:59 Intake Total 450 300 Output Total 800 100 Balance -350 200 Jonnie Results Last 24 Hours: Microbiology 05/27/21 21:50 Aerobic Blood Culture - Preliminary Blood - Arm, Left NO GROWTH AFTER 2 DAYS Anaerobic Blood Culture - Preliminary NO GROWTH AFTER 2 DAYS 05/27/21 21:55 Aerobic Blood Culture - Preliminary Blood - Arm, Right NO GROWTH AFTER 2 DAYS Anaerobic Blood Culture - Preliminary NO GROWTH AFTER 2 DAYS 05/28/21 00:43 Urine Culture - Final Urine, Catheterized Escherichia Coli Med Orders - Current: Current Medications Acetaminophen (Acetaminophen 325 Mg Tab) 650 mg PO Q4H PRN PRN Reason: Pain (Mild 1-3)/fever Albuterol (Albuterol 0.083% 2.5 Mg/3 Ml Neb Soln) 2.5 mg NEB Q1H PRN PRN Reason: Shortness of Breath Last Admin: 05/30/21 02:11 Dose: 2.5 mg Documented by: Albuterol/Ipratropium (Albuterol/Ipratropium 3.0-0.5 Mg/3 Ml Neb Soln) 3 ml NEB QIDRT [facility] Last Admin: 05/30/21 11:08 Dose: 3 ml Documented by: Alprazolam (Alprazolam 0.5 Mg Tab) 0.5 mg PO BID PRN PRN Reason: Anxiety Amlodipine Besylate (Amlodipine 5 Mg Tab) 10 mg PO DAILY [facility] Last Admin: 05/30/21 09:43 Dose: 10 mg Documented by: Aripiprazole (Aripiprazole 10 Mg Tab) 10 mg PO DAILY [facility] Last Admin: 05/30/21 09:42 Dose: 10 mg Documented by: Aspirin (Aspirin 81 Mg Tab.Ec) 81 mg PO DAILY [facility] Last Admin: 05/30/21 09:43 Dose: 81 mg Documented by: Benzonatate (Benzonatate 100 Mg Cap) 200 mg PO TID PRN PRN Reason: Cough Last Admin: 05/30/21 05:01 Dose: 200 mg Documented by: Bisacodyl (Bisacodyl 5 Mg Tab) 5 mg PO DAILY PRN PRN Reason: Constipation Dimethicone/Zinc Oxide (Dimethicone 20%/Zinc Oxide 25% 56 Gm [place] Bottle) 0 gm TOP ASDIRECTED PRN PRN Reason: Rash Docusate Sodium (Docusate Sodium 100 Mg Cap) 100 mg PO BID PRN PRN Reason: Constipation Enoxaparin Sodium (Enoxaparin 40 Mg/0.4 Ml Syringe) 40 mg SUBCUT Q24H [facility] Last Admin: 05/29/21 20:36 Dose: 40 mg Documented by: Guaifenesin/Codeine Phosphate (Codeine/Guaifenesin 10-100 Mg/5 Ml Syrup 5 Ml Cup) 10 ml PO Q6H PRN PRN Reason: Cough Last Admin: 05/30/21 09:57 Dose: 10 ml Documented by: Hydrochlorothiazide (Hydrochlorothiazide 25 Mg Tab) 25 mg PO DAILY [facility] Last Admin: 05/30/21 09:43 Dose: 25 mg Documented by: Ceftriaxone Sodium 1 gm/ (Sodium Chloride) 50 mls @ 200 mls/hr IV Q24H [facility] Stop: 06/03/21 21:31 Last Admin: 05/29/21 20:38 Dose: 200 mls/hr Documented by: Azithromycin 500 mg/ Sodium (Chloride) 250 mls @ 250 mls/hr IV Q24H [facility] Stop: 05/30/21 22:01 Last Admin: 05/29/21 21:41 Dose: 250 mls/hr Documented by: Ibuprofen (Ibuprofen 800 Mg Tab) 800 mg PO QID PRN PRN Reason: Pain (moderate 4-6) Lactulose (Lactulose Soln 10 Gm/15 Ml 15 Ml Ud Cup) 20 gm PO TID [facility] Last Admin: 05/30/21 09:40 Dose: 20 gm Documented by: Letrozole (Letrozole 2.5 Mg Tab) 2.5 mg PO DAILY [facility] Last Admin: 05/30/21 09:44 Dose: 2.5 mg Documented by: Lorazepam (Lorazepam 2 Mg/Ml Sdv) 1 mg IV Q6H PRN PRN Reason: Anxiety Last Admin: 05/28/21 01:58 Dose: 1 mg Documented by: Losartan Potassium (Losartan 50 Mg Tab) 100 mg PO DAILY [facility] Last Admin: 05/30/21 09:41 Dose: 100 mg Documented by: Magnesium Oxide (Magnesium Oxide 400 Mg Tab) 400 mg PO BID [facility] Last Admin: 05/30/21 09:43 Dose: 400 mg Documented by: Melatonin (Melatonin 3 Mg Tab) 6 mg PO BEDTIME PRN PRN Reason: Insomnia Last Admin: 05/27/21 22:19 Dose: 6 mg Documented by: Methylprednisolone Sodium Succinate (Methylprednisolone Sodium Succinate 125 Mg/2 Ml Sdv) 40 mg IV Q12H [facility] Mometasone Furoate/Formoterol Fumar (Formoterol/Mometasone 100-5 Mcg 8.8 Gm Inhaler) 2 puff IH BIDRT [facility] Last Admin: 05/30/21 07:44 Dose: 2 puff Documented by: Morphine Sulfate (Morphine 2 Mg/Ml Syringe) 2 mg IVPUSH Q2H PRN PRN Reason: Pain (severe 7-10) Last Admin: 05/28/21 06:10 Dose: 1 mg Documented by: Nortriptyline HCl (Nortriptyline 25 Mg Cap) 50 mg PO DAILY [facility] Last Admin: 05/30/21 09:44 Dose: 50 mg Documented by: Nystatin (Nystatin Topical Powder 15 Gm Bottle) 0 gm TOP BID [facility] Last Admin: 05/30/21 09:45 Dose: 1 dose Documented by: Ondansetron HCl (Ondansetron 4 Mg Tab.Dis) 4 mg PO Q6H PRN PRN Reason: Nausea able to take PO Ondansetron HCl (Ondansetron 4 Mg/2 Ml Sdv) 4 mg IV Q4H PRN PRN Reason: Nausea/Vomiting Oxycodone HCl (Oxycodone 5 Mg Tab) 5 mg PO Q4H PRN PRN Reason: Pain (moderate 4-6) Last Admin: 05/28/21 14:09 Dose: 5 mg Documented by: Pantoprazole Sodium (Pantoprazole 40 Mg Tab.Cr) 40 mg PO BEDTIME [facility] Last Admin: 05/29/21 20:37 Dose: 40 mg Documented by: Potassium Chloride (Potassium Chloride 20 Meq Tab.Er) 20 meq PO BID [facility] Last Admin: 05/30/21 09:44 Dose: 20 meq Documented by: Pravastatin Sodium (Pravastatin 20 Mg Tab) 20 mg PO BEDTIME [facility] Last Admin: 05/29/21 20:37 Dose: 20 mg Documented by: Sodium Chloride (Sodium Chloride 0.9% 10 Ml Syringe) 10 ml FLUSH ASDIRECTED PRN PRN Reason: Keep Vein Open Last Admin: 05/27/21 18:34 Dose: 10 ml Documented by: Tiotropium [place] (Tiotropium [place] 4 Gm Inhalation [place] (2.5mcg/1 Dose; 10 Doses)) 0 gm INH DAILYRT [facility] Last Admin: 05/30/21 07:44 Dose: 2 puff Documented by: Trazodone HCl (Trazodone 50 Mg Tab) 150 mg PO BEDTIME [facility] Last Admin: 05/29/21 20:37 Dose: 150 mg Documented by: Venlafaxine HCl (Venlafaxine 75 Mg Cap.Er) 75 mg PO DAILY [facility] Last Admin: 05/30/21 09:44 Dose: 75 mg Documented by: Discontinued Medications Albuterol (Albuterol 0.083% 2.5 Mg/3 Ml Neb Soln) 2.5 mg NEB ONETIME ONE Stop: 05/27/21 19:04 Last Admin: 05/27/21 19:09 Dose: 2.5 mg Documented by: Albuterol (Albuterol 0.083% 2.5 Mg/3 Ml Neb Soln) 2.5 mg NEB Q4H PRN PRN Reason: Shortness Of Breath/wheezing Last Admin: 05/27/21 23:04 Dose: 2.5 mg Documented by: Budesonide (Budesonide 0.25 Mg/2 Ml Neb Susp) 0.25 mg NEB ONETIME ONE Stop: 05/28/21 04:56 Last Admin: 05/28/21 05:07 Dose: Not Given Documented by: Budesonide (Budesonide 0.5 Mg/2 Ml Neb Susp) Confirm Administered Dose 0.5 mg .ROUTE .STK-MED ONE Stop: 05/28/21 05:02 Last Admin: 05/28/21 05:09 Dose: Not Given Documented by: Budesonide (Budesonide 0.5 Mg/2 Ml Neb Susp) 0.5 mg NEB ONETIME ONE Stop: 05/28/21 05:05 Last Admin: 05/28/21 05:04 Dose: 0.5 mg Documented by: Dimethicone/Zinc Oxide (Dimethicone 20%/Zinc Oxide 25% 56 Gm [place] Bottle) 1 gm TOP ASDIRECTED PRN PRN Reason: Rash Enoxaparin Sodium (Enoxaparin 40 Mg/0.4 Ml Syringe) 40 mg SUBCUT DAILY [facility] Last Admin: 05/27/21 22:14 Dose: 40 mg Documented by: Furosemide (Furosemide 40 Mg/4 Ml Vial) 60 mg IVPUSH ONETIME ONE Stop: 05/27/21 19:50 Last Admin: 05/27/21 19:59 Dose: 60 mg Documented by: Sodium Chloride (Normal Saline) 1,000 mls @ 500 mls/hr IV ASDIRECTED [facility] Last Admin: 05/28/21 07:54 Dose: 500 mls/hr Documented by: Sodium Chloride (Normal Saline) 1,000 mls @ 125 mls/hr IV ASDIRECTED [facility] Last Admin: 05/29/21 10:57 Dose: 125 mls/hr Documented by: Levalbuterol HCl (Levalbuterol Hcl 1.25 Mg/3 Ml Neb) Confirm Administered Dose 1.25 mg .ROUTE .STK-MED ONE Stop: 05/28/21 04:41 Last Admin: 05/28/21 04:44 Dose: Not Given Documented by: Levalbuterol HCl (Levalbuterol Hcl 1.25 Mg/3 Ml Neb) 1.25 mg NEB ONETIME ONE Stop: 05/28/21 04:43 Last Admin: 05/28/21 04:42 Dose: 1.25 mg Documented by: Lorazepam (Lorazepam 2 Mg/Ml Sdv) 1 mg IVPUSH ONETIME ONE Stop: 05/28/21 03:31 Last Admin: 05/28/21 03:54 Dose: 1 mg Documented by: Magnesium Oxide (Magnesium Oxide 400 Mg Tab) 400 mg PO DAILY [facility] Last Admin: 05/28/21 09:36 Dose: 400 mg Documented by: Magnesium Oxide (Magnesium Oxide 400 Mg Tab) 400 mg PO ONETIME ONE Stop: 05/27/21 22:22 Last Admin: 05/27/21 22:44 Dose: 400 mg Documented by: Methylprednisolone Sodium Succinate (Methylprednisolone Sodium Succinate 125 Mg/2 Ml Sdv) 125 mg IVPUSH ONETIME ONE Stop: 05/27/21 18:22 Last Admin: 05/27/21 18:33 Dose: 125 mg Documented by: Methylprednisolone Sodium Succinate (Methylprednisolone Sodium Succinate 125 Mg/2 Ml Sdv) 62.5 mg IV Q6H [facility] Last Admin: 05/30/21 05:01 Dose: 62.5 mg Documented by: Mometasone Furoate/Formoterol Fumar (Formoterol/Mometasone 100-5 Mcg 8.8 Gm Inhaler) 2 puff IH BID [facility] Last Admin: 05/27/21 22:33 Dose: 1 inhaler Documented by: Non-Formulary Medication (Fluticasone/Salmeterol [Advair 100-50]) 2 puff INH BID [facility] Last Admin: 05/27/21 23:53 Dose: Not Given Documented by: Non-Formulary Medication (Losartan/Hydrochlorothiazide [Hyzaar 100-25 Tablet]) 1 tab PO DAILY [facility] Nystatin (Nystatin Topical Powder 15 Gm Bottle) 0 gm TOP BID [facility] Last Admin: 05/27/21 23:53 Dose: 1 applic Documented by: Sodium Chloride (Sodium Chloride 0.9% Inhalation Soln 3 Ml Neb) 3 ml INH ONETIME ONE Stop: 05/28/21 04:56 Last Admin: 05/28/21 05:25 Dose: 3 ml Documented by: - Exam Quality Assessment: Supplemental Oxygen, DVT Prophylaxis General: Alert, Oriented, Cooperative, Mild Distress Lungs: Decreased Breath Sounds. No: Rales, Rhonchi, Wheezing Cardiovascular: Regular Rate, Regular Rhythm, No Murmurs GI/Abdominal Exam: Soft, Non-Tender, No Organomegaly, No Distention Extremities: Non-Tender, No Pedal Edema - Patient Data Result Diagrams: 05/29/21 04:56 05/29/21 04:56 Jonnie Results Last 24 hrs: Microbiology 05/27/21 21:50 Aerobic Blood Culture - Preliminary Blood - Arm, Left NO GROWTH AFTER 2 DAYS Anaerobic Blood Culture - Preliminary NO GROWTH AFTER 2 DAYS 05/27/21 21:55 Aerobic Blood Culture - Preliminary Blood - Arm, Right NO GROWTH AFTER 2 DAYS Anaerobic Blood Culture - Preliminary NO GROWTH AFTER 2 DAYS 05/28/21 00:43 Urine Culture - Final Urine, Catheterized Escherichia Coli Sepsis Event Note - Evaluation Sepsis Screening Result: No Definite Risk - Focused Exam Vital Signs: Vital Signs Temp Pulse Resp BP BP Pulse Ox Pulse Ox 05/30/21 11:08 92 05/30/21 10:00 96 18 118/63 90 L 05/30/21 09:43 123/63 05/30/21 09:41 123/63 05/30/21 09:00 96 19 118/63 90 L 05/30/21 08:00 97.3 F 88 21 H 123/58 L 89 L 05/30/21 07:45 82 92 L 05/30/21 07:00 95 118/55 L 05/30/21 06:00 79 14 112/58 L 92 L 05/30/21 05:00 87 22 H 110/62 92 L 05/30/21 04:00 98.1 F 85 14 118/58 L 92 L 05/30/21 03:00 91 17 110/53 L 91 L 05/30/21 02:00 90 23 H 113/60 95 05/30/21 01:00 75 20 118/48 L 91 L 05/30/21 00:00 90 20 110/54 L 91 L - Problem List Review Problem List Initiated/Reviewed/Updated: Yes - My Orders Last 24 Hours: My Active Orders 05/29/21 15:59 Convert IV to Saline Lock [OM.PC] Routine 05/29/21 16:03 Remove Carreno Catheter [Urinary Catheter Removal] [RC] Per Unit Routine 05/30/21 12:00 methylPREDNISolone Sod Succ [Solu-MEDROL] 40 mg IV Q12H - Plan Plan:: ASSESSMENT AND PLAN OF CARE COPD EXACERBATION WITH PNEUMONIA/SEPSIS AND RSV INFECTION-improved since yesterday, currently on nasal cannula 2 L/min -IV Antibiotic; Rocephin 1 gram IV every 24 hours -IV Zithromax 500mg every 24 hours -oxygen to keep sats greater than 95% -IV Solumedrol 40 mg every 12 hours -schedule Duo nebs every 6 hours, Albuterol nebs every 4 hours prn -Robitussin AC 10 ml every 6 hours as needed for painful cough -Tesslon pearles 200 mg tid for cough -blood cultures x2 pending -droplet precautions for RSV -Continue use of BiPAP Weakness - due to acute and chronic disease. lives alone, has 3 adult children. Daughter and Grandchildren live close by. -ambulates with walker at home -consult to PT -consult to OT Tobacco dependence - smokes 2 cigarettes per day of tobacco for the past 50 year s- no interest in quitting. -declines gum or patch -encouraged to quit smoking Elevated Troponin-resolved Anxiety/Depression -continue outpatient medications Maintenance issues -Orders home meds: chronic medication -Nutrition: regular diet -Carreno catheter -remove -DVT - Lovenox 40 mg subcut daily CODE STATUS: FULL Admission status: Admit to [address] [place] [address] justification. This patient will be admitted for inpatient services and is medically appropriate meeting medical necessity for inpatient admission as outlined in my documentation. I reasonably expect the patient will require inpatient services that span. Time over 2 midnights. I reasonably expect this patient to be discharged or transferred within 96 hours after admission to the critical access hospital. Disposition: home family and home care. Primary care provider: Dr. Dipti Diaz, [facility], [place], [place]. Hospitalist: Dr. Roberts
[2021-05-30] MEDS: methylPREDNISolone Sodium Succinate 40 MG/1 ML SDV IV SCH (17:11)
[2021-05-30] MEDS: cefTRIAXone 1 GM in Sodium Chloride 0.9% 50 ML IV SCH (20:34)
[2021-05-30] MEDS: Enoxaparin 40 MG/0.4 ML Syringe SUBCUT SCH (20:35)
[2021-05-30] MEDS: Pantoprazole 40 MG Tab.CR PO SCH (20:36)
[2021-05-30] MEDS: Pravastatin 20 MG Tab PO SCH (20:36)
[2021-05-30] MEDS: traZODone 50 MG Tab PO SCH (20:36)
[2021-05-30] MEDS: Azithromycin 500 MG in Sodium Chloride 0.9% 250 ML IV SCH (21:25)
[2021-05-31] MEDS: Codeine/guaiFENesin 10-100 MG/5 ML Syrup 5 ML Cup PO PRN ×2 (02:07→20:25)
[2021-05-31] MEDS: methylPREDNISolone Sodium Succinate 40 MG/1 ML SDV IV SCH (05:24)
[2021-05-31] MEDS: Albuterol/Ipratropium 3.0-0.5 MG/3 ML Neb Soln NEB SCH ×4 (07:24→20:15)
[2021-05-31] MEDS: Tiotropium Bromide 4 GM Inhalation Spray (2.5mcg/1 dose; 10 doses) INH SCH (07:24)
[2021-05-31] MEDS: Formoterol/Mometasone 100-5 MCG 8.8 GM Inhaler IH SCH ×2 (07:35→20:15)
[2021-05-31] MEDS: Losartan 50 MG Tab PO SCH (08:27)
[2021-05-31] MEDS: Venlafaxine 75 MG Cap.ER PO SCH (08:27)
[2021-05-31] MEDS: Nortriptyline 25 MG Cap PO SCH (08:27)
[2021-05-31] MEDS: amLODIPine 5 MG Tab PO SCH (08:28)
[2021-05-31] MEDS: Potassium Chloride 20 MEQ Tab.ER PO SCH ×2 (08:28→20:16)
[2021-05-31] MEDS: Aspirin 81 MG Tab.EC PO SCH (08:28)
[2021-05-31] MEDS: ARIPiprazole 10 MG Tab PO SCH (08:28)
[2021-05-31] MEDS: Magnesium Oxide 400 MG Tab PO SCH ×2 (08:28→20:17)
[2021-05-31] MEDS: Hydrochlorothiazide 25 MG Tab PO SCH (08:29)
[2021-05-31] MEDS: Nystatin Topical Powder 15 GM Bottle TOP SCH ×2 (08:33→20:17)
[2021-05-31] MEDS: Lactulose Soln 10 GM/15 ML 15 ML UD Cup PO SCH ×3 (08:33→20:15)
[2021-05-31] MEDS ORDERED: 50% Dextrose in Water 50 ML Syringe IV PRN (13:04)
[2021-05-31] MEDS ORDERED: Glucose Gel 15 GM in 37.5 GM Tube PO PRN (13:04)
--- NOTE | 2021-05-31 13:04 | PCM.PN ---
- General Info Date of Service: 05/31/21 Subjective Update: Ms. Martin has been stable since yesterday. Still somewhat more short of breath than baseline although is currently on 2 L of oxygen via nasal cannula. She onl y used the BiPAP for a few hours during the night. Functional Status: Reports: Tolerating Diet, Urinating - Review of Systems General: Reports: Weakness, Fatigue. Denies: Fever, Chills Pulmonary: Reports: Shortness of Breath, Cough. Denies: Pleuritic Chest Pain, Sputum, Hemoptysis, Wheezing Cardiovascular: Reports: Dyspnea on Exertion. Denies: Chest Pain, Palpitations, Orthopnea, PND, Edema, Lightheadedness Gastrointestinal: Reports: No Symptoms Genitourinary: Reports: No Symptoms - Patient Data Vitals - Most Recent: Last Vital Signs Temp 98 F 05/31/21 08:00 Pulse 101 H 05/31/21 12:00 Resp 23 H 05/31/21 12:00 BP 108/59 L 05/31/21 12:00 Pulse Ox 92 L 05/31/21 12:00 Weight - Most Recent: 237 lb I&O - Last 24 Hours: Intake & Output 05/30/21 05/31/21 05/31/21 22:59 06:59 14:59 Intake Total 540 400 Output Total 250 Balance 290 400 Lab Results Last 24 Hours: Laboratory Results - last 24 hr 05/31/21 Range/Units 11:19 POC Glucose 363 H (74-106) mg/dL Jonnie Results Last 24 Hours: Microbiology 05/27/21 21:55 Aerobic Blood Culture - Preliminary Blood - Arm, Right NO GROWTH AFTER 3 DAYS Anaerobic Blood Culture - Preliminary NO GROWTH AFTER 3 DAYS 05/27/21 21:50 Aerobic Blood Culture - Preliminary Blood - Arm, Left NO GROWTH AFTER 3 DAYS Anaerobic Blood Culture - Preliminary NO GROWTH AFTER 3 DAYS Med Orders - Current: Current Medications Acetaminophen (Acetaminophen 325 Mg Tab) 650 mg PO Q4H PRN PRN Reason: Pain (Mild 1-3)/fever Albuterol (Albuterol 0.083% 2.5 Mg/3 Ml Neb Soln) 2.5 mg NEB Q1H PRN PRN Reason: Shortness of Breath Last Admin: 05/30/21 18:20 Dose: 2.5 mg Documented by: Albuterol/Ipratropium (Albuterol/Ipratropium 3.0-0.5 Mg/3 Ml Neb Soln) 3 ml NEB QIDRT [facility] Last Admin: 05/31/21 10:57 Dose: 3 ml Documented by: Alprazolam (Alprazolam 0.5 Mg Tab) 0.5 mg PO BID PRN PRN Reason: Anxiety Amlodipine Besylate (Amlodipine 5 Mg Tab) 10 mg PO DAILY [facility] Last Admin: 05/31/21 08:28 Dose: 10 mg Documented by: Aripiprazole (Aripiprazole 10 Mg Tab) 10 mg PO DAILY [facility] Last Admin: 05/31/21 08:28 Dose: 10 mg Documented by: Aspirin (Aspirin 81 Mg Tab.Ec) 81 mg PO DAILY [facility] Last Admin: 05/31/21 08:28 Dose: 81 mg Documented by: Benzonatate (Benzonatate 100 Mg Cap) 200 mg PO TID PRN PRN Reason: Cough Last Admin: 05/30/21 20:43 Dose: 200 mg Documented by: Bisacodyl (Bisacodyl 5 Mg Tab) 5 mg PO DAILY PRN PRN Reason: Constipation Cefdinir (Cefdinir 300 Mg Cap) 300 mg PO BID [facility] Dimethicone/Zinc Oxide (Dimethicone 20%/Zinc Oxide 25% 56 Gm [place] Bottle) 0 gm TOP ASDIRECTED PRN PRN Reason: Rash Docusate Sodium (Docusate Sodium 100 Mg Cap) 100 mg PO BID PRN PRN Reason: Constipation Enoxaparin Sodium (Enoxaparin 40 Mg/0.4 Ml Syringe) 40 mg SUBCUT Q24H [facility] Last Admin: 05/30/21 20:35 Dose: 40 mg Documented by: Guaifenesin/Codeine Phosphate (Codeine/Guaifenesin 10-100 Mg/5 Ml Syrup 5 Ml Cup) 10 ml PO Q6H PRN PRN Reason: Cough Last Admin: 05/31/21 02:07 Dose: 10 ml Documented by: Hydrochlorothiazide (Hydrochlorothiazide 25 Mg Tab) 25 mg PO DAILY [facility] Last Admin: 05/31/21 08:29 Dose: 25 mg Documented by: Ibuprofen (Ibuprofen 800 Mg Tab) 800 mg PO QID PRN PRN Reason: Pain (moderate 4-6) Lactulose (Lactulose Soln 10 Gm/15 Ml 15 Ml Ud Cup) 20 gm PO TID [facility] Last Admin: 05/31/21 08:33 Dose: Not Given Documented by: Letrozole (Letrozole 2.5 Mg Tab) 2.5 mg PO DAILY [facility] Last Admin: 05/31/21 08:28 Dose: 2.5 mg Documented by: Lorazepam (Lorazepam 2 Mg/Ml Sdv) 1 mg IV Q6H PRN PRN Reason: Anxiety Last Admin: 05/28/21 01:58 Dose: 1 mg Documented by: Losartan Potassium (Losartan 50 Mg Tab) 100 mg PO DAILY [facility] Last Admin: 05/31/21 08:27 Dose: 100 mg Documented by: Magnesium Oxide (Magnesium Oxide 400 Mg Tab) 400 mg PO BID [facility] Last Admin: 05/31/21 08:28 Dose: 400 mg Documented by: Melatonin (Melatonin 3 Mg Tab) 6 mg PO BEDTIME PRN PRN Reason: Insomnia Last Admin: 05/27/21 22:19 Dose: 6 mg Documented by: Mometasone Furoate/Formoterol Fumar (Formoterol/Mometasone 100-5 Mcg 8.8 Gm Inhaler) 2 puff IH BIDRT [facility] Last Admin: 05/31/21 07:35 Dose: 2 puff Documented by: Morphine Sulfate (Morphine 2 Mg/Ml Syringe) 2 mg IVPUSH Q2H PRN PRN Reason: Pain (severe 7-10) Last Admin: 05/28/21 06:10 Dose: 1 mg Documented by: Nortriptyline HCl (Nortriptyline 25 Mg Cap) 50 mg PO DAILY [facility] Last Admin: 05/31/21 08:27 Dose: 50 mg Documented by: Nystatin (Nystatin Topical Powder 15 Gm Bottle) 0 gm TOP BID [facility] Last Admin: 05/31/21 08:33 Dose: 1 dose Documented by: Ondansetron HCl (Ondansetron 4 Mg Tab.Dis) 4 mg PO Q6H PRN PRN Reason: Nausea able to take PO Ondansetron HCl (Ondansetron 4 Mg/2 Ml Sdv) 4 mg IV Q4H PRN PRN Reason: Nausea/Vomiting Oxycodone HCl (Oxycodone 5 Mg Tab) 5 mg PO Q4H PRN PRN Reason: Pain (moderate 4-6) Last Admin: 05/28/21 14:09 Dose: 5 mg Documented by: Pantoprazole Sodium (Pantoprazole 40 Mg Tab.Cr) 40 mg PO BEDTIME [facility] Last Admin: 05/30/21 20:36 Dose: 40 mg Documented by: Potassium Chloride (Potassium Chloride 20 Meq Tab.Er) 20 meq PO BID [facility] Last Admin: 05/31/21 08:28 Dose: 20 meq Documented by: Pravastatin Sodium (Pravastatin 20 Mg Tab) 20 mg PO BEDTIME [facility] Last Admin: 05/30/21 20:36 Dose: 20 mg Documented by: Prednisone (Prednisone 20 Mg Tab) 20 mg PO WITHBREAKFAST [facility] Sodium Chloride (Sodium Chloride 0.9% 10 Ml Syringe) 10 ml FLUSH ASDIRECTED PRN PRN Reason: Keep Vein Open Last Admin: 05/27/21 18:34 Dose: 10 ml Documented by: Tiotropium Jerome (Tiotropium Jerome 4 Gm Inhalation [place] (2.5mcg/1 Dose; 10 Doses)) 0 gm INH DAILYRT [facility] Last Admin: 05/31/21 07:24 Dose: 2 puff Documented by: Trazodone HCl (Trazodone 50 Mg Tab) 150 mg PO BEDTIME [facility] Last Admin: 05/30/21 20:36 Dose: 150 mg Documented by: Venlafaxine HCl (Venlafaxine 75 Mg Cap.Er) 75 mg PO DAILY [facility] Last Admin: 05/31/21 08:27 Dose: 75 mg Documented by: Discontinued Medications Albuterol (Albuterol 0.083% 2.5 Mg/3 Ml Neb Soln) 2.5 mg NEB ONETIME ONE Stop: 05/27/21 19:04 Last Admin: 05/27/21 19:09 Dose: 2.5 mg Documented by: Albuterol (Albuterol 0.083% 2.5 Mg/3 Ml Neb Soln) 2.5 mg NEB Q4H PRN PRN Reason: Shortness Of Breath/wheezing Last Admin: 05/27/21 23:04 Dose: 2.5 mg Documented by: Budesonide (Budesonide 0.25 Mg/2 Ml Neb Susp) 0.25 mg NEB ONETIME ONE Stop: 05/28/21 04:56 Last Admin: 05/28/21 05:07 Dose: Not Given Documented by: Budesonide (Budesonide 0.5 Mg/2 Ml Neb Susp) Confirm Administered Dose 0.5 mg .ROUTE .STK-MED ONE Stop: 05/28/21 05:02 Last Admin: 05/28/21 05:09 Dose: Not Given Documented by: Budesonide (Budesonide 0.5 Mg/2 Ml Neb Susp) 0.5 mg NEB ONETIME ONE Stop: 05/28/21 05:05 Last Admin: 05/28/21 05:04 Dose: 0.5 mg Documented by: Dimethicone/Zinc Oxide (Dimethicone 20%/Zinc Oxide 25% 56 Gm [place] Bottle) 1 gm TOP ASDIRECTED PRN PRN Reason: Rash Enoxaparin Sodium (Enoxaparin 40 Mg/0.4 Ml Syringe) 40 mg SUBCUT DAILY [facility] Last Admin: 05/27/21 22:14 Dose: 40 mg Documented by: Furosemide (Furosemide 40 Mg/4 Ml Vial) 60 mg IVPUSH ONETIME ONE Stop: 05/27/21 19:50 Last Admin: 05/27/21 19:59 Dose: 60 mg Documented by: Ceftriaxone Sodium 1 gm/ (Sodium Chloride) 50 mls @ 200 mls/hr IV Q24H [facility] Stop: 06/03/21 21:31 Last Admin: 05/30/21 20:34 Dose: 200 mls/hr Documented by: Azithromycin 500 mg/ Sodium (Chloride) 250 mls @ 250 mls/hr IV Q24H [facility] Stop: 05/30/21 22:01 Last Admin: 05/30/21 21:25 Dose: 250 mls/hr Documented by: Sodium Chloride (Normal Saline) 1,000 mls @ 500 mls/hr IV ASDIRECTED [facility] Last Admin: 05/28/21 07:54 Dose: 500 mls/hr Documented by: Sodium Chloride (Normal Saline) 1,000 mls @ 125 mls/hr IV ASDIRECTED [facility] Last Admin: 05/29/21 10:57 Dose: 125 mls/hr Documented by: Levalbuterol HCl (Levalbuterol Hcl 1.25 Mg/3 Ml Neb) Confirm Administered Dose 1.25 mg .ROUTE .STK-MED ONE Stop: 05/28/21 04:41 Last Admin: 05/28/21 04:44 Dose: Not Given Documented by: Levalbuterol HCl (Levalbuterol Hcl 1.25 Mg/3 Ml Neb) 1.25 mg NEB ONETIME ONE Stop: 05/28/21 04:43 Last Admin: 05/28/21 04:42 Dose: 1.25 mg Documented by: Lorazepam (Lorazepam 2 Mg/Ml Sdv) 1 mg IVPUSH ONETIME ONE Stop: 05/28/21 03:31 Last Admin: 05/28/21 03:54 Dose: 1 mg Documented by: Magnesium Oxide (Magnesium Oxide 400 Mg Tab) 400 mg PO DAILY [facility] Last Admin: 05/28/21 09:36 Dose: 400 mg Documented by: Magnesium Oxide (Magnesium Oxide 400 Mg Tab) 400 mg PO ONETIME ONE Stop: 05/27/21 22:22 Last Admin: 05/27/21 22:44 Dose: 400 mg Documented by: Methylprednisolone Sodium Succinate (Methylprednisolone Sodium Succinate 125 Mg/2 Ml Sdv) 125 mg IVPUSH ONETIME ONE Stop: 05/27/21 18:22 Last Admin: 05/27/21 18:33 Dose: 125 mg Documented by: Methylprednisolone Sodium Succinate (Methylprednisolone Sodium Succinate 125 Mg/2 Ml Sdv) 62.5 mg IV Q6H [facility] Last Admin: 05/30/21 05:01 Dose: 62.5 mg Documented by: Methylprednisolone Sodium Succinate (Methylprednisolone Sodium Succinate 40 Mg/1 Ml Sdv) 40 mg IV Q12H [facility] Last Admin: 05/31/21 05:24 Dose: 40 mg Documented by: Mometasone Furoate/Formoterol Fumar (Formoterol/Mometasone 100-5 Mcg 8.8 Gm Inhaler) 2 puff IH BID [facility] Last Admin: 05/27/21 22:33 Dose: 1 inhaler Documented by: Non-Formulary Medication (Fluticasone/Salmeterol [Advair 100-50]) 2 puff INH BID [facility] Last Admin: 05/27/21 23:53 Dose: Not Given Documented by: Non-Formulary Medication (Losartan/Hydrochlorothiazide [Hyzaar 100-25 Tablet]) 1 tab PO DAILY [facility] Nystatin (Nystatin Topical Powder 15 Gm Bottle) 0 gm TOP BID [facility] Last Admin: 05/27/21 23:53 Dose: 1 applic Documented by: Sodium Chloride (Sodium Chloride 0.9% Inhalation Soln 3 Ml Neb) 3 ml INH ONETIME ONE Stop: 05/28/21 04:56 Last Admin: 05/28/21 05:25 Dose: 3 ml Documented by: - Exam Quality Assessment: Supplemental Oxygen, DVT Prophylaxis General: Alert, Oriented, Cooperative, Mild Distress Lungs: Decreased Breath Sounds, Wheezing. No: Crackles, Rales, Rhonchi Cardiovascular: Regular Rate, Regular Rhythm, No Murmurs GI/Abdominal Exam: Soft, Non-Tender, No Organomegaly, No Distention Extremities: Non-Tender, No Pedal Edema - Patient Data Lab Results Last 24 hrs: Laboratory Results - last 24 hr 05/31/21 Range/Units 11:19 POC Glucose 363 H (74-106) mg/dL Result Diagrams: 05/29/21 04:56 05/29/21 04:56 Jonnie Results Last 24 hrs: Microbiology 05/27/21 21:55 Aerobic Blood Culture - Preliminary Blood - Arm, Right NO GROWTH AFTER 3 DAYS Anaerobic Blood Culture - Preliminary NO GROWTH AFTER 3 DAYS 05/27/21 21:50 Aerobic Blood Culture - Preliminary Blood - Arm, Left NO GROWTH AFTER 3 DAYS Anaerobic Blood Culture - Preliminary NO GROWTH AFTER 3 DAYS Sepsis Event Note - Evaluation Sepsis Screening Result: No Definite Risk - Focused Exam Vital Signs: Vital Signs Temp Pulse Resp BP BP Pulse Ox 05/31/21 12:00 101 H 23 H 108/59 L 92 L 05/31/21 10:58 78 05/31/21 10:00 102 H 19 105/64 92 L 05/31/21 08:28 118/60 05/31/21 08:27 118/60 05/31/21 08:00 98 F 90 20 118/60 87 L 05/31/21 07:28 90 L 05/31/21 07:25 84 05/31/21 06:00 81 15 120/58 L 95 05/31/21 04:00 89 14 118/67 92 L 05/31/21 02:00 98.1 F 88 22 H 99/62 93 L - Problem List Review Problem List Initiated/Reviewed/Updated: Yes - My Orders Last 24 Hours: My Active Orders 05/31/21 12:54 Patient Status [ADT] Routine 05/31/21 21:00 Cefdinir [Omnicef] 300 mg PO BID 06/01/21 08:00 predniSONE 20 mg PO WITHBREAKFAST - Plan Plan:: ASSESSMENT AND PLAN OF CARE COPD EXACERBATION WITH PNEUMONIA/SEPSIS AND RSV INFECTION-improved since yesterday, currently on nasal cannula 2 L/min -Discontinue Rocephin and azithromycin -Cefdinir 300 mg p.o. twice daily -oxygen to keep sats greater than 95% -Discontinue IV Solumedrol 40 mg every 12 hours -Prednisone 20 mg p.o. daily -schedule Duo nebs every 6 hours, Albuterol nebs every 4 hours prn -blood cultures x2 pending -Continue use of BiPAP as needed Hyperglycemia-likely secondary to glucocorticoid therapy -4 times daily glucometers -Low-dose sliding scale Humalog Weakness - due to acute and chronic disease. lives alone, has 3 adult children. Daughter and Grandchildren live close by. -ambulates with walker at home -consult to PT -consult to OT Tobacco dependence - smokes 2 cigarettes per day of tobacco for the past 50 years- no interest in quitting. -declines gum or patch -encouraged to quit smoking Elevated Troponin-resolved Anxiety/Depression -continue outpatient medications Maintenance issues -Orders home meds: chronic medication -Nutrition: regular diet -Carreno catheter -remove -DVT - Lovenox 40 mg subcut daily CODE STATUS: FULL Admission status: Admit to [address] [place] [address] Admission justification. This patient will be admitted for inpatient services and is medically appropriate meeting medical necessity for inpatient admission as outlined in my documentation. I reasonably expect the patient will require inpatient services that span. Time over 2 midnights. I reasonably expect this patient to be discharged or transferred within 96 hours after admission to the critical access hospital. Disposition: home family and home care. Primary care provider: Dr. Dipti Diza, [facility], [place], [place]. Hospitalist: Dr. Roberts
[2021-05-31] MEDS: Insulin Lispro 100 Unit/ML 3 ML KwikPen SUBCUT SCH ×2 (18:03→20:13)
[2021-05-31] MEDS: Enoxaparin 40 MG/0.4 ML Syringe SUBCUT SCH (20:15)
[2021-05-31] MEDS: Cefdinir 300 MG Cap PO SCH (20:17)
[2021-05-31] MEDS: Pravastatin 20 MG Tab PO SCH (20:17)
[2021-05-31] MEDS: Pantoprazole 40 MG Tab.CR PO SCH (20:17)
[2021-05-31] MEDS: traZODone 50 MG Tab PO SCH (20:17)
[2021-06-01] MEDS: Albuterol/Ipratropium 3.0-0.5 MG/3 ML Neb Soln NEB SCH ×4 (07:05→21:04)
[2021-06-01] MEDS: Tiotropium Bromide 4 GM Inhalation Spray (2.5mcg/1 dose; 10 doses) INH SCH (07:05)
[2021-06-01] MEDS: Formoterol/Mometasone 100-5 MCG 8.8 GM Inhaler IH SCH ×2 (07:05→21:04)
[2021-06-01] MEDS: Insulin Lispro 100 Unit/ML 3 ML KwikPen SUBCUT SCH ×3 (07:18→17:14)
[2021-06-01] MEDS: Aspirin 81 MG Tab.EC PO SCH (08:05)
[2021-06-01] MEDS: Magnesium Oxide 400 MG Tab PO SCH ×2 (08:05→21:06)
[2021-06-01] MEDS: predniSONE 20 MG Tab PO SCH (08:06)
[2021-06-01] MEDS: Losartan 50 MG Tab PO SCH (08:06)
[2021-06-01] MEDS: Nortriptyline 25 MG Cap PO SCH (08:06)
[2021-06-01] MEDS: Venlafaxine 75 MG Cap.ER PO SCH (08:06)
[2021-06-01] MEDS: Potassium Chloride 20 MEQ Tab.ER PO SCH ×2 (08:06→21:06)
[2021-06-01] MEDS: Cefdinir 300 MG Cap PO SCH ×2 (08:06→21:06)
[2021-06-01] MEDS: Hydrochlorothiazide 25 MG Tab PO SCH (08:06)
[2021-06-01] MEDS: Lactulose Soln 10 GM/15 ML 15 ML UD Cup PO SCH ×3 (08:07→20:09)
[2021-06-01] MEDS: Nystatin Topical Powder 15 GM Bottle TOP SCH ×2 (08:07→21:06)
[2021-06-01] MEDS: amLODIPine 5 MG Tab PO SCH (08:07)
[2021-06-01] MEDS: ARIPiprazole 10 MG Tab PO SCH (08:07)
--- NOTE | 2021-06-01 09:55 | PCM.PN ---
- General Info Date of Service: 06/01/21 Subjective Update: There were no acute events overnight. Patient reports that she feels much better today than she did a couple of days ago. Still feels short of breath with activity but comfortable at rest. She feels quite weak and requires assistance to get to the commode and back. Minimal cough. No abdominal pain or nausea. No fevers. Functional Status: Reports: Pain Controlled, Tolerating Diet - Review of Systems General: Reports: Weakness Pulmonary: Reports: Shortness of Breath, Cough - Patient Data Vitals - Most Recent: Last Vital Signs Temp 36.4 C 06/01/21 07:37 Pulse 82 06/01/21 07:37 Resp 20 06/01/21 07:37 BP 125/50 L 06/01/21 08:07 Pulse Ox 90 L 06/01/21 07:37 Weight - Most Recent: 107.501 kg I&O - Last 24 Hours: Intake & Output 05/31/21 06/01/21 06/01/21 22:59 06:59 14:59 Intake Total 300 200 500 Output Total 200 300 Balance 100 -100 500 Lab Results Last 24 Hours: Laboratory Results - last 24 hr 05/31/21 05/31/21 05/31/21 Range/Units 11:19 16:57 20:12 POC Glucose Cancelled 193 H 152 H 06/01/21 Range/Units 07:16 POC Glucose 94 Jonnie Results Last 24 Hours: Microbiology 05/27/21 21:55 Aerobic Blood Culture - Preliminary Blood - Arm, Right NO GROWTH AFTER 4 DAYS Anaerobic Blood Culture - Preliminary NO GROWTH AFTER 4 DAYS 05/27/21 21:50 Aerobic Blood Culture - Preliminary Blood - Arm, Left NO GROWTH AFTER 4 DAYS Anaerobic Blood Culture - Preliminary NO GROWTH AFTER 4 DAYS Med Orders - Current: Current Medications Acetaminophen (Acetaminophen 325 Mg Tab) 650 mg PO Q4H PRN PRN Reason: Pain (Mild 1-3)/fever Albuterol (Albuterol 0.083% 2.5 Mg/3 Ml Neb Soln) 2.5 mg NEB Q1H PRN PRN Reason: Shortness of Breath Last Admin: 05/30/21 18:20 Dose: 2.5 mg Documented by: Albuterol/Ipratropium (Albuterol/Ipratropium 3.0-0.5 Mg/3 Ml Neb Soln) 3 ml NEB QIDRT [facility] Last Admin: 06/01/21 07:05 Dose: 3 ml Documented by: Alprazolam (Alprazolam 0.5 Mg Tab) 0.5 mg PO BID PRN PRN Reason: Anxiety Amlodipine Besylate (Amlodipine 5 Mg Tab) 10 mg PO DAILY [facility] Last Admin: 06/01/21 08:07 Dose: 10 mg Documented by: Aripiprazole (Aripiprazole 10 Mg Tab) 10 mg PO DAILY [facility] Last Admin: 06/01/21 08:07 Dose: 10 mg Documented by: Aspirin (Aspirin 81 Mg Tab.Ec) 81 mg PO DAILY [facility] Last Admin: 06/01/21 08:05 Dose: 81 mg Documented by: Benzonatate (Benzonatate 100 Mg Cap) 200 mg PO TID PRN PRN Reason: Cough Last Admin: 05/30/21 20:43 Dose: 200 mg Documented by: Bisacodyl (Bisacodyl 5 Mg Tab) 5 mg PO DAILY PRN PRN Reason: Constipation Cefdinir (Cefdinir 300 Mg Cap) 300 mg PO BID [facility] Last Admin: 06/01/21 08:06 Dose: 300 mg Documented by: Dextrose (Glucose Gel 15 Gm In 37.5 Gm Tube) 15 gm PO ONETIME PRN PRN Reason: Hypoglycemia Dextrose/Water (50% Dextrose In Water 50 Ml Syringe) 50 ml IV ONETIME PRN PRN Reason: Hypoglycemia Dimethicone/Zinc Oxide (Dimethicone 20%/Zinc Oxide 25% 56 Gm [place] Bottle) 0 gm TOP ASDIRECTED PRN PRN Reason: Rash Docusate Sodium (Docusate Sodium 100 Mg Cap) 100 mg PO BID PRN PRN Reason: Constipation Enoxaparin Sodium (Enoxaparin 40 Mg/0.4 Ml Syringe) 40 mg SUBCUT Q24H [facility] Last Admin: 05/31/21 20:15 Dose: 40 mg Documented by: Guaifenesin/Codeine Phosphate (Codeine/Guaifenesin 10-100 Mg/5 Ml Syrup 5 Ml C up) 10 ml PO Q6H PRN PRN Reason: Cough Last Admin: 05/31/21 20:25 Dose: 10 ml Documented by: Hydrochlorothiazide (Hydrochlorothiazide 25 Mg Tab) 25 mg PO DAILY [facility] Last Admin: 06/01/21 08:06 Dose: 25 mg Documented by: Ibuprofen (Ibuprofen 800 Mg Tab) 800 mg PO QID PRN PRN Reason: Pain (moderate 4-6) Insulin Human Lispro (Insulin Lispro 100 Unit/Ml 3 Ml Kwikpen) 0 unit SUBCUT QIDACANDBED [facility]; Protocol Last Admin: 06/01/21 07:18 Dose: Not Given Documented by: Lactulose (Lactulose Soln 10 Gm/15 Ml 15 Ml Ud Cup) 20 gm PO TID [facility] Last Admin: 06/01/21 08:07 Dose: Not Given Documented by: Letrozole (Letrozole 2.5 Mg Tab) 2.5 mg PO DAILY [facility] Last Admin: 06/01/21 08:06 Dose: 2.5 mg Documented by: Lorazepam (Lorazepam 2 Mg/Ml Sdv) 1 mg IV Q6H PRN PRN Reason: Anxiety Last Admin: 05/28/21 01:58 Dose: 1 mg Documented by: Losartan Potassium (Losartan 50 Mg Tab) 100 mg PO DAILY [facility] Last Admin: 06/01/21 08:06 Dose: 100 mg Documented by: Magnesium Oxide (Magnesium Oxide 400 Mg Tab) 400 mg PO BID [facility] Last Admin: 06/01/21 08:05 Dose: 400 mg Documented by: Melatonin (Melatonin 3 Mg Tab) 6 mg PO BEDTIME PRN PRN Reason: Insomnia Last Admin: 05/27/21 22:19 Dose: 6 mg Documented by: Mometasone Furoate/Formoterol Fumar (Formoterol/Mometasone 100-5 Mcg 8.8 Gm Inhaler) 2 puff IH BIDRT [facility] Last Admin: 06/01/21 07:05 Dose: 2 puff Documented by: Morphine Sulfate (Morphine 2 Mg/Ml Syringe) 2 mg IVPUSH Q2H PRN PRN Reason: Pain (severe 7-10) Last Admin: 05/28/21 06:10 Dose: 1 mg Documented by: Nortriptyline HCl (Nortriptyline 25 Mg Cap) 50 mg PO DAILY [facility] Last Admin: 06/01/21 08:06 Dose: 50 mg Documented by: Nystatin (Nystatin Topical Powder 15 Gm Bottle) 0 gm TOP BID [facility] Last Admin: 06/01/21 08:07 Dose: 1 dose Documented by: Ondansetron HCl (Ondansetron 4 Mg Tab.Dis) 4 mg PO Q6H PRN PRN Reason: Nausea able to take PO Ondansetron HCl (Ondansetron 4 Mg/2 Ml Sdv) 4 mg IV Q4H PRN PRN Reason: Nausea/Vomiting Oxycodone HCl (Oxycodone 5 Mg Tab) 5 mg PO Q4H PRN PRN Reason: Pain (moderate 4-6) Last Admin: 05/28/21 14:09 Dose: 5 mg Documented by: Pantoprazole Sodium (Pantoprazole 40 Mg Tab.Cr) 40 mg PO BEDTIME [facility] Last Admin: 05/31/21 20:17 Dose: 40 mg Documented by: Potassium Chloride (Potassium Chloride 20 Meq Tab.Er) 20 meq PO BID [facility] Last Admin: 06/01/21 08:06 Dose: 20 meq Documented by: Pravastatin Sodium (Pravastatin 20 Mg Tab) 20 mg PO BEDTIME [facility] Last Admin: 05/31/21 20:17 Dose: 20 mg Documented by: Prednisone (Prednisone 20 Mg Tab) 20 mg PO WITHBREAKFAST [facility] Last Admin: 06/01/21 08:06 Dose: 20 mg Documented by: Sodium Chloride (Sodium Chloride 0.9% 10 Ml Syringe) 10 ml FLUSH ASDIRECTED PRN PRN Reason: Keep Vein Open Last Admin: 05/27/21 18:34 Dose: 10 ml Documented by: Tiotropium [place] (Tiotropium [place] 4 Gm Inhalation [place] (2.5mcg/1 Dose; 10 Doses)) 0 gm INH DAILYRT [facility] Last Admin: 06/01/21 07:05 Dose: 2 puff Documented by: Trazodone HCl (Trazodone 50 Mg Tab) 150 mg PO BEDTIME [facility] Last Admin: 05/31/21 20:17 Dose: 150 mg Documented by: Venlafaxine HCl (Venlafaxine 75 Mg Cap.Er) 75 mg PO DAILY [facility] Last Admin: 06/01/21 08:06 Dose: 75 mg Documented by: Discontinued Medications Albuterol (Albuterol 0.083% 2.5 Mg/3 Ml Neb Soln) 2.5 mg NEB ONETIME ONE Stop: 05/27/21 19:04 Last Admin: 05/27/21 19:09 Dose: 2.5 mg Documented by: Albuterol (Albuterol 0.083% 2.5 Mg/3 Ml Neb Soln) 2.5 mg NEB Q4H PRN PRN Reason: Shortness Of Breath/wheezing Last Admin: 05/27/21 23:04 Dose: 2.5 mg Documented by: Budesonide (Budesonide 0.25 Mg/2 Ml Neb Susp) 0.25 mg NEB ONETIME ONE Stop: 05/28/21 04:56 Last Admin: 05/28/21 05:07 Dose: Not Given Documented by: Budesonide (Budesonide 0.5 Mg/2 Ml Neb Susp) Confirm Administered Dose 0.5 mg .ROUTE .STK-MED ONE Stop: 05/28/21 05:02 Last Admin: 05/28/21 05:09 Dose: Not Given Documented by: Budesonide (Budesonide 0.5 Mg/2 Ml Neb Susp) 0.5 mg NEB ONETIME ONE Stop: 05/28/21 05:05 Last Admin: 05/28/21 05:04 Dose: 0.5 mg Documented by: Dimethicone/Zinc Oxide (Dimethicone 20%/Zinc Oxide 25% 56 Gm [place] Bottle) 1 gm TOP ASDIRECTED PRN PRN Reason: Rash Enoxaparin Sodium (Enoxaparin 40 Mg/0.4 Ml Syringe) 40 mg SUBCUT DAILY [facility] Last Admin: 05/27/21 22:14 Dose: 40 mg Documented by: Furosemide (Furosemide 40 Mg/4 Ml Vial) 60 mg IVPUSH ONETIME ONE Stop: 05/27/21 19:50 Last Admin: 05/27/21 19:59 Dose: 60 mg Documented by: Ceftriaxone Sodium 1 gm/ (Sodium Chloride) 50 mls @ 200 mls/hr IV Q24H [facility] Stop: 06/03/21 21:31 Last Admin: 05/30/21 20:34 Dose: 200 mls/hr Documented by: Azithromycin 500 mg/ Sodium (Chloride) 250 mls @ 250 mls/hr IV Q24H [facility] Stop: 05/30/21 22:01 Last Admin: 05/30/21 21:25 Dose: 250 mls/hr Documented by: Sodium Chloride (Normal Saline) 1,000 mls @ 500 mls/hr IV ASDIRECTED [facility] Last Admin: 05/28/21 07:54 Dose: 500 mls/hr Documented by: Sodium Chloride (Normal Saline) 1,000 mls @ 125 mls/hr IV ASDIRECTED [facility] Last Admin: 05/29/21 10:57 Dose: 125 mls/hr Documented by: Levalbuterol HCl (Levalbuterol Hcl 1.25 Mg/3 Ml Neb) Confirm Administered Dose 1.25 mg .ROUTE .STK-MED ONE Stop: 05/28/21 04:41 Last Admin: 05/28/21 04:44 Dose: Not Given Documented by: Levalbuterol HCl (Levalbuterol Hcl 1.25 Mg/3 Ml Neb) 1.25 mg NEB ONETIME ONE Stop: 05/28/21 04:43 Last Admin: 05/28/21 04:42 Dose: 1.25 mg Documented by: Lorazepam (Lorazepam 2 Mg/Ml Sdv) 1 mg IVPUSH ONETIME ONE Stop: 05/28/21 03:31 Last Admin: 05/28/21 03:54 Dose: 1 mg Documented by: Magnesium Oxide (Magnesium Oxide 400 Mg Tab) 400 mg PO DAILY [facility] Last Admin: 05/28/21 09:36 Dose: 400 mg Documented by: Magnesium Oxide (Magnesium Oxide 400 Mg Tab) 400 mg PO ONETIME ONE Stop: 05/27/21 22:22 Last Admin: 05/27/21 22:44 Dose: 400 mg Documented by: Methylprednisolone Sodium Succinate (Methylprednisolone Sodium Succinate 125 Mg/2 Ml Sdv) 125 mg IVPUSH ONETIME ONE Stop: 05/27/21 18:22 Last Admin: 05/27/21 18:33 Dose: 125 mg Documented by: Methylprednisolone Sodium Succinate (Methylprednisolone Sodium Succinate 125 Mg/2 Ml Sdv) 62.5 mg IV Q6H [facility] Last Admin: 05/30/21 05:01 Dose: 62.5 mg Documented by: Methylprednisolone Sodium Succinate (Methylprednisolone Sodium Succinate 40 Mg/1 Ml Sdv) 40 mg IV Q12H [facility] Last Admin: 05/31/21 05:24 Dose: 40 mg Documented by: Mometasone Furoate/Formoterol Fumar (Formoterol/Mometasone 100-5 Mcg 8.8 Gm Inhaler) 2 puff IH BID [facility] Last Admin: 05/27/21 22:33 Dose: 1 inhaler Documented by: Non-Formulary Medication (Fluticasone/Salmeterol [Advair 100-50]) 2 puff INH BID [facility] Last Admin: 05/27/21 23:53 Dose: Not Given Documented by: Non-Formulary Medication (Losartan/Hydrochlorothiazide [Hyzaar 100-25 Tablet]) 1 tab PO DAILY [facility] Nystatin (Nystatin Topical Powder 15 Gm Bottle) 0 gm TOP BID [facility] Last Admin: 05/27/21 23:53 Dose: 1 applic Documented by: Sodium Chloride (Sodium Chloride 0.9% Inhalation Soln 3 Ml Neb) 3 ml INH ONETIME ONE Stop: 05/28/21 04:56 Last Admin: 05/28/21 05:25 Dose: 3 ml Documented by: - Exam Quality Assessment: Supplemental Oxygen General: Alert, Oriented, Cooperative, No Acute Distress Lungs: Normal Respiratory Effort, Decreased Breath Sounds (both bases), Crackles (few left lung base). No: Wheezing Cardiovascular: Regular Rate, Regular Rhythm GI/Abdominal Exam: Soft, No Distention Extremities: No Pedal Edema. No: Increased Warmth Skin: Warm, Dry Psy/Mental Status: Alert, Normal Affect - Patient Data Lab Results Last 24 hrs: Laboratory Results - last 24 hr 05/31/21 05/31/21 05/31/21 Range/Units 11:19 16:57 20:12 POC Glucose Cancelled 193 H 152 H 06/01/21 Range/Units 07:16 POC Glucose 94 Result Diagrams: 05/29/21 04:56 05/29/21 04:56 Jonnie Results Last 24 hrs: Microbiology 05/27/21 21:55 Aerobic Blood Culture - Preliminary Blood - Arm, Right NO GROWTH AFTER 4 DAYS Anaerobic Blood Culture - Preliminary NO GROWTH AFTER 4 DAYS 05/27/21 21:50 Aerobic Blood Culture - Preliminary Blood - Arm, Left NO GROWTH AFTER 4 DAYS Anaerobic Blood Culture - Preliminary NO GROWTH AFTER 4 DAYS Sepsis Event Note - Evaluation Sepsis Screening Result: No Definite Risk - Focused Exam Vital Signs: Vital Signs Temp Pulse Resp BP BP Pulse Ox 06/01/21 08:07 125/50 L 06/01/21 08:06 125/50 L 06/01/21 07:37 36.4 C 82 20 125/50 L 90 L 06/01/21 07:27 91 L 06/01/21 03:00 36.7 C 67 20 130/49 L 89 L 06/01/21 01:04 92 L 05/31/21 23:00 36.7 C 82 18 115/52 L 89 L - Problem List Review Problem List Initiated/Reviewed/Updated: Yes - My Orders Last 24 Hours: My Active Orders 06/01/21 09:53 OT Evaluation and Treatment [CONS] Routine PT Evaluation and Treatment [CONS] Routine - Plan Plan:: ASSESSMENT AND PLAN - COPD EXACERBATION WITH PNEUMONIA/SEPSIS AND RSV INFECTION-slowly but steadily improving, stable on nasal cannula 2 L/min. Quite weak but otherwise doing well. -Cefdinir 300 mg p.o. twice daily -oxygen to keep sats greater than 90% -Prednisone 20 mg p.o. daily -schedule Duo nebs every 6 hours, Albuterol nebs every 4 hours prn Hyperglycemia-likely secondary to glucocorticoid therapy and has improved significantly with decreased steroids. - discontinue Accu-Cheks and insulin Weakness - due to acute and chronic disease. Lives alone. Wants to go home rather than to acute rehab. -Continue physical and occupational therapy Tobacco dependence - smokes 2 cigarettes per day of tobacco for the past 50 years- no interest in quitting. -declines gum or patch -encouraged to quit smoking Elevated Troponin-resolved. Anxiety/Depression-stable. -continue outpatient medications Maintenance issues -Nutrition: regular diet -[place] catheter -remove -DVT - Lovenox 40 mg subcut daily Disposition: Anticipate discharge to home with family and home care. Meliton Torres MD
[2021-06-01] MEDS: Enoxaparin 40 MG/0.4 ML Syringe SUBCUT SCH (20:09)
[2021-06-01] MEDS: traZODone 50 MG Tab PO SCH (21:05)
[2021-06-01] MEDS: Benzonatate 100 MG Cap PO PRN (21:05)
[2021-06-01] MEDS: Codeine/guaiFENesin 10-100 MG/5 ML Syrup 5 ML Cup PO PRN (21:05)
[2021-06-01] MEDS: Pantoprazole 40 MG Tab.CR PO SCH (21:06)
[2021-06-01] MEDS: Pravastatin 20 MG Tab PO SCH (21:06)
[2021-06-02] MEDS: Albuterol/Ipratropium 3.0-0.5 MG/3 ML Neb Soln NEB SCH ×4 (07:19→21:12)
[2021-06-02] MEDS: Formoterol/Mometasone 100-5 MCG 8.8 GM Inhaler IH SCH ×2 (07:19→21:12)
[2021-06-02] MEDS: Tiotropium Bromide 4 GM Inhalation Spray (2.5mcg/1 dose; 10 doses) INH SCH (07:20)
[2021-06-02] MEDS: Venlafaxine 75 MG Cap.ER PO SCH (09:23)
[2021-06-02] MEDS: Aspirin 81 MG Tab.EC PO SCH (09:23)
[2021-06-02] MEDS: Nortriptyline 25 MG Cap PO SCH (09:23)
[2021-06-02] MEDS: Potassium Chloride 20 MEQ Tab.ER PO SCH ×2 (09:23→21:12)
[2021-06-02] MEDS: ARIPiprazole 10 MG Tab PO SCH (09:23)
[2021-06-02] MEDS: Cefdinir 300 MG Cap PO SCH ×2 (09:23→21:13)
[2021-06-02] MEDS: Magnesium Oxide 400 MG Tab PO SCH ×2 (09:23→21:13)
[2021-06-02] MEDS: Hydrochlorothiazide 25 MG Tab PO SCH (09:23)
[2021-06-02] MEDS: predniSONE 20 MG Tab PO SCH (09:23)
[2021-06-02] MEDS: Losartan 50 MG Tab PO SCH (09:24)
[2021-06-02] MEDS: amLODIPine 5 MG Tab PO SCH (09:24)
[2021-06-02] MEDS: Lactulose Soln 10 GM/15 ML 15 ML UD Cup PO SCH ×3 (09:25→21:12)
[2021-06-02] MEDS: Nystatin Topical Powder 15 GM Bottle TOP SCH ×2 (09:25→21:20)
--- NOTE | 2021-06-02 13:10 | PCM.PN ---
- General Info Date of Service: 06/02/21 Subjective Update: No acute events overnight. No fevers. Patient reports she feels a little less short of breath today. She is tired. She did work with physical therapy and did fairly well. Did well with occupational therapy. Continues to be weak and needing a fair amount of assistance. For the most part she is back to her baseline oxygen requirement but does occasionally require higher levels with activity. - Patient Data Vitals - Most Recent: Last Vital Signs Temp 35.9 C L 06/02/21 11:04 Pulse 89 06/02/21 11:04 Resp 18 06/02/21 11:04 BP 120/65 06/02/21 11:04 Pulse Ox 88 L 06/02/21 11:04 Weight - Most Recent: 107.501 kg I&O - Last 24 Hours: Intake & Output 06/01/21 06/02/21 06/02/21 22:59 06:59 14:59 Intake Total 900 120 300 Balance 900 120 300 Lab Results Last 24 Hours: Laboratory Results - last 24 hr 06/01/21 Range/Units 17:08 POC Glucose 131 H (74-106) mg/dL Jonnie Results Last 24 Hours: Microbiology 05/27/21 21:50 Aerobic Blood Culture - Final Blood - Arm, Left NO GROWTH AFTER 5 DAYS Anaerobic Blood Culture - Final NO GROWTH AFTER 5 DAYS 05/27/21 21:55 Aerobic Blood Culture - Final Blood - Arm, Right NO GROWTH AFTER 5 DAYS Anaerobic Blood Culture - Final NO GROWTH AFTER 5 DAYS Med Orders - Current: Current Medications Acetaminophen (Acetaminophen 325 Mg Tab) 650 mg PO Q4H PRN PRN Reason: Pain (Mild 1-3)/fever Albuterol (Albuterol 0.083% 2.5 Mg/3 Ml Neb Soln) 2.5 mg NEB Q1H PRN PRN Reason: Shortness of Breath Last Admin: 05/30/21 18:20 Dose: 2.5 mg Documented by: Albuterol/Ipratropium (Albuterol/Ipratropium 3.0-0.5 Mg/3 Ml Neb Soln) 3 ml NEB QIDRT HELIO Last Admin: 06/02/21 11:07 Dose: 3 ml Documented by: Alprazolam (Alprazolam 0.5 Mg Tab) 0.5 mg PO BID PRN PRN Reason: Anxiety Amlodipine Besylate (Amlodipine 5 Mg Tab) 10 mg PO DAILY [facility] Last Admin: 06/02/21 09:24 Dose: 10 mg Documented by: Aripiprazole (Aripiprazole 10 Mg Tab) 10 mg PO DAILY [facility] Last Admin: 06/02/21 09:23 Dose: 10 mg Documented by: Aspirin (Aspirin 81 Mg Tab.Ec) 81 mg PO DAILY [facility] Last Admin: 06/02/21 09:23 Dose: 81 mg Documented by: Benzonatate (Benzonatate 100 Mg Cap) 200 mg PO TID PRN PRN Reason: Cough Last Admin: 06/01/21 21:05 Dose: 200 mg Documented by: Bisacodyl (Bisacodyl 5 Mg Tab) 5 mg PO DAILY PRN PRN Reason: Constipation Cefdinir (Cefdinir 300 Mg Cap) 300 mg PO BID [facility] Last Admin: 06/02/21 09:23 Dose: 300 mg Documented by: Dextrose (Glucose Gel 15 Gm In 37.5 Gm Tube) 15 gm PO ONETIME PRN PRN Reason: Hypoglycemia Dextrose/Water (50% Dextrose In Water 50 Ml Syringe) 50 ml IV ONETIME PRN PRN Reason: Hypoglycemia Dimethicone/Zinc Oxide (Dimethicone 20%/Zinc Oxide 25% 56 Gm [place] Bottle) 0 gm TOP ASDIRECTED PRN PRN Reason: Rash Docusate Sodium (Docusate Sodium 100 Mg Cap) 100 mg PO BID PRN PRN Reason: Constipation Enoxaparin Sodium (Enoxaparin 40 Mg/0.4 Ml Syringe) 40 mg SUBCUT Q24H [facility] Last Admin: 06/01/21 20:09 Dose: 40 mg Documented by: Guaifenesin/Codeine Phosphate (Codeine/Guaifenesin 10-100 Mg/5 Ml Syrup 5 Ml Cup) 10 ml PO Q6H PRN PRN Reason: Cough Last Admin: 06/01/21 21:05 Dose: 10 ml Documented by: Hydrochlorothiazide (Hydrochlorothiazide 25 Mg Tab) 25 mg PO DAILY [facility] Last Admin: 06/02/21 09:23 Dose: 25 mg Documented by: Ibuprofen (Ibuprofen 800 Mg Tab) 800 mg PO QID PRN PRN Reason: Pain (moderate 4-6) Lactulose (Lactulose Soln 10 Gm/15 Ml 15 Ml Ud Cup) 20 gm PO TID [facility] Last Admin: 06/02/21 09:25 Dose: Not Given Documented by: Letrozole (Letrozole 2.5 Mg Tab) 2.5 mg PO DAILY [facility] Last Admin: 06/02/21 09:23 Dose: 2.5 mg Documented by: Lorazepam (Lorazepam 2 Mg/Ml Sdv) 1 mg IV Q6H PRN PRN Reason: Anxiety Last Admin: 05/28/21 01:58 Dose: 1 mg Documented by: Losartan Potassium (Losartan 50 Mg Tab) 100 mg PO DAILY [facility] Last Admin: 06/02/21 09:24 Dose: 100 mg Documented by: Magnesium Oxide (Magnesium Oxide 400 Mg Tab) 400 mg PO BID [facility] Last Admin: 06/02/21 09:23 Dose: 400 mg Documented by: Melatonin (Melatonin 3 Mg Tab) 6 mg PO BEDTIME PRN PRN Reason: Insomnia Last Admin: 05/27/21 22:19 Dose: 6 mg Documented by: Mometasone Furoate/Formoterol Fumar (Formoterol/Mometasone 100-5 Mcg 8.8 Gm Inhaler) 2 puff IH BIDRT [facility] Last Admin: 06/02/21 07:19 Dose: 2 puff Documented by: Morphine Sulfate (Morphine 2 Mg/Ml Syringe) 2 mg IVPUSH Q2H PRN PRN Reason: Pain (severe 7-10) Last Admin: 05/28/21 06:10 Dose: 1 mg Documented by: Nortriptyline HCl (Nortriptyline 25 Mg Cap) 50 mg PO DAILY [facility] Last Admin: 06/02/21 09:23 Dose: 50 mg Documented by: Nystatin (Nystatin Topical Powder 15 Gm Bottle) 0 gm TOP BID [facility] Last Admin: 06/02/21 09:25 Dose: Not Given Documented by: Ondansetron HCl (Ondansetron 4 Mg Tab.Dis) 4 mg PO Q6H PRN PRN Reason: Nausea able to take PO Ondansetron HCl (Ondansetron 4 Mg/2 Ml Sdv) 4 mg IV Q4H PRN PRN Reason: Nausea/Vomiting Oxycodone HCl (Oxycodone 5 Mg Tab) 5 mg PO Q4H PRN PRN Reason: Pain (moderate 4-6) Last Admin: 05/28/21 14:09 Dose: 5 mg Documented by: Pantoprazole Sodium (Pantoprazole 40 Mg Tab.Cr) 40 mg PO BEDTIME [facility] Last Admin: 06/01/21 21:06 Dose: 40 mg Documented by: Potassium Chloride (Potassium Chloride 20 Meq Tab.Er) 20 meq PO BID [facility] Last Admin: 06/02/21 09:23 Dose: 20 meq Documented by: Pravastatin Sodium (Pravastatin 20 Mg Tab) 20 mg PO BEDTIME [facility] Last Admin: 06/01/21 21:06 Dose: 20 mg Documented by: Prednisone (Prednisone 20 Mg Tab) 20 mg PO WITHBREAKFAST [facility] Last Admin: 06/02/21 09:23 Dose: 20 mg Documented by: Sodium Chloride (Sodium Chloride 0.9% 10 Ml Syringe) 10 ml FLUSH ASDIRECTED PRN PRN Reason: Keep Vein Open Last Admin: 05/27/21 18:34 Dose: 10 ml Documented by: Tiotropium [place] (Tiotropium [place] 4 Gm Inhalation [place] (2.5mcg/1 Dose; 10 Doses)) 0 gm INH DAILYRT [facility] Last Admin: 06/02/21 07:20 Dose: 2 puff Documented by: Trazodone HCl (Trazodone 50 Mg Tab) 150 mg PO BEDTIME [facility] Last Admin: 06/01/21 21:05 Dose: 150 mg Documented by: Venlafaxine HCl (Venlafaxine 75 Mg Cap.Er) 75 mg PO DAILY [facility] Last Admin: 06/02/21 09:23 Dose: 75 mg Documented by: Discontinued Medications Albuterol (Albuterol 0.083% 2.5 Mg/3 Ml Neb Soln) 2.5 mg NEB ONETIME ONE Stop: 05/27/21 19:04 Last Admin: 05/27/21 19:09 Dose: 2.5 mg Documented by: Albuterol (Albuterol 0.083% 2.5 Mg/3 Ml Neb Soln) 2.5 mg NEB Q4H PRN PRN Reason: Shortness Of Breath/wheezing Last Admin: 05/27/21 23:04 Dose: 2.5 mg Documented by: Budesonide (Budesonide 0.25 Mg/2 Ml Neb Susp) 0.25 mg NEB ONETIME ONE Stop: 05/28/21 04:56 Last Admin: 05/28/21 05:07 Dose: Not Given Documented by: Budesonide (Budesonide 0.5 Mg/2 Ml Neb Susp) Confirm Administered Dose 0.5 mg .ROUTE .STK-MED ONE Stop: 05/28/21 05:02 Last Admin: 05/28/21 05:09 Dose: Not Given Documented by: Budesonide (Budesonide 0.5 Mg/2 Ml Neb Susp) 0.5 mg NEB ONETIME ONE Stop: 05/28/21 05:05 Last Admin: 05/28/21 05:04 Dose: 0.5 mg Documented by: Dimethicone/Zinc Oxide (Dimethicone 20%/Zinc Oxide 25% 56 Gm [place] Bottle) 1 gm TOP ASDIRECTED PRN PRN Reason: Rash Enoxaparin Sodium (Enoxaparin 40 Mg/0.4 Ml Syringe) 40 mg SUBCUT DAILY [facility] Last Admin: 05/27/21 22:14 Dose: 40 mg Documented by: Furosemide (Furosemide 40 Mg/4 Ml Vial) 60 mg IVPUSH ONETIME ONE Stop: 05/27/21 19:50 Last Admin: 05/27/21 19:59 Dose: 60 mg Documented by: Ceftriaxone Sodium 1 gm/ (Sodium Chloride) 50 mls @ 200 mls/hr IV Q24H [facility] Stop: 06/03/21 21:31 Last Admin: 05/30/21 20:34 Dose: 200 mls/hr Documented by: Azithromycin 500 mg/ Sodium (Chloride) 250 mls @ 250 mls/hr IV Q24H [facility] Stop: 05/30/21 22:01 Last Admin: 05/30/21 21:25 Dose: 250 mls/hr Documented by: Sodium Chloride (Normal Saline) 1,000 mls @ 500 mls/hr IV ASDIRECTED [facility] Last Admin: 05/28/21 07:54 Dose: 500 mls/hr Documented by: Sodium Chloride (Normal Saline) 1,000 mls @ 125 mls/hr IV ASDIRECTED [facility] Last Admin: 05/29/21 10:57 Dose: 125 mls/hr Documented by: Insulin Human Lispro (Insulin Lispro 100 Unit/Ml 3 Ml Kwikpen) 0 unit SUBCUT QIDACANDBED [facility]; Protocol Last Admin: 06/01/21 17:14 Dose: Not Given Documented by: Levalbuterol HCl (Levalbuterol Hcl 1.25 Mg/3 Ml Neb) Confirm Administered Dose 1.25 mg .ROUTE .STK-MED ONE Stop: 05/28/21 04:41 Last Admin: 05/28/21 04:44 Dose: Not Given Documented by: Levalbuterol HCl (Levalbuterol Hcl 1.25 Mg/3 Ml Neb) 1.25 mg NEB ONETIME ONE Stop: 05/28/21 04:43 Last Admin: 05/28/21 04:42 Dose: 1.25 mg Documented by: Lorazepam (Lorazepam 2 Mg/Ml Sdv) 1 mg IVPUSH ONETIME ONE Stop: 05/28/21 03:31 Last Admin: 05/28/21 03:54 Dose: 1 mg Documented by: Magnesium Oxide (Magnesium Oxide 400 Mg Tab) 400 mg PO DAILY [facility] Last Admin: 05/28/21 09:36 Dose: 400 mg Documented by: Magnesium Oxide (Magnesium Oxide 400 Mg Tab) 400 mg PO ONETIME ONE Stop: 05/27/21 22:22 Last Admin: 05/27/21 22:44 Dose: 400 mg Documented by: Methylprednisolone Sodium Succinate (Methylprednisolone Sodium Succinate 125 Mg/2 Ml Sdv) 125 mg IVPUSH ONETIME ONE Stop: 05/27/21 18:22 Last Admin: 05/27/21 18:33 Dose: 125 mg Documented by: Methylprednisolone Sodium Succinate (Methylprednisolone Sodium Succinate 125 Mg/2 Ml Sdv) 62.5 mg IV Q6H [facility] Last Admin: 05/30/21 05:01 Dose: 62.5 mg Documented by: Methylprednisolone Sodium Succinate (Methylprednisolone Sodium Succinate 40 Mg/1 Ml Sdv) 40 mg IV Q12H [facility] Last Admin: 05/31/21 05:24 Dose: 40 mg Documented by: Mometasone Furoate/Formoterol Fumar (Formoterol/Mometasone 100-5 Mcg 8.8 Gm Inhaler) 2 puff IH BID [facility] Last Admin: 05/27/21 22:33 Dose: 1 inhaler Documented by: Non-Formulary Medication (Fluticasone/Salmeterol [Advair 100-50]) 2 puff INH BID [facility] Last Admin: 05/27/21 23:53 Dose: Not Given Documented by: Non-Formulary Medication (Losartan/Hydrochlorothiazide [Hyzaar 100-25 Tablet]) 1 tab PO DAILY [facility] Nystatin (Nystatin Topical Powder 15 Gm Bottle) 0 gm TOP BID [facility] Last Admin: 05/27/21 23:53 Dose: 1 applic Documented by: Sodium Chloride (Sodium Chloride 0.9% Inhalation Soln 3 Ml Neb) 3 ml INH ONETIME ONE Stop: 05/28/21 04:56 Last Admin: 05/28/21 05:25 Dose: 3 ml Documented by: - Exam General: Alert, Cooperative, No Acute Distress Lungs: Normal Respiratory Effort GI/Abdominal Exam: Soft, No Distention Extremities: No Pedal Edema Psy/Mental Status: Alert, Normal Affect - Patient Data Lab Results Last 24 hrs: Laboratory Results - last 24 hr 06/01/21 Range/Units 17:08 POC Glucose 131 H (74-106) mg/dL Result Diagrams: 05/29/21 04:56 05/29/21 04:56 Jonnie Results Last 24 hrs: Microbiology 05/27/21 21:50 Aerobic Blood Culture - Final Blood - Arm, Left NO GROWTH AFTER 5 DAYS Anaerobic Blood Culture - Final NO GROWTH AFTER 5 DAYS 05/27/21 21:55 Aerobic Blood Culture - Final Blood - Arm, Right NO GROWTH AFTER 5 DAYS Anaerobic Blood Culture - Final NO GROWTH AFTER 5 DAYS Sepsis Event Note - Evaluation Sepsis Screening Result: No Definite Risk - Focused Exam Vital Signs: Vital Signs Temp Temp Pulse Resp BP BP Pulse Ox 06/02/21 11:04 35.9 C L 89 18 120/65 88 L 06/02/21 09:24 123/82 06/02/21 07:58 35 C L 64 16 143/70 H 91 L 06/02/21 07:34 93 L 06/02/21 02:08 66 115/65 93 L 06/02/21 01:42 95 - Problem List Review Problem List Initiated/Reviewed/Updated: Yes - Plan Plan:: ASSESSMENT AND PLAN - COPD EXACERBATION WITH PNEUMONIA/SEPSIS AND RSV INFECTION-slowly but steadily improving, stable on nasal cannula 2 L/min. Still weak but slowly improving. -Cefdinir 300 mg p.o. twice daily -oxygen to keep sats greater than 90% -Prednisone 20 mg p.o. daily -schedule Duo nebs every 6 hours, Albuterol nebs every 4 hours prn Hyperglycemia-likely secondary to glucocorticoid therapy and has resolved with reduced dose of steroids. -discontinue Accu-Cheks and insulin Weakness - due to acute and chronic disease. Lives alone. Wants to go home rather than to acute rehab but has been slow to make improvements and may need subacute rehab. -Continue physical and occupational therapy Tobacco dependence - smokes 2 cigarettes per day of tobacco for the past 50 years- no interest in quitting. -declines gum or patch -encouraged to quit smoking Elevated Troponin-resolved. Anxiety/Depression-stable. -continue outpatient medications Maintenance issues -Nutrition: regular diet -[place] catheter -remove -DVT - Lovenox 40 mg subcut daily Disposition: Anticipate discharge to home with family and home care versus subacute rehab. Meliton Torres MD
[2021-06-02] MEDS: Ibuprofen 800 MG Tab PO PRN ×2 (14:09→19:55)
[2021-06-02] MEDS: Codeine/guaiFENesin 10-100 MG/5 ML Syrup 5 ML Cup PO PRN (18:20)
[2021-06-02] MEDS: Enoxaparin 40 MG/0.4 ML Syringe SUBCUT SCH (19:52)
[2021-06-02] MEDS: traZODone 50 MG Tab PO SCH (21:13)
[2021-06-02] MEDS: Pantoprazole 40 MG Tab.CR PO SCH (21:14)
[2021-06-02] MEDS: Pravastatin 20 MG Tab PO SCH (21:14)
[2021-06-03] MEDS: Codeine/guaiFENesin 10-100 MG/5 ML Syrup 5 ML Cup PO PRN ×2 (06:58→19:25)
[2021-06-03] MEDS: Tiotropium Bromide 4 GM Inhalation Spray (2.5mcg/1 dose; 10 doses) INH SCH (07:19)
[2021-06-03] MEDS: Albuterol/Ipratropium 3.0-0.5 MG/3 ML Neb Soln NEB SCH ×4 (07:19→21:21)
[2021-06-03] MEDS: Formoterol/Mometasone 100-5 MCG 8.8 GM Inhaler IH SCH ×2 (07:19→21:20)
[2021-06-03] MEDS: Ibuprofen 800 MG Tab PO PRN ×2 (07:20→14:40)
[2021-06-03] MEDS: predniSONE 20 MG Tab PO SCH (07:48)
[2021-06-03] MEDS ORDERED: Furosemide 20 MG/2 ML VIAL IVPUSH ONE (08:06)
[2021-06-03] MEDS: Sodium Chloride 0.9% 10 ML Syringe FLUSH PRN (08:42)
[2021-06-03] MEDS: Magnesium Oxide 400 MG Tab PO SCH ×2 (08:56→21:22)
[2021-06-03] MEDS: Cefdinir 300 MG Cap PO SCH ×2 (08:56→21:22)
[2021-06-03] MEDS: ARIPiprazole 10 MG Tab PO SCH (08:57)
[2021-06-03] MEDS: Potassium Chloride 20 MEQ Tab.ER PO SCH ×2 (08:57→21:21)
[2021-06-03] MEDS: Venlafaxine 75 MG Cap.ER PO SCH (08:57)
[2021-06-03] MEDS: Hydrochlorothiazide 25 MG Tab PO SCH (08:58)
[2021-06-03] MEDS: Aspirin 81 MG Tab.EC PO SCH (08:59)
[2021-06-03] MEDS: Losartan 50 MG Tab PO SCH (08:59)
[2021-06-03] MEDS: amLODIPine 5 MG Tab PO SCH (09:00)
[2021-06-03] MEDS: Nortriptyline 25 MG Cap PO SCH (09:00)
[2021-06-03] MEDS: Lactulose Soln 10 GM/15 ML 15 ML UD Cup PO SCH ×4 (09:05→21:01)
[2021-06-03] MEDS: Nystatin Topical Powder 15 GM Bottle TOP SCH ×2 (09:08→21:22)
--- NOTE | 2021-06-03 10:51 | PCM.PN ---
- General Info Date of Service: 06/03/21 Subjective Update: No acute events overnight. Patient did require slightly more oxygen overnight but is back to 3 L this morning. She feels less short of breath again today. Strength is a little better. Energy is a little better. She admits she is still weak but thinks she is getting fairly close to baseline. Appetite has been okay. Was able to work with physical therapy this morning and took what she thinks was a nice walk. She is really hoping to go home rather than to subacute rehab. Functional Status: Reports: Pain Controlled, Tolerating Diet - Review of Systems General: Reports: Weakness Pulmonary: Reports: Shortness of Breath (mild) - Patient Data Vitals - Most Recent: Last Vital Signs Temp 36.0 C L 06/03/21 07:06 Pulse 66 06/03/21 07:06 Resp 24 H 06/03/21 07:06 BP 145/71 H 06/03/21 09:00 Pulse Ox 93 L 06/03/21 07:27 Weight - Most Recent: 107.501 kg I&O - Last 24 Hours: Intake & Output 06/02/21 06/03/21 06/03/21 22:59 06:59 14:59 Intake Total 355 350 250 Balance 355 350 250 Med Orders - Current: Current Medications Acetaminophen (Acetaminophen 325 Mg Tab) 650 mg PO Q4H PRN PRN Reason: Pain (Mild 1-3)/fever Albuterol (Albuterol 0.083% 2.5 Mg/3 Ml Neb Soln) 2.5 mg NEB Q1H PRN PRN Reason: Shortness of Breath Last Admin: 05/30/21 18:20 Dose: 2.5 mg Documented by: Albuterol/Ipratropium (Albuterol/Ipratropium 3.0-0.5 Mg/3 Ml Neb Soln) 3 ml NEB QIDRT [facility] Last Admin: 06/03/21 07:19 Dose: 3 ml Documented by: Alprazolam (Alprazolam 0.5 Mg Tab) 0.5 mg PO BID PRN PRN Reason: Anxiety Amlodipine Besylate (Amlodipine 5 Mg Tab) 10 mg PO DAILY [facility] Last Admin: 06/03/21 09:00 Dose: 10 mg Documented by: Aripiprazole (Aripiprazole 10 Mg Tab) 10 mg PO DAILY [facility] Last Admin: 06/03/21 08:57 Dose: 10 mg Documented by: Aspirin (Aspirin 81 Mg Tab.Ec) 81 mg PO DAILY [facility] Last Admin: 06/03/21 08:59 Dose: 81 mg Documented by: Benzonatate (Benzonatate 100 Mg Cap) 200 mg PO TID PRN PRN Reason: Cough Last Admin: 06/01/21 21:05 Dose: 200 mg Documented by: Bisacodyl (Bisacodyl 5 Mg Tab) 5 mg PO DAILY PRN PRN Reason: Constipation Cefdinir (Cefdinir 300 Mg Cap) 300 mg PO BID [facility] Last Admin: 06/03/21 08:56 Dose: 300 mg Documented by: Dextrose (Glucose Gel 15 Gm In 37.5 Gm Tube) 15 gm PO ONETIME PRN PRN Reason: Hypoglycemia Dextrose/Water (50% Dextrose In Water 50 Ml Syringe) 50 ml IV ONETIME PRN PRN Reason: Hypoglycemia Dimethicone/Zinc Oxide (Dimethicone 20%/Zinc Oxide 25% 56 Gm [place] Bottle) 0 gm TOP ASDIRECTED PRN PRN Reason: Rash Docusate Sodium (Docusate Sodium 100 Mg Cap) 100 mg PO BID PRN PRN Reason: Constipation Enoxaparin Sodium (Enoxaparin 40 Mg/0.4 Ml Syringe) 40 mg SUBCUT Q24H [facility] Last Admin: 06/02/21 19:52 Dose: 40 mg Documented by: Guaifenesin/Codeine Phosphate (Codeine/Guaifenesin 10-100 Mg/5 Ml Syrup 5 Ml Cup) 10 ml PO Q6H PRN PRN Reason: Cough Last Admin: 06/03/21 06:58 Dose: 10 ml Documented by: Hydrochlorothiazide (Hydrochlorothiazide 25 Mg Tab) 25 mg PO DAILY [facility] Last Admin: 06/03/21 08:58 Dose: 25 mg Documented by: Ibuprofen (Ibuprofen 800 Mg Tab) 800 mg PO QID PRN PRN Reason: Pain (moderate 4-6) Last Admin: 06/03/21 07:20 Dose: 800 mg Documented by: Lactulose (Lactulose Soln 10 Gm/15 Ml 15 Ml Ud Cup) 20 gm PO TID [facility] Last Admin: 06/03/21 09:05 Dose: 20 gm Documented by: Letrozole (Letrozole 2.5 Mg Tab) 2.5 mg PO DAILY [facility] Last Admin: 06/03/21 08:58 Dose: 2.5 mg Documented by: Lorazepam (Lorazepam 2 Mg/Ml Sdv) 1 mg IV Q6H PRN PRN Reason: Anxiety Last Admin: 05/28/21 01:58 Dose: 1 mg Documented by: Losartan Potassium (Losartan 50 Mg Tab) 100 mg PO DAILY [facility] Last Admin: 06/03/21 08:59 Dose: 100 mg Documented by: Magnesium Oxide (Magnesium Oxide 400 Mg Tab) 400 mg PO BID [facility] Last Admin: 06/03/21 08:56 Dose: 400 mg Documented by: Melatonin (Melatonin 3 Mg Tab) 6 mg PO BEDTIME PRN PRN Reason: Insomnia Last Admin: 05/27/21 22:19 Dose: 6 mg Documented by: Mometasone Furoate/Formoterol Fumar (Formoterol/Mometasone 100-5 Mcg 8.8 Gm Inhaler) 2 puff IH BIDRT [facility] Last Admin: 06/03/21 07:19 Dose: 2 puff Documented by: Morphine Sulfate (Morphine 2 Mg/Ml Syringe) 2 mg IVPUSH Q2H PRN PRN Reason: Pain (severe 7-10) Last Admin: 05/28/21 06:10 Dose: 1 mg Documented by: Nortriptyline HCl (Nortriptyline 25 Mg Cap) 50 mg PO DAILY [facility] Last Admin: 06/03/21 09:00 Dose: 50 mg Documented by: Nystatin (Nystatin Topical Powder 15 Gm Bottle) 0 gm TOP BID [facility] Last Admin: 06/03/21 09:08 Dose: 1 applic Documented by: Ondansetron HCl (Ondansetron 4 Mg Tab.Dis) 4 mg PO Q6H PRN PRN Reason: Nausea able to take PO Ondansetron HCl (Ondansetron 4 Mg/2 Ml Sdv) 4 mg IV Q4H PRN PRN Reason: Nausea/Vomiting Oxycodone HCl (Oxycodone 5 Mg Tab) 5 mg PO Q4H PRN PRN Reason: Pain (moderate 4-6) Last Admin: 05/28/21 14:09 Dose: 5 mg Documented by: Pantoprazole Sodium (Pantoprazole 40 Mg Tab.Cr) 40 mg PO BEDTIME [facility] Last Admin: 06/02/21 21:14 Dose: 40 mg Documented by: Potassium Chloride (Potassium Chloride 20 Meq Tab.Er) 20 meq PO BID [facility] Last Admin: 06/03/21 08:57 Dose: 20 meq Documented by: Pravastatin Sodium (Pravastatin 20 Mg Tab) 20 mg PO BEDTIME [facility] Last Admin: 06/02/21 21:14 Dose: 20 mg Documented by: Prednisone (Prednisone 20 Mg Tab) 20 mg PO WITHBREAKFAST [facility] Last Admin: 06/03/21 07:48 Dose: 20 mg Documented by: Sodium Chloride (Sodium Chloride 0.9% 10 Ml Syringe) 10 ml FLUSH ASDIRECTED PRN PRN Reason: Keep Vein Open Last Admin: 06/03/21 08:42 Dose: 10 ml Documented by: Tiotropium [place] (Tiotropium [place] 4 Gm Inhalation [place] (2.5mcg/1 Dose; 10 Doses)) 0 gm INH DAILYRT [facility] Last Admin: 06/03/21 07:19 Dose: 4 gm Documented by: Trazodone HCl (Trazodone 50 Mg Tab) 150 mg PO BEDTIME [facility] Last Admin: 06/02/21 21:13 Dose: 150 mg Documented by: Venlafaxine HCl (Venlafaxine 75 Mg Cap.Er) 75 mg PO DAILY [facility] Last Admin: 06/03/21 08:57 Dose: 75 mg Documented by: Discontinued Medications Albuterol (Albuterol 0.083% 2.5 Mg/3 Ml Neb Soln) 2.5 mg NEB ONETIME ONE Stop: 05/27/21 19:04 Last Admin: 05/27/21 19:09 Dose: 2.5 mg Documented by: Albuterol (Albuterol 0.083% 2.5 Mg/3 Ml Neb Soln) 2.5 mg NEB Q4H PRN PRN Reason: Shortness Of Breath/wheezing Last Admin: 05/27/21 23:04 Dose: 2.5 mg Documented by: Budesonide (Budesonide 0.25 Mg/2 Ml Neb Susp) 0.25 mg NEB ONETIME ONE Stop: 05/28/21 04:56 Last Admin: 05/28/21 05:07 Dose: Not Given Documented by: Budesonide (Budesonide 0.5 Mg/2 Ml Neb Susp) Confirm Administered Dose 0.5 mg .ROUTE .STK-MED ONE Stop: 05/28/21 05:02 Last Admin: 05/28/21 05:09 Dose: Not Given Documented by: Budesonide (Budesonide 0.5 Mg/2 Ml Neb Susp) 0.5 mg NEB ONETIME ONE Stop: 05/28/21 05:05 Last Admin: 05/28/21 05:04 Dose: 0.5 mg Documented by: Dimethicone/Zinc Oxide (Dimethicone 20%/Zinc Oxide 25% 56 Gm [place] Bottle) 1 gm TOP ASDIRECTED PRN PRN Reason: Rash Enoxaparin Sodium (Enoxaparin 40 Mg/0.4 Ml Syringe) 40 mg SUBCUT DAILY [facility] Last Admin: 05/27/21 22:14 Dose: 40 mg Documented by: Furosemide (Furosemide 40 Mg/4 Ml Vial) 60 mg IVPUSH ONETIME ONE Stop: 05/27/21 19:50 Last Admin: 05/27/21 19:59 Dose: 60 mg Documented by: Furosemide (Furosemide 20 Mg/2 Ml Vial) 20 mg IVPUSH ONETIME ONE Stop: 06/03/21 08:07 Last Admin: 06/03/21 08:40 Dose: 20 mg Documented by: Ceftriaxone Sodium 1 gm/ (Sodium Chloride) 50 mls @ 200 mls/hr IV Q24H [facility] Stop: 06/03/21 21:31 Last Admin: 05/30/21 20:34 Dose: 200 mls/hr Documented by: Azithromycin 500 mg/ Sodium (Chloride) 250 mls @ 250 mls/hr IV Q24H [facility] Stop: 05/30/21 22:01 Last Admin: 05/30/21 21:25 Dose: 250 mls/hr Documented by: Sodium Chloride (Normal Saline) 1,000 mls @ 500 mls/hr IV ASDIRECTED [facility] Last Admin: 05/28/21 07:54 Dose: 500 mls/hr Documented by: Sodium Chloride (Normal Saline) 1,000 mls @ 125 mls/hr IV ASDIRECTED [facility] Last Admin: 05/29/21 10:57 Dose: 125 mls/hr Documented by: Insulin Human Lispro (Insulin Lispro 100 Unit/Ml 3 Ml Kwikpen) 0 unit SUBCUT QIDACANDBED [facility]; Protocol Last Admin: 06/01/21 17:14 Dose: Not Given Documented by: Levalbuterol HCl (Levalbuterol Hcl 1.25 Mg/3 Ml Neb) Confirm Administered Dose 1.25 mg .ROUTE .STK-MED ONE Stop: 05/28/21 04:41 Last Admin: 05/28/21 04:44 Dose: Not Given Documented by: Levalbuterol HCl (Levalbuterol Hcl 1.25 Mg/3 Ml Neb) 1.25 mg NEB ONETIME ONE Stop: 05/28/21 04:43 Last Admin: 05/28/21 04:42 Dose: 1.25 mg Documented by: Lorazepam (Lorazepam 2 Mg/Ml Sdv) 1 mg IVPUSH ONETIME ONE Stop: 05/28/21 03:31 Last Admin: 05/28/21 03:54 Dose: 1 mg Documented by: Magnesium Oxide (Magnesium Oxide 400 Mg Tab) 400 mg PO DAILY [facility] Last Admin: 05/28/21 09:36 Dose: 400 mg Documented by: Magnesium Oxide (Magnesium Oxide 400 Mg Tab) 400 mg PO ONETIME ONE Stop: 05/27/21 22:22 Last Admin: 05/27/21 22:44 Dose: 400 mg Documented by: Methylprednisolone Sodium Succinate (Methylprednisolone Sodium Succinate 125 Mg/2 Ml Sdv) 125 mg IVPUSH ONETIME ONE Stop: 05/27/21 18:22 Last Admin: 05/27/21 18:33 Dose: 125 mg Documented by: Methylprednisolone Sodium Succinate (Methylprednisolone Sodium Succinate 125 Mg/2 Ml Sdv) 62.5 mg IV Q6H [facility] Last Admin: 05/30/21 05:01 Dose: 62.5 mg Documented by: Methylprednisolone Sodium Succinate (Methylprednisolone Sodium Succinate 40 Mg/1 Ml Sdv) 40 mg IV Q12H [facility] Last Admin: 05/31/21 05:24 Dose: 40 mg Documented by: Mometasone Furoate/Formoterol Fumar (Formoterol/Mometasone 100-5 Mcg 8.8 Gm Inhaler) 2 puff IH BID [facility] Last Admin: 05/27/21 22:33 Dose: 1 inhaler Documented by: Non-Formulary Medication (Fluticasone/Salmeterol [Advair 100-50]) 2 puff INH BID [facility] Last Admin: 05/27/21 23:53 Dose: Not Given Documented by: Non-Formulary Medication (Losartan/Hydrochlorothiazide [Hyzaar 100-25 Tablet]) 1 tab PO DAILY [facility] Nystatin (Nystatin Topical Powder 15 Gm Bottle) 0 gm TOP BID [facility] Last Admin: 05/27/21 23:53 Dose: 1 applic Documented by: Sodium Chloride (Sodium Chloride 0.9% Inhalation Soln 3 Ml Neb) 3 ml INH ONETIME ONE Stop: 05/28/21 04:56 Last Admin: 05/28/21 05:25 Dose: 3 ml Documented by: - Exam Quality Assessment: Supplemental Oxygen General: Alert, Oriented, Cooperative, No Acute Distress Lungs: Normal Respiratory Effort, Decreased Breath Sounds (right lung base), Wheezing (few left lower lung ). No: Crackles Cardiovascular: Regular Rate, Regular Rhythm GI/Abdominal Exam: Soft, No Distention Extremities: No Pedal Edema. No: Increased Warmth Skin: Warm, Dry Psy/Mental Status: Alert, Normal Affect - Patient Data Result Diagrams: 05/29/21 04:56 05/29/21 04:56 Sepsis Event Note - Evaluation Sepsis Screening Result: No Definite Risk - Focused Exam Vital Signs: Vital Signs Temp Pulse Resp BP BP Pulse Ox 06/03/21 09:00 145/71 H 06/03/21 08:59 145/71 H 06/03/21 07:27 93 L 06/03/21 07:06 36.0 C L 66 24 H 145/71 H 85 L 06/03/21 02:34 36.4 C 82 18 154/61 H 93 L 06/03/21 01:00 92 L 06/02/21 23:01 37.3 C 68 18 138/65 92 L - Problem List Review Problem List Initiated/Reviewed/Updated: Yes - My Orders Last 24 Hours: My Active Orders 06/04/21 05:00 BASIC METABOLIC PANEL,BMP [CHEM] Timed CBC W/O DIFF,HEMOGRAM [HEME] Timed (1) - Plan Plan:: ASSESSMENT AND PLAN - COPD EXACERBATION WITH PNEUMONIA/SEPSIS AND RSV INFECTION-slowly but steadily improving, stable on nasal cannula 2-3 L/min. Still weak but slowly improving. -Cefdinir 300 mg p.o. twice daily (discontinue tomorrow) -oxygen to keep sats greater than 90% -Prednisone 20 mg p.o. daily -schedule Duo nebs every 6 hours, Albuterol nebs every 4 hours prn Hyperglycemia-likely secondary to glucocorticoid therapy and has resolved with reduced dose of steroids. -discontinue Accu-Cheks and insulin Weakness - due to acute and chronic disease. Lives alone. Wants to go home rather than to acute rehab but has been slow to make improvements and may need subacute rehab. Family coming in to see how strong she is and how well she is moving since they provide lots of support at home. -Continue physical and occupational therapy Tobacco dependence - smokes 2 cigarettes per day of tobacco for the past 50 years- no interest in quitting. -declines gum or patch -encouraged to quit smoking Elevated Troponin-resolved. Anxiety/Depression-stable. -continue outpatient medications Maintenance issues -Nutrition: regular diet -[place] catheter -remove -DVT - Lovenox 40 mg subcut daily Disposition: Anticipate discharge to home with family and home care versus subacute rehab. She should be ready for discharge tomorrow. Meliton Torres MD
[2021-06-03] MEDS: Enoxaparin 40 MG/0.4 ML Syringe SUBCUT SCH (19:25)
[2021-06-03] MEDS: Pantoprazole 40 MG Tab.CR PO SCH (21:24)
[2021-06-03] MEDS: Pravastatin 20 MG Tab PO SCH (21:24)
[2021-06-03] MEDS: traZODone 50 MG Tab PO SCH (21:24)
[2021-06-04] MEDS: Albuterol/Ipratropium 3.0-0.5 MG/3 ML Neb Soln NEB SCH ×2 (07:00→10:48)
[2021-06-04] MEDS: Formoterol/Mometasone 100-5 MCG 8.8 GM Inhaler IH SCH (07:00)
[2021-06-04] MEDS: Tiotropium Bromide 4 GM Inhalation Spray (2.5mcg/1 dose; 10 doses) INH SCH (07:01)
[2021-06-04] MEDS: ARIPiprazole 10 MG Tab PO SCH (08:23)
[2021-06-04] MEDS: Venlafaxine 75 MG Cap.ER PO SCH (08:23)
[2021-06-04] MEDS: predniSONE 20 MG Tab PO SCH (08:23)
[2021-06-04] MEDS: Lactulose Soln 10 GM/15 ML 15 ML UD Cup PO SCH ×2 (08:24→14:01)
[2021-06-04] MEDS: Aspirin 81 MG Tab.EC PO SCH (08:25)
[2021-06-04] MEDS: Nystatin Topical Powder 15 GM Bottle TOP SCH (08:25)
[2021-06-04] MEDS: Nortriptyline 25 MG Cap PO SCH (08:25)
[2021-06-04] MEDS: Cefdinir 300 MG Cap PO SCH (08:25)
[2021-06-04] MEDS: Magnesium Oxide 400 MG Tab PO SCH (08:25)
[2021-06-04] MEDS: Potassium Chloride 20 MEQ Tab.ER PO SCH (08:25)
[2021-06-04] MEDS: amLODIPine 5 MG Tab PO SCH (08:30)
[2021-06-04] MEDS: Hydrochlorothiazide 25 MG Tab PO SCH (08:32)
[2021-06-04] MEDS: Losartan 50 MG Tab PO SCH (08:32)
--- NOTE | 2021-06-04 10:51 | PCM.DCSUM1 ---
Discharge Summary - Hospital Course Brief History: 70-year-old female with a history of tobacco dependence, oxygen dependent COPD who presented with increasing cough, weakness and shortness of breath. She was admitted for management of a left lower lung pneumonia complicated by a COPD exacerbation and acute respiratory failure with hypoxia. 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 - Discharge Diagnosis/Problem(s) (1) Left lower lobe pneumonia SNOMED Code(s): 335458048 ICD Code: J18.9 - PNEUMONIA, UNSPECIFIED ORGANISM Status: Acute Current Visit: Yes Qualifiers: Pneumonia type: due to unspecified organism Qualified Code(s): J18.9 - Pneumonia, unspecified organism (2) Acute respiratory failure with hypoxia and hypercapnia SNOMED Code(s): 254121454 ICD Code: J96.01 - ACUTE RESPIRATORY FAILURE WITH HYPOXIA; J96.02 - ACUTE RESPIRATORY FAILURE WITH HYPERCAPNIA Status: Acute Current Visit: Yes (3) RSV infection SNOMED Code(s): 35521652 ICD Code: B97.4 - RESPIRATORY SYNCYTIAL VIRUS CAUSING DISEASES CLASSD ELSWHR Status: Acute Priority: High Current Visit: Yes (4) Elevated troponin SNOMED Code(s): 342975811, 522271873, 942842065 ICD Code: R77.8 - OTHER SPECIFIED ABNORMALITIES OF PLASMA PROTEINS Status: Acute Priority: High Current Visit: Yes (5) COPD (chronic obstructive pulmonary disease) SNOMED Code(s): 76795415 ICD Code: J44.9 - CHRONIC OBSTRUCTIVE PULMONARY DISEASE, UNSPECIFIED Status: Acute Priority: High Current Visit: Yes Qualifiers: COPD type: COPD with acute exacerbation Qualified Code(s): J44.1 - Chronic obstructive pulmonary disease with (acute) exacerbation (6) Generalized weakness SNOMED Code(s): 52171416 ICD Code: R53.1 - WEAKNESS Status: Acute Priority: High Current Visit: Yes (7) Tobacco dependence SNOMED Code(s): 19952411 ICD Code: F17.200 - NICOTINE DEPENDENCE, UNSPECIFIED, UNCOMPLICATED Status: Chronic Priority: Low Current Visit: Yes - Patient Summary/Data Consults: Consultations 06/01/21 09:53 OT Evaluation and Treatment [CONS] Routine Please Evaluate and Treat. OT Reason for Consult: ADL's This query below is only for informational purposes and is not editable. Admission Diagnosis/Problem: COPD, Severe chronic obstructive pulmonary disease PT Evaluation and Treatment [CONS] Routine Please Evaluate and Treat. PT Reason for Consult: Strengthening This query below is only for informational purposes and is not editable. Admission Diagnosis/Problem: COPD, Severe chronic obstructive pulmonary disease Hospital Course: Miriam presented to the emergency room with increasing cough, shortness of breath and weakness. Work-up in the emergency room revealed evidence for left lung pneumonia complicated by acute respiratory failure with hypoxia as well as evidence for sepsis. There was evidence for urinary tract infection based on urinalysis. There was also concern for a COPD exacerbation with wheezing. RSV testing was also positive but Covid virus testing was negative. She was admitted to the hospital and started on antibiotic treatment aimed at a left lung pneumonia as well as management of the sepsis and urinary tract infection. She is chronically on oxygen but was more hypoxic than usual. Overnight following admission she did have a decompensation in her respiratory status. Blood gases were obtained and showed respiratory acidosis with a PCO2 of 64. She was started on NIPPV. She did have a good response to this with improvement in her respiratory status. Repeat blood gases showed improvement in her respiratory acidosis. Over the next couple of days we were able to decrease the amount of noninvasive ventilation she was requiring. Respiratory status showed continued improvement and improvement in her sepsis. Eventually we were able to stop using the NIPPV during the day and use it just at night. Her urine culture did grow out a pansensitive E. coli which was covered by the antibiotics for the left lung pneumonia. Over the next couple of days we were able to wean her down to near her usual amount of oxygen. Respiratory status has remained stable. Her strength and appetite have been steadily improving. We did de- escalate her steroids from high-dose down to 20 mg of prednisone daily. She has completed adequate antibiotics by the time of hospital discharge. She feels well enough to go home. We did have her daughter who provides significant support, evaluate her and her daughter felt that she was moving well enough and strong enough to be safe at home. She is interested in home care to help ease her transition home and new orders were completed. Patient is stable and safe for discharge. Also of note during the hospital stay we did encounter a very mildly elevated troponin. This likely represented demand ischemia in the setting of hypoxia and COPD exacerbation. Level trended down and normalized. EKG did not suggest ischemia. - Patient Instructions Diet: Regular Diet as Tolerated Activity: As Tolerated Showering/Bathing: May Shower Other/Special Instructions: 1. You were in the hospital for management of a left lower lobe pneumonia complicated by acute respiratory failure with both low oxygen and elevated carbon dioxide as well as an RSV infection and COPD exacerbation. Your condition has been improving with a combination of antibiotics, steroids and supportive cares. You have completed adequate antibiotic therapy at this time. You have completed adequate steroid therapy. I recommend that you continue to use your home oxygen as previously prescribed. You should continue to use your home medications as previously prescribed as well. You may increase your activity as tolerated. 2. I have placed a referral to home health care. They will provide nursing, physical therapy, occupational therapy and home health aide services to help improve your strength, endurance and ease your transition home from the hospital. 3. Continue your usual home medications as previously prescribed. 4. Follow up with your primary care as scheduled in about 2 weeks. - Discharge Plan *PRESCRIPTION DRUG MONITORING PROGRAM REVIEWED*: Not Applicable *COPY OF PRESCRIPTION DRUG MONITORING REPORT IN PATIENT DEMIAN: Not Applicable Prescriptions/Med Rec: Codeine/guaiFENesin [Robitussin AC] 10 ml PO Q4H PRN #236 ml PRN Reason: Cough Benzonatate [Tessalon Perles] 100 mg PO TID PRN #20 cap PRN Reason: Cough Home Medications: Home Meds ARIPiprazole [Abilify] 10 mg PO DAILY 06/09/19 [History] Acetaminophen 1 tab PO Q6H PRN 06/09/19 [History] Cholecalciferol (Vitamin D3) [Decara] 50,000 unit PO ASDIRECTED 06/09/19 [History] Ibuprofen [Motrin] 800 mg PO QID PRN 06/09/19 [History] Letrozole [Femara] 2.5 mg PO DAILY 06/09/19 [History] Losartan/Hydrochlorothiazide [Hyzaar 100-25 Tablet] 1 tab PO DAILY 06/09/19 [History] Nortriptyline HCl [Pamelor] 50 mg PO DAILY 06/09/19 [History] Oxybutynin 5 mg PO TID 06/09/19 [History] Pantoprazole Sodium [Protonix] 40 mg PO DAILY 06/09/19 [History] Pravastatin Sodium [Pravastatin (Pravachol)] 20 mg PO BEDTIME 06/09/19 [History] Tiotropium [place] [Spiriva Respimat] 2 puff IH DAILY 06/09/19 [History] Venlafaxine HCl [Venlafaxine ER] 75 mg PO DAILY 06/09/19 [History] amLODIPine Besylate [Norvasc] 10 mg PO DAILY 06/09/19 [History] traZODone 150 mg PO BEDTIME 06/09/19 [History] Aspirin [Halfprin] 81 mg PO DAILY 01/16/20 [History] ALPRAZolam [Alprazolam] 0.5 mg PO BID PRN #20 tablet 01/25/20 [Rx] Budesonide/Formoterol [Symbicort 80-4.5 MCG] 2 puff INH BID 12/18/20 [History] Fluticasone/Salmeterol [Advair 100-50] 2 puff INH BID 12/18/20 [History] Sennosides/Docusate Sodium [Senna-S 8.6-50 mg Tablet] 1 tab PO ASDIRECTED PRN 12/18/20 [History] Benzonatate [Tessalon Perles] 100 mg PO TID PRN #20 cap 06/04/21 [Rx] Codeine/guaiFENesin [Robitussin AC] 10 ml PO Q4H PRN #236 ml 06/04/21 [Rx] Oxygen Therapy Mode: Nasal Cannula Oxygen Flow Rate (L/min): 2 Patient Handouts: Fall Prevention in the Home, Adult, [id number]-[id number], Heart Failure, Self-Care, Bibg-ax-[id number], Respiratory Syncytial Virus Infection, Adult Forms: ED Department Discharge Referrals: Dipti Diaz DO [Physician] - 06/19/21 1:40 pm (Please arrive 15 minutes early to register for your appointment.) - Discharge Summary/Plan Comment DC Time >30 min.: Yes Total # of Minutes for Discharge Time: 40-set up home care - Patient Data Vitals - Most Recent: Last Vital Signs Temp 36.7 C 06/04/21 07:00 Pulse 63 11/18/21 07:00 Resp 16 06/04/21 07:00 BP 113/51 L 06/04/21 08:32 Pulse Ox 91 L 06/04/21 07:00 Weight - Most Recent: 107.501 kg I&O - Last 24 hours: Intake & Output 06/03/21 06/04/21 06/04/21 22:59 06:59 14:59 Intake Total 600 450 480 Balance 600 450 480 Lab Results - Last 24 hrs: Laboratory Results - last 24 hr 06/04/21 06/04/21 Range/Units 05:30 05:30 WBC 5.1 (4.5-11.0) K/uL RBC 4.73 (3.30-5.50) M/uL Hgb 10.7 L (12.0-15.0) g/dL Hct 39.0 (36.0-48.0) % MCV 83 (80-98) fL MCH 23 L (27-31) pg MCHC 27 L (32-36) % Plt Count 148 L (150-400) K/uL Sodium 146 (140-148) mmol/L Potassium 4.7 (3.6-5.2) mmol/L Chloride 104 (100-108) mmol/L Carbon Dioxide 37 H (21-32) mmol/L Anion Gap 9.7 (5.0-14.0) mmol/L BUN 20 H (7-18) mg/dL Creatinine 0.7 (0.6-1.0) mg/dL Est Cr Clr Drug Dosing 76.51 mL/min Estimated GFR (MDRD) > 60 (>60) Glucose 79 (74-106) mg/dL Calcium 8.9 (8.5-10.1) mg/dL Med Orders - Current: Current Medications Acetaminophen (Acetaminophen 325 Mg Tab) 650 mg PO Q4H PRN PRN Reason: Pain (Mild 1-3)/fever Albuterol (Albuterol 0.083% 2.5 Mg/3 Ml Neb Soln) 2.5 mg NEB Q1H PRN PRN Reason: Shortness of Breath Last Admin: 05/30/21 18:20 Dose: 2.5 mg Documented by: Albuterol/Ipratropium (Albuterol/Ipratropium 3.0-0.5 Mg/3 Ml Neb Soln) 3 ml NEB QIDRT [facility] Last Admin: 06/04/21 10:48 Dose: 3 ml Documented by: Alprazolam (Alprazolam 0.5 Mg Tab) 0.5 mg PO BID PRN PRN Reason: Anxiety Amlodipine Besylate (Amlodipine 5 Mg Tab) 10 mg PO DAILY [facility] Last Admin: 06/04/21 08:30 Dose: 10 mg Documented by: Aripiprazole (Aripiprazole 10 Mg Tab) 10 mg PO DAILY [facility] Last Admin: 06/04/21 08:23 Dose: 10 mg Documented by: Aspirin (Aspirin 81 Mg Tab.Ec) 81 mg PO DAILY [facility] Last Admin: 06/04/21 08:25 Dose: 81 mg Documented by: Benzonatate (Benzonatate 100 Mg Cap) 200 mg PO TID PRN PRN Reason: Cough Last Admin: 06/01/21 21:05 Dose: 200 mg Documented by: Bisacodyl (Bisacodyl 5 Mg Tab) 5 mg PO DAILY PRN PRN Reason: Constipation Cefdinir (Cefdinir 300 Mg Cap) 300 mg PO BID [facility] Last Admin: 06/04/21 08:25 Dose: 300 mg Documented by: Dextrose (Glucose Gel 15 Gm In 37.5 Gm Tube) 15 gm PO ONETIME PRN PRN Reason: Hypoglycemia Dextrose/Water (50% Dextrose In Water 50 Ml Syringe) 50 ml IV ONETIME PRN PRN Reason: Hypoglycemia Dimethicone/Zinc Oxide (Dimethicone 20%/Zinc Oxide 25% 56 Gm Quitaque Bottle) 0 gm TOP ASDIRECTED PRN PRN Reason: Rash Docusate Sodium (Docusate Sodium 100 Mg Cap) 100 mg PO BID PRN PRN Reason: Constipation Enoxaparin Sodium (Enoxaparin 40 Mg/0.4 Ml Syringe) 40 mg SUBCUT Q24H [facility] Last Admin: 06/03/21 19:25 Dose: 40 mg Documented by: Guaifenesin/Codeine Phosphate (Codeine/Guaifenesin 10-100 Mg/5 Ml Syrup 5 Ml Cup) 10 ml PO Q6H PRN PRN Reason: Cough Last Admin: 06/03/21 19:25 Dose: 10 ml Documented by: Hydrochlorothiazide (Hydrochlorothiazide 25 Mg Tab) 25 mg PO DAILY [facility] Last Admin: 06/04/21 08:32 Dose: 25 mg Documented by: Ibuprofen (Ibuprofen 800 Mg Tab) 800 mg PO QID PRN PRN Reason: Pain (moderate 4-6) Last Admin: 06/03/21 14:40 Dose: 800 mg Documented by: Lactulose (Lactulose Soln 10 Gm/15 Ml 15 Ml Ud Cup) 20 gm PO TID [facility] Last Admin: 06/04/21 08:24 Dose: 20 gm Documented by: Letrozole (Letrozole 2.5 Mg Tab) 2.5 mg PO DAILY [facility] Last Admin: 06/04/21 08:29 Dose: 2.5 mg Documented by: Lorazepam (Lorazepam 2 Mg/Ml Sdv) 1 mg IV Q6H PRN PRN Reason: Anxiety Last Admin: 05/28/21 01:58 Dose: 1 mg Documented by: Losartan Potassium (Losartan 50 Mg Tab) 100 mg PO DAILY [facility] Last Admin: 06/04/21 08:32 Dose: 100 mg Documented by: Magnesium Oxide (Magnesium Oxide 400 Mg Tab) 400 mg PO BID [facility] Last Admin: 06/04/21 08:25 Dose: 400 mg Documented by: Melatonin (Melatonin 3 Mg Tab) 6 mg PO BEDTIME PRN PRN Reason: Insomnia Last Admin: 05/27/21 22:19 Dose: 6 mg Documented by: Mometasone Furoate/Formoterol Fumar (Formoterol/Mometasone 100-5 Mcg 8.8 Gm Inhaler) 2 puff IH BIDRT [facility] Last Admin: 06/04/21 07:00 Dose: 2 puff Documented by: Morphine Sulfate (Morphine 2 Mg/Ml Syringe) 2 mg IVPUSH Q2H PRN PRN Reason: Pain (severe 7-10) Last Admin: 05/28/21 06:10 Dose: 1 mg Documented by: Nortriptyline HCl (Nortriptyline 25 Mg Cap) 50 mg PO DAILY [facility] Last Admin: 06/04/21 08:25 Dose: 50 mg Documented by: Nystatin (Nystatin Topical Powder 15 Gm Bottle) 0 gm TOP BID [facility] Last Admin: 06/04/21 08:25 Dose: 1 applic Documented by: Ondansetron HCl (Ondansetron 4 Mg Tab.Dis) 4 mg PO Q6H PRN PRN Reason: Nausea able to take PO Ondansetron HCl (Ondansetron 4 Mg/2 Ml Sdv) 4 mg IV Q4H PRN PRN Reason: Nausea/Vomiting Oxycodone HCl (Oxycodone 5 Mg Tab) 5 mg PO Q4H PRN PRN Reason: Pain (moderate 4-6) Last Admin: 05/28/21 14:09 Dose: 5 mg Documented by: Pantoprazole Sodium (Pantoprazole 40 Mg Tab.Cr) 40 mg PO BEDTIME [facility] Last Admin: 06/03/21 21:24 Dose: 40 mg Documented by: Potassium Chloride (Potassium Chloride 20 Meq Tab.Er) 20 meq PO BID [facility] Last Admin: 06/04/21 08:25 Dose: 20 meq Documented by: Pravastatin Sodium (Pravastatin 20 Mg Tab) 20 mg PO BEDTIME [facility] Last Admin: 06/03/21 21:24 Dose: 20 mg Documented by: Prednisone (Prednisone 20 Mg Tab) 20 mg PO WITHBREAKFAST [facility] Last Admin: 06/04/21 08:23 Dose: 20 mg Documented by: Sodium Chloride (Sodium Chloride 0.9% 10 Ml Syringe) 10 ml FLUSH ASDIRECTED PRN PRN Reason: Keep Vein Open Last Admin: 06/03/21 08:42 Dose: 10 ml Documented by: Tiotropium Eldorado (Tiotropium [place]orado 4 Gm Inhalation Quitaque (2.5mcg/1 Dose; 10 Doses)) 0 gm INH DAILYRT [facility] Last Admin: 06/04/21 07:01 Dose: 4 gm Documented by: Trazodone HCl (Trazodone 50 Mg Tab) 150 mg PO BEDTIME [facility] Last Admin: 06/03/21 21:24 Dose: 150 mg Documented by: Venlafaxine HCl (Venlafaxine 75 Mg Cap.Er) 75 mg PO DAILY [facility] Last Admin: 06/04/21 08:23 Dose: 75 mg Documented by: Discontinued Medications Albuterol (Albuterol 0.083% 2.5 Mg/3 Ml Neb Soln) 2.5 mg NEB ONETIME ONE Stop: 05/27/21 19:04 Last Admin: 05/27/21 19:09 Dose: 2.5 mg Documented by: Albuterol (Albuterol 0.083% 2.5 Mg/3 Ml Neb Soln) 2.5 mg NEB Q4H PRN PRN Reason: Shortness Of Breath/wheezing Last Admin: 05/27/21 23:04 Dose: 2.5 mg Documented by: Budesonide (Budesonide 0.25 Mg/2 Ml Neb Susp) 0.25 mg NEB ONETIME ONE Stop: 05/28/21 04:56 Last Admin: 05/28/21 05:07 Dose: Not Given Documented by: Budesonide (Budesonide 0.5 Mg/2 Ml Neb Susp) Confirm Administered Dose 0.5 mg .ROUTE .STK-MED ONE Stop: 05/28/21 05:02 Last Admin: 05/28/21 05:09 Dose: Not Given Documented by: Budesonide (Budesonide 0.5 Mg/2 Ml Neb Susp) 0.5 mg NEB ONETIME ONE Stop: 05/28/21 05:05 Last Admin: 05/28/21 05:04 Dose: 0.5 mg Documented by: Dimethicone/Zinc Oxide (Dimethicone 20%/Zinc Oxide 25% 56 Gm Quitaque Bottle) 1 gm TOP ASDIRECTED PRN PRN Reason: Rash Enoxaparin Sodium (Enoxaparin 40 Mg/0.4 Ml Syringe) 40 mg SUBCUT DAILY [facility] Last Admin: 05/27/21 22:14 Dose: 40 mg Documented by: Furosemide (Furosemide 40 Mg/4 Ml Vial) 60 mg IVPUSH ONETIME ONE Stop: 05/27/21 19:50 Last Admin: 05/27/21 19:59 Dose: 60 mg Documented by: Furosemide (Furosemide 20 Mg/2 Ml Vial) 20 mg IVPUSH ONETIME ONE Stop: 06/03/21 08:07 Last Admin: 06/03/21 08:40 Dose: 20 mg Documented by: Ceftriaxone Sodium 1 gm/ (Sodium Chloride) 50 mls @ 200 mls/hr IV Q24H HELIO Stop: 06/03/21 21:31 Last Admin: 05/30/21 20:34 Dose: 200 mls/hr Documented by: Azithromycin 500 mg/ Sodium (Chloride) 250 mls @ 250 mls/hr IV Q24H [facility] Stop: 05/30/21 22:01 Last Admin: 05/30/21 21:25 Dose: 250 mls/hr Documented by: Sodium Chloride (Normal Saline) 1,000 mls @ 500 mls/hr IV ASDIRECTED [facility] Last Admin: 05/28/21 07:54 Dose: 500 mls/hr Documented by: Sodium Chloride (Normal Saline) 1,000 mls @ 125 mls/hr IV ASDIRECTED [facility] Last Admin: 05/29/21 10:57 Dose: 125 mls/hr Documented by: Insulin Human Lispro (Insulin Lispro 100 Unit/Ml 3 Ml Kwikpen) 0 unit SUBCUT QIDACANDBED [facility]; Protocol Last Admin: 06/01/21 17:14 Dose: Not Given Documented by: Levalbuterol HCl (Levalbuterol Hcl 1.25 Mg/3 Ml Neb) Confirm Administered Dose 1.25 mg .ROUTE .STK-MED ONE Stop: 05/28/21 04:41 Last Admin: 05/28/21 04:44 Dose: Not Given Documented by: Levalbuterol HCl (Levalbuterol Hcl 1.25 Mg/3 Ml Neb) 1.25 mg NEB ONETIME ONE Stop: 05/28/21 04:43 Last Admin: 05/28/21 04:42 Dose: 1.25 mg Documented by: Lorazepam (Lorazepam 2 Mg/Ml Sdv) 1 mg IVPUSH ONETIME ONE Stop: 05/28/21 03:31 Last Admin: 05/28/21 03:54 Dose: 1 mg Documented by: Magnesium Oxide (Magnesium Oxide 400 Mg Tab) 400 mg PO DAILY [facility] Last Admin: 05/28/21 09:36 Dose: 400 mg Documented by: Magnesium Oxide (Magnesium Oxide 400 Mg Tab) 400 mg PO ONETIME ONE Stop: 05/27/21 22:22 Last Admin: 05/27/21 22:44 Dose: 400 mg Documented by: Methylprednisolone Sodium Succinate (Methylprednisolone Sodium Succinate 125 Mg/2 Ml Sdv) 125 mg IVPUSH ONETIME ONE Stop: 05/27/21 18:22 Last Admin: 05/27/21 18:33 Dose: 125 mg Documented by: Methylprednisolone Sodium Succinate (Methylprednisolone Sodium Succinate 125 Mg/2 Ml Sdv) 62.5 mg IV Q6H [facility] Last Admin: 05/30/21 05:01 Dose: 62.5 mg Documented by: Methylprednisolone Sodium Succinate (Methylprednisolone Sodium Succinate 40 Mg/1 Ml Sdv) 40 mg IV Q12H [facility] Last Admin: 05/31/21 05:24 Dose: 40 mg Documented by: Mometasone Furoate/Formoterol Fumar (Formoterol/Mometasone 100-5 Mcg 8.8 Gm Inhaler) 2 puff IH BID [facility] Last Admin: 05/27/21 22:33 Dose: 1 inhaler Documented by: Non-Formulary Medication (Fluticasone/Salmeterol [Advair 100-50]) 2 puff INH BID [facility] Last Admin: 05/27/21 23:53 Dose: Not Given Documented by: Non-Formulary Medication (Losartan/Hydrochlorothiazide [Hyzaar 100-25 Tablet]) 1 tab PO DAILY [facility] Nystatin (Nystatin Topical Powder 15 Gm Bottle) 0 gm TOP BID [facility] Last Admin: 05/27/21 23:53 Dose: 1 applic Documented by: Sodium Chloride (Sodium Chloride 0.9% Inhalation Soln 3 Ml Neb) 3 ml INH ONETIME ONE Stop: 05/28/21 04:56 Last Admin: 05/28/21 05:25 Dose: 3 ml Documented by:
[2021-06-04] MEDS: Codeine/guaiFENesin 10-100 MG/5 ML Syrup 5 ML Cup PO PRN (14:05)
== END 2021-06-04 14:13 | disposition home health service (06) | DRG 871 ==
LOC: JP.ED 18:02 → JP.MS 21:05 → JP.ICU 05-28 04:40 → JP.2SS 06-02 06:14 → JP.MS 06-02 13:55
PROVIDERS: ADMIT Hospitalist; ATTEND Internal Medicine
PROC: 5A09357 Assistance with Respiratory Ventilation, Less than 24 Consecutive Hours, Continuous Positive Airway Pressure (ICD-10-PCS; principal; 2021-05-28)
DX: A41.9 Sepsis, unspecified organism (principal); J44.9 Chronic obstructive pulmonary disease, unspecified; J18.9 Pneumonia, unspecified organism; J96.01 Acute respiratory failure with hypoxia; J96.02 Acute respiratory failure with hypercapnia; J44.0 Chronic obstructive pulmonary disease with (acute) lower respiratory infection; Z86.19 Personal history of other infectious and parasitic diseases; J44.1 Chronic obstructive pulmonary disease with (acute) exacerbation; I24.8 Other forms of acute ischemic heart disease; N39.0 Urinary tract infection, site not specified; B97.4 Respiratory syncytial virus as the cause of diseases classified elsewhere; R77.8 Other specified abnormalities of plasma proteins; H54.7 Unspecified visual loss; F41.9 Anxiety disorder, unspecified; Z20.822 Contact with and (suspected) exposure to COVID-19; F32.A Depression, unspecified; E55.9 Vitamin D deficiency, unspecified; D69.6 Thrombocytopenia, unspecified; M19.90 Unspecified osteoarthritis, unspecified site; R73.9 Hyperglycemia, unspecified; Z79.51 Long term (current) use of inhaled steroids; T38.0X5A Adverse effect of glucocorticoids and synthetic analogues, initial encounter; F17.210 Nicotine dependence, cigarettes, uncomplicated; B96.20 Unspecified Escherichia coli [E. coli] as the cause of diseases classified elsewhere; I50.9 Heart failure, unspecified; I11.0 Hypertensive heart disease with heart failure; K74.60 Unspecified cirrhosis of liver; F10.21 Alcohol dependence, in remission; E66.9 Obesity, unspecified; Z88.1 Allergy status to other antibiotic agents; Z88.8 Allergy status to other drugs, medicaments and biological substances; Z79.82 Long term (current) use of aspirin; Z79.899 Other long term (current) drug therapy; Z86.73 Personal history of transient ischemic attack (TIA), and cerebral infarction without residual deficits; Z85.3 Personal history of malignant neoplasm of breast; Z68.36 Body mass index [BMI] 36.0-36.9, adult
CPT/HCPCS: 0241U; 36415; 36600; 51702; 71045; 80048; 80053; 81001; 82803; 82947; 83735; 83880; 84484; 85025; 85027; 87040; 87086; 87088; 87186; 93005; 94640; 94660; 94762; 97110; 97162; 97165; 97530; 97535; 99285; A9270-GY; J0456; J0696; J1650; J1815; J1940; J2060; J2270; J2920; J2930; J7030; J7050; J7512; J7612-GY; J7620-GY

== ENCOUNTER 2021-10-04 00:37 | Emergency (ER) | payer MEDICARE, MEDICAID ==
[2021-10-04] MEDS ORDERED: Sodium Chloride 0.9% 75 ML IV SCH (04:30)
[2021-10-04] MEDS ORDERED: Sodium Chloride 0.9% 1,000 ML IV SCH (04:30)
[2021-10-04] MEDS ORDERED: Iopamidol 755 Mg/ML 100 ML Bottle IV SCH (04:30)
[2021-10-04] MEDS: Sodium Chloride 0.9% 10 ML Syringe FLUSH PRN ×2 (05:29→05:30)
[2021-10-04 07:23] LABS: CORONAVIRUS COVID-19 NAA NEGATIVE (NEGATIVE)
== END 2021-10-04 10:01 | disposition home or self-care (01) ==
LOC: JP.ED 00:37
DX: S80.01XA Contusion of right knee, initial encounter (principal); R53.1 Weakness; I10 Essential (primary) hypertension; J44.9 Chronic obstructive pulmonary disease, unspecified; E66.9 Obesity, unspecified; Z87.891 Personal history of nicotine dependence; Z68.38 Body mass index [BMI] 38.0-38.9, adult; Z86.73 Personal history of transient ischemic attack (TIA), and cerebral infarction without residual deficits; Z88.1 Allergy status to other antibiotic agents; Z88.8 Allergy status to other drugs, medicaments and biological substances; Z79.899 Other long term (current) drug therapy; Z20.822 Contact with and (suspected) exposure to COVID-19; W18.09XA Striking against other object with subsequent fall, initial encounter; Y92.000 Kitchen of unspecified non-institutional (private) residence as the place of occurrence of the external cause
CPT/HCPCS: 0241U; 36415; 71046; 71275; 73610; 80053; 80307; 81001; 82140; 82550; 83605; 83880; 84443; 84484; 85025; 86140; 87086; 87088; 87186; 93010; 99283; 99285; J7030; Q9967; J3490

== ENCOUNTER 2021-12-04 13:55 | Emergency (ER) | payer MEDICARE, MEDICAID ==
[2021-12-04] MEDS ORDERED: Albuterol/Ipratropium 3.0-0.5 MG/3 ML Neb Soln NEB ONE (14:59)
[2021-12-04] MEDS ORDERED: Nitrofurantoin Monohydrate/Macrocrystalline 100 MG Cap PO ONE (16:15)
[2021-12-04] MEDS ORDERED: predniSONE 20 MG Tab PO ONE (16:16)
== END 2021-12-04 16:32 | disposition home or self-care (01) ==
LOC: JP.ED 13:55
DX: J44.1 Chronic obstructive pulmonary disease with (acute) exacerbation (principal); J96.10 Chronic respiratory failure, unspecified whether with hypoxia or hypercapnia; N30.00 Acute cystitis without hematuria; R53.1 Weakness; I10 Essential (primary) hypertension; E66.9 Obesity, unspecified; Z68.36 Body mass index [BMI] 36.0-36.9, adult; Z87.891 Personal history of nicotine dependence; Z79.82 Long term (current) use of aspirin; Z88.8 Allergy status to other drugs, medicaments and biological substances; Z88.1 Allergy status to other antibiotic agents; Z20.822 Contact with and (suspected) exposure to COVID-19
CPT/HCPCS: 36415; 71045; 71045-26; 80053; 81001; 82140; 82803; 83735; 85025; 85379; 93005; 93010; 94640; 99283; 99285-25; A9270-GY; J7512; J7620; U0002

== ENCOUNTER 2021-12-07 16:27 | Emergency (ER) | payer MEDICARE, MEDICAID ==
[2021-12-07] MEDS ORDERED: Albuterol/Ipratropium 3.0-0.5 MG/3 ML Neb Soln NEB ONE (17:38)
== END 2021-12-07 18:38 | disposition home or self-care (01) ==
LOC: JP.ED 16:27
DX: J44.1 Chronic obstructive pulmonary disease with (acute) exacerbation (principal); I10 Essential (primary) hypertension; F17.210 Nicotine dependence, cigarettes, uncomplicated; E66.9 Obesity, unspecified; Z68.35 Body mass index [BMI] 35.0-35.9, adult; Z86.73 Personal history of transient ischemic attack (TIA), and cerebral infarction without residual deficits; Z88.1 Allergy status to other antibiotic agents; Z88.8 Allergy status to other drugs, medicaments and biological substances; Z79.899 Other long term (current) drug therapy; Z79.82 Long term (current) use of aspirin
CPT/HCPCS: 94640; 99282; 99284-25; J7620

== ENCOUNTER 2021-12-16 13:29 | Emergency (ER) | payer MEDICARE, MEDICAID ==
[2021-12-16 15:30] LABS: TROPONIN I HIGH SENSITIVITY 26.8 pg/mL (<=60.3)
== END 2021-12-16 18:34 | disposition home or self-care (01) ==
LOC: JP.ED 13:29
DX: R07.89 Other chest pain (principal); I10 Essential (primary) hypertension; J44.9 Chronic obstructive pulmonary disease, unspecified; F17.210 Nicotine dependence, cigarettes, uncomplicated; E66.9 Obesity, unspecified; Z68.36 Body mass index [BMI] 36.0-36.9, adult; Z86.73 Personal history of transient ischemic attack (TIA), and cerebral infarction without residual deficits; Z88.1 Allergy status to other antibiotic agents; Z88.8 Allergy status to other drugs, medicaments and biological substances; Z79.899 Other long term (current) drug therapy
CPT/HCPCS: 36415; 71045; 71045-26; 80053; 84484; 85025; 93005; 99283; 99285-25

== ENCOUNTER 2021-12-29 11:20 | Emergency (ER) | payer MEDICARE, MEDICAID | END 2021-12-29 14:50 | disposition home or self-care (01) | LOC: JP.ED 11:20 | DX: M54.50 Low back pain, unspecified (principal); R09.02 Hypoxemia; I10 Essential (primary) hypertension; E66.9 Obesity, unspecified; Z68.30 Body mass index [BMI] 30.0-30.9, adult; Z86.73 Personal history of transient ischemic attack (TIA), and cerebral infarction without residual deficits; Z88.1 Allergy status to other antibiotic agents; Z88.8 Allergy status to other drugs, medicaments and biological substances; Z79.82 Long term (current) use of aspirin; Z79.899 Other long term (current) drug therapy | CPT/HCPCS: 81001; 87086; 99282; 99283 ==

== ENCOUNTER 2022-01-03 16:25 | Emergency (ER) | payer MEDICARE, MEDICAID ==
[2022-01-03 17:46] LABS: ESTIMATED GFR 69 mL/min (>60)
[2022-01-03] MEDS ORDERED: Heparin Sodium 5,000 Units/ML Vial IVPUSH ONE (18:05)
[2022-01-03] MEDS ORDERED: Sodium Chloride 0.9% 10 ML Syringe FLUSH PRN (18:05)
[2022-01-03] MEDS ORDERED: Aspirin 81 MG Tab.Chew PO ONE (18:05)
[2022-01-03] MEDS ORDERED: Ticagrelor 90 MG Tab PO ONE (18:05)
[2022-01-03] MEDS ORDERED: Morphine 2 MG/ML SYRINGE IVPUSH PRN (18:05)
[2022-01-03] MEDS ORDERED: Nitroglycerin 0.4 MG Tab.SL SL PRN (18:05)
[2022-01-03] MEDS ORDERED: Ondansetron 4 MG/2 ML SDV IVPUSH PRN (18:05)
[2022-01-03] MEDS ORDERED: Heparin Sodium/D5W 25,000 UNITS/500 ML BAG IV SCH (18:15)
[2022-01-04] MEDS ORDERED: Ibuprofen 800 MG Tab PO PRN (07:24)
[2022-01-04] MEDS ORDERED: Non-Formulary Medication 1 Each (Albuterol Sulfate [Proair Respiclick] 90 MCG Aer.Pow.Ba) IH PRN (07:24)
[2022-01-04] MEDS ORDERED: ALPRAZolam 0.5 MG Tab PO PRN (07:24)
[2022-01-04] MEDS ORDERED: Cholecalciferol (Vitamin D3) 50,000 Unit Cap PO SCH (07:30)
[2022-01-04] MEDS ORDERED: Tiotropium Bromide 4 GM Inhalation Spray (2.5mcg/1 dose; 10 doses) INH SCH (07:45)
[2022-01-04] MEDS ORDERED: Albuterol 8 GM Inhaler INH PRN (08:00)
[2022-01-04] MEDS ORDERED: Pantoprazole 40 MG Tab.CR PO SCH ×2 (08:00→09:00)
[2022-01-04] MEDS ORDERED: amLODIPine 5 MG Tab PO SCH (09:00)
[2022-01-04] MEDS ORDERED: Non-Formulary Medication 1 Each (Potassium Chloride [Potassium Chloride] 20 MEQ Tablet.Er) PO SCH (09:00)
[2022-01-04] MEDS ORDERED: ARIPiprazole 10 MG Tab PO SCH (09:00)
[2022-01-04] MEDS ORDERED: Magnesium Oxide 400 MG Tab PO SCH (09:00)
[2022-01-04] MEDS ORDERED: Aspirin 81 MG Tab.EC PO SCH (09:00)
[2022-01-04] MEDS ORDERED: Non-Formulary Medication 1 Each (Amlodipine Besylate [Norvasc] 10 MG Tablet) PO SCH (09:00)
[2022-01-04] MEDS ORDERED: Famotidine 20 MG Tab PO SCH (09:00)
[2022-01-04] MEDS ORDERED: Oxybutynin 5 MG Tab PO SCH (09:00)
[2022-01-04] MEDS ORDERED: Non-Formulary Medication 1 Each (Famotidine [Famotidine] 40 MG Tablet) PO SCH (09:00)
[2022-01-04] MEDS ORDERED: Non-Formulary Medication 1 Each (Magnesium Chloride [Magnesium] 64 MG Tablet) PO SCH (09:00)
[2022-01-04] MEDS ORDERED: predniSONE 20 MG Tab PO SCH (09:00)
[2022-01-04] MEDS ORDERED: Non-Formulary Medication 1 Each (Fluticasone/Salmeterol [Advair 100-50] 14 PUFF/DISKUS Dis INH SCH (09:00)
[2022-01-04] MEDS ORDERED: Potassium Chloride 20 MEQ Tab.ER PO SCH (09:00)
[2022-01-04] MEDS ORDERED: NORTRIPTYLINE HCL 50 MG PO SCH (09:00)
[2022-01-04] MEDS ORDERED: Non-Formulary Medication 1 Each (Trazodone [Trazodone] 100 MG Tablet) PO SCH (21:00)
[2022-01-04] MEDS ORDERED: Pravastatin 20 MG Tab PO SCH (21:00)
[2022-01-04] MEDS ORDERED: Nortriptyline 25 MG Cap PO SCH (21:00)
[2022-01-04] MEDS ORDERED: traZODone 50 MG Tab PO SCH (21:00)
[2022-01-04] MEDS ORDERED: PRAVASTATIN SODIUM 40 MG PO SCH (21:00)
== END 2022-01-04 11:51 ==
LOC: JP.ED 16:25
DX: I21.4 Non-ST elevation (NSTEMI) myocardial infarction (principal); I10 Essential (primary) hypertension; E78.00 Pure hypercholesterolemia, unspecified; J44.9 Chronic obstructive pulmonary disease, unspecified; F41.9 Anxiety disorder, unspecified; F32.A Depression, unspecified; E66.9 Obesity, unspecified; Z68.36 Body mass index [BMI] 36.0-36.9, adult; Z20.822 Contact with and (suspected) exposure to COVID-19; Z88.8 Allergy status to other drugs, medicaments and biological substances; Z79.899 Other long term (current) drug therapy; Z88.1 Allergy status to other antibiotic agents
CPT/HCPCS: 36415; 71045; 73562; 80048; 80053; 81001; 82550; 83605; 84484; 85025; 85610; 85730; 93005; 93010; 96365; 96366; 96376; 99285; A9270; J1644; J7512; U0002

== ENCOUNTER 2022-02-22 15:14 | Emergency (ER) | payer MEDICARE, MEDICAID ==
[2022-02-22] MEDS ORDERED: Ketorolac 30 MG/ML SDV IM ONE (17:23)
[2022-02-22] MEDS ORDERED: Acetaminophen/HYDROcodone 325-5 MG Tab PO ONE (17:32)
== END 2022-02-22 19:46 | disposition home or self-care (01) ==
LOC: JP.ED 15:14
DX: S30.0XXA Contusion of lower back and pelvis, initial encounter (principal); D69.6 Thrombocytopenia, unspecified; J44.9 Chronic obstructive pulmonary disease, unspecified; R53.1 Weakness; M54.2 Cervicalgia; I10 Essential (primary) hypertension; E66.9 Obesity, unspecified; Z68.34 Body mass index [BMI] 34.0-34.9, adult; Z88.8 Allergy status to other drugs, medicaments and biological substances; Z88.1 Allergy status to other antibiotic agents; Z79.899 Other long term (current) drug therapy; Z79.82 Long term (current) use of aspirin; Z87.891 Personal history of nicotine dependence; W01.0XXA Fall on same level from slipping, tripping and stumbling without subsequent striking against object, initial encounter
CPT/HCPCS: 36415; 70450; 72125; 72220; 73560; 80048; 81001; 82550; 85025; 99284; A9270

== ENCOUNTER 2022-05-26 01:21 | Emergency (ER) | payer MEDICARE, MEDICAID ==
[2022-05-26] MEDS ORDERED: Sodium Chloride 0.9% 10 ML Syringe FLUSH PRN (02:19)
[2022-05-26] MEDS ORDERED: Dexamethasone 4 MG/ML SDV IVPUSH ONE (02:20)
[2022-05-26] MEDS ORDERED: Ampicillin 2 GM in Sodium Chloride 0.9% 100 ML IV ONE (02:24)
[2022-05-26] MEDS ORDERED: traMADol 50 MG Tab PO ONE (02:29)
[2022-05-26] MEDS ORDERED: Sodium Chloride 0.9% 50 ML IV STA (02:49)
[2022-05-26] MEDS ORDERED: Iopamidol 612 MG/ML 100 ML Bottle IV STA (02:49)
== END 2022-05-26 09:04 | disposition home or self-care (01) ==
LOC: JP.ED 01:21
DX: M47.816 Spondylosis without myelopathy or radiculopathy, lumbar region (principal); N30.01 Acute cystitis with hematuria; D64.9 Anemia, unspecified; E78.00 Pure hypercholesterolemia, unspecified; I10 Essential (primary) hypertension; J44.9 Chronic obstructive pulmonary disease, unspecified; M19.90 Unspecified osteoarthritis, unspecified site; E66.9 Obesity, unspecified; Z68.34 Body mass index [BMI] 34.0-34.9, adult; Z88.1 Allergy status to other antibiotic agents; Z88.8 Allergy status to other drugs, medicaments and biological substances; Z79.82 Long term (current) use of aspirin; Z79.02 Long term (current) use of antithrombotics/antiplatelets; Z79.899 Other long term (current) drug therapy
CPT/HCPCS: 36415; 74177; 80048; 85025; 96365; 96375; 99284; A9270; J0290; J1100; J3490; Q9967

== ENCOUNTER 2022-05-31 14:23 | Emergency (ER) | payer MEDICARE, MEDICAID ==
[2022-05-31 15:57] LABS: CORONAVIRUS COVID-19 NAA NEGATIVE (NEGATIVE)
== END 2022-05-31 16:56 | disposition home or self-care (01) ==
LOC: JP.ED 14:23
DX: J44.9 Chronic obstructive pulmonary disease, unspecified (principal); J06.9 Acute upper respiratory infection, unspecified; E78.00 Pure hypercholesterolemia, unspecified; I10 Essential (primary) hypertension; M19.90 Unspecified osteoarthritis, unspecified site; E66.9 Obesity, unspecified; Z68.38 Body mass index [BMI] 38.0-38.9, adult; Z86.16 Personal history of COVID-19; Z88.8 Allergy status to other drugs, medicaments and biological substances; Z88.1 Allergy status to other antibiotic agents; Z79.82 Long term (current) use of aspirin; Z79.02 Long term (current) use of antithrombotics/antiplatelets; Z79.899 Other long term (current) drug therapy; Z20.822 Contact with and (suspected) exposure to COVID-19
CPT/HCPCS: 0241U; 71045; 81001; 87086; 99285

== ENCOUNTER 2022-07-26 10:32 | Observation (INO) | payer MEDICARE, MEDICAID ==
[2022-07-26] MEDS ORDERED: fentaNYL 100 MCG/2 ML SDV IVPUSH ONE (10:39)
[2022-07-26] MEDS ORDERED: Albuterol/Ipratropium 3.0-0.5 MG/3 ML Neb Soln NEB ONE (10:44)
[2022-07-26 11:34] LABS: ESTIMATED GFR 93 mL/min (>60)
[2022-07-26 11:48] LABS: CORONAVIRUS COVID-19 NAA NEGATIVE (NEGATIVE)
[2022-07-26] MEDS ORDERED: HYDROmorphone 1 MG/ML Syringe IVPUSH ONE (12:05)
[2022-07-26] MEDS ORDERED: Bacitracin Oint 1 GM U/D Packet TOP ONE (12:05)
[2022-07-26] MEDS ORDERED: Lidocaine 4% Top Soln 50 ML Bottle TOP ONE (12:05)
[2022-07-26] MEDS ORDERED: FUROSEMIDE 40 MG PO PRN (14:28)
[2022-07-26] MEDS ORDERED: Melatonin 3 MG Tab PO PRN (14:28)
[2022-07-26] MEDS ORDERED: Albuterol 0.083% 2.5 MG/3 ML Neb Soln NEB PRN (14:28)
[2022-07-26] MEDS ORDERED: Magnesium Hydroxide 400 MG/5 ML Susp 30 ML Cup PO PRN (14:28)
[2022-07-26] MEDS ORDERED: Ondansetron 4 MG Tab.DIS PO PRN (14:28)
[2022-07-26] MEDS ORDERED: Non-Formulary Medication 1 Each (Lactulose [Lactulose] 10 GM/15 ML Solution) PO SCH (14:28)
[2022-07-26] MEDS ORDERED: Ondansetron 4 MG/2 ML SDV IV PRN (14:28)
[2022-07-26] MEDS ORDERED: Non-Formulary Medication 1 Each (Sennosides/Docusate Sodium [Senna-Docusate Sodium Tablet] PO PRN (14:28)
[2022-07-26] MEDS ORDERED: Albuterol/Ipratropium 3.0-0.5 MG/3 ML Neb Soln ONE (14:34)
[2022-07-26] MEDS: Albuterol/Ipratropium 3.0-0.5 MG/3 ML Neb Soln NEB SCH ×2 (14:39→21:34)
[2022-07-26] MEDS ORDERED: Furosemide 40 MG Tab PO PRN (14:57)
[2022-07-26] MEDS: Lactulose Soln 10 GM/15 ML 15 ML UD Cup PO SCH ×2 (15:15→21:28)
[2022-07-26] MEDS: Bacitracin Oint 28.35 GM Tube TOP SCH ×2 (15:16→21:27)
[2022-07-26] MEDS: Metoprolol Succinate 25 MG Tab.ER PO SCH (15:17)
[2022-07-26] MEDS: Losartan 25 MG Tab PO SCH (15:18)
[2022-07-26] MEDS: traMADol 50 MG Tab PO PRN ×2 (15:22→21:34)
[2022-07-26] MEDS: Acetaminophen 325 MG Tab PO PRN (19:08)
[2022-07-26] MEDS ORDERED: Non-Formulary Medication 1 Each (Trazodone [Trazodone] 100 MG Tablet) PO SCH (21:00)
[2022-07-26] MEDS ORDERED: Non-Formulary Medication 1 Each (Atorvastatin Calcium [Lipitor] 40 MG Tablet) PO SCH (21:00)
[2022-07-26] MEDS: atorvaSTATin 20 MG Tab PO SCH (21:28)
[2022-07-26] MEDS: traZODone 50 MG Tab PO SCH (21:29)
[2022-07-26] MEDS: HYDROmorphone 2 MG Tab PO PRN (21:53)
[2022-07-27] MEDS: Acetaminophen 325 MG Tab PO PRN ×2 (03:54→19:32)
[2022-07-27] MEDS: Albuterol/Ipratropium 3.0-0.5 MG/3 ML Neb Soln NEB SCH ×4 (07:16→20:52)
[2022-07-27] MEDS: Pantoprazole 40 MG Tab.CR PO SCH (07:59)
[2022-07-27] MEDS: Losartan 25 MG Tab PO SCH (08:02)
[2022-07-27] MEDS: Bacitracin Oint 28.35 GM Tube TOP SCH ×3 (08:03→20:53)
[2022-07-27] MEDS: ARIPiprazole 10 MG Tab PO SCH (08:04)
[2022-07-27] MEDS: Lactulose Soln 10 GM/15 ML 15 ML UD Cup PO SCH ×3 (08:05→20:52)
[2022-07-27] MEDS: Aspirin 81 MG Tab.EC PO SCH (08:05)
[2022-07-27] MEDS: Venlafaxine 75 MG Cap.ER PO SCH (08:05)
[2022-07-27] MEDS: Famotidine 20 MG Tab PO SCH (08:06)
[2022-07-27] MEDS: Magnesium Oxide 400 MG Tab PO SCH (08:06)
[2022-07-27] MEDS: Metoprolol Succinate 25 MG Tab.ER PO SCH (08:07)
[2022-07-27] MEDS: Clopidogrel 75 MG Tab PO SCH (08:11)
[2022-07-27] MEDS ORDERED: LETROZOLE 2.5 MG PO SCH (09:00)
[2022-07-27] MEDS ORDERED: Non-Formulary Medication 1 Each (Aspirin [Halfprin] 81 MG Tab.Ec) PO SCH (09:00)
[2022-07-27] MEDS ORDERED: Losartan 25 MG Tab PO SCH (09:00)
[2022-07-27] MEDS ORDERED: Non-Formulary Medication 1 Each (Metoprolol Succinate [Toprol Xl] 25 MG Tab.Er) PO SCH (09:00)
[2022-07-27] MEDS ORDERED: Non-Formulary Medication 1 Each (Magnesium Chloride [Magnesium] 64 MG Tablet) PO SCH (09:00)
[2022-07-27] MEDS ORDERED: Metoprolol Succinate 25 MG Tab.ER PO SCH (09:00)
[2022-07-27] MEDS ORDERED: CLOPIDOGREL 75 MG PO SCH (09:00)
[2022-07-27] MEDS ORDERED: Non-Formulary Medication 1 Each (Famotidine [Famotidine] 40 MG Tablet) PO SCH (09:00)
[2022-07-27] MEDS ORDERED: Non-Formulary Medication 1 Each (Losartan [Cozaar] 25 MG Tablet) PO SCH (09:00)
[2022-07-27] MEDS ORDERED: Non-Formulary Medication 1 Each (Pantoprazole Sodium [Protonix] 40 MG Tablet.Dr) PO SCH (09:00)
[2022-07-27] MEDS ORDERED: VENLAFAXINE 75 MG PO SCH (09:00)
[2022-07-27] MEDS ORDERED: Non-Formulary Medication 1 Each (Aripiprazole [Abilify] 10 MG Tablet) PO SCH (09:00)
[2022-07-27] MEDS: HYDROmorphone 2 MG Tab PO PRN ×3 (10:20→19:31)
[2022-07-27] MEDS: traZODone 50 MG Tab PO SCH (20:52)
[2022-07-27] MEDS: atorvaSTATin 20 MG Tab PO SCH (20:53)
[2022-07-28] MEDS: Albuterol/Ipratropium 3.0-0.5 MG/3 ML Neb Soln NEB SCH ×2 (07:01→10:50)
[2022-07-28] MEDS: Losartan 25 MG Tab PO SCH (08:10)
[2022-07-28] MEDS: Pantoprazole 40 MG Tab.CR PO SCH (08:10)
[2022-07-28] MEDS: Famotidine 20 MG Tab PO SCH (08:11)
[2022-07-28] MEDS: Bacitracin Oint 28.35 GM Tube TOP SCH (08:11)
[2022-07-28] MEDS: Lactulose Soln 10 GM/15 ML 15 ML UD Cup PO SCH (08:11)
[2022-07-28] MEDS: Metoprolol Succinate 25 MG Tab.ER PO SCH (08:12)
[2022-07-28] MEDS: ARIPiprazole 10 MG Tab PO SCH (08:12)
[2022-07-28] MEDS: Venlafaxine 75 MG Cap.ER PO SCH (08:12)
[2022-07-28] MEDS: Aspirin 81 MG Tab.EC PO SCH (08:12)
[2022-07-28] MEDS: Magnesium Oxide 400 MG Tab PO SCH (08:12)
[2022-07-28] MEDS: Clopidogrel 75 MG Tab PO SCH (08:12)
[2022-07-28] MEDS: HYDROmorphone 2 MG Tab PO PRN ×2 (08:16→12:25)
[2022-07-28] MEDS ORDERED: Bisacodyl 5 MG Tab PO ONE (10:30)
== END 2022-07-28 12:30 ==
LOC: JP.ED 10:32 → JP.MS 13:46
PROVIDERS: ADMIT Internal Medicine; ATTEND Internal Medicine
DX: T20.00XA Burn of unspecified degree of head, face, and neck, unspecified site, initial encounter (principal); F17.200 Nicotine dependence, unspecified, uncomplicated; J44.9 Chronic obstructive pulmonary disease, unspecified; I10 Essential (primary) hypertension; E78.00 Pure hypercholesterolemia, unspecified; I95.1 Orthostatic hypotension; M19.90 Unspecified osteoarthritis, unspecified site; E66.9 Obesity, unspecified; E55.9 Vitamin D deficiency, unspecified; R09.02 Hypoxemia; T14.91XA Suicide attempt, initial encounter; D69.6 Thrombocytopenia, unspecified; Z68.33 Body mass index [BMI] 33.0-33.9, adult; Z79.899 Other long term (current) drug therapy; Z79.82 Long term (current) use of aspirin; Z98.890 Other specified postprocedural states; Z20.822 Contact with and (suspected) exposure to COVID-19; Z88.2 Allergy status to sulfonamides; Z88.1 Allergy status to other antibiotic agents; Z01.818 Encounter for other preprocedural examination
CPT/HCPCS: 0241U; 36415; 36600; 71045; 80053; 81001; 82803; 83605; 85025; 94640; 96374; 96375; 99284; A9270; G0378; J1170; J3010; 99285; J7620